=== PATIENT | male | born 1935 ===

== ENCOUNTER 2022-01-22 07:24 | Outpatient (REF) | payer MEDICARE, SELFPAY ==
[2022-01-22 07:28] LABS: MANUAL DIFF FLAG NO
[2022-01-22 07:51] LABS: Basophils Absolute Auto 0.1 X10*3/uL (0.0-0.2); Basophils Percent Auto 0.6 % (0-2); Eosinophils Absolute Auto 0.2 X10*3/uL (0.0-0.4); Hematocrit 28.8 % (42.0-52.0); Hemoglobin 9.1 g/dl (14.0-18.0); Imm Gran Abs Auto 0.01 X10*3/uL (0.00-0.03); Imm Gran Pct Auto 0.1 % (0.0-0.4); Lymphocytes Absolute Auto 0.9 X10*3/uL (1.2-4.9); Lymphocytes Percent Auto 11.6 % (20-40); Mean Corpuscular HGB Conc 31.6 g/dl (31.0-36.0); Mean Corpuscular Hemoglobin 29.3 pg (27.0-33.0); Mean Corpuscular Volume 92.6 fL (80.0-98.0); Monocytes Absolute Auto 0.7 X10*3/uL (0.1-1.2); Monocytes Percent Auto 8.7 % (2-11); Neutrophils Absolute Auto 6.2 x10*3/uL (2.0-8.3); Platelet Count 246 X10*3/uL (160-400); Red Blood Count 3.11 X10*6/uL (4.60-5.80); Red Cell Distribution Width 12.7 % (11.0-16.0); White Blood Count 8.1 X10*3/uL (4.8-10.8)
[2022-01-22 08:16] LABS: Alanine Aminotransferase 11 U/L (0-40); Albumin Level 3.3 g/dL (3.5-5.0); Alkaline Phosphatase 111 U/L (39-117); Anion Gap 13 (12-20); Aspartate Amino Transferase 16 U/L (5-37); Bilirubin Total 0.3 mg/dL (0.0-1.0); Blood Urea Nitrogen 34 mg/dL (9-16); Calcium 9.2 mg/dL (8.4-10.2); Carbon Dioxide 26 mmol/L (22-29); Chloride 106 mmol/L (96-108); Estimated Glomerular Filt Rate 29; Glucose Random 142 mg/dL (60-115); Potassium 5.5 mmol/L (3.3-5.1); Sodium 139 mmol/L (135-145); Total Protein 6.3 g/dL (6.5-8.0)
== END 2022-01-22 07:25 | disposition home or self-care (01) ==
LOC: HO.MMNH1L 07:24
PROVIDERS: Visit Provider Family Medicine
DX: I10 Essential (primary) hypertension (principal); E11.9 Type 2 diabetes mellitus without complications
CPT/HCPCS: 36415; 80053; 85025

== ENCOUNTER 2022-01-29 07:55 | Outpatient (REF) | payer MEDICARE, SELFPAY ==
[2022-01-29 07:52] LABS: Basophils Percent Auto 0.6 % (0-2); Eosinophils Absolute Auto 0.3 X10*3/uL (0.0-0.4); Eosinophils Percent Auto 3.5 % (0-4); Hematocrit 30.9 % (42.0-52.0); Hemoglobin 9.6 g/dl (14.0-18.0); Imm Gran Abs Auto 0.03 X10*3/uL (0.00-0.03); Imm Gran Pct Auto 0.4 % (0.0-0.4); Lymphocytes Absolute Auto 0.7 X10*3/uL (1.2-4.9); Lymphocytes Percent Auto 10.4 % (20-40); MANUAL DIFF FLAG SCAN; Mean Corpuscular HGB Conc 31.1 g/dl (31.0-36.0); Mean Corpuscular Hemoglobin 29.5 pg (27.0-33.0); Mean Corpuscular Volume 95.1 fL (80.0-98.0); Mean Platelet Volume 10.4 fL (9.4-12.4); Monocytes Absolute Auto 0.7 X10*3/uL (0.1-1.2); Monocytes Percent Auto 9.4 % (2-11); Neutrophils Absolute Auto 5.4 x10*3/uL (2.0-8.3); Neutrophils Percent Auto 75.7 % (45-73); PLT CLUMP 1; Red Blood Count 3.25 X10*6/uL (4.60-5.80); Red Cell Distribution Width 13.1 % (11.0-16.0); SCAN SMEAR FLAG 1
[2022-01-29 07:53] LABS: Platelet Count 236 X10*3/uL (160-400); White Blood Count 7.1 X10*3/uL (4.8-10.8)
[2022-01-29 08:35] LABS: SLIDE REVIEW VERIFIED
== END 2022-01-29 07:56 | disposition home or self-care (01) ==
LOC: HO.MMNH1L 07:55
PROVIDERS: Visit Provider Family Medicine
DX: I10 Essential (primary) hypertension (principal); E11.9 Type 2 diabetes mellitus without complications
CPT/HCPCS: 36415; 80048; 85025

== ENCOUNTER 2022-01-30 10:23 | Outpatient (REF) | payer MEDICARE, SELFPAY ==
[2022-01-30 05:22] LABS: MANUAL DIFF FLAG NO
[2022-01-30 05:32] LABS: Basophils Percent Auto 0.4 % (0-2); Eosinophils Absolute Auto 0.3 X10*3/uL (0.0-0.4); Eosinophils Percent Auto 4.5 % (0-4); Hematocrit 31.5 % (42.0-52.0); Hemoglobin 9.8 g/dl (14.0-18.0); Imm Gran Abs Auto 0.02 X10*3/uL (0.00-0.03); Imm Gran Pct Auto 0.3 % (0.0-0.4); Lymphocytes Absolute Auto 0.8 X10*3/uL (1.2-4.9); Lymphocytes Percent Auto 10.4 % (20-40); Mean Corpuscular HGB Conc 31.1 g/dl (31.0-36.0); Mean Corpuscular Hemoglobin 29.4 pg (27.0-33.0); Mean Corpuscular Volume 94.6 fL (80.0-98.0); Mean Platelet Volume 9.6 fL (9.4-12.4); Monocytes Absolute Auto 0.9 X10*3/uL (0.1-1.2); Monocytes Percent Auto 11.9 % (2-11); Neutrophils Absolute Auto 5.5 x10*3/uL (2.0-8.3); Neutrophils Percent Auto 72.5 % (45-73); Platelet Count 227 X10*3/uL (160-400); Red Blood Count 3.33 X10*6/uL (4.60-5.80); Red Cell Distribution Width 13.2 % (11.0-16.0); White Blood Count 7.6 X10*3/uL (4.8-10.8)
[2022-01-30 05:59] LABS: Anion Gap 13 (12-20); Blood Urea Nitrogen 25 mg/dL (9-16); Calcium 9.4 mg/dL (8.4-10.2); Carbon Dioxide 22 mmol/L (22-29); Chloride 110 mmol/L (96-108); Estimated Glomerular Filt Rate 30; Glucose Random 65 mg/dL (60-115); Potassium 4.6 mmol/L (3.3-5.1); Sodium 140 mmol/L (135-145)
== END 2022-01-30 10:24 | disposition home or self-care (01) ==
LOC: HO.MMNH1L 10:23
PROVIDERS: Visit Provider Family Medicine
DX: I10 Essential (primary) hypertension (principal); E11.9 Type 2 diabetes mellitus without complications
CPT/HCPCS: 36415; 80048; 85025

== ENCOUNTER → 2022-06-08 09:54 | Outpatient (BNVA) | payer MEDICARE, SELFPAY | PROVIDERS: PCP Student in an Organized Health Care Education/Training Program; Visit Provider Internal Medicine Endocrinology, Diabetes & Metabolism | DX: E11.29 Type 2 diabetes mellitus with other diabetic kidney complication (principal) | CPT/HCPCS: 82947; 83036; 99202 ==

== ENCOUNTER → 2022-08-08 10:42 | Outpatient (BNVA) | payer MEDICARE, SELFPAY | PROVIDERS: PCP Student in an Organized Health Care Education/Training Program; Visit Provider Dietitian, Registered | DX: E11.29 Type 2 diabetes mellitus with other diabetic kidney complication (principal) | CPT/HCPCS: 97802 ==

== ENCOUNTER 2022-09-07 10:09 | Outpatient (AMB) | payer MEDICARE, SELFPAY ==
--- NOTE | 2022-09-07 10:47 | A.OFFVIS_ITS ---
Intake Intake Visit Reasons: Diabetes Type 2 Allergies No Known Allergies Allergy (Verified 06/08/22 10:06) [facility] [place] Medical History (Updated 06/08/22 @ 10:03 by Faustino Valdivia MD) DM renal manif type II Surgical History Hx of blepharoplasty Hx of cataract surgery Hx of colonoscopy Hx of lymph node excision Hx of melanoma excision Family History Mother No problems noted. Father Alzheimer disease Social History Alcohol intake: current Alcohol intake frequency: a few times a month Patient Tobacco Use Status: Former Tobacco user Quit Date: 2009 Coding Diagnoses
--- NOTE | 2022-09-07 10:52 | A.OFFVIS_ITS ---
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 Required: No Accompanied by: Spouse Allergies No Known Allergies Allergy (Verified 06/08/22 10:06) [facility] Comprehensive Diabetes Asmnt Most Recent Diabetes Results: Creatinine 2.09 mg/dL (0.5-1.4) H 01/30/22 Blood Urea Nitrogen 25 mg/dL (9-16) H 01/30/22 Sodium 140 mmol/L (135-145) 01/30/22 Potassium 4.6 mmol/L (3.3-5.1) 01/30/22 Chloride 110 mmol/L (96-108) H 01/30/22 Carbon Dioxide 22 mmol/L (22-29) 01/30/22 Calcium 9.4 mg/dL (8.4-10.2) 01/30/22 AST 16 U/L (5-37) 01/22/22 ALT 11 U/L (0-40) 01/22/22 Total Protein 6.3 g/dL (6.5-8.0) L 01/22/22 Albumin 3.3 g/dL (3.5-5.0) L 01/22/22 [facility] Medical History (Updated 06/08/22 @ 10:03 by Faustino Valdivia MD) DM renal manif type II Surgical History Hx of blepharoplasty Hx of cataract surgery Hx of colonoscopy Hx of lymph node excision Hx of melanoma excision Family History Mother No problems noted. Father Alzheimer disease Social History Alcohol intake: current Alcohol intake frequency: a few times a month Patient Tobacco Use Status: Former Tobacco user Quit Date: 2009 Assessment & Plan Assessment & Plan (1) DM renal manif type II: Code(s): E11.29 - Type 2 diabetes mellitus with other diabetic kidney complication Plan: Learning objectives: The patient was provided with verbal and written education on the following to pics as outlined below. The patient met all learning objectives and was able to verbalize understanding and provide teach back of education topics discussed . The patient was provided with the opportunity to ask questions and all questions were answered. Patient Assessment Assess patient education level/literacy/barriers, patient has diagnosis of dementia, his is his primary medical science liaison Patient questions/concerns, patient here with his for Education visit. Patient's last A1c 8 point in May 2022. Patient using freestyle Salma 2 Average glucose in the past 2 weeks 155 mg/dL Above target 33% At target 62% Below target 5% Patient's reports although Lantus prescription reads Lantus 40 units daily, she gives him closer to 30-35 units depending on his blood sugar before bed. Reviewed with patient action of Lantus. Recommended patient get Lantus 28 units consistently every night. If hypoglycemia continues call extension educator for further adjustment Patient is also taking Trulicity 1.5 mg week Exercise Medical clearance Effect of exercise on blood sugar Start slowly and gradually increase pace/duration over time Goal amount of exercise Checking blood glucose/have a source of carbs with you Medications (If applicable) * Name of medication * Dosing/administration instructions * Mechanism of action * Potential side effects * Potential adverse reaction and appropriate treatment * Review onset, peak, duration Assess for concerns re: insurance coverage, cost, barriers to compliance Insulin/Injectables (If applicable) * Storage/care of insulin * Injection sites * Site rotation * Onset, peak, duration * Drawing up insulin * Injecting insulin/other injectables * Sharps disposal Continuous blood glucose monitoring (if applicable) Hypoglycemia and Hyperglycemia * Signs and symptoms * Causes * Treatment * Preventing hypoglycemia * When to seek medical attention Medical alert bracelet Lifestyle * Work * Travel * Stress management * Problem solving Know your goals * A1C * Blood sugar targets New Goal:? Patient will add 15 minutes of physical activity daily Educational Materials: The patient was provided with the following written educational materials: Target goal and chair exercise handouts Patient Response to instructions: Comprehension of Instructions: Readiness to make changes: How confident they feel about making changes: Patient Instructions: Include regular daily activity. ADA recommends 30 minutes of exercise 5 days a week. Weight loss talk to PCP or Hog Ribber before starting new plan. Test blood sugar as directed; Fasting and 2hpp largest meal. Watch trends in results. Utilize results and to assess how food, physical activity and medications affect blood sugar results. Bring glucometer or CGM to next visit. Be knowledgeable about diabetes medication, its action, side effects, efficacy, toxicity, prescribed dosage, appropriate timing and frequency of administration, effect of missed and delayed doses and instructions for storage, travel and safety. Follow-up with Diabetes Education nurse in 3 months Reduce Lantus from 30 units to 28 units daily Call Diabetes Education nurse if hypoglycemia continues Coding Level of Care Code Est Pt Level 1 (97407) Diagnoses DM renal manif type II E11.29
== END 2022-09-07 10:55 | disposition home or self-care (01) ==
LOC: HO.ENCR 10:09
PROVIDERS: PCP Student in an Organized Health Care Education/Training Program; Visit Provider Registered Nurse Diabetes Educator
DX: E11.29 Type 2 diabetes mellitus with other diabetic kidney complication (principal)

== ENCOUNTER → 2022-09-07 10:09 | Outpatient (BNVA) | payer MEDICARE, SELFPAY | PROVIDERS: PCP Student in an Organized Health Care Education/Training Program; Visit Provider Registered Nurse Diabetes Educator | DX: E11.29 Type 2 diabetes mellitus with other diabetic kidney complication (principal) | CPT/HCPCS: 99211 ==

== ENCOUNTER 2022-11-22 14:14 | Outpatient (AMB) | payer MEDICARE, SELFPAY ==
[2022-11-22 14:15] VITALS: BP 126/58; PULSE 84; BMI 32.8
--- NOTE | 2022-11-22 14:15 | MHC.OFFVIS ---
Intake Vital Signs 11/22/22 14:15 Height 5 ft 4 in Weight 191 lb 5.78 oz BMI 32.8 BP 126/58 L Blood Pressure Location Lt brachial Position Sitting Pulse 84 Pulse Source Pulse Oximeter Intake Visit Reasons: Diabetes Type 2-NUMBER NOT IN SERV Intake Note: Patient present today to follow up on Type 2 Diabetes Mellitus. Last Diabetic Eye exam: 11/22/2022 Last Podiatry Visit: None Random Glucose: 244 mg/dl HgA1C: 8.1% Column Precaster Required: No Accompanied by: Spouse Allergies No Known Allergies Allergy (Verified 11/22/22 14:45) HPI HPI Comments History of Present Illness Details 87 YO F who is seen in consultation for T2DM at the request of PCP. Initially diagnosed with T2DM in 30 yrs - . Was initially started on treatment with metformin . Current regimen Trulicity 1.5 mg Qwkly Lantus 28 units Salma download shows he is using the sensor 67% of the time. Average glucose 186 with variability of 34.4%. Target glucose is 42% with 38% hyperglycemia and 16% very hyperglycemic and 4% hypoglycemia. Hypoglycemia is occurring overnight Most recent A1C 8.1 , Family history of T2DM in children . Has eyes checked yearly, last eye exam last wk , denies retinopathy. Denies neuropathy, not sees podiatry. Has nephropathy, on LALI/ARB. Sees Dr Ranjan Pro of nephrology Has HLD, on statin. Denies CAD. Had diabetes education. [facility] Medical History (Updated 06/08/22 @ 10:03 by Faustino Valdivia MD) DM renal manif type II Surgical History Hx of cataract surgery Hx of blepharoplasty Hx of colonoscopy Hx of lymph node excision Hx of melanoma excision Family History Mother No problems noted. Father Alzheimer disease Social History Alcohol intake: current Alcohol intake frequency: a few times a month Patient Tobacco Use Status: Former Tobacco user Quit Date: 2009 Physical Exam Vital Signs: Last Vital Signs Pulse 84 11/22/22 14:15 BP 126/58 L 11/22/22 14:15 BMI result Body Mass Index 32.8 Absence of Cushingoid features. Absence of acromegalic features. Neck exam reveals nl size thyroid about 15 gms. No thyroid nodules palpable. No carotid bruits present. Lungs CTA. Heart S1 S2, Reg R/R. No M/R/ G. Skin exam reveals absence of vitiligo or acanthosis nigricans. Abdominal exam reveals Soft NT/ND with NA BS. No organomegaly present. Neck Other: . Extrem Other: Visual exam of foot performed. No ulcerations or open lesions. No onchomycosis, no callouses.Pulses 2 + distally Sensation intact to monofilament exam. Vibratory sensation sensed is intact with 128 Hz tuning fork Results AMB Hemoglobin A1c AMB Hemoglobin A1c 8.1 % Last Edit by Yulisa Ramirez on 11/22/22 14:57 Results Reviewed Results Reviewed: 11/22/22 14:48 Glucose, Whole Blood Routine Laboratory Last Values Glucose (Clinic) 244 mg/dL (60-115) H 11/22/22 14:48 Assessment & Plan Assessment & Plan (1) DM renal manif type II: Code(s): E11.29 - Type 2 diabetes mellitus with other diabetic kidney complication Plan: Is a 87-year-old male with a history of type 2 diabetes being treated with Trulicity and basal insulin with poor glycemic control and known microvascular complications namely CKD stage 4. Plan is to decrease the Lantus to 30 units. In light of multiple comorbidities and age of patient goal of hemoglobin A1c should be < 8.5%. . Will send back to primary care provider and to return to endocrinology should HbA1c deteriorate Orders: Orders AMB Hemoglobin A1c Today E11.29 - Type 2 diabetes mellitus with other diabetic kidney complication Coding Level of Care Code Est Pt Level 4 (49688) Diagnoses DM renal manif type II E11.29
== END 2022-11-22 15:06 | disposition home or self-care (01) ==
PROVIDERS: PCP Student in an Organized Health Care Education/Training Program; Visit Provider Internal Medicine Endocrinology, Diabetes & Metabolism
DX: E11.29 Type 2 diabetes mellitus with other diabetic kidney complication (principal)
CPT/HCPCS: 99214

== ENCOUNTER → 2022-11-22 14:14 | Outpatient (BNVA) | payer MEDICARE, SELFPAY | PROVIDERS: Visit Provider Internal Medicine Endocrinology, Diabetes & Metabolism | DX: E11.29 Type 2 diabetes mellitus with other diabetic kidney complication (principal); Z79.85 Long-term (current) use of injectable non-insulin antidiabetic drugs; Z79.4 Long term (current) use of insulin | CPT/HCPCS: 82947; 83036; 99212 ==

== ENCOUNTER 2023-09-10 23:19 | Inpatient (IN) | payer MEDICARE, SELFPAY ==
--- NOTE | ~2023-09-10 | CT_ITS ---
EXAMINATION: CT ABDOMEN AND PELVIS WITHOUT CONTRAST CLINICAL INFORMATION: Follow-up prior imaging. COMPARISON: 09/11/2023 TECHNIQUE: Multidetector volumetric imaging was performed from the superior aspect of the liver through the pubic symphysis. Sagittal and coronal reformatted images were obtained on the technologist's workstation. This CT examination was performed using dose optimization techniques as appropriate, variously including the following: *Automated exposure control *Adjustment of mA and/or kV according to patient size (this includes techniques or standardized protocols for targeted exams where dose is matched to indication/reason for exam; i.e. extremities or head) *Use of iterative reconstruction technique DLP: 907 mGy-cm FINDINGS: Motion artifact technically degrades image quality. LUNG BASES: Patchy airspace disease in the right lower lobe. Bilateral pleural effusions. LIVER, GALLBLADDER, AND BILIARY TREE: The noncontrast liver is normal in size and contour. No biliary ductal dilatation is present. Possible hyperdense sludge in the gallbladder. PANCREAS: Unremarkable. SPLEEN: Not enlarged. ADRENAL GLANDS: No adrenal mass. KIDNEYS AND URETERS: The kidneys are symmetric in size. There are bilateral nonobstructing renal calculi. No hydronephrosis. Nonspecific perinephric stranding. BLADDER: Underdistended. GASTROINTESTINAL TRACT: Slight interval improvement in inflammatory changes in the right lower quadrant compared to the prior study. There is persistent mild dilatation of the appendix. No small bowel obstruction. ABDOMINAL WALL: Fat-containing left inguinal hernia. LYMPH NODES: No bulky lymphadenopathy. VASCULAR: Normal caliber abdominal aorta. PELVIC VISCERA: Enlarged prostate gland. OSSEOUS STRUCTURES: Increased sclerosis of the femoral heads. CT/CT abdomen pelvis wo IV con IMPRESSION: Slight interval improvement in inflammatory changes in the right lower quadrant compared to the prior study. Persistent mild dilatation of the appendix measuring up to 8 mm. Possible hyperdense sludge in the gallbladder. Nonobstructing bilateral renal calculi. No hydronephrosis. Patchy airspace disease in the right lower lobe. Bilateral pleural effusions.
--- NOTE | ~2023-09-10 | MR_ITS ---
EXAMINATION: MR BRAIN WITHOUT CONTRAST CLINICAL INFORMATION: AMS, r/o CVA COMPARISON: Same day noncontrast head CT. TECHNIQUE: Multiplanar multisequence MR imaging of the brain was obtained without intravenous contrast. FINDINGS: Please note that axial T2-weighted imaging of the brain was inadvertently not performed. There is no acute infarct on diffusion-weighted imaging. There is no intracranial hemorrhage on iron-sensitive imaging. No extra-axial collection or mass effect/herniation. Scattered periventricular and deep white matter T2 FLAIR hyperintensities consistent with mild underlying microangiopathy. No hydrocephalus. Moderate generalized volume loss with commensurate sulcal and ventricular prominence. The midline structures are normal. The cerebellar tonsils are normally positioned. The craniocervical junction is normal. Marrow signal is within normal limits. There is soft tissue thickening and scarring along the posterior scalp with underlying T1 hypointense marrow signal with corresponding sclerosis on CT. There is complete opacification of the sphenoid sinus heterogeneous predominantly FLAIR hypointense and T1 hyperintense contents extending into the posterior left ethmoid sinus. MR/MR head/brain wo con IMPRESSION: Motion degraded examination. Please note that axial T2-weighted sequence of the brain was inadvertently not performed as well 1. No acute infarct or other acute intracranial abnormality. 2. Moderate generalized cerebral volume loss and mild chronic white matter microangiopathy. 3. Complete opacification of the sphenoid sinus with heterogeneous predominantly T1 hyperintense and FLAIR hypointense contents extending into the posterior left ethmoid with corresponding reduced diffusion, likely reflecting sequela of chronic sinusitis with inspissated secretions and/or fungal colonization 4. There is thinning of the posterior parietal scalp with underlying calvarial T1 hypointense marrow signal with corresponding sclerosis on CT, which may reflect sequela of prior surgery and posttreatment changes. Correlate with clinical history.
--- NOTE | ~2023-09-10 | CT_ITS ---
EXAMINATION: CT ABDOMEN AND PELVIS WITHOUT CONTRAST CLINICAL INFORMATION: Acute abdomen, question appendicitis COMPARISON: None available. TECHNIQUE: Multidetector volumetric imaging was performed from the superior aspect of the liver through the pubic symphysis. Sagittal and coronal reformatted images were obtained on the technologist's workstation. This CT examination was performed using dose optimization techniques as appropriate, variously including the following: *Automated exposure control *Adjustment of mA and/or kV according to patient size (this includes techniques or standardized protocols for targeted exams where dose is matched to indication/reason for exam; i.e. extremities or head) *Use of iterative reconstruction technique DLP: 641 mGy-cm FINDINGS: LUNG BASES: Mild subpleural reticulation opacities suggesting a component of atelectasis. Coronary artery calcifications. LIVER, GALLBLADDER, AND BILIARY TREE: The liver is normal in size, shape, and attenuation. No focal hepatic lesion or biliary ductal dilatation is identified on this noncontrast exam. The gallbladder is unremarkable with no evidence of radiopaque gallstones, gallbladder wall thickening, or obvious pericholecystic inflammatory changes. PANCREAS: Unremarkable. SPLEEN: Unremarkable. ADRENAL GLANDS: Unremarkable. KIDNEYS AND URETERS: No hydronephrosis or obstructing calculus bilaterally. Few small scattered right renal calculi are noted. Nonspecific bilateral perinephric stranding. BLADDER: Partially distended, grossly unremarkable. GASTROINTESTINAL TRACT: No evidence of bowel obstruction. Limited evaluation for wall thickening within much of the colon due to luminal collapse. There is prominence of submucosal fat in the ascending colon which can be seen as sequelae of prior inflammation. Appendix appears borderline dilated in the right abdomen with some adjacent stranding such as on axial image 51. Scattered small amount of fluid in the lower abdomen bilaterally. Of note, there is also mild stranding seen elsewhere in the mesentery. No free air is seen. ABDOMINAL WALL: Fat-containing left inguinal hernia. LYMPH NODES: Normal. VASCULAR: Extensive vascular calcification. PELVIC VISCERA: Enlarged prostate gland measures approximately 5.5 cm in transverse dimension. OSSEOUS STRUCTURES: Multilevel degenerative changes in the spine. CT/CT abdomen pelvis wo IV con IMPRESSION: 1. Appendix appears borderline dilated in the right abdomen with some adjacent stranding, which could be indicative of mild/early acute appendicitis in the proper clinical setting. However, there is also mild stranding elsewhere in the mesentery as well as a small amount of free fluid in the lower abdomen which is nonspecific. 2. No hydronephrosis or obstructing calculus. Few small scattered right renal calculi. 3. Enlarged prostate gland.
--- NOTE | ~2023-09-10 | CT_ITS ---
EXAMINATION: CT ABDOMEN AND PELVIS WITHOUT CONTRAST CLINICAL INFORMATION: Right lower quadrant pain COMPARISON: None available. TECHNIQUE: Multidetector volumetric imaging was performed from the superior aspect of the liver through the pubic symphysis. Sagittal and coronal reformatted images were obtained on the technologist's workstation. This CT examination was performed using dose optimization techniques as appropriate, variously including the following: *Automated exposure control *Adjustment of mA and/or kV according to patient size (this includes techniques or standardized protocols for targeted exams where dose is matched to indication/reason for exam; i.e. extremities or head) *Use of iterative reconstruction technique DLP: 794 mGy-cm FINDINGS: STEAM TRAP MAN: Nonspecific bowel pattern. Mild L4 compression deformity. LUNG BASES: Small bilateral effusions and bibasilar atelectasis. Tiny pericardial effusion. Prominent cardiac silhouette. LIVER, GALLBLADDER, AND BILIARY TREE: The liver is normal in size, shape, and attenuation. No focal hepatic lesion or biliary ductal dilatation is present. The gallbladder is decompressed with no evidence of radiopaque gallstones, gallbladder wall thickening, or obvious pericholecystic inflammatory changes. PANCREAS: Unremarkable. SPLEEN: Unremarkable. ADRENAL GLANDS: Unremarkable. KIDNEYS AND URETERS: The kidneys are normal in size, shape, and attenuation. No hydronephrosis or hydroureter. Few very small nonobstructing right renal calculi, largest measuring 3 mm in the lower pole. Nonspecific mild perinephric stranding. BLADDER: Unremarkable. GASTROINTESTINAL TRACT: Study limited without oral contrast. Decompressed stomach. Hyperdensity in the duodenum likely ingested material. Nonobstructive bowel pattern. Persistent mildly thickened appendix but less prominent than on 09/11/2023 study, 3:42. No increasing periappendiceal inflammatory changes. Fatty infiltration of the ascending colonic jamison. Redundant sigmoid colon. PERITONEUM: Interval development of small volume ascites. ABDOMINAL WALL: Fat filled inguinal and small umbilical hernias. Likely injection sites anterior abdomen. LYMPH NODES: No pathologic lymphadenopathy. VASCULAR: Atherosclerotic calcifications nonaneurysmal aorta. PELVIC VISCERA: Prominent prostate again noted. OSSEOUS STRUCTURES: Mild L4 compression deformity. CT/CT abdomen pelvis wo IV con IMPRESSION: Interval development of small volume ascites. Worsening anasarca. Small bilateral effusions and tiny pericardial effusion. Study limited by lack of oral contrast. No definite bowel pathology. No change borderline thickened appendix with no evidence of focal periappendiceal inflammatory changes. Fleischner guidelines were followed.
--- NOTE | ~2023-09-10 | CT_ITS ---
EXAMINATION: CT HEAD WITHOUT CONTRAST CLINICAL INFORMATION: History of dementia, now presents with mental confusion, agitation and hallucinations COMPARISON: CT scan of brain on 04/07/2018 TECHNIQUE: Contiguous axial imaging was performed from the skull base to vertex without intravenous administration of contrast. This CT examination was performed using dose optimization techniques as appropriate, variously including the following: *Automated exposure control *Adjustment of mA and/or kV according to patient size (this includes techniques or standardized protocols for targeted exams where dose is matched to indication/reason for exam; i.e. extremities or head) *Use of iterative reconstruction technique DLP: 872 mGy-cm FINDINGS: Ventricles, sulci and cisterns are dilated, including moderate ventriculomegaly. Bilateral frontal and parietal deep white matters show abnormal decrease in attenuation. There is no midline shift, no abnormal intra- or extra- axial fluid accumulation. Scott and white matter differentiation is normal. Bone window images show no evidence of skull fracture. There is complete opacification of bilateral sphenoid sinuses. CT/CT head/brain wo IV con IMPRESSION: 1. 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 2. No intracranial hemorrhage or skull fracture is seen. 3. No evidence of space occupying lesion could be found. 4. The current plain CT scan of the brain shows no diagnostic evidence of acute cerebral infarction. 5. Interval development of marked bilateral sphenoid sinusitis.
--- NOTE | ~2023-09-10 | US_ITS ---
EXAMINATION: US ABDOMEN COMPLETE CLINICAL INFORMATION: Abdominal pain. COMPARISON: CT abdomen pelvis September 13, 2023 TECHNIQUE: Real-time imaging of the abdominal viscera. Date examination is limited secondary to patient body habitus and overlying bowel gas. FINDINGS: PANCREAS: The pancreas was obscured by overlying bowel gas and therefore not evaluated. ABDOMINAL AORTA: The abdominal aorta is obscured by overlying bowel gas and therefore not accurately evaluated. INFERIOR VENA CAVA: Visualized portions are normal. LIVER: Normal. The liver is normal in size. The liver contour is normal. Parenchymal echogenicity is normal. No focal hepatic lesion. There is no intrahepatic biliary duct dilatation seen. GALLBLADDER: Normal. The gallbladder is physiologically distended without evidence of stones, sludge, polyps, wall thickening or pericholecystic fluid. Negative sonographic Lovett's sign. COMMON BILE DUCT: 0.8 cm in diameter. RIGHT KIDNEY: The kidney measures 10.2 cm in maximum dimension. 1.5 cm simple appearing cyst. No renal calculi or hydronephrosis. LEFT KIDNEY: Normal. No hydronephrosis. No renal calculi or focal parenchymal lesions. The kidney measures 11.9 cm in maximum dimension. SPLEEN: Normal. The spleen measures 10.9 cm in maximum dimension. FREE FLUID: None. US/US abdomen complete IMPRESSION: 1. Examination limited secondary to patient body habitus and overlying bowel gas. 2. Small right renal cyst. 3. Otherwise unremarkable sonographic imaging of the abdomen.
--- NOTE | ~2023-09-10 | XR_ITS ---
EXAMINATION: XR CHEST CLINICAL INFORMATION: Bilateral end-expiratory wheezing COMPARISON: None available. TECHNIQUE: Frontal view of the chest was obtained. FINDINGS: Lung volumes are symmetric. There is a diffusely coarsened appearance of the interstitium. No definite focal consolidation. No evidence of pneumothorax or significant pleural effusion. The cardiomediastinal contour is unremarkable. No acute osseous findings are seen. XR/XR chest 1V IMPRESSION: Diffusely coarsened appearance of the interstitium, which could reflect airways disease/bronchitis. In the proper clinical setting, mild interstitial edema could have a similar appearance.
[2023-09-10 23:31] VITALS: BP 137/63; PULSE 89; RESP 18; TEMP 36.6; O2SAT 95; BMI 29.2
[2023-09-11] VITALS (8 sets, daily range): BP systolic 99–187; BP diastolic 55–91; PULSE 72–88; RESP 15–18; TEMP 36.1–37.1; O2SAT 92–95; BMI 31.3
[2023-09-11 00:10] LABS: Basophils Percent Auto 0.2 % (0-2); Eosinophils Absolute Auto 0.1 X10*3/uL (0.0-0.4); Eosinophils Percent Auto 1.2 % (0-4); Hematocrit 35.8 % (42.0-52.0); Hemoglobin 11.7 g/dl (14.0-18.0); Imm Gran Abs Auto 0.04 X10*3/uL (0.00-0.03); Imm Gran Pct Auto 0.5 % (0.0-0.4); Lymphocytes Absolute Auto 0.4 X10*3/uL (1.2-4.9); Lymphocytes Percent Auto 4.5 % (20-40); MANUAL DIFF FLAG SCAN; Mean Corpuscular HGB Conc 32.7 g/dl (31.0-36.0); Mean Corpuscular Hemoglobin 30.6 pg (27.0-33.0); Mean Corpuscular Volume 93.7 fL (80.0-98.0); Mean Platelet Volume 9.7 fL (9.4-12.4); Monocytes Absolute Auto 0.1 X10*3/uL (0.1-1.2); Monocytes Percent Auto 1.1 % (2-11); Neutrophils Absolute Auto 8.2 x10*3/uL (2.0-8.3); Neutrophils Percent Auto 92.5 % (45-73); Platelet Count 150 X10*3/uL (160-400); Red Blood Count 3.82 X10*6/uL (4.60-5.80); Red Cell Distribution Width 12.4 % (11.0-16.0); SCAN SMEAR FLAG 1; White Blood Count 8.9 X10*3/uL (4.8-10.8)
[2023-09-11 00:27] LABS: SLIDE REVIEW VERIFIED
[2023-09-11 00:36] LABS: Alanine Aminotransferase 13 U/L (0-40); Albumin Level 3.8 g/dL (3.5-5.0); Alkaline Phosphatase 100 U/L (39-117); Anion Gap 16 (12-20); Aspartate Amino Transferase 15 U/L (5-37); Bilirubin Total 0.4 mg/dL (0.0-1.0); Blood Urea Nitrogen 34 mg/dL (9-16); Calcium 10.4 mg/dL (8.4-10.2); Carbon Dioxide 24 mmol/L (22-29); Chloride 103 mmol/L (96-108); Creatinine Clr Calc Pharmacy 15.6; Estimated Glomerular Filt Rate 18; Glucose Random 222 mg/dL (60-115); Lipase 27 U/L (8-78); Potassium 4.6 mmol/L (3.3-5.1); Sodium 138 mmol/L (135-145); Total Protein 7.1 g/dL (6.5-8.0)
[2023-09-11] MEDS: 0.9 % Sodium Chloride 1,000 ML 999 ML IV ×2 (01:35→05:44)
[2023-09-11] MEDS: ondansetron HCL 4 MG/2 ML VIAL IVPUSH (01:35)
[2023-09-11] MEDS: Morphine Sulfate 4 MG/ML CARTRIDGE IVPUSH (01:35)
[2023-09-11 02:00] LABS: Lactic Acid 2.1 mmol/L (0.5-2.0)
--- NOTE | 2023-09-11 02:40 | ED_ITS ---
HPI - Abdominal Pain General Chief Complaint: Abdominal Pain Stated Complaint: right sided pain Time Seen by Provider: 09/11/23 00:30 Source: patient Mode of arrival: ambulatory Limitations: no limitations History of Present Illness ED Provider: el MCLEOD narrative: Patient's history of diabetes no significant abdominal complaints in the past comes here for pain in lower abdomen especially more on the right side started an hour prior to arrival history with nausea had a loose bowel movement on arrival was diaphoretic at home never had similar complaints in the past no blood in his stool no fever or chills no history of kidney stone patient feels slightly bloated Related Data Home Medications ?Medication ?Instructions ?Recorded ?Confirmed atorvastatin 40 mg tablet 40 mg PO BEDTIME 05/28/22 blood sugar diagnostic (FreeStyle #10 ea 05/28/22 Lite Strips) dulaglutide 1.5 mg/0.5 mL 1.5 mg subcut QWEEK 05/28/22 subcutaneous pen injector ([employer]) lancets 28 gauge (FreeStyle #100 ea 05/28/22 Lancets) lisinopril 40 mg tablet 40 mg PO DAILY 05/28/22 magnesium oxide 400 mg (241.3 mg 400 mg PO DAILY 05/28/22 magnesium) tablet memantine 5 mg tablet 5 mg PO BID 05/28/22 pen needle, diabetic 31 gauge x #1,200 ea 05/28/22/ (BD Ultra-Fine Short Pen Needle) propranolol 80 mg capsule,24 80 mg PO DAILY 05/28/22 hr,extended release torsemide 20 mg tablet 20 mg PO DAILY 05/28/22 escitalopram oxalate 20 mg tablet 20 mg PO DAILY 06/08/22 insulin glargine 100 unit/mL (3 40 unit subcut 06/08/22 mL) subcutaneous pen (Lantus Solostar U-100 Insulin) tamsulosin 0.4 mg capsule 0.4 mg PO DAILY 06/08/22 Previous Rx's ?Medication ?Instructions ?Recorded blood-glucose meter (FreeStyle #1 ea 06/08/22 Mcgill kit) flash glucose scanning reader #1 ea 06/08/22 (FreeStyle Salma 2 [place]) flash glucose sensor (FreeStyle #2 ea 09/07/22 Salma 2 Sensor kit) Allergies Allergy/AdvReac Type Severity Reaction Status Date / Time No Known Allergies Allergy Verified 09/10/23 23:32 Review of Systems Review of Systems Yes all other systems are reviewed and are negative [facility] Past Medical History Medical History DM renal manif type II Surgical History Hx of cataract surgery Hx of blepharoplasty Hx of colonoscopy Hx of lymph node excision Hx of melanoma excision Family History Family History Mother No problems noted. Father Alzheimer disease Social History Social History Alcohol intake: current Alcohol intake frequency: does not drink Patient Tobacco Use Status: Former Tobacco user Smoked in Last 30 Days: No Use of substances other than those prescribed or required for medical reasons: No Advance Directives: Yes Advance Directives Information Provided: No Advance Directives on File: No Nutrition Risks: Difficulty chewing and Difficulty swallowing Physical Exam ED Vital Signs: Vital Signs - 24 hr 09/10/23 23:31 09/11/23 01:22 09/11/23 01:51 Temperature 97.9 F 98.7 F 98.6 F Pulse Rate 89 85 85 Respiratory Rate 18 18 16 Blood Pressure 137/63 187/81 H 187/81 H Pulse Oximetry 95 92 93 Oxygen Delivery Method Room Air Room Air Room Air BMI result Body Mass Index 29.2 Appearance: Alert. Oriented X3. No acute distress. Eyes: No pallor or icterus ENT: Pharynx normal. Oral Mucosa moist Neck: Normal inspection. Neck supple. CVS: Normal heart rate and rhythm. Pulses normal. Respiratory: No respiratory distress. Equal air entry bilateral, no wheezing/rales/rhonchi Abdomen: Soft significant tenderness right lower abdomen with guarding no rebound tenderness. Bowel sounds are present, no mass palpable, no CVA tenderness Skin: Skin warm and dry. Normal skin color. Normal skin turgor. Extremities: No lower extremity edema. No calf tenderness Neuro: Oriented X 3. No motor deficit. Medical Decision Making Medical Decision Making MDM Narrative: Patient has acute onset of lower abdominal pain with normal WBC count slightly elevated lactic acid of 2.1 CT scan showed slightly enlarged appendix which is not very clear as appendicitis patient is seen by surgeon Dr. Lomeli does not think acute appendicitis but patient definitely has pain will admit to surgical service for now , started patient on Zosyn and IV hydration Differential Diagnosis Differential Diagnoses: The differential diagnosis associated with the presentation includes Acute appendicitis/diverticulitis/ureteric stone Admission/Observation Consideration of admission/observation: Escalation of care including admission/observation considered Consult Healthcare Provider Management of the patient was discussed with: Vp Director Of Creative Strategy Surgeon Dr. Lomeli Lab Data MDM Lab Attestation statement: I reviewed the patient's lab results. 09/11/23 00:05 09/11/23 00:05 Labs: Lab Results 09/11/23 09/11/23 Range/Units 00:05 01:34 WBC 8.9 (4.8-10.8) X10*3/uL RBC 3.82 L (4.60-5.80) X10*6/uL Hgb 11.7 L (14.0-18.0) g/dl Hct 35.8 L (42.0-52.0) % MCV 93.7 (80.0-98.0) fL MCH 30.6 (27.0-33.0) pg MCHC 32.7 (31.0-36.0) g/dl RDW 12.4 (11.0-16.0) % Plt Count 150 L D (160-400) X10*3/uL MPV 9.7 (9.4-12.4) fL Immature Gran % (Auto) 0.5 H (0.0-0.4) % Neut % (Auto) 92.5 H (45-73) % Lymph % (Auto) 4.5 L (20-40) % Lee % (Auto) 1.1 L (2-11) % Eos % (Auto) 1.2 (0-4) % Baso % (Auto) 0.2 (0-2) % Lymph # (Auto) 0.4 L (1.2-4.9) X10*3/uL Lee # (Auto) 0.1 (0.1-1.2) X10*3/uL Eos # (Auto) 0.1 (0.0-0.4) X10*3/uL Baso # (Auto) 0.0 (0.0-0.2) X10*3/uL Abs Immat Gran (auto) 0.04 H (0.00-0.03) X10*3/uL Absolute Neuts (auto) 8.2 (2.0-8.3) x10*3/uL Absolute Nucleated RBC 0.000 (0.0-0.012) X10*3/uL Nucleated RBC % (auto) 0.0 (0.0-0.2) /100WBC Smear Tech's Comments VERIFIED Sodium 138 (135-145) mmol/L Potassium 4.6 (3.3-5.1) mmol/L Chloride 103 (96-108) mmol/L Carbon Dioxide 24 (22-29) mmol/L Anion Gap 16 (12-20) BUN 34 H (9-16) mg/dL Creatinine 3.30 H (0.5-1.4) mg/dL Estim Creat Clear Calc 15.6 Estimated GFR 18 Random Glucose 222 H (60-115) mg/dL Lactic Acid 2.1 H* (0.5-2.0) mmol/L Calcium 10.4 H D (8.4-10.2) mg/dL Total Bilirubin 0.4 (0.0-1.0) mg/dL AST 15 (5-37) U/L ALT 13 (0-40) U/L Alkaline Phosphatase 100 (39-117) U/L Total Protein 7.1 (6.5-8.0) g/dL Albumin 3.8 (3.5-5.0) g/dL Lipase 27 (8-78) U/L Radiology Impression Discussion of test interpretation with radiology: I have reviewed the radiologist's reading. Radiologist Impression: [place] [id number] CT Scan Report Signed Patient: Jadiel Orantes MR#: [id number] : 1935 Acct:[id number] Age/Sex: 88 / M ADM Date: 09/11/23 Loc: HO.ED Attending Dr: Ordering Physician: Moshe Velasquez MD Date of Service: 09/11/23 Procedure(s): CT abdomen pelvis wo IV con Accession Number(s): [id number] cc: Kristy Pisano; Moshe Velasquez MD~ EXAMINATION: CT ABDOMEN AND PELVIS WITHOUT CONTRAST CLINICAL INFORMATION: Acute abdomen, question appendicitis COMPARISON: None available. TECHNIQUE: Multidetector volumetric imaging was performed from the superior aspect of the liver through the pubic symphysis. Sagittal and coronal reformatted images were obtained on the technologist's workstation. This CT examination was performed using dose optimization techniques as appropriate, variously including the following: *Automated exposure control *Adjustment of mA and/or kV according to patient size (this includes techniques or standardized protocols for targeted exams where dose is matched to indication/reason for exam; i.e. extremities or head) *Use of iterative reconstruction technique DLP: 641 mGy-cm FINDINGS: LUNG BASES: Mild subpleural reticulation opacities suggesting a component of atelectasis. Coronary artery calcifications. LIVER, GALLBLADDER, AND BILIARY TREE: The liver is normal in size, shape, and attenuation. No focal hepatic lesion or biliary ductal dilatation is identified on this noncontrast exam. The gallbladder is unremarkable with no evidence of radiopaque gallstones, gallbladder wall thickening, or obvious pericholecystic inflammatory changes. PANCREAS: Unremarkable. SPLEEN: Unremarkable. ADRENAL GLANDS: Unremarkable. KIDNEYS AND URETERS: No hydronephrosis or obstructing calculus bilaterally. Few small scattered right renal calculi are noted. Nonspecific bilateral perinephric stranding. BLADDER: Partially distended, grossly unremarkable. GASTROINTESTINAL TRACT: No evidence of bowel obstruction. Limited evaluation for wall thickening within much of the colon due to luminal collapse. There is prominence of submucosal fat in the ascending colon which can be seen as sequelae of prior inflammation. Appendix appears borderline dilated in the right abdomen with some adjacent stranding such as on axial image 51. Scattered small amount of fluid in the lower abdomen bilaterally. Of note, there is also mild stranding seen elsewhere in the mesentery. No free air is seen. ABDOMINAL WALL: Fat-containing left inguinal hernia. LYMPH NODES: Normal. VASCULAR: Extensive vascular calcification. PELVIC VISCERA: Enlarged prostate gland measures approximately 5.5 cm in transverse dimension. OSSEOUS STRUCTURES: Multilevel degenerative changes in the spine. CT/CT abdomen pelvis wo IV con IMPRESSION: 1. Appendix appears borderline dilated in the right abdomen with some adjacent stranding, which could be indicative of mild/early acute appendicitis in the proper clinical setting. However, there is also mild stranding elsewhere in the mesentery as well as a small amount of free fluid in the lower abdomen which is nonspecific. 2. No hydronephrosis or obstructing calculus. Few small scattered right renal calculi. 3. Enlarged prostate gland. Medications Administered Generic Name Dose Route Start Last Admin Trade Name Freq PRN Reason Stop Dose Admin Dextrose/Sodium Chloride 1,000 mls @ 100 mls/hr 09/11/23 06:00 09/11/23 06:23 D5ns IVCONT 100 mls/hr .Q10H SHAWNA Administration Discontinued Medications Generic Name Dose Route Start Last Admin Trade Name Freq PRN Reason Stop Dose Admin Sodium Chloride 1,000 mls @ 999 mls/hr 09/11/23 00:54 09/11/23 02:36 Ns IV 09/11/23 01:54 Infused .Q1H1M ONE Infusion Piperacillin Sod/Tazobactam 50 mls @ 100 mls/hr 09/11/23 03:35 09/11/23 04:32 Sod 3.375 gm/ Sodium Chloride IV 09/11/23 04:04 Infused ONCE ONE Infusion Sodium Chloride 1,000 mls @ 999 mls/hr 09/11/23 05:41 09/11/23 06:30 Ns IV 09/11/23 06:41 Infused .Q1H1M ONE Infusion Morphine Sulfate 4 mg 09/11/23 00:55 09/11/23 01:35 Morphine Sulfate 4 Mg/Ml Cartridge IVPUSH 09/11/23 00:56 4 mg ONCE ONE Administration Protocol Ondansetron HCl 4 mg 09/11/23 00:55 09/11/23 01:35 Ondansetron Hcl 4 Mg/2 Ml Vial IVPUSH 09/11/23 00:56 4 mg ONCE ONE Administration Discharge Plan Discharge Clinical Impression: Abdominal pain of unknown cause, Acute appendicitis Patient Disposition: Admitted As Inpatient
[2023-09-11 03:42] LABS: Reflex Lactate? Lactic Acid Added
[2023-09-11] MEDS: Piperacillin Sodium/Tazobactam 3.375 GM in 0.9 % Sodium Chloride 50 ML IV (03:47)
[2023-09-11 04:09] LABS: ~Lactic Acid-LAB USE ONLY 1.2 mmol/L (0.5-2.0)
--- NOTE | 2023-09-11 05:51 | P.HPGS_ITS ---
History of Present Illness History of Present Illness Date of Service: 09/11/23 Chief complaint: Abdominal Pain Narrative: Jadiel Orantes is a 88 year old male who was watching TV with his last night and then started to have abdominal pain. Started pretty suddenly but built up to the point where he was so uncomfortable that he came into the hospital. She says he has never had pain like this before. 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 He does have problems with his kidneys is not on dialysis but is being treated for kidney issues. He is diabetic. Here in the emergency room generally his blood work in regards to CBC looked fine with a normal white count his creatinine was elevated at 3.3. His says he does make some urine but does not know when the last time he urinated was. He has been having some diarrhea recently and he did have some nausea. He did not feel well but did not necessarily have a temperature. Review of Systems Neurologic: Reports confusion Psychiatric: Psychiatric: Reports confusion PMFSH Past Medical History Medical History DM renal manif type II Family History Family History Mother No problems noted. Father Alzheimer disease Surgical History Surgical History Hx of cataract surgery Hx of blepharoplasty Hx of colonoscopy Hx of lymph node excision Hx of melanoma excision Social History Social History Alcohol intake: current Alcohol intake frequency: does not drink Patient Tobacco Use Status: Former Tobacco user Smoked in Last 30 Days: No Use of substances other than those prescribed or required for medical reasons: No Advance Directives: Yes Advance Directives Information Provided: No Advance Directives on File: No Meds Allergies Allergy/AdvReac Type Severity Reaction Status Date / Time No Known Allergies Allergy Verified 09/10/23 23:32 Active Medications: Current Medications Sodium Chloride (Ns) 1,000 mls @ 999 mls/hr IV .Q1H1M ONE Stop: 09/11/23 06:41 Last Admin: 09/11/23 05:44 Dose: 999 mls/hr Home Medications ?Medication ?Instructions ?Recorded ?Confirmed ?Last Taken ?Type atorvastatin 40 mg tablet 40 mg PO BEDTIME 05/28/22 Unknown History blood sugar diagnostic (FreeStyle #10 ea 05/28/22 Unknown History Lite Strips) dulaglutide 1.5 mg/0.5 mL 1.5 mg subcut QWEEK 05/28/22 Unknown History subcutaneous pen injector ([employer]) lancets 28 gauge (FreeStyle #100 ea 05/28/22 Unknown History Lancets) lisinopril 40 mg tablet 40 mg PO DAILY 05/28/22 Unknown History magnesium oxide 400 mg (241.3 mg 400 mg PO DAILY 05/28/22 Unknown History magnesium) tablet memantine 5 mg tablet 5 mg PO BID 05/28/22 Unknown History pen needle, diabetic 31 gauge x #1,200 ea 05/28/22 Unknown History 07/03 (BD Ultra-Fine Short Pen Needle) propranolol 80 mg capsule,24 80 mg PO DAILY 05/28/22 Unknown History hr,extended release torsemide 20 mg tablet 20 mg PO DAILY 05/28/22 Unknown History escitalopram oxalate 20 mg tablet 20 mg PO DAILY 06/08/22 Unknown History insulin glargine 100 unit/mL (3 40 unit subcut 06/08/22 Unknown History mL) subcutaneous pen (Lantus Solostar U-100 Insulin) tamsulosin 0.4 mg capsule 0.4 mg PO DAILY 06/08/22 Unknown History Physical Exam Vital Signs: Vital Signs: Last Vital Signs Temp 98.6 F 09/11/23 01:51 Pulse 85 09/11/23 01:51 Resp 16 09/11/23 01:51 BP 187/81 H 09/11/23 01:51 Pulse Ox 93 09/11/23 01:51 O2 Del Method Room Air 09/11/23 01:51 BMI result Body Mass Index 29.2 Const: General: cooperative, confusion and tired appearing Orientation/consciousness: oriented to person, oriented to place and confusion Resp: Auscultation: clear to auscultation bilaterally Cardio: Rate: regular rate Rhythm: regular rhythm GI: Other: Abdomen is soft nondistended but he is diffusely tender with guarding and rebound especially the lower abdomen. No masses are noted. Active bowel sounds present Neuro: General: oriented to person, oriented to place and confusion Results Results Labs: Short CBC 09/11/23 Range/Units 00:05 WBC 8.9 (4.8-10.8) X10*3/uL Hgb 11.7 L (14.0-18.0) g/dl Hct 35.8 L (42.0-52.0) % Plt Count 150 L D (160-400) X10*3/uL BMP 09/11/23 00:05 Sodium 138 Potassium 4.6 Chloride 103 Carbon Dioxide 24 BUN 34 H Creatinine 3.30 H Calcium 10.4 H D Liver Function 09/11/23 Range/Units 00:05 Total Bilirubin 0.4 (0.0-1.0) mg/dL AST 15 (5-37) U/L ALT 13 (0-40) U/L Alkaline Phosphatase 100 (39-117) U/L Albumin 3.8 (3.5-5.0) g/dL Abdomen CT scan report/results: report reviewed and image reviewed CT scan - pelvis: report reviewed and image reviewed Additional studies: Chart - CarJump ? Diagnostics Subcategory All Activity ??:?? All Time ??:?? All Subcategories Filter Laboratory Imaging Microbiology Pathology Blood Bank Tests Cardiovascular Other Specialty DATE TYPE STATUS REF RANGE/AUTHOR Hx Today 01:24 Abdomen/Pelvis CT Signed Walt Hurd Santos Acute 88, M?1935 MRN#? [id number] ADM IN,?Emergency Department??ED Bed 07?-ED7? 5ft 5in 175lb 7.657oz BSA: 1.91m? BMI: 29.2kg/m? Acc#? [id number] Full Code Historical Visits Allergies No Known Allergies Problems ? ONSET DM renal manif type II Vital Signs Today 01:51 BP 187/81?H Pulse 85? Resp 16? Temp 98.6 F? O2 Sat 93? Delivery Room Air? Home Meds Not Confirmed Prescription Monitoring Program MEDICATIONS (INSTRUCTIONS) LAST TAKEN Active ??atorvastatin 40 mg tablet ??40 mgPOBEDTIME ??dulaglutide 1.5 mg/0.5 mL subcutaneous pen injector ??1.5 mgsubcutQWEEK ??escitalopram oxalate 20 mg tablet ??20 mgPODAILY ??insulin glargine 100 unit/mL (3 mL) subcutaneous pen ??40 unitsubcut ??lisinopril 40 mg tablet ??40 mgPODAILY ??magnesium oxide 400 mg (241.3 mg magnesium) tablet ??400 mgPODAILY ??memantine 5 mg tablet ??5 mgPOBID ??propranolol 80 mg capsule,24 hr,extended release ??80 mgPODAILY ??tamsulosin 0.4 mg capsule ??0.4 mgPODAILY ??torsemide 20 mg tablet ??20 mgPODAILY DME/Medical Supplies ??blood sugar diagnostic ??blood-glucose meter ??flash glucose scanning reader ??flash glucose sensor ??lancets 28 gauge ??pen needle, diabetic 31 gauge x 07/03 My Widget No Data to Display Diagnostics Reports Jadiel Orantes??88??M??1935 ? Allergy/Adv: No Known Allergies Close Abdomen/Pelvis CT (Signed) [facility] - 09/11/23 Launch?Image [address] [address] [address] Scan Report Signed Patient: Jadiel Orantes MR#: [id number] : 1935 Acct:[id number] Age/Sex: 88 / M ADM Date: 09/11/23 Loc: HO.ED Attending Dr: Ordering Physician: Moshe Velasquez MD Date of Service: 09/11/23 Procedure(s): CT abdomen pelvis wo IV con Accession Number(s): [id number] cc: Kristy Pisano; Moshe Velasquez MD~ EXAMINATION: CT ABDOMEN AND PELVIS WITHOUT CONTRAST CLINICAL INFORMATION: Acute abdomen, question appendicitis COMPARISON: None available. TECHNIQUE: Multidetector volumetric imaging was performed from the superior aspect of the liver through the pubic symphysis. Sagittal and coronal reformatted images were obtained on the technologist's workstation. This CT examination was performed using dose optimization techniques as appropriate, variously including the following: *Automated exposure control *Adjustment of mA and/or kV according to patient size (this includes techniques or standardized protocols for targeted exams where dose is matched to indication/reason for exam; i.e. extremities or head) *Use of iterative reconstruction technique DLP: 641 mGy-cm FINDINGS: LUNG BASES: Mild subpleural reticulation opacities suggesting a component of atelectasis. Coronary artery calcifications. LIVER, GALLBLADDER, AND BILIARY TREE: The liver is normal in size, shape, and attenuation. No focal hepatic lesion or biliary ductal dilatation is identified on this noncontrast exam. The gallbladder is unremarkable with no evidence of radiopaque gallstones, gallbladder wall thickening, or obvious pericholecystic inflammatory changes. PANCREAS: Unremarkable. SPLEEN: Unremarkable. ADRENAL GLANDS: Unremarkable. KIDNEYS AND URETERS: No hydronephrosis or obstructing calculus bilaterally. Few small scattered right renal calculi are noted. Nonspecific bilateral perinephric stranding. BLADDER: Partially distended, grossly unremarkable. GASTROINTESTINAL TRACT: No evidence of bowel obstruction. Limited evaluation for wall thickening within much of the colon due to luminal collapse. There is prominence of submucosal fat in the ascending colon which can be seen as sequelae of prior inflammation. Appendix appears borderline dilated in the right abdomen with some adjacent stranding such as on axial image 51. Scattered small amount of fluid in the lower abdomen bilaterally. Of note, there is also mild stranding seen elsewhere in the mesentery. No free air is seen. ABDOMINAL WALL: Fat-containing left inguinal hernia. LYMPH NODES: Normal. VASCULAR: Extensive vascular calcification. PELVIC VISCERA: Enlarged prostate gland measures approximately 5.5 cm in transverse dimension. OSSEOUS STRUCTURES: Multilevel degenerative changes in the spine. CT/CT abdomen pelvis wo IV con IMPRESSION: 1. Appendix appears borderline dilated in the right abdomen with some adjacent stranding, which could be indicative of mild/early acute appendicitis in the proper clinical setting. However, there is also mild stranding elsewhere in the mesentery as well as a small amount of free fluid in the lower abdomen which is nonspecific. 2. No hydronephrosis or obstructing calculus. Few small scattered right renal calculi. 3. Enlarged prostate gland. Dictated By: Walt Hurd MD Signed By: <Electronically signed by Walt Hurd MD in OV> 09/11/23 0322 DD/ 0124 TD/TT: Fitness And Wellness Manager: ONEIDA Assessment and Plan (1) Abdominal pain of unknown cause: Status: Acute Plan 88-year-old male with multiple medical problems diabetic looking like he has chronic renal insufficiency coming in with abdominal pain and elevated creatinine. CT scan showing some stranding in the mesentery around the appendix and then in other areas but nonspecific. Little bit of nonspecific free fluid and with the appendix looking a little dilated. Patient's tender in the right lower quadrant but significantly tender in the left side to. At this point I do not see any indication for any operation there surgery. Plan to admit NPO IV hydration if it is early appendicitis than treat with a course of IV antibiotics. We will get medical team to follow along. Serial abdominal exams and follow labs. Risks of surgery are pretty significant in him Quality Stroke Does the patient have a stroke diagnosis?: No VTE Prior VTE?: No VTE Risk Level:: Medical - moderate - high VTE Device Contraindication: N/A - Device Ordered VTE Drug Contraindication: Treatment Not Indicated Procedures Date of Service Date of Service: 09/11/23
[2023-09-11] MEDS: Dextrose 5 % and 0.9 % NaCl 1,000 ML 100 ML IVCONT ×2 (06:23→18:55)
--- NOTE | 2023-09-11 07:20 | ECG_ITS ---
Test Reason : pre op Blood Pressure : / mmHG Vent. Rate : 087 BPM Atrial Rate : 087 BPM P-R Int : 140 ms QRS Dur : 124 ms QT Int : 408 ms P-R-T Axes : 041 -37 -19 degrees QTc Int : 490 ms Normal sinus rhythm Left axis deviation RSR' or QR pattern in V1 suggests right ventricular conduction delay Nonspecific T wave abnormality Abnormal ECG No previous ECGs available Referred By: Moshe Velasquez Electronically Signed By:CHELI ZAMORA
[2023-09-11 07:55] LABS: Appearance Urine Clear; Color Urine Yellow; Glucose Urine UA >=1000 mg/dL (Negative); Leukocyte Esterase Urine Negative (Negative); Nitrite Urine Negative (Negative); PH 6.5 (5.0-9.0); UMIC TRIGGER UACC YES; Urine Blood Negative (Negative); Urine Ketones Negative (Negative); Urine Protein 300 (3+) mg/dL (Neg-Trace)
[2023-09-11 08:00] LABS: Bacteria Urine None Seen (None Seen); RBC Urine 0-2 /HPF (0-2); Squamous Epithelial Cell Urine 0-2 /HPF (0-2); WBC Urine 0-5 /HPF (0-5)
--- NOTE | 2023-09-11 08:28 | PM.PNGS ---
Subjective Subjective Date of Service: 09/11/23 Interval history: Patient admitted early this morning because of abdominal pain Describes loose stools this morning as well No vomiting Has known dementia, chronic kidney disease diabetes Physical Exam Vital Signs: Vital Signs: Last Vital Signs Temp 98.4 F 09/11/23 06:36 Pulse 88 09/11/23 06:36 Resp 18 09/11/23 06:36 BP 128/55 L 09/11/23 06:36 Pulse Ox 92 09/11/23 06:36 O2 Del Method Room Air 09/11/23 06:36 BMI result Body Mass Index 29.2 Const: Other: Complains of pain Resp: Effort & Inspection: normal respiratory effort Cardio: Rate: regular rate GI: Other: Protuberant, tender diffusely Objective Data Active Medications Acetaminophen (Acetaminophen 325 Mg Tablet) 650 mg PO Q6H PRN PRN Reason: Pain, Mild (Pain Scale 1-3), fever or headache Dextrose/Sodium Chloride (D5ns) 1,000 mls @ 100 mls/hr IVCONT .Q10H [facility] Last Admin: 09/11/23 06:23 Dose: 100 mls/hr Documented By: ELSY Melatonin (Melatonin 3 Mg Tablet) 6 mg PO BEDTIME PRN PRN Reason: Insomnia Ondansetron HCl (Ondansetron Hcl 4 Mg/2 Ml Vial) 4 mg IVPUSH Q8H PRN PRN Reason: Nausea and Vomiting Sodium Chloride (0.9 % Sodium Chloride Flush 3 Ml Syringe) 3 ml IVFLUSH QSHIFT [facility] Last Admin: 09/11/23 07:23 Dose: Not Given Documented By: JUWAN Non-Admin Reason: IV Running Labs 09/11/23 00:05 09/11/23 00:05 Labs: Laboratory Results - last 24 hr 09/11/23 09/11/23 09/11/23 00:05 01:34 07:37 MCV 93.7 MCH 30.6 MCHC 32.7 RDW 12.4 Plt Count 150 L D MPV 9.7 Immature Gran % (Auto) 0.5 H Neut % (Auto) 92.5 H Lymph % (Auto) 4.5 L [place] % (Auto) 1.1 L Eos % (Auto) 1.2 Baso % (Auto) 0.2 Lymph # (Auto) 0.4 L [place] # (Auto) 0.1 Eos # (Auto) 0.1 Baso # (Auto) 0.0 Abs Immat Gran (auto) 0.04 H Absolute Neuts (auto) 8.2 Absolute Nucleated RBC 0.000 Nucleated RBC % (auto) 0.0 Smear Tech's Comments VERIFIED Anion Gap 16 Estim Creat Clear Calc 15.6 Estimated GFR 18 Random Glucose 222 H Lactic Acid 2.1 H* Lactic Acid F/U @ 2Hr Calcium 10.4 H D Total Bilirubin 0.4 AST 15 ALT 13 Alkaline Phosphatase 100 Total Protein 7.1 Albumin 3.8 Lipase 27 Urine Color Yellow Urine Appearance Clear Urine pH 6.5 Ur Specific [place] 1.020 Urine Protein 300 (3+) H Urine Glucose (UA) >=1000 H Urine Ketones Negative Urine Blood Negative Urine Nitrite Negative Ur Leukocyte Esterase Negative Urine RBC 0-2 Urine WBC 0-5 Ur Squamous Epith Cells 0-2 Urine Bacteria None Seen Hyaline Casts 3-5 09/11/23 Unknown MCV MCH MCHC RDW Plt Count MPV Immature Gran % (Auto) Neut % (Auto) Lymph % (Auto) [place] % (Auto) Eos % (Auto) Baso % (Auto) Lymph # (Auto) [place] # (Auto) Eos # (Auto) Baso # (Auto) Abs Immat Gran (auto) Absolute Neuts (auto) Absolute Nucleated RBC Nucleated RBC % (auto) Smear Tech's Comments Anion Gap Estim Creat Clear Calc Estimated GFR Random Glucose Lactic Acid Lactic Acid F/U @ 2Hr 1.2 Calcium Total Bilirubin AST ALT Alkaline Phosphatase Total Protein Albumin Lipase Urine Color Urine Appearance Urine pH Ur Specific [place] Urine Protein Urine Glucose (UA) Urine Ketones Urine Blood Urine Nitrite Ur Leukocyte Esterase Urine RBC Urine WBC Ur Squamous Epith Cells Urine Bacteria Hyaline Casts Procedures Date of Service Date of Service: 09/11/23 Progress Note: A&P Assessment and plan (1) Abdominal pain of unknown cause: Status: Acute Assessment and Plan: 88 year old male with diffuse abdominal pain I have reviewed his CAT scan - some nonspecific mesenteric stranding, small amount of free fluid Clinical exam not suggestive of acute appendicitis He does have significant pain and tenderness Lactate was initially elevated at 2.1 but has normalized with IV fluids Uncertain as to the etiology of his abdominal pain but pain level is concerning WBC normal and he is not tachycardic I had a long discussion with daughter at bedside about the above She stated that they would not like him to have surgery in view of his age, known medical issues We will continue with supportive treatment with IV fluids and antibiotics for now Pain management Hospitalist follow-up Time Spent With Patient Time: Total time managing care of this patient today ____ minutes. Quality Stroke Does the patient have a stroke diagnosis?: No VTE Prior VTE?: No VTE Risk Level:: Medical - moderate - high VTE Device Contraindication: N/A - Device Ordered VTE Drug Contraindication: Treatment Not Indicated
[2023-09-11] MEDS: Acetaminophen 1,000 MG/100 ML PIGGYBACK 400 MG IV ×2 (08:47→22:15)
[2023-09-11] MEDS: Morphine Sulfate 2 MG/ML CARTRIDGE IVPUSH (08:50)
--- NOTE | 2023-09-11 09:02 | PC.NURSE ---
resting in room w/ family at bedside. medicated per the MAR for pain. met w/ surgeon this morning. remains npo at this time
[2023-09-11] MEDS: Piperacillin Sodium/Tazobactam 2.25 GM in 0.9 % Sodium Chloride 50 ML IV ×2 (09:31→19:15)
--- NOTE | 2023-09-11 10:35 | PHA.MEDREC ---
Addendum entered by Hailey Ndiaye, [facility] 09/13/23 09:22: Spoke to via phone, she confirmed pt takes propranolol 20 mg bid (in the morning and at suppertime). Addendum entered by Claudia Trent 09/13/23 09:18: re-confirmed Propanolol is 20 mg bid Not Addendum entered by Perri Medley, [facility] 09/11/23 15:10: reviewed by [facility] Original Note: Pharmacy Consult ? Medication Reconciliation Pharmacy has completed the medication reconciliation. Spoke to patient's at bedside to confirm med list. had list and was able to confirm all meds. states patient injects Trulicity 1.5 mg every Saturday. Patient last dose was Saturday09-07-23. Lantus 40 units at bedtime.
--- NOTE | 2023-09-11 12:08 | MHC.CM.PN ---
Patient has a diagnosis of Dementia; CM spoke with /Aleta at [phone] and addressed IMM with her (original will be mailed certified mail to and a copy will be placed on the chart). Patient lives in a house with his , uses a cane and a walker, and has had [facility] in the past. Home with possible new [facility] is the tentative plan and CM has initiated and will follow for dc planning. PCP/PA is Kristy Pisano and Daughter/Olena is the HCP(Copy requested).
--- NOTE | 2023-09-11 12:36 | P.CONHOSP_ITS ---
History of Present Illness Data of Consult Service Date: 09/11/23 Requesting physician: Latisha Lomeli Primary Care Provider: MELISA Rivera Reason for consult: medical management 88 year old male with history of htn, type 2 diabetes, bph, unspecified dementia with mood disorder, and hld admitted to general surgery for acute appendicitis with consult placed to hospitalist for medical management. Patient is a limited historian but is reporting diffuse abdominal pain, greatest in the right lower quadrant. Denies any nausea, vomiting, diarrhea. Per family, developed sudden onset severe right lower quadrant pain last night and presented to the ED for evaluation. CT abdomen/pelvis shows appendix with borderline dilatation in the right abdomen and some adjacent stranding possibly indicative of mild/early appendicitis with some mild stranding of the mesentery and small amount of free fluid which is nonspecific. General surgery discussed case with patient and family who opted for conservative management and he has been started on empiric Zosyn and is currently NPO. Review of Systems 2 Review of Systems: Yes all other systems are reviewed and are negative [facility] Medical History (Updated 09/11/23 @ 15:41 by MELISA Li) Dementia with mood disturbance BPH (benign prostatic hyperplasia) HLD (hyperlipidemia) HTN (hypertension) DM renal manif type II Family History Mother No problems noted. Father Alzheimer disease Surgical History Hx of cataract surgery Hx of blepharoplasty Hx of colonoscopy Hx of lymph node excision Hx of melanoma excision Social History Alcohol intake: current Alcohol intake frequency: does not drink Patient Tobacco Use Status: Former Tobacco user Smoked in Last 30 Days: No Use of substances other than those prescribed or required for medical reasons: No Advance Directives: Yes Advance Directives Information Provided: No Advance Directives on File: No Nutrition Risks: Difficulty chewing and Difficulty swallowing service: Yes Meds Allergies Allergy/AdvReac Type Severity Reaction Status Date / Time No Known Allergies Allergy Verified 09/10/23 23:32 Active Medications: Current Medications Acetaminophen (Acetaminophen 325 Mg Tablet) 650 mg PO Q6H PRN PRN Reason: Pain, Mild (Pain Scale 1-3), fever or headache Dextrose/Sodium Chloride (D5ns) 1,000 mls @ 100 mls/hr IVCONT .Q10H [facility] Last Admin: 09/11/23 06:23 Dose: 100 mls/hr Acetaminophen (Ofirmev) 1,000 mg in 100 mls @ 400 mls/hr IV Q6H [facility] Stop: 09/12/23 02:59 Last Infusion: 09/11/23 09:33 Dose: Infused Piperacillin Sod/Tazobactam (Sod 2.25 gm/ Sodium Chloride) 50 mls @ 100 mls/hr IV Q8H [facility] Last Infusion: 09/11/23 11:05 Dose: Infused Melatonin (Melatonin 3 Mg Tablet) 6 mg PO BEDTIME PRN PRN Reason: Insomnia Morphine Sulfate (Morphine Sulfate 2 Mg/Ml Cartridge) 2 mg IVPUSH Q3H PRN; Protocol PRN Reason: Pain, Severe (Pain Scale 7-10) Last Admin: 09/11/23 08:50 Dose: 2 mg Ondansetron HCl (Ondansetron Hcl 4 Mg/2 Ml Vial) 4 mg IVPUSH Q8H PRN PRN Reason: Nausea and Vomiting Sodium Chloride (0.9 % Sodium Chloride Flush 3 Ml Syringe) 3 ml IVFLUSH QSHIFT [facility] Last Admin: 09/11/23 07:23 Dose: Not Given Home Medications ?Medication ?Instructions ?Recorded ?Confirmed ?Last Taken ?Type atorvastatin 40 mg tablet 40 mg PO BEDTIME 05/28/22 09/11/23 09/10/23 History blood sugar diagnostic (FreeStyle #10 ea 05/28/22 Unknown History Lite Strips) dulaglutide 1.5 mg/0.5 mL 1.5 mg subcut SA 05/28/22 09/11/23 09/10/23 History subcutaneous pen injector (Trulicity) lancets 28 gauge (FreeStyle #100 ea 05/28/22 Unknown History Lancets) lisinopril 40 mg tablet 40 mg PO DAILY 05/28/22 09/11/23 09/10/23 History magnesium oxide 400 mg (241.3 mg 400 mg PO DAILY 05/28/22 09/11/23 09/10/23 History magnesium) tablet memantine 5 mg tablet 5 mg PO BID 05/28/22 09/11/23 09/10/23 History pen needle, diabetic 31 gauge x #1,200 ea 05/28/22 Unknown History 07/03 (BD Ultra-Fine Short Pen Needle) propranolol 80 mg capsule,24 20 mg PO DAILY 05/28/22 09/11/23 09/10/23 History hr,extended release torsemide 20 mg tablet 20 mg PO DAILY 05/28/22 09/11/23 09/10/23 History escitalopram oxalate 20 mg tablet 20 mg PO DAILY 06/08/22 09/11/23 09/10/23 History insulin glargine 100 unit/mL (3 40 unit subcut BEDTIME 06/08/22 09/11/23 09/10/23 History mL) subcutaneous pen (Lantus Solostar U-100 Insulin) tamsulosin 0.4 mg capsule 0.4 mg PO DAILY 06/08/22 09/11/23 09/10/23 History cyanocobalamin (vitamin B-12) 500 500 mcg PO DAILY 09/11/23 09/11/23 09/10/23 History mcg tablet (Vitamin B-12) multivitamin 1 tab PO DAILY 09/11/23 09/11/23 09/10/23 History Physical Exam 2 Vital Signs and Narrative: Vital Signs: Last Vital Signs Temp 98.4 F 09/11/23 06:36 Pulse 88 09/11/23 06:36 Resp 18 09/11/23 06:36 BP 128/55 L 09/11/23 06:36 Pulse Ox 92 09/11/23 06:36 O2 Del Method Room Air 09/11/23 06:36 BMI result Body Mass Index 29.2 Constitutional - Awake and Alert, No apparent distress Eyes - PERRLA, EOMI Cardiovascular - S1S2, RRR, No edema Respiratory - Normal lung expansion, Normal respiratory effort, No respiratory distress, CTA bilaterally Extremities - no calf tenderness bilaterally, no swelling Skin - Warm/Dry Neurological - Alert & oriented to self and place Psychological - Appropriate affect Results Labs 09/11/23 00:05 09/11/23 00:05 Labs: Laboratory Results - last 24 hr 09/11/23 09/11/23 09/11/23 00:05 01:34 07:37 MCV 93.7 MCH 30.6 MCHC 32.7 RDW 12.4 Plt Count 150 L D MPV 9.7 Immature Gran % (Auto) 0.5 H Neut % (Auto) 92.5 H Lymph % (Auto) 4.5 L [place] % (Auto) 1.1 L Eos % (Auto) 1.2 Baso % (Auto) 0.2 Lymph # (Auto) 0.4 L [place] # (Auto) 0.1 Eos # (Auto) 0.1 Baso # (Auto) 0.0 Abs Immat Gran (auto) 0.04 H Absolute Neuts (auto) 8.2 Absolute Nucleated RBC 0.000 Nucleated RBC % (auto) 0.0 Smear Tech's Comments VERIFIED Anion Gap 16 Estim Creat Clear Calc 15.6 Estimated GFR 18 Random Glucose 222 H Lactic Acid 2.1 H* Lactic Acid F/U @ 2Hr Calcium 10.4 H D Total Bilirubin 0.4 AST 15 ALT 13 Alkaline Phosphatase 100 Total Protein 7.1 Albumin 3.8 Lipase 27 Urine Color Yellow Urine Appearance Clear Urine pH 6.5 Ur Specific [place] 1.020 Urine Protein 300 (3+) H Urine Glucose (UA) >=1000 H Urine Ketones Negative Urine Blood Negative Urine Nitrite Negative Ur Leukocyte Esterase Negative Urine RBC 0-2 Urine WBC 0-5 Ur Squamous Epith Cells 0-2 Urine Bacteria None Seen Hyaline Casts 3-5 09/11/23 Unknown MCV MCH MCHC RDW Plt Count MPV Immature Gran % (Auto) Neut % (Auto) Lymph % (Auto) [place] % (Auto) Eos % (Auto) Baso % (Auto) Lymph # (Auto) [place] # (Auto) Eos # (Auto) Baso # (Auto) Abs Immat Gran (auto) Absolute Neuts (auto) Absolute Nucleated RBC Nucleated RBC % (auto) Smear Tech's Comments Anion Gap Estim Creat Clear Calc Estimated GFR Random Glucose Lactic Acid Lactic Acid F/U @ 2Hr 1.2 Calcium Total Bilirubin AST ALT Alkaline Phosphatase Total Protein Albumin Lipase Urine Color Urine Appearance Urine pH Ur Specific [place] Urine Protein Urine Glucose (UA) Urine Ketones Urine Blood Urine Nitrite Ur Leukocyte Esterase Urine RBC Urine WBC Ur Squamous Epith Cells Urine Bacteria Hyaline Casts Imaging Radiologist's Impressions: Impressions Abdomen/Pelvis CT 09/11/23 01:24 IMPRESSION: 1. Appendix appears borderline dilated in the right abdomen with some adjacent stranding, which could be indicative of mild/early acute appendicitis in the proper clinical setting. However, there is also mild stranding elsewhere in the mesentery as well as a small amount of free fluid in the lower abdomen which is nonspecific. 2. No hydronephrosis or obstructing calculus. Few small scattered right renal calculi. 3. Enlarged prostate gland. Assessment and Plan (1) Acute appendicitis: Status: Acute Plan 88 year old male with history of htn, type 2 diabetes, bph, unspecified dementia with mood disorder, and hld admitted to general surgery for acute appendicitis with consult placed to hospitalist for medical management. #Acute appendicitis -plan per general surgery -currently being managed conservatively with IV Zosyn and NPO diet as well as pain management p.r.n. # soft blood pressures-no hypotension -has hypertension at baseline. Hold antihypertensives at this time due to soft blood pressures -continue IV fluids, monitor blood pressures closely -judicious use of IV pain control # insulin-dependent type 2 diabetes -hold basal insulin given NPO status, resume as diet advances -POC glucose, Admelog on sliding scale # BPH -Flomax # unspecified dementia with mood disorder -continue home medications Thank you for this consult, we will continue following
--- NOTE | 2023-09-11 14:09 | PM.EVENT ---
Event Note Date of Service: 09/12/23 Event Note: Seen on follow-up rounds He seems to be more comfortable No vomiting Abdomen is still with some tenderness Stable vital signs, no fever He appears to be sleeping comfortably Discussed with at bedside - she does not want any surgical intervention down the line We will continue with current care including IV hydration, pain management, antibiotics Seen by hospitalist Time Spent With Patient Time: Total time managing care of this patient today ____ minutes.
[2023-09-11] MEDS: Acetaminophen 1,000 MG/100 ML PIGGYBACK 100 MG IV (14:50)
[2023-09-11 19:11] LABS: Glucose, Whole Blood 202 mg/dL (60-115)
[2023-09-11] MEDS: Insulin Lispro 100 UNIT/ML 3 ML VIAL SUBCUT (19:14)
[2023-09-11 21:50] LABS: Glucose, Whole Blood 194 mg/dL (60-115)
[2023-09-11] MEDS: Memantine HCl 5 MG TABLET PO (22:14)
[2023-09-11] MEDS: Atorvastatin Calcium 40 MG TABLET PO (22:14)
[2023-09-11] MEDS: Melatonin 3 MG TABLET 6 MG PO (22:14)
[2023-09-11] MEDS: 0.9 % Sodium Chloride Flush 3 ML SYRINGE IVFLUSH (22:19)
[2023-09-12] MEDS: Piperacillin Sodium/Tazobactam 2.25 GM in 0.9 % Sodium Chloride 50 ML IV ×3 (02:24→17:08)
[2023-09-12 03:35] VITALS: BP 135/64; PULSE 76; RESP 16; TEMP 36.4; O2SAT 96
[2023-09-12] MEDS: Dextrose 5 % and 0.9 % NaCl 1,000 ML 100 ML IVCONT ×3 (03:47→22:33)
[2023-09-12] MEDS: Acetaminophen 1,000 MG/100 ML PIGGYBACK 400 MG IV (03:47)
[2023-09-12 04:17] VITALS: RESP 18
[2023-09-12 06:10] LABS: MANUAL DIFF FLAG NO
[2023-09-12 06:27] LABS: Basophils Percent Auto 0.3 % (0-2); Eosinophils Absolute Auto 0.1 X10*3/uL (0.0-0.4); Eosinophils Percent Auto 1.1 % (0-4); Hematocrit 28.8 % (42.0-52.0); Hemoglobin 9.2 g/dl (14.0-18.0); Imm Gran Abs Auto 0.07 X10*3/uL (0.00-0.03); Imm Gran Pct Auto 0.6 % (0.0-0.4); Lymphocytes Absolute Auto 0.4 X10*3/uL (1.2-4.9); Mean Corpuscular HGB Conc 31.9 g/dl (31.0-36.0); Mean Corpuscular Hemoglobin 30.9 pg (27.0-33.0); Mean Corpuscular Volume 96.6 fL (80.0-98.0); Mean Platelet Volume 10.5 fL (9.4-12.4); Monocytes Absolute Auto 0.7 X10*3/uL (0.1-1.2); Monocytes Percent Auto 6.8 % (2-11); Neutrophils Absolute Auto 9.4 x10*3/uL (2.0-8.3); Neutrophils Percent Auto 87.2 % (45-73); Platelet Count 130 X10*3/uL (160-400); Red Blood Count 2.98 X10*6/uL (4.60-5.80); White Blood Count 10.8 X10*3/uL (4.8-10.8)
[2023-09-12 06:31] LABS: Alanine Aminotransferase 8 U/L (0-40); Albumin Level 2.8 g/dL (3.5-5.0); Alkaline Phosphatase 61 U/L (39-117); Anion Gap 11 (12-20); Aspartate Amino Transferase 10 U/L (5-37); Bilirubin Total 0.4 mg/dL (0.0-1.0); Blood Urea Nitrogen 32 mg/dL (9-16); Calcium 8.9 mg/dL (8.4-10.2); Carbon Dioxide 21 mmol/L (22-29); Chloride 109 mmol/L (96-108); Creatinine Clr Calc Pharmacy 15.9; Estimated Glomerular Filt Rate 18; Glucose Random 201 mg/dL (60-115); Potassium 4.4 mmol/L (3.3-5.1); Sodium 137 mmol/L (135-145); Total Protein 5.4 g/dL (6.5-8.0)
[2023-09-12 07:59] LABS: Glucose, Whole Blood 178 mg/dL (60-115)
[2023-09-12 08:00] VITALS: BP 168/78; PULSE 78; RESP 14; TEMP 36.6; O2SAT 98
--- NOTE | 2023-09-12 08:10 | PM.PNGS ---
Subjective Subjective Date of Service: 09/12/23 Interval history: Says he feels much better Still having some abdominal pain but much improved No events reported overnight Physical Exam Vital Signs: Vital Signs: Last Vital Signs Temp 98 F 09/12/23 08:00 Pulse 78 09/12/23 08:00 Resp 14 09/12/23 08:00 BP 168/78 H 09/12/23 08:00 Pulse Ox 98 09/12/23 08:00 O2 Del Method Room Air 09/12/23 08:00 BMI result Body Mass Index 31.3 Const: Other: More alert, appears comfortable General: no acute distress Resp: Effort & Inspection: normal respiratory effort Cardio: Rate: regular rate GI: Other: Mild diffuse tenderness Palpation (GI): Soft to palpation, not firm and no guarding Objective Data Active Medications Acetaminophen (Acetaminophen 325 Mg Tablet) 650 mg PO Q6H PRN PRN Reason: Pain, Mild (Pain Scale 1-3), fever or headache Atorvastatin Calcium (Atorvastatin Calcium 40 Mg Tablet) 40 mg PO BEDTIME [facility] Last Admin: 09/11/23 22:14 Dose: 40 mg Documented By: FRANCIE Cyanocobalamin (Cyanocobalamin (Vitamin B-12) 500 Mcg Tablet) 500 mcg PO DAILY [facility] Escitalopram Oxalate (Escitalopram Oxalate 20 Mg Tablet) 20 mg PO DAILY [facility] Glucose (Glucose Gel 15 Gm Gel..Gram.) 15 gm PO Q15M PRN; Protocol PRN Reason: per Hypoglycemia Standing Ord. Dextrose/Sodium Chloride (D5ns) 1,000 mls @ 100 mls/hr IVCONT .Q10H [facility] Last Admin: 09/12/23 03:47 Dose: 100 mls/hr Documented By: FRANCIE Piperacillin Sod/Tazobactam (Sod 2.25 gm/ Sodium Chloride) 50 mls @ 100 mls/hr IV Q8H [facility] Last Infusion: 09/12/23 02:54 Dose: Infused Documented By: FRANCIE Dextrose (D10) 250 mls @ 750 mls/hr IV Q15M PRN; Protocol PRN Reason: per Hypoglycemia Standing Ord. Insulin Human Lispro (Insulin Lispro 100 Unit/Ml 3 Ml Vial) 0 unit SUBCUT QIDACHS [facility]; Protocol Last Admin: 09/11/23 22:11 Dose: Not Given Documented By: FRANCIE Non-Admin Reason: Previously Administered Comments: administered 1913 Magnesium Oxide (Magnesium Oxide 400 Mg Tablet) 400 mg PO DAILY [facility] Melatonin (Melatonin 3 Mg Tablet) 6 mg PO BEDTIME PRN PRN Reason: Insomnia Last Admin: 09/11/23 22:14 Dose: 6 mg Documented By: FRANCIE Memantine (Memantine Hcl 5 Mg Tablet) 5 mg PO BID [facility] Last Admin: 09/11/23 22:14 Dose: 5 mg Documented By: FRANCIE Morphine Sulfate (Morphine Sulfate 2 Mg/Ml Cartridge) 2 mg IVPUSH Q3H PRN; Protocol PRN Reason: Pain, Severe (Pain Scale 7-10) Last Admin: 09/11/23 08:50 Dose: 2 mg Documented By: JUWAN Ondansetron HCl (Ondansetron Hcl 4 Mg/2 Ml Vial) 4 mg IVPUSH Q8H PRN PRN Reason: Nausea and Vomiting Sodium Chloride (0.9 % Sodium Chloride Flush 3 Ml Syringe) 3 ml IVFLUSH QSHIFT [facility] Last Admin: 09/12/23 07:22 Dose: Not Given Documented By: RERE Non-Admin Reason: IV Running Tamsulosin HCl (Tamsulosin Hcl 0.4 Mg Capsule) 0.4 mg PO DAILY [facility] Torsemide (Torsemide 20 Mg Tablet) 20 mg PO DAILY [facility]; Protocol Labs 09/12/23 05:20 09/12/23 05:20 Labs: Laboratory Results - last 24 hr 09/11/23 09/11/23 09/12/23 19:01 21:46 05:20 MCV 96.6 MCH 30.9 MCHC 31.9 RDW 13.0 Plt Count 130 L MPV 10.5 Immature Gran % (Auto) 0.6 H Neut % (Auto) 87.2 H Lymph % (Auto) 4.[address] [place] % (Auto) 6.8 Eos % (Auto) 1.1 Baso % (Auto) 0.3 Lymph # (Auto) 0.[address] [place] # (Auto) 0.7 Eos # (Auto) 0.1 Baso # (Auto) 0.0 Abs Immat Gran (auto) 0.07 H Absolute Neuts (auto) 9.4 H Absolute Nucleated RBC 0.000 Nucleated RBC % (auto) 0.0 Anion Gap 11 L Estim Creat Clear Calc 15.9 Estimated GFR 18 POC Glucose 202 H 194 H Random Glucose 201 H Calcium 8.9 D Total Bilirubin 0.4 AST 10 ALT 8 Alkaline Phosphatase 61 Total Protein 5.4 L Albumin 2.8 L 09/12/23 07:54 MCV MCH MCHC RDW Plt Count MPV Immature Gran % (Auto) Neut % (Auto) Lymph % (Auto) [place] % (Auto) Eos % (Auto) Baso % (Auto) Lymph # (Auto) [place] # (Auto) Eos # (Auto) Baso # (Auto) Abs Immat Gran (auto) Absolute Neuts (auto) Absolute Nucleated RBC Nucleated RBC % (auto) Anion Gap Estim Creat Clear Calc Estimated GFR POC Glucose 178 H Random Glucose Calcium Total Bilirubin AST ALT Alkaline Phosphatase Total Protein Albumin Procedures Date of Service Date of Service: 09/12/23 Progress Note: A&P Assessment and plan (1) Abdominal pain of unknown cause: Status: Acute Assessment and Plan: Abdominal pain much improved Exam remains benign WBC low No other GI complaints We will start on clear liquids Creatinine worsening Hospitalist follow-up Time Spent With Patient Time: Total time managing care of this patient today ____ minutes. Quality Stroke Does the patient have a stroke diagnosis?: No VTE Prior VTE?: No VTE Risk Level:: Medical - moderate - high VTE Device Contraindication: N/A - Device Ordered VTE Drug Contraindication: Treatment Not Indicated
[2023-09-12] MEDS: Acetaminophen 325 MG TABLET 650 MG PO ×2 (08:17→18:46)
[2023-09-12] MEDS: Escitalopram Oxalate 20 MG TABLET PO (08:19)
[2023-09-12] MEDS: Magnesium Oxide 400 MG TABLET PO (08:19)
[2023-09-12] MEDS: Tamsulosin HCL 0.4 MG CAPSULE PO (08:20)
[2023-09-12] MEDS: Cyanocobalamin (Vitamin B-12) 500 MCG TABLET PO (08:20)
[2023-09-12] MEDS: Memantine HCl 5 MG TABLET PO ×2 (10:01→18:47)
[2023-09-12 11:27] LABS: Glucose, Whole Blood 175 mg/dL (60-115)
[2023-09-12] MEDS: Insulin Lispro 100 UNIT/ML 3 ML VIAL SUBCUT ×3 (11:56→20:32)
[2023-09-12 16:00] VITALS: BP 160/60; PULSE 84; RESP 14; TEMP 36.1; O2SAT 93
--- NOTE | 2023-09-12 16:17 | HO.PM.IMPN ---
Subjective Subjective Date of Service: 09/12/23 Interval History: Seen and examined this morning Follow-up for surgical consult, appendicitis Patient reporting abdominal ?soreness Review of Systems Review of Systems: Yes all other systems are reviewed and are negative Constitutional Constitutional: Denies chills and Denies fever(s) Cardiovascular Cardiovascular: Denies chest pain, Denies palpitations and Denies dyspnea Respiratory Respiratory: Denies cough and Denies dyspnea Gastrointestinal Gastrointestinal: Reports abdominal pain Endocrine Endocrine: Denies palpitations Physical Exam Vital Signs: Vital Signs: Last Vital Signs Temp 97 F 09/12/23 16:00 Pulse 84 09/12/23 16:00 Resp 14 09/12/23 16:00 BP 160/60 H 09/12/23 16:00 Pulse Ox 93 09/12/23 16:00 O2 Del Method Room Air 09/12/23 16:00 BMI result Body Mass Index 31.3 Const: General: cooperative, no acute distress, alert and awake Nutritional Appearance: overweight Resp: Effort & Inspection: normal respiratory effort, able to speak in complete sentences, no respiratory distress and no use of accessory muscles Cardio: Rate: regular rate GI: Other: +tenderness, no rebound, non-distended Palpation (GI): Soft to palpation Neuro: General: moves all extremities and CN's II-XI intact bilaterally Extrem: General: Yes no pedal edema Objective Data Active Medications Acetaminophen (Acetaminophen 325 Mg Tablet) 650 mg PO Q6H PRN PRN Reason: Pain, Mild (Pain Scale 1-3), fever or headache Last Admin: 09/12/23 08:17 Dose: 650 mg Documented By: RERE Atorvastatin Calcium (Atorvastatin Calcium 40 Mg Tablet) 40 mg PO BEDTIME [facility] Last Admin: 09/11/23 22:14 Dose: 40 mg Documented By: FRANCIE Cyanocobalamin (Cyanocobalamin (Vitamin B-12) 500 Mcg Tablet) 500 mcg PO DAILY [facility] Last Admin: 09/12/23 08:20 Dose: 500 mcg Documented By: RERE Escitalopram Oxalate (Escitalopram Oxalate 20 Mg Tablet) 20 mg PO DAILY [facility] Last Admin: 09/12/23 08:19 Dose: 20 mg Documented By: RERE Glucose (Glucose Gel 15 Gm Gel..Gram.) 15 gm PO Q15M PRN; Protocol PRN Reason: per Hypoglycemia Standing Ord. Dextrose/Sodium Chloride (D5ns) 1,000 mls @ 100 mls/hr IVCONT .Q10H [facility] Last Admin: 09/12/23 13:46 Dose: 100 mls/hr Documented By: RERE Piperacillin Sod/Tazobactam (Sod 2.25 gm/ Sodium Chloride) 50 mls @ 100 mls/hr IV Q8H [facility] Last Infusion: 09/12/23 10:33 Dose: Infused Documented By: RERE Dextrose (D10) 250 mls @ 750 mls/hr IV Q15M PRN; Protocol PRN Reason: per Hypoglycemia Standing Ord. Insulin Human Lispro (Insulin Lispro 100 Unit/Ml 3 Ml Vial) 0 unit SUBCUT QIDACHS [facility]; Protocol Last Admin: 09/12/23 11:56 Dose: 2 unit Documented By: RERE Magnesium Oxide (Magnesium Oxide 400 Mg Tablet) 400 mg PO DAILY [facility] Last Admin: 09/12/23 08:19 Dose: 400 mg Documented By: RERE Melatonin (Melatonin 3 Mg Tablet) 6 mg PO BEDTIME PRN PRN Reason: Insomnia Last Admin: 09/11/23 22:14 Dose: 6 mg Documented By: FRANCIE Memantine (Memantine Hcl 5 Mg Tablet) 5 mg PO BID [facility] Last Admin: 09/12/23 10:01 Dose: 5 mg Documented By: RERE Morphine Sulfate (Morphine Sulfate 2 Mg/Ml Cartridge) 2 mg IVPUSH Q3H PRN; Protocol PRN Reason: Pain, Severe (Pain Scale 7-10) Last Admin: 09/11/23 08:50 Dose: 2 mg Documented By: JUWAN Ondansetron HCl (Ondansetron Hcl 4 Mg/2 Ml Vial) 4 mg IVPUSH Q8H PRN PRN Reason: Nausea and Vomiting Sodium Chloride (0.9 % Sodium Chloride Flush 3 Ml Syringe) 3 ml IVFLUSH QSHIFT [facility] Last Admin: 09/12/23 14:56 Dose: Not Given Documented By: RERE Non-Admin Reason: IV Running Tamsulosin HCl (Tamsulosin Hcl 0.4 Mg Capsule) 0.4 mg PO DAILY [facility] Last Admin: 09/12/23 08:20 Dose: 0.4 mg Documented By: RERE Torsemide (Torsemide 20 Mg Tablet) 20 mg PO DAILY [facility]; Protocol Labs 09/12/23 05:20 09/12/23 05:20 Labs: Laboratory Results - last 24 hr 09/11/23 09/11/23 09/12/23 19:01 21:46 05:20 MCV 96.6 MCH 30.9 MCHC 31.9 RDW 13.0 Plt Count 130 L MPV 10.5 Immature Gran % (Auto) 0.6 H Neut % (Auto) 87.2 H Lymph % (Auto) 4.0 L [place] % (Auto) 6.8 Eos % (Auto) 1.1 Baso % (Auto) 0.3 Lymph # (Auto) 0.4 L [place] # (Auto) 0.7 Eos # (Auto) 0.1 Baso # (Auto) 0.0 Abs Immat Gran (auto) 0.07 H Absolute Neuts (auto) 9.4 H Absolute Nucleated RBC 0.000 Nucleated RBC % (auto) 0.0 Anion Gap 11 L Estim Creat Clear Calc 15.9 Estimated GFR 18 POC Glucose 202 H 194 H Random Glucose 201 H Calcium 8.9 D Total Bilirubin 0.4 AST 10 ALT 8 Alkaline Phosphatase 61 Total Protein 5.4 L Albumin 2.8 L 09/12/23 09/12/23 07:54 11:22 MCV MCH MCHC RDW Plt Count MPV Immature Gran % (Auto) Neut % (Auto) Lymph % (Auto) [place] % (Auto) Eos % (Auto) Baso % (Auto) Lymph # (Auto) [place] # (Auto) Eos # (Auto) Baso # (Auto) Abs Immat Gran (auto) Absolute Neuts (auto) Absolute Nucleated RBC Nucleated RBC % (auto) Anion Gap Estim Creat Clear Calc Estimated GFR POC Glucose 178 H 175 H Random Glucose Calcium Total Bilirubin AST ALT Alkaline Phosphatase Total Protein Albumin Assessment and Plan (1) Acute appendicitis: Status: Acute Plan 88 year old male with history of htn, type 2 diabetes, bph, unspecified dementia with mood disorder, and hld admitted to general surgery for acute appendicitis with consult placed to hospitalist for medical management. #Acute appendicitis -plan per general surgery -currently being managed conservatively with IV Zosyn started on clear liquids # HTN with soft blood pressure x1 -continue IV fluids until tolerating enough p.o. intake Blood pressure trending up, we will resume propranolol, hold lisinopril CKD, unclear stage as no recent baseline creatinine Creatinine stable x2 days but no recent baseline Hold lisinopril for now, torsemide on hold Nephrology consult follow renal function # insulin-dependent type 2 diabetes -hold basal insulin given NPO status, resume as diet advances -POC glucose, Admelog on sliding scale # BPH -Flomax # unspecified dementia with mood disorder -continue home medications Thank you for this consult, we will continue following Quality Stroke Does the patient have a stroke diagnosis?: No VTE Prior VTE?: No VTE Risk Level:: Medical - moderate - high VTE Device Contraindication: N/A - Device Ordered VTE Drug Contraindication: Treatment Not Indicated
[2023-09-12 16:22] LABS: Glucose, Whole Blood 206 mg/dL (60-115)
--- NOTE | 2023-09-12 16:30 | PM.CNNEP ---
History of Present Illness Reason for Consult Consult date: 09/12/23 Reason for consult: IZABELLA Chief Complaint Chief complaint: Abdominal Pain History of Present Illness Narrative: 88 year old male with history of htn, type 2 diabetes, bph, unspecified dementia with mood disorder, and hld admitted to general surgery for acute appendicitis with consult placed to hospitalist for medical management. Patient is a limited historian but is reporting diffuse abdominal pain, greatest in the right lower quadrant. Denies any nausea, vomiting, diarrhea. Per family, developed sudden onset severe right lower quadrant pain last night and presented to the ED for evaluation. CT abdomen/pelvis shows appendix with borderline dilatation in the right abdomen and some adjacent stranding possibly indicative of mild/early appendicitis with some mild stranding of the mesentery and small amount of free fluid which is nonspecific. General surgery discussed case with patient and family who opted for conservative management and he has been started on empiric Zosyn and is currently NPO. Baseline creatinine is probably around 2.0 mg/dL. Currently creatinine is at 3.3. Review of Systems Review of Systems Yes Unobtainable due to mental status PMFSH Past Medical History Medical History (Updated 09/15/23 @ 14:19 by Morgan Ariza MD) Dementia with mood disturbance BPH (benign prostatic hyperplasia) HLD (hyperlipidemia) HTN (hypertension) DM renal manif type II Family History Family History Mother No problems noted. Father Alzheimer disease Surgical History Surgical History Hx of cataract surgery Hx of blepharoplasty Hx of colonoscopy Hx of lymph node excision Hx of melanoma excision Social History Social History Household Members: Spouse Household Members Other:: Pt's Housing: House Do you presently have visiting nurse or other home services: No Alcohol intake: current Alcohol intake frequency: does not drink Comment: pt not impulsive or attempting to get OOOB Patient Tobacco Use Status: Former Tobacco user Second Hand Smoke Exposure: No service: Yes Meds Allergies Allergy/AdvReac Type Severity Reaction Status Date / Time No Known Allergies Allergy Verified 09/10/23 23:32 Active Medications: Current Medications Acetaminophen (Acetaminophen 325 Mg Tablet) 650 mg PO Q6H PRN PRN Reason: Pain, Mild (Pain Scale 1-3), fever or headache Last Admin: 09/12/23 08:17 Dose: 650 mg Atorvastatin Calcium (Atorvastatin Calcium 40 Mg Tablet) 40 mg PO BEDTIME [facility] Last Admin: 09/11/23 22:14 Dose: 40 mg Cyanocobalamin (Cyanocobalamin (Vitamin B-12) 500 Mcg Tablet) 500 mcg PO DAILY [facility] Last Admin: 09/12/23 08:20 Dose: 500 mcg Escitalopram Oxalate (Escitalopram Oxalate 20 Mg Tablet) 20 mg PO DAILY [facility] Last Admin: 09/12/23 08:19 Dose: 20 mg Glucose (Glucose Gel 15 Gm Gel..Gram.) 15 gm PO Q15M PRN; Protocol PRN Reason: per Hypoglycemia Standing Ord. Dextrose/Sodium Chloride (D5ns) 1,000 mls @ 100 mls/hr IVCONT .Q10H [facility] Last Admin: 09/12/23 13:46 Dose: 100 mls/hr Piperacillin Sod/Tazobactam (Sod 2.25 gm/ Sodium Chloride) 50 mls @ 100 mls/hr IV Q8H [facility] Last Infusion: 09/12/23 10:33 Dose: Infused Dextrose (D10) 250 mls @ 750 mls/hr IV Q15M PRN; Protocol PRN Reason: per Hypoglycemia Standing Ord. Insulin Human Lispro (Insulin Lispro 100 Unit/Ml 3 Ml Vial) 0 unit SUBCUT QIDACHS [facility]; Protocol Last Admin: 09/12/23 11:56 Dose: 2 unit Magnesium Oxide (Magnesium Oxide 400 Mg Tablet) 400 mg PO DAILY [facility] Last Admin: 09/12/23 08:19 Dose: 400 mg Melatonin (Melatonin 3 Mg Tablet) 6 mg PO BEDTIME PRN PRN Reason: Insomnia Last Admin: 09/11/23 22:14 Dose: 6 mg Memantine (Memantine Hcl 5 Mg Tablet) 5 mg PO BID [facility] Last Admin: 09/12/23 10:01 Dose: 5 mg Morphine Sulfate (Morphine Sulfate 2 Mg/Ml Cartridge) 2 mg IVPUSH Q3H PRN; Protocol PRN Reason: Pain, Severe (Pain Scale 7-10) Last Admin: 09/11/23 08:50 Dose: 2 mg Ondansetron HCl (Ondansetron Hcl 4 Mg/2 Ml Vial) 4 mg IVPUSH Q8H PRN PRN Reason: Nausea and Vomiting Propranolol HCl (Propranolol Hcl La 80 Mg Cap.Sa.24h) 20 mg PO DAILY [facility]; Protocol Sodium Chloride (0.9 % Sodium Chloride Flush 3 Ml Syringe) 3 ml IVFLUSH QSHIFT [facility] Last Admin: 09/12/23 14:56 Dose: Not Given Tamsulosin HCl (Tamsulosin Hcl 0.4 Mg Capsule) 0.4 mg PO DAILY [facility] Last Admin: 09/12/23 08:20 Dose: 0.4 mg Torsemide (Torsemide 20 Mg Tablet) 20 mg PO DAILY [facility]; Protocol Home Medications ?Medication ?Instructions ?Recorded ?Confirmed ?Last Taken ?Type atorvastatin 40 mg tablet 40 mg PO BEDTIME 05/28/22 09/11/23 09/10/23 History blood sugar diagnostic (FreeStyle #10 ea 05/28/22 Unknown History Lite Strips) dulaglutide 1.5 mg/0.5 mL 1.5 mg subcut SA 05/28/22 09/11/23 09/10/23 History subcutaneous pen injector (Trulicity) lancets 28 gauge (FreeStyle #100 ea 05/28/22 Unknown History Lancets) lisinopril 40 mg tablet 40 mg PO DAILY 05/28/22 09/11/23 09/10/23 History magnesium oxide 400 mg (241.3 mg 400 mg PO DAILY 05/28/22 09/11/23 09/10/23 History magnesium) tablet memantine 5 mg tablet 5 mg PO BID 05/28/22 09/11/23 09/10/23 History pen needle, diabetic 31 gauge x #1,200 ea 05/28/22 Unknown History 5/16 (BD Ultra-Fine Short Pen Needle) torsemide 20 mg tablet 20 mg PO DAILY 05/28/22 09/11/23 09/10/23 History escitalopram oxalate 20 mg tablet 20 mg PO DAILY 06/08/22 09/11/23 09/10/23 History insulin glargine 100 unit/mL (3 40 unit subcut BEDTIME 06/08/22 09/11/23 09/10/23 History mL) subcutaneous pen (Lantus Solostar U-100 Insulin) tamsulosin 0.4 mg capsule 0.4 mg PO DAILY 06/08/22 09/11/23 09/10/23 History cyanocobalamin (vitamin B-12) 500 500 mcg PO DAILY 09/11/23 09/11/23 09/10/23 History mcg tablet (Vitamin B-12) multivitamin 1 tab PO DAILY 09/11/23 09/11/23 09/10/23 History propranolol 20 mg tablet 20 mg PO BID 09/13/23 09/13/23 09/10/23 History Physical Exam Vital Signs: Last Vital Signs Temp 97 F 09/12/23 16:00 Pulse 84 09/12/23 16:00 Resp 14 09/12/23 16:00 BP 160/60 H 09/12/23 16:00 Pulse Ox 93 09/12/23 16:00 O2 Del Method Room Air 09/12/23 16:00 BMI result Body Mass Index 31.3 Const Other: Mucosa is dry General: ill appearing; No acute distress Orientation/consciousness: patient oriented x3 Eyes General: appearance normal, both eyes and all related structures Visual Quigley: normal visual quigley by confrontation Neck Neck: Yes supple and Yes no JVD Resp Effort & Inspection: normal respiratory effort and respiratory effort not decreased Auscultation: rhonchi Cardio Palpation: no palpable S3 and no palpable S4 Heart sounds: no rubs GI Palpation (GI): Soft to palpation and Tenderness to palpation present (GI) Percussion: Yes normal to percussion Auscultation: normal bowel sounds General: Yes no CVA tenderness Back/Spine/Pelvis Back: no CVA tenderness Skin General skin exam: no petechiae and no purpura Neuro General: patient oriented x3 and no focal motor deficits Extrem General: No clubbing and No edema Results Lab Results 09/16/23 07:47 09/16/23 07:47 Lab results: Chemistry 09/11/23 09/12/23 00:05 05:20 Sodium 138 137 Potassium 4.6 4.4 Carbon Dioxide 24 21 L BUN 34 H 32 H Creatinine 3.30 H 3.35 H Calcium 10.4 H D 8.9 D Hematology 09/11/23 09/12/23 00:05 05:20 WBC 8.9 10.8 Hgb 11.7 L 9.2 L D Plt Count 150 L D 130 L Urinalysis 09/11/23 07:37 Urine Color Yellow Urine Appearance Clear Urine pH 6.5 Ur Specific [place] 1.020 Urine Protein 300 (3+) H Urine Glucose (UA) >=1000 H Urine Ketones Negative Urine Blood Negative Urine Nitrite Negative Ur Leukocyte Esterase Negative Urine RBC 0-2 Urine WBC 0-5 Ur Squamous Epith Cells 0-2 Hyaline Casts 3-5 Assessment and Plan (1) IZABELLA (acute kidney injury): Status: Acute Plan 88-year-old man with 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 Baseline creatinine is around 2.0 mg/dL. Superimposed IZABELLA due to hypoperfusion. Mucosa is dry and he appears volume depleted. No evidence of obstruction. Recommendation IV hydration. Keep intake more than output. Maintain systolic blood pressure more than 100 mm Hg and avoid hypotension. Discontinue torsemide. Hold lisinopril. Watch urine output closely. No absolute indication for dialysis yet. Concur with other medical management and she will follow along with the team. Procedures Date of Service Date of Service: 09/16/23
[2023-09-12] MEDS: oxyCODONE HCl Immed Release 5 MG TABLET PO ×2 (18:46→22:33)
[2023-09-12] MEDS: Atorvastatin Calcium 40 MG TABLET PO (18:47)
[2023-09-12 19:10] VITALS: BP 164/84; PULSE 99; RESP 18; TEMP 36.4; O2SAT 94
[2023-09-12 20:16] LABS: Glucose, Whole Blood 175 mg/dL (60-115)
[2023-09-13] MEDS: Piperacillin Sodium/Tazobactam 2.25 GM in 0.9 % Sodium Chloride 50 ML IV ×3 (01:06→18:12)
[2023-09-13 02:57] VITALS: BP 166/76; PULSE 97; RESP 18; TEMP 36.6; O2SAT 94
[2023-09-13 06:57] LABS: Anion Gap 12 (12-20); Blood Urea Nitrogen 23 mg/dL (9-16); Calcium 8.9 mg/dL (8.4-10.2); Carbon Dioxide 19 mmol/L (22-29); Chloride 111 mmol/L (96-108); Estimated Glomerular Filt Rate 20; Glucose Random 174 mg/dL (60-115); Potassium 4.1 mmol/L (3.3-5.1); Sodium 138 mmol/L (135-145)
[2023-09-13 07:08] VITALS: BP 156/82; PULSE 99; RESP 16; TEMP 37.7; O2SAT 95
[2023-09-13 07:36] LABS: Glucose, Whole Blood 181 mg/dL (60-115)
--- NOTE | 2023-09-13 08:18 | PM.PNGS ---
Subjective Subjective Date of Service: 09/13/23 Interval history: still having abdl pain, although better than at admission no vomitting seems to tolerate clear liquids more alert Physical Exam Vital Signs: Vital Signs: Last Vital Signs Temp 99.8 F 09/13/23 07:08 Pulse 99 09/13/23 07:08 Resp 16 09/13/23 07:08 BP 156/82 H 09/13/23 07:08 Pulse Ox 95 09/13/23 07:08 O2 Del Method Room Air 09/13/23 07:08 BMI result Body Mass Index 31.3 Const: General: no acute distress Resp: Effort & Inspection: normal respiratory effort Cardio: Rhythm: regular rhythm GI: Other: soft, some difffuse tenderness, protruberant Objective Data Active Medications Acetaminophen (Acetaminophen 325 Mg Tablet) 650 mg PO Q6H PRN PRN Reason: Pain, Mild (Pain Scale 1-3), fever or headache Last Admin: 09/12/23 18:46 Dose: 650 mg Documented By: MELYSSA Atorvastatin Calcium (Atorvastatin Calcium 40 Mg Tablet) 40 mg PO BEDTIME [facility] Last Admin: 09/12/23 18:47 Dose: 40 mg Documented By: MELYSSA Cyanocobalamin (Cyanocobalamin (Vitamin B-12) 500 Mcg Tablet) 500 mcg PO DAILY [facility] Last Admin: 09/12/23 08:20 Dose: 500 mcg Documented By: RERE Escitalopram Oxalate (Escitalopram Oxalate 20 Mg Tablet) 20 mg PO DAILY [facility] Last Admin: 09/12/23 08:19 Dose: 20 mg Documented By: RERE Glucose (Glucose Gel 15 Gm Gel..Gram.) 15 gm PO Q15M PRN; Protocol PRN Reason: per Hypoglycemia Standing Ord. Piperacillin Sod/Tazobactam (Sod 2.25 gm/ Sodium Chloride) 50 mls @ 100 mls/hr IV Q8H [facility] Last Infusion: 09/13/23 02:01 Dose: Infused Documented By: GERARDO Dextrose (D10) 250 mls @ 750 mls/hr IV Q15M PRN; Protocol PRN Reason: per Hypoglycemia Standing Ord. Lactated Ringer's (Lr) 1,000 mls @ 100 mls/hr IVCONT .Q10H [facility] Insulin Human Lispro (Insulin Lispro 100 Unit/Ml 3 Ml Vial) 0 unit SUBCUT QIDACHS [facility]; Protocol Last Admin: 09/12/23 20:32 Dose: 2 unit Documented By: MELYSSA Magnesium Oxide (Magnesium Oxide 400 Mg Tablet) 400 mg PO DAILY [facility] Last Admin: 09/12/23 08:19 Dose: 400 mg Documented By: RERE Melatonin (Melatonin 3 Mg Tablet) 6 mg PO BEDTIME PRN PRN Reason: Insomnia Last Admin: 09/11/23 22:14 Dose: 6 mg Documented By: FRANCIE Memantine (Memantine Hcl 5 Mg Tablet) 5 mg PO BID [facility] Last Admin: 09/12/23 18:47 Dose: 5 mg Documented By: MELYSSA Morphine Sulfate (Morphine Sulfate 2 Mg/Ml Cartridge) 2 mg IVPUSH Q3H PRN; Protocol PRN Reason: Pain, Severe (Pain Scale 7-10) Last Admin: 09/11/23 08:50 Dose: 2 mg Documented By: JUWAN Ondansetron HCl (Ondansetron Hcl 4 Mg/2 Ml Vial) 4 mg IVPUSH Q8H PRN PRN Reason: Nausea and Vomiting Oxycodone HCl (Oxycodone Hcl Immed Release 5 Mg Tablet) 5 mg PO Q4H PRN PRN Reason: Pain, Moderate(Pain Scale 4-6) Last Admin: 09/12/23 22:33 Dose: 5 mg Documented By: MELYSSA Propranolol HCl (Propranolol Hcl La 80 Mg Cap.Sa.24h) 20 mg PO DAILY [facility]; Protocol Last Admin: 09/13/23 08:12 Dose: Not Given Documented By: RERE Non-Admin Reason: unable t give d/t dose issues, pharm called Sodium Chloride (0.9 % Sodium Chloride Flush 3 Ml Syringe) 3 ml IVFLUSH QSHIFT [facility] Last Admin: 09/13/23 07:14 Dose: Not Given Documented By: RERE Non-Admin Reason: IV Running Tamsulosin HCl (Tamsulosin Hcl 0.4 Mg Capsule) 0.4 mg PO DAILY [facility] Last Admin: 09/12/23 08:20 Dose: 0.4 mg Documented By: RERE Torsemide (Torsemide 20 Mg Tablet) 20 mg PO DAILY [facility]; Protocol Labs 09/12/23 05:20 09/13/23 05:47 Labs: Laboratory Results - last 24 hr 09/12/23 09/12/23 09/12/23 11:22 16:06 20:08 Hold Purple Top Anion Gap Estim Creat Clear Calc Estimated GFR POC Glucose 175 H 206 H 175 H Random Glucose Calcium 09/13/23 09/13/23 05:47 07:14 Hold Purple Top SEE NOTE Anion Gap 12 Estim Creat Clear Calc 18.0 Estimated GFR 20 POC Glucose 181 H Random Glucose 174 H Calcium 8.9 Procedures Date of Service Date of Service: 09/13/23 Progress Note: A&P Assessment and plan (1) Abdominal pain of unknown cause: Status: Acute Assessment and Plan: question of early appendicitis, but tenderness has been diffuse with other areas of mesenteric stranding clinically stable still with some pain ffup CT today - no IV contrast in view of elevated creatinine creatinine slightly lower today Hospitalist following Time Spent With Patient Time: Total time managing care of this patient today ____ minutes. Quality Stroke Does the patient have a stroke diagnosis?: No VTE Prior VTE?: No VTE Risk Level:: Medical - moderate - high VTE Device Contraindication: N/A - Device Ordered VTE Drug Contraindication: Treatment Not Indicated
[2023-09-13] MEDS: Lactated Ringers 1,000 ML 100 ML IVCONT (08:22)
[2023-09-13] MEDS: oxyCODONE HCl Immed Release 5 MG TABLET PO ×3 (08:22→17:09)
[2023-09-13] MEDS: Insulin Lispro 100 UNIT/ML 3 ML VIAL SUBCUT ×2 (08:23→12:01)
[2023-09-13] MEDS: Memantine HCl 5 MG TABLET PO ×2 (08:23→21:30)
[2023-09-13] MEDS: Tamsulosin HCL 0.4 MG CAPSULE PO (08:23)
[2023-09-13] MEDS: Escitalopram Oxalate 20 MG TABLET PO (08:23)
[2023-09-13] MEDS: Magnesium Oxide 400 MG TABLET PO (08:23)
[2023-09-13] MEDS: Cyanocobalamin (Vitamin B-12) 500 MCG TABLET PO (08:23)
[2023-09-13] MEDS: Propranolol HCL 20 MG TABLET PO ×2 (10:21→21:30)
[2023-09-13 10:47] VITALS: BP 156/82; PULSE 99; O2SAT 95
[2023-09-13 11:21] LABS: Glucose, Whole Blood 210 mg/dL (60-115)
--- NOTE | 2023-09-13 12:18 | P.CDIM_ITS ---
PROVIDER RESPONSE TEXT: To clarify, the appropriate diagnosis supported by the clinical indicators: CKD, please provide stage ( 1, 2, 3a, 3b, 4, 5 QUERY TEXT: PHYSICIAN'S DOCUMENTATION REQUEST Date of Query: 09/12/2023 02:42 PM EDT Patient Name: Jadiel Orantes Admit Date: 09/11/2023 Dear Darwin Maldonado MD, A review of the medical record indicates additional documentation may be needed. Please review below and update the documentation accordingly. Clinical Indicators: Per General Surgery Progress Note 09/11/23: known CKD BUN on 09/11/23: 34 Creatinine on 09/11/23: 3.30 Est GFR 18 Please clarify which of the following accurately represents the stage of patient's renal status: CKD, please provide stage ( 1, 2, 3a, 3b, 4, 5 Other (explain) Clinically unable to determine (explain) Thank you, Sol Young RN Use of terms such as suspected, likely, concern for, or probable (associated with a specific diagnosi s that is being evaluated, monitored, or treated as if it exists) are acceptable and can be coded in the inpatient se tting, when documented at the time of discharge. Please use your independent medical judgment in providing your response. THIS QUERY IS PART OF THE PERMANENT MEDICAL RECORD
[2023-09-13 12:32] LABS: Hematocrit 31.6 % (42.0-52.0); Mean Corpuscular HGB Conc 31.6 g/dl (31.0-36.0); Mean Corpuscular Hemoglobin 30.5 pg (27.0-33.0); Mean Corpuscular Volume 96.3 fL (80.0-98.0); Mean Platelet Volume 10.7 fL (9.4-12.4); Platelet Count 155 X10*3/uL (160-400); Red Blood Count 3.28 X10*6/uL (4.60-5.80); White Blood Count 12.5 X10*3/uL (4.8-10.8)
--- NOTE | 2023-09-13 13:22 | P.PNNP_ITS ---
Subjective Subjective Date of Service: 09/13/23 Interval history: Seen and examined this morning; events noted. All recent data reviewed. Renal functions better. Physical Exam 2 Vital Signs: Vital Signs: Last Vital Signs Temp 99.8 F 09/13/23 07:08 Pulse 99 09/13/23 10:47 Resp 16 09/13/23 07:08 BP 156/82 H 09/13/23 10:47 Pulse Ox 95 09/13/23 10:47 O2 Del Method Room Air 09/13/23 07:08 BMI result Body Mass Index 31.3 Const: General: no acute distress Eyes: EOM: EOMs intact bilaterally Resp: Auscultation: diminished lung sounds Cardio: Rate: regular rate GI: Palpation (GI): Soft to palpation Neuro: General: moves all extremities Objective Data Labs 09/13/23 05:47 09/13/23 05:47 Labs: Laboratory Results - last 24 hr 09/12/23 09/12/23 09/13/23 16:06 20:08 05:47 WBC 12.5 H RBC 3.28 L Hgb 10.0 L Hct 31.6 L MCV 96.3 MCH 30.5 MCHC 31.6 RDW 13.0 Plt Count 155 L MPV 10.7 Absolute Nucleated RBC 0.000 Nucleated RBC % (auto) 0.0 Hold Purple Top SEE NOTE Sodium 138 Potassium 4.1 Chloride 111 H Carbon Dioxide 19 L Anion Gap 12 BUN 23 H Creatinine 2.96 H Estim Creat Clear Calc 18.0 Estimated GFR 20 POC Glucose 206 H 175 H Random Glucose 174 H Calcium 8.9 09/13/23 09/13/23 07:14 11:14 WBC RBC Hgb Hct MCV MCH MCHC RDW Plt Count MPV Absolute Nucleated RBC Nucleated RBC % (auto) Hold Purple Top Sodium Potassium Chloride Carbon Dioxide Anion Gap BUN Creatinine Estim Creat Clear Calc Estimated GFR POC Glucose 181 H 210 H Random Glucose Calcium Procedures Date of Service Date of Service: 09/13/23 Assessment & Plan Assessment and plan (1) IZABELLA (acute kidney injury): Status: Acute Plan 88-year-old man with 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 Baseline creatinine is around 2.0 mg/dL. Has superimposed IZABELLA due to tubular injury. No evidence of obstruction. Torsemide & lisinopril on hold; Creatinine better Concur with rest of current management Progress Note: Quality Stroke Does the patient have a stroke diagnosis?: No
--- NOTE | 2023-09-13 13:37 | HO.PM.IMPN ---
Subjective Subjective Date of Service: 09/13/23 Interval History: Seen and examined this morning Follow-up for medical consultation, appendicitis Nurse reporting cough. Not requiring supplemental oxygen Review of Systems Review of Systems: Yes all other systems are reviewed and are negative Constitutional Constitutional: Denies chills and Denies fever(s) Physical Exam Vital Signs: Vital Signs: Last Vital Signs Temp 99.8 F 09/13/23 07:08 Pulse 99 09/13/23 10:47 Resp 16 09/13/23 07:08 BP 156/82 H 09/13/23 10:47 Pulse Ox 95 09/13/23 10:47 O2 Del Method Room Air 09/13/23 07:08 BMI result Body Mass Index 31.3 Const: General: cooperative, no acute distress, alert and awake Nutritional Appearance: overweight Resp: Effort & Inspection: normal respiratory effort, able to speak in complete sentences, no respiratory distress and no use of accessory muscles Cardio: Rate: regular rate GI: Other: +tenderness, no rebound, non-distended Palpation (GI): Soft to palpation Neuro: General: moves all extremities and CN's II-XI intact bilaterally Extrem: General: Yes no pedal edema Objective Data Active Medications Acetaminophen (Acetaminophen 325 Mg Tablet) 650 mg PO Q6H PRN PRN Reason: Pain, Mild (Pain Scale 1-3), fever or headache Last Admin: 09/12/23 18:46 Dose: 650 mg Documented By: MELYSSA Atorvastatin Calcium (Atorvastatin Calcium 40 Mg Tablet) 40 mg PO BEDTIME [facility] Last Admin: 09/12/23 18:47 Dose: 40 mg Documented By: MELYSSA Cyanocobalamin (Cyanocobalamin (Vitamin B-12) 500 Mcg Tablet) 500 mcg PO DAILY [facility] Last Admin: 09/13/23 08:23 Dose: 500 mcg Documented By: RERE Escitalopram Oxalate (Escitalopram Oxalate 20 Mg Tablet) 20 mg PO DAILY [facility] Last Admin: 09/13/23 08:23 Dose: 20 mg Documented By: RERE Glucose (Glucose Gel 15 Gm Gel..Gram.) 15 gm PO Q15M PRN; Protocol PRN Reason: per Hypoglycemia Standing Ord. Dextrose (D10) 250 mls @ 750 mls/hr IV Q15M PRN; Protocol PRN Reason: per Hypoglycemia Standing Ord. Piperacillin Sod/Tazobactam (Sod 2.25 gm/ Sodium Chloride) 50 mls @ 100 mls/hr IV Q6H [facility] Last Admin: 09/13/23 13:16 Dose: 100 mls/hr Documented By: RERE Insulin Human Lispro (Insulin Lispro 100 Unit/Ml 3 Ml Vial) 0 unit SUBCUT QIDACHS [facility]; Protocol Last Admin: 09/13/23 12:01 Dose: 4 unit Documented By: RERE Magnesium Oxide (Magnesium Oxide 400 Mg Tablet) 400 mg PO DAILY [facility] Last Admin: 09/13/23 08:23 Dose: 400 mg Documented By: RERE Melatonin (Melatonin 3 Mg Tablet) 6 mg PO BEDTIME PRN PRN Reason: Insomnia Last Admin: 09/11/23 22:14 Dose: 6 mg Documented By: FRANCIE Memantine (Memantine Hcl 5 Mg Tablet) 5 mg PO BID [facility] Last Admin: 09/13/23 08:23 Dose: 5 mg Documented By: RERE Morphine Sulfate (Morphine Sulfate 2 Mg/Ml Cartridge) 2 mg IVPUSH Q3H PRN; Protocol PRN Reason: Pain, Severe (Pain Scale 7-10) Last Admin: 09/11/23 08:50 Dose: 2 mg Documented By: JUWAN Ondansetron HCl (Ondansetron Hcl 4 Mg/2 Ml Vial) 4 mg IVPUSH Q8H PRN PRN Reason: Nausea and Vomiting Oxycodone HCl (Oxycodone Hcl Immed Release 5 Mg Tablet) 5 mg PO Q4H PRN PRN Reason: Pain, Moderate(Pain Scale 4-6) Last Admin: 09/13/23 13:15 Dose: 5 mg Documented By: RERE Propranolol HCl (Propranolol Hcl 20 Mg Tablet) 20 mg PO BID [facility]; Protocol Last Admin: 09/13/23 10:21 Dose: 20 mg Documented By: RERE Sodium Chloride (0.9 % Sodium Chloride Flush 3 Ml Syringe) 3 ml IVFLUSH QSHIFT [facility] Last Admin: 09/13/23 07:14 Dose: Not Given Documented By: RERE Non-Admin Reason: IV Running Tamsulosin HCl (Tamsulosin Hcl 0.4 Mg Capsule) 0.4 mg PO DAILY [facility] Last Admin: 09/13/23 08:23 Dose: 0.4 mg Documented By: RERE Torsemide (Torsemide 20 Mg Tablet) 20 mg PO DAILY [facility]; Protocol Labs 09/13/23 05:47 09/13/23 05:47 Labs: Laboratory Results - last 24 hr 09/12/23 09/12/23 09/13/23 16:06 20:08 05:47 MCV 96.3 MCH 30.5 MCHC 31.6 RDW 13.0 Plt Count 155 L MPV 10.7 Absolute Nucleated RBC 0.000 Nucleated RBC % (auto) 0.0 Hold Purple Top SEE NOTE Anion Gap 12 Estim Creat Clear Calc 18.0 Estimated GFR 20 POC Glucose 206 H 175 H Random Glucose 174 H Calcium 8.9 09/13/23 09/13/23 07:14 11:14 MCV MCH MCHC RDW Plt Count MPV Absolute Nucleated RBC Nucleated RBC % (auto) Hold Purple Top Anion Gap Estim Creat Clear Calc Estimated GFR POC Glucose 181 H 210 H Random Glucose Calcium Assessment and Plan (1) IZABELLA (acute kidney injury): Status: Acute Plan 88 year old male with history of htn, type 2 diabetes, bph, unspecified dementia with mood disorder, and hld admitted to general surgery for acute appendicitis with consult placed to hospitalist for medical management. 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 Hold lisinopril, torsemide Nephrology following Renal function beginning to improve DC IV fluid insulin-dependent type 2 diabetes hold basal insulin given NPO status, resume as diet advances POC glucose,SSI thrombocytopenia likely due to acute infection follow CBC Normocytic anemia Above transfusion threshold BPH Flomax unspecified dementia with mood disorder continue home medications Thank you for this consult, we will continue following Quality Stroke Does the patient have a stroke diagnosis?: No VTE Prior VTE?: No VTE Risk Level:: Medical - moderate - high VTE Device Contraindication: N/A - Device Ordered VTE Drug Contraindication: Treatment Not Indicated
--- NOTE | 2023-09-13 13:43 | MHC.CM.PN ---
Addendum entered by Baylee Fair RN 09/13/23 14:47: [facility] UNABLE TO OFFER, COMFORT PLUS FOLLOWING. Original Note: EMR REVIEWED, PER SURGICAL NOTE PT CONT'S TO C/O ABD PAIN, PT ON CLEAR LIQUIDS, NO PLAN FOR DC, CM WILL CONT TO FOLLOW DC NEEDS.
[2023-09-13 14:25] LABS: Lactic Acid 1.4 mmol/L (0.5-2.0)
--- NOTE | 2023-09-13 15:12 | PM.EVENT ---
Event Note Date of Service: 09/13/23 Event Note: Still place of the abdominal pain Now taking just p.o. pain meds Follow-up CT scan - less blood pressure stranding in the right lower quadrant No appendicolith No fever Looks better overall Keep on clear liquids for now Pain management Family as bedside, updated As per family no surgical intervention at least for now Hospitalist involved for elevated creatinine, chronic kidney disease Time Spent With Patient Time: Total time managing care of this patient today ____ minutes.
[2023-09-13 15:39] VITALS: BP 146/66; PULSE 90; RESP 14; TEMP 36.3; O2SAT 93
--- NOTE | 2023-09-13 16:05 | MHC.SL.SWA ---
Speech Pathologist Impression: Risk of aspiration, oral phase dysphagia Risk of Aspiration Due to: Neurological Condition History of Pneumonia Reduced Cognition Dysphasia Diet Status: Once cleared to advance from Clear Liquids, recommend NDD2/thin Liquid Consistency and Strategies for Safe Swallow: Liquid Intake Recommendation: Thin Solid Food Consistency: Dietary Recommendations: Clear Liquid Diet Additional Modifications to Solid Foods: Patient is presently on a Clear Liquid Diet s/p surgery for appendicitis. Once cleared by medical team to advance from Liquids, MILK ROUTE SUPERVISOR recommends diet of GROUND/MECH ALTERED (NDD2) solids and THIN liquids, pills to be administered CRUSHED or WHOLE in PUREE. Patient with underlying dementia, will require total assistance feeding and strict aspiration precautions. Patient is missing top teeth and has limited teeth on bottom jaw. He presents with mild oral phase dysphagia characterized by slow and prolonged mastication. Give patient small bites, ensure adequate time to chew, alternate bites with sips of liquid, check oral cavity periodically for clearance, ensure oral cavity is clear before giving more bites. Oral Medication Intake: Crushed with Puree Please contact the pharmacy regarding appropriate crushable or liquid drug formulations that are available whenever modified delivery is recommended. Compensatory Strategies and Precautions to be Taken for Safe Swallow: Sitting Upright (90 deg) Double Swallow Small Bites and Sips Alternate Liquids/Solids Rate of Ingestion Change Oral Check Avoid Specific Foods Supervision While Eating and Drinking for Safe Swallow: Total Assistance (1:1) Foods to Avoid: Hard, tough to chew solids; mixed textures Swallowing Recommended Treatments: Compens. Strategy Educat. Recommendation for Speech: Inpatient Speech Therapy Comment: MILK ROUTE SUPERVISOR will continue to follow to monitor patient's tolerance of modified diet and to re-assess for potential upgrade if/when appropriate. Frequency/Duration: M-F PRN Date Range for Service Req: Timeline to reassess: Wilton Weaver Clinican/Clinical Fellow: No Supervisory Statement: I have reviewed and agree with the student/clinical fellow's documentation: N/A Speech Language Pathologist: Kathy Ramirez M.A., CCC-MILK ROUTE SUPERVISOR
[2023-09-13 16:19] LABS: Glucose, Whole Blood 132 mg/dL (60-115)
[2023-09-13 19:05] VITALS: BP 173/74; PULSE 84; RESP 18; TEMP 36.1; O2SAT 94
[2023-09-13] MEDS: 0.9 % Sodium Chloride Flush 3 ML SYRINGE IVFLUSH (19:32)
[2023-09-13 21:19] LABS: Glucose, Whole Blood 135 mg/dL (60-115)
[2023-09-13] MEDS: Atorvastatin Calcium 40 MG TABLET PO (21:30)
[2023-09-14] MEDS: Piperacillin Sodium/Tazobactam 2.25 GM in 0.9 % Sodium Chloride 50 ML IV ×5 (01:04→23:59)
[2023-09-14 04:15] VITALS: BP 160/70
[2023-09-14 07:10] LABS: Hematocrit 29.1 % (42.0-52.0); Hemoglobin 9.6 g/dl (14.0-18.0); Mean Corpuscular Hemoglobin 31.1 pg (27.0-33.0); Mean Corpuscular Volume 94.2 fL (80.0-98.0); Mean Platelet Volume 10.1 fL (9.4-12.4); Platelet Count 161 X10*3/uL (160-400); Red Blood Count 3.09 X10*6/uL (4.60-5.80); White Blood Count 12.4 X10*3/uL (4.8-10.8)
[2023-09-14] MEDS: 0.9 % Sodium Chloride Flush 3 ML SYRINGE IVFLUSH ×3 (07:18→20:46)
[2023-09-14 07:41] LABS: Anion Gap 12 (12-20); Blood Urea Nitrogen 24 mg/dL (9-16); Calcium 9.3 mg/dL (8.4-10.2); Carbon Dioxide 21 mmol/L (22-29); Chloride 110 mmol/L (96-108); Creatinine Clr Calc Pharmacy 17.3; Estimated Glomerular Filt Rate 19; Glucose Random 142 mg/dL (60-115); Potassium 4.5 mmol/L (3.3-5.1); Sodium 138 mmol/L (135-145)
[2023-09-14 07:55] VITALS: BP 187/84; PULSE 79; RESP 20; TEMP 36.2; O2SAT 94
[2023-09-14 08:13] LABS: Glucose, Whole Blood 135 mg/dL (60-115)
[2023-09-14 09:07] VITALS: BP 181/84; PULSE 76
[2023-09-14] MEDS: Magnesium Oxide 400 MG TABLET PO (09:07)
[2023-09-14] MEDS: Escitalopram Oxalate 20 MG TABLET PO (09:07)
[2023-09-14] MEDS: Tamsulosin HCL 0.4 MG CAPSULE PO (09:07)
[2023-09-14] MEDS: Propranolol HCL 20 MG TABLET PO ×2 (09:07→20:47)
[2023-09-14] MEDS: Cyanocobalamin (Vitamin B-12) 500 MCG TABLET PO (09:08)
[2023-09-14] MEDS: Memantine HCl 5 MG TABLET PO ×2 (09:08→20:47)
[2023-09-14 11:19] LABS: Glucose, Whole Blood 134 mg/dL (60-115)
--- NOTE | 2023-09-14 14:45 | P.PNGS_ITS ---
Subjective Subjective Date of Service: 09/14/23 Interval history: Patient is tolerating his diet. He had a large bowel movement this morning. Complaining of right upper quadrant abdominal discomfort. Somewhat somnolent but responsive Physical Exam 2 Vital Signs: Vital Signs: Last Vital Signs Temp 97.1 F 09/14/23 07:55 Pulse 76 09/14/23 09:07 Resp 20 09/14/23 07:55 BP 181/84 H 09/14/23 09:07 Pulse Ox 94 09/14/23 07:55 O2 Del Method Room Air 09/14/23 07:55 BMI result Body Mass Index 31.3 GI: Other: Abdomen is soft, mildly distended. Minimal right upper quadrant tenderness. No evidence of any guarding, rebound, or rigidity. Objective Data Active Medications Acetaminophen (Acetaminophen 325 Mg Tablet) 650 mg PO Q6H PRN PRN Reason: Pain, Mild (Pain Scale 1-3), fever or headache Last Admin: 09/12/23 18:46 Dose: 650 mg Documented By: MELYSSA Atorvastatin Calcium (Atorvastatin Calcium 40 Mg Tablet) 40 mg PO BEDTIME [facility] Last Admin: 09/13/23 21:30 Dose: 40 mg Documented By: JESSE Cyanocobalamin (Cyanocobalamin (Vitamin B-12) 500 Mcg Tablet) 500 mcg PO DAILY [facility] Last Admin: 09/14/23 09:08 Dose: 500 mcg Documented By: KERRY Escitalopram Oxalate (Escitalopram Oxalate 20 Mg Tablet) 20 mg PO DAILY [facility] Last Admin: 09/14/23 09:07 Dose: 20 mg Documented By: KERRY Glucose (Glucose Gel 15 Gm Gel..Gram.) 15 gm PO Q15M PRN; Protocol PRN Reason: per Hypoglycemia Standing Ord. Dextrose (D10) 250 mls @ 750 mls/hr IV Q15M PRN; Protocol PRN Reason: per Hypoglycemia Standing Ord. Piperacillin Sod/Tazobactam (Sod 2.25 gm/ Sodium Chloride) 50 mls @ 100 mls/hr IV Q6H [facility] Last Admin: 09/14/23 13:31 Dose: 100 mls/hr Documented By: KERRY Insulin Human Lispro (Insulin Lispro 100 Unit/Ml 3 Ml Vial) 0 unit SUBCUT QIDACHS [facility]; Protocol Last Admin: 09/14/23 11:25 Dose: Not Given Documented By: KERRY Non-Admin Reason: No Insulin Coverage Magnesium Oxide (Magnesium Oxide 400 Mg Tablet) 400 mg PO DAILY [facility] Last Admin: 09/14/23 09:07 Dose: 400 mg Documented By: KERRY Melatonin (Melatonin 3 Mg Tablet) 6 mg PO BEDTIME PRN PRN Reason: Insomnia Last Admin: 09/11/23 22:14 Dose: 6 mg Documented By: FRANCIE Memantine (Memantine Hcl 5 Mg Tablet) 5 mg PO BID [facility] Last Admin: 09/14/23 09:08 Dose: 5 mg Documented By: KERRY Morphine Sulfate (Morphine Sulfate 2 Mg/Ml Cartridge) 2 mg IVPUSH Q3H PRN; Protocol PRN Reason: Pain, Severe (Pain Scale 7-10) Last Admin: 09/11/23 08:50 Dose: 2 mg Documented By: JUWAN Ondansetron HCl (Ondansetron Hcl 4 Mg/2 Ml Vial) 4 mg IVPUSH Q8H PRN PRN Reason: Nausea and Vomiting Propranolol HCl (Propranolol Hcl 20 Mg Tablet) 20 mg PO BID [facility]; Protocol Last Admin: 09/14/23 09:07 Dose: 20 mg Documented By: KERRY Sodium Chloride (0.9 % Sodium Chloride Flush 3 Ml Syringe) 3 ml IVFLUSH QSHIFT [facility] Last Admin: 09/14/23 07:18 Dose: 3 ml Documented By: KERRY Tamsulosin HCl (Tamsulosin Hcl 0.4 Mg Capsule) 0.4 mg PO DAILY [facility] Last Admin: 09/14/23 09:07 Dose: 0.4 mg Documented By: KERRY Torsemide (Torsemide 20 Mg Tablet) 20 mg PO DAILY [facility]; Protocol Labs 09/14/23 06:09 09/14/23 06:09 Labs: Laboratory Results - last 24 hr 09/13/23 09/13/23 09/14/23 16:16 21:15 06:09 MCV 94.2 MCH 31.1 MCHC 33.0 RDW 13.0 Plt Count 161 MPV 10.1 Absolute Nucleated RBC 0.000 Nucleated RBC % (auto) 0.0 Anion Gap 12 Estim Creat Clear Calc 17.3 Estimated GFR 19 POC Glucose 132 H 135 H Random Glucose 142 H Calcium 9.3 09/14/23 09/14/23 07:57 11:04 MCV MCH MCHC RDW Plt Count MPV Absolute Nucleated RBC Nucleated RBC % (auto) Anion Gap Estim Creat Clear Calc Estimated GFR POC Glucose 135 H 134 H Random Glucose Calcium Procedures Date of Service Date of Service: 09/14/23 Progress Note: A&P Assessment and plan (1) Abdominal pain of unknown cause: Status: Acute Plan Continue current plan; diet as tolerated, out of bed, serial exams. Time Spent With Patient Time: Total time managing care of this patient today ____ minutes. Quality Stroke Does the patient have a stroke diagnosis?: No VTE Prior VTE?: No VTE Risk Level:: Medical - moderate - high VTE Device Contraindication: N/A - Device Ordered VTE Drug Contraindication: Treatment Not Indicated
[2023-09-14 16:05] VITALS: BP 149/73; PULSE 76; RESP 12; TEMP 36.1; O2SAT 95
--- NOTE | 2023-09-14 16:13 | P.PNIM_ITS ---
Subjective Subjective Date of Service: 09/14/23 Interval History: Seen and examined this morning Follow-up for medical consultation, abdominal pain Patient reporting abdominal pain, cough. Denies shortness of breath Review of Systems Review of Systems: Yes all other systems are reviewed and are negative Constitutional Constitutional: Denies chills and Denies fever(s) Cardiovascular Cardiovascular: Denies chest pain, Denies palpitations and Denies dyspnea Respiratory Respiratory: Reports cough and Denies dyspnea Gastrointestinal Gastrointestinal: Reports abdominal pain Endocrine Endocrine: Denies palpitations Physical Exam 2 Vital Signs: Vital Signs: Last Vital Signs Temp 97.0 F 09/14/23 16:05 Pulse 76 09/14/23 16:05 Resp 12 09/14/23 16:05 BP 149/73 H 09/14/23 16:05 Pulse Ox 95 09/14/23 16:05 O2 Del Method Room Air 09/14/23 16:05 BMI result Body Mass Index 31.3 Const: General: cooperative, no acute distress, alert and awake Nutritional Appearance: overweight Resp: Effort & Inspection: normal respiratory effort, able to speak in complete sentences, no respiratory distress and no use of accessory muscles Cardio: Rate: regular rate GI: Other: +tenderness, no rebound, non-distended Palpation (GI): Soft to palpation Neuro: General: moves all extremities and CN's II-XI intact bilaterally Extrem: General: Yes no pedal edema Objective Data Active Medications Acetaminophen (Acetaminophen 325 Mg Tablet) 650 mg PO Q6H PRN PRN Reason: Pain, Mild (Pain Scale 1-3), fever or headache Last Admin: 09/12/23 18:46 Dose: 650 mg Documented By: MELYSSA Atorvastatin Calcium (Atorvastatin Calcium 40 Mg Tablet) 40 mg PO BEDTIME [facility] Last Admin: 09/13/23 21:30 Dose: 40 mg Documented By: JESSE Cyanocobalamin (Cyanocobalamin (Vitamin B-12) 500 Mcg Tablet) 500 mcg PO DAILY [facility] Last Admin: 09/14/23 09:08 Dose: 500 mcg Documented By: KERRY Escitalopram Oxalate (Escitalopram Oxalate 20 Mg Tablet) 20 mg PO DAILY [facility] Last Admin: 09/14/23 09:07 Dose: 20 mg Documented By: KERRY Glucose (Glucose Gel 15 Gm Gel..Gram.) 15 gm PO Q15M PRN; Protocol PRN Reason: per Hypoglycemia Standing Ord. Dextrose (D10) 250 mls @ 750 mls/hr IV Q15M PRN; Protocol PRN Reason: per Hypoglycemia Standing Ord. Piperacillin Sod/Tazobactam (Sod 2.25 gm/ Sodium Chloride) 50 mls @ 100 mls/hr IV Q6H [facility] Last Infusion: 09/14/23 14:52 Dose: Infused Documented By: KERRY Insulin Human Lispro (Insulin Lispro 100 Unit/Ml 3 Ml Vial) 0 unit SUBCUT QIDACHS [facility]; Protocol Last Admin: 09/14/23 11:25 Dose: Not Given Documented By: KERRY Non-Admin Reason: No Insulin Coverage Magnesium Oxide (Magnesium Oxide 400 Mg Tablet) 400 mg PO DAILY [facility] Last Admin: 09/14/23 09:07 Dose: 400 mg Documented By: KERRY Melatonin (Melatonin 3 Mg Tablet) 6 mg PO BEDTIME PRN PRN Reason: Insomnia Last Admin: 09/11/23 22:14 Dose: 6 mg Documented By: FRANCIE Memantine (Memantine Hcl 5 Mg Tablet) 5 mg PO BID [facility] Last Admin: 09/14/23 09:08 Dose: 5 mg Documented By: KERRY Morphine Sulfate (Morphine Sulfate 2 Mg/Ml Cartridge) 2 mg IVPUSH Q3H PRN; Protocol PRN Reason: Pain, Severe (Pain Scale 7-10) Last Admin: 09/11/23 08:50 Dose: 2 mg Documented By: JUWAN Ondansetron HCl (Ondansetron Hcl 4 Mg/2 Ml Vial) 4 mg IVPUSH Q8H PRN PRN Reason: Nausea and Vomiting Propranolol HCl (Propranolol Hcl 20 Mg Tablet) 20 mg PO BID [facility]; Protocol Last Admin: 09/14/23 09:07 Dose: 20 mg Documented By: KERRY Sodium Chloride (0.9 % Sodium Chloride Flush 3 Ml Syringe) [facility] Admin: 09/14/23 15:14 Dose: 3 ml Documented By: KERRY Tamsulosin HCl (Tamsulosin Hcl 0.4 Mg Capsule) 0.4 mg PO DAILY [facility] Last Admin: 09/14/23 09:07 Dose: 0.4 mg Documented By: KERRY Torsemide (Torsemide 20 Mg Tablet) 20 mg PO DAILY [facility]; Protocol Labs 09/14/23 06:09 09/14/23 06:09 Labs: Laboratory Results - last 24 hr 09/13/23 09/13/23 09/14/23 16:16 21:15 06:09 MCV 94.2 MCH 31.1 MCHC 33.0 RDW 13.0 Plt Count 161 MPV 10.1 Absolute Nucleated RBC 0.000 Nucleated RBC % (auto) 0.0 Anion Gap 12 Estim Creat Clear Calc 17.3 Estimated GFR 19 POC Glucose 132 H 135 H Random Glucose 142 H Calcium 9.3 09/14/23 09/14/23 07:57 11:04 MCV MCH MCHC RDW Plt Count MPV Absolute Nucleated RBC Nucleated RBC % (auto) Anion Gap Estim Creat Clear Calc Estimated GFR POC Glucose 135 H 134 H Random Glucose Calcium Microbiology Microbiology Results: Microbiology 09/13/23 14:07 Blood Culture - Preliminary Blood - Venous No growth after 24 hours. 09/13/23 14:07 Blood Culture - Preliminary Blood - Venous No growth after 24 hours. Assessment and Plan (1) Pneumonia: Status: Acute Plan 88 year old male with history of htn, type 2 diabetes, bph, unspecified dementia with mood disorder, and hld admitted to general surgery for acute appendicitis with consult placed to hospitalist for medical management. abdominal pain initially thought to be related to Acute appendicitis plan per general surgery currently being managed conservatively with IV Zosyn check US, LFTs started on clear liquids pneumonia possibly due to aspiration meets sirs criteria with wbc 12.5 and HR above 90, no severe features repeat abdomen/pelvis ct showing patchy airspace disease in the right lower lobe Will increase Zosyn to cover for pneumonia No hypoxia lactic acid low, blood cultures pending Symptomatic support speech evaluation - rec NDD2 with thin liqs when able to advance diet. 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 Hold lisinopril, torsemide Nephrology following not much change in renal function, continue to follow trend insulin-dependent type 2 diabetes hold basal insulin given NPO status, resume as diet advances POC glucose,SSI thrombocytopenia likely due to acute infection platelets improved Normocytic anemia Above transfusion threshold BPH Flomax unspecified dementia with mood disorder continue home medications Thank you for this consult, we will continue following Quality Stroke Does the patient have a stroke diagnosis?: No VTE Prior VTE?: No VTE Risk Level:: Medical - moderate - high VTE Device Contraindication: N/A - Device Ordered VTE Drug Contraindication: Treatment Not Indicated
[2023-09-14 16:36] VITALS: RESP 16
[2023-09-14] MEDS: Famotidine/PF 20 MG/2 ML VIAL IVPUSH (16:36)
[2023-09-14] MEDS: Morphine Sulfate 2 MG/ML CARTRIDGE IVPUSH ×2 (16:36→20:53)
[2023-09-14 16:40] LABS: Glucose, Whole Blood 168 mg/dL (60-115)
[2023-09-14] MEDS: Insulin Lispro 100 UNIT/ML 3 ML VIAL SUBCUT ×2 (17:17→20:47)
[2023-09-14 19:08] VITALS: BP 144/82; PULSE 76; RESP 18; TEMP 36.4; O2SAT 95
[2023-09-14 20:32] LABS: Glucose, Whole Blood 151 mg/dL (60-115)
[2023-09-14] MEDS: Atorvastatin Calcium 40 MG TABLET PO (20:47)
[2023-09-15] VITALS (10 sets, daily range): BP systolic 160–190; BP diastolic 75–91; PULSE 76–91; RESP 17–18; TEMP 36.2–36.3; O2SAT 94–97
[2023-09-15] MEDS: Haloperidol Lactate 5 MG/ML VIAL IM (01:30)
--- NOTE | 2023-09-15 01:35 | MHC.PIE ---
p; pt found naked trying to get out of bed refusing care yelling at staff. anxious, agitated, confused and ? visual hallucinations? i; dr ochoa notified. new order [facility] now e[facility]
[2023-09-15] MEDS: Piperacillin Sodium/Tazobactam 2.25 GM in 0.9 % Sodium Chloride 50 ML IV ×3 (05:50→19:55)
[2023-09-15 06:50] LABS: Alanine Aminotransferase 11 U/L (0-40); Albumin Level 2.9 g/dL (3.5-5.0); Alkaline Phosphatase 79 U/L (39-117); Anion Gap 12 (12-20); Aspartate Amino Transferase 19 U/L (5-37); Bilirubin Direct 0.3 mg/dL (0.0-0.5); Bilirubin Total 0.6 mg/dL (0.0-1.0); Blood Urea Nitrogen 28 mg/dL (9-16); Calcium 9.5 mg/dL (8.4-10.2); Carbon Dioxide 21 mmol/L (22-29); Chloride 109 mmol/L (96-108); Creatinine Clr Calc Pharmacy 16.7; Estimated Glomerular Filt Rate 19; Glucose Random 104 mg/dL (60-115); Potassium 4.4 mmol/L (3.3-5.1); Sodium 138 mmol/L (135-145); Total Protein 6.1 g/dL (6.5-8.0)
[2023-09-15 07:39] LABS: Glucose, Whole Blood 101 mg/dL (60-115)
[2023-09-15] MEDS: 0.9 % Sodium Chloride Flush 3 ML SYRINGE IVFLUSH ×2 (08:55→15:24)
[2023-09-15] MEDS: Famotidine/PF 20 MG/2 ML VIAL IVPUSH (08:56)
[2023-09-15] MEDS: Furosemide 40 MG/4 ML VIAL IVPUSH (08:56)
[2023-09-15] MEDS: Isosorbide Mononitrate 30 MG TAB.ER.24H PO (09:02)
[2023-09-15] MEDS: hydrALAZINE HCl 10 MG TABLET PO ×3 (09:03→20:37)
[2023-09-15] MEDS: Escitalopram Oxalate 20 MG TABLET PO (09:03)
[2023-09-15] MEDS: Magnesium Oxide 400 MG TABLET PO (09:03)
[2023-09-15] MEDS: Propranolol HCL 20 MG TABLET PO ×2 (09:03→20:37)
[2023-09-15] MEDS: Cyanocobalamin (Vitamin B-12) 500 MCG TABLET PO (09:03)
[2023-09-15] MEDS: Tamsulosin HCL 0.4 MG CAPSULE PO (09:03)
[2023-09-15] MEDS: Memantine HCl 5 MG TABLET PO ×2 (09:03→20:37)
[2023-09-15] MEDS: Albumin Human 25 % 100 ML IV ×3 (09:20→20:50)
[2023-09-15 11:13] LABS: Glucose, Whole Blood 132 mg/dL (60-115)
--- NOTE | 2023-09-15 11:55 | P.PNIM_ITS ---
Subjective Subjective Date of Service: 09/15/23 Interval History: Seen and examined this morning Follow-up for medical consultation Required a dose of Haldol overnight This morning patient is awake, alert to person and place. Resting calmly denies abdominal pain today Review of Systems Review of Systems: Yes all other systems are reviewed and are negative Constitutional Constitutional: Denies chills and Denies fever(s) Gastrointestinal Gastrointestinal: Denies abdominal pain Physical Exam 2 Vital Signs: Vital Signs: Last Vital Signs Temp 97.1 F 09/15/23 07:08 Pulse 76 09/15/23 09:03 Resp 18 09/15/23 07:08 BP 160/75 H 09/15/23 09:03 Pulse Ox 94 09/15/23 07:08 O2 Del Method Room Air 09/15/23 07:08 BMI result Body Mass Index 31.3 Const: General: cooperative, no acute distress, alert and awake Nutritional Appearance: overweight Resp: Effort & Inspection: normal respiratory effort, able to speak in complete sentences, no respiratory distress and no use of accessory muscles Cardio: Rate: regular rate GI: Palpation (GI): Soft to palpation and nontender Neuro: General: moves all extremities and CN's II-XI intact bilaterally Extrem: General: Yes no pedal edema Objective Data Active Medications Acetaminophen (Acetaminophen 325 Mg Tablet) 650 mg PO Q6H PRN PRN Reason: Pain, Mild (Pain Scale 1-3), fever or headache Last Admin: 09/12/23 18:46 Dose: 650 mg Documented By: MELYSSA Atorvastatin Calcium (Atorvastatin Calcium 40 Mg Tablet) 40 mg PO BEDTIME [facility] Last Admin: 09/14/23 20:47 Dose: 40 mg Documented By: JESSE Cyanocobalamin (Cyanocobalamin (Vitamin B-12) 500 Mcg Tablet) 500 mcg PO DAILY [facility] Last Admin: 09/15/23 09:03 Dose: 500 mcg Documented By: CLAUS Escitalopram Oxalate (Escitalopram Oxalate 20 Mg Tablet) 20 mg PO DAILY [facility] Last Admin: 09/15/23 09:03 Dose: 20 mg Documented By: CLAUS Famotidine (Famotidine/Pf 20 Mg/2 Ml Vial) 20 mg IVPUSH DAILY [facility] Last Admin: 09/15/23 08:56 Dose: 20 mg Documented By: CLAUS Glucose (Glucose Gel 15 Gm Gel..Gram.) 15 gm PO Q15M PRN; Protocol PRN Reason: per Hypoglycemia Standing Ord. Guaifenesin (Guaifenesin 100 Mg/5 Ml Liquid) 5 ml PO Q6H PRN PRN Reason: Cough Hydralazine HCl (Hydralazine Hcl 10 Mg Tablet) 10 mg PO TID [facility]; Protocol Last Admin: 09/15/23 09:03 Dose: 10 mg Documented By: CLAUS Dextrose (D10) 250 mls @ 750 mls/hr IV Q15M PRN; Protocol PRN Reason: per Hypoglycemia Standing Ord. Piperacillin Sod/Tazobactam (Sod 2.25 gm/ Sodium Chloride) 50 mls @ 100 mls/hr IV Q6H [facility] Last Infusion: 09/15/23 06:22 Dose: Infused Documented By: JESSE Albumin Human (Kedbumin 25 %) 100 mls @ 100 mls/hr IV Q6H [facility] Stop: 09/16/23 02:59 Last Infusion: 09/15/23 10:53 Dose: Infused Documented By: CLAUS Insulin Human Lispro (Insulin Lispro 100 Unit/Ml 3 Ml Vial) 0 unit SUBCUT QIDACHS [facility]; Protocol Last Admin: 09/15/23 11:14 Dose: Not Given Documented By: CLAUS Non-Admin Reason: No Insulin Coverage Isosorbide Mononitrate (Isosorbide Mononitrate 30 Mg Tab.Er.24h) 30 mg PO DAILY [facility]; Protocol Last Admin: 09/15/23 09:02 Dose: 30 mg Documented By: CLAUS Magnesium Oxide (Magnesium Oxide 400 Mg Tablet) 400 mg PO DAILY [facility] Last Admin: 09/15/23 09:03 Dose: 400 mg Documented By: CLAUS Melatonin (Melatonin 3 Mg Tablet) 6 mg PO BEDTIME PRN PRN Reason: Insomnia Last Admin: 09/11/23 22:14 Dose: 6 mg Documented By: FRANCIE Memantine (Memantine Hcl 5 Mg Tablet) 5 mg PO BID [facility] Last Admin: 09/15/23 09:03 Dose: 5 mg Documented By: CLAUS Morphine Sulfate (Morphine Sulfate 2 Mg/Ml Cartridge) 2 mg IVPUSH Q3H PRN; Protocol PRN Reason: Pain, Severe (Pain Scale 7-10) Last Admin: 09/14/23 20:53 Dose: 2 mg Propranolol HCl (Propranolol Hcl 20 Mg Tablet) 20 mg PO BID [facility]; Protocol Last Admin: 09/15/23 09:03 Dose: 20 mg Documented By: CLAUS Quetiapine Fumarate (Quetiapine Fumarate 25 Mg Tablet) 25 mg PO ONCE ONE Stop: 09/15/23 11:51 Sodium Chloride (0.9 % Sodium Chloride Flush 3 Ml Syringe) 3 ml IVFLUSH QSHIFT [facility] Last Admin: 09/15/23 08:55 Dose: 3 ml Documented By: CLAUS Tamsulosin HCl (Tamsulosin Hcl 0.4 Mg Capsule) 0.4 mg PO DAILY [facility] Last Admin: 09/15/23 09:03 Dose: 0.4 mg Documented By: CLAUS Torsemide (Torsemide 20 Mg Tablet) 20 mg PO DAILY [facility]; Protocol Labs 09/14/23 06:09 09/15/23 05:20 Labs: Laboratory Results - last 24 hr 09/14/23 09/14/23 09/15/23 16:32 20:28 05:20 Anion Gap 12 Estim Creat Clear Calc 16.7 Estimated GFR 19 POC Glucose 168 H 151 H Random Glucose 104 Calcium 9.5 Total Bilirubin 0.6 Direct Bilirubin 0.3 AST 19 ALT 11 Alkaline Phosphatase 79 Total Protein 6.1 L Albumin 2.9 L 09/15/23 09/15/23 07:13 11:08 Anion Gap Estim Creat Clear Calc Estimated GFR POC Glucose 101 132 H Random Glucose Calcium Total Bilirubin Direct Bilirubin AST ALT Alkaline Phosphatase Total Protein Albumin Microbiology Microbiology Results: Microbiology 09/13/23 14:07 Blood Culture - Preliminary Blood - Venous No growth after 24 hours. 09/13/23 14:07 Blood Culture - Preliminary Blood - Venous No growth after 24 hours. Assessment and Plan (1) Pneumonia: Status: Acute (2) IZABELLA (acute kidney injury): Status: Acute Plan 88 year old male with history of htn, type 2 diabetes, bph, unspecified dementia with mood disorder, and hld admitted to general surgery for acute appendicitis with consult placed to hospitalist for medical management. abdominal pain initially thought to be related to Acute appendicitis plan per general surgery currently being managed conservatively with IV Zosyn LFTs, abdominal US negative continue IV pepcid started on clear liquids, advance as per surgery recommendation pneumonia possibly due to aspiration meets sirs criteria with wbc 12.5 and HR above 90, no severe features repeat abdomen/pelvis ct showing patchy airspace disease in the right lower lobe Zosyn dose increased to cover for pneumonia No hypoxia lactic acid low, blood cultures negative to date Symptomatic support speech evaluation - rec NDD2 with thin liqs when able to advance diet. 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 Hold lisinopril, torsemide IVF stopped due to pleural effusions, will give albumin Nephrology following - plan for lasix 40 x 1 today follow renal function insulin-dependent type 2 diabetes hold basal insulin given NPO status, resume as diet advances POC glucose,SSI thrombocytopenia likely due to acute infection platelets improved Normocytic anemia Above transfusion threshold BPH Flomax unspecified dementia with mood disorder continue home medications Thank you for this consult, we will continue following Quality Stroke Does the patient have a stroke diagnosis?: No VTE Prior VTE?: No VTE Risk Level:: Medical - moderate - high VTE Device Contraindication: N/A - Device Ordered VTE Drug Contraindication: Treatment Not Indicated
[2023-09-15] MEDS: QUEtiapine Fumarate 25 MG TABLET PO (12:19)
--- NOTE | 2023-09-15 14:16 | P.PNGS_ITS ---
Subjective Subjective Date of Service: 09/15/23 Interval history: Patient very confused, hallucinating. Patient's family also present and very concerned about this. They were reassured by both the hospitalist (Joceline) and by me separately. Difficult to evaluate patient but not demonstrating any abdominal issues at present. Physical Exam 2 Vital Signs: Vital Signs: Last Vital Signs Temp 97.1 F 09/15/23 07:08 Pulse 76 09/15/23 09:03 Resp 18 09/15/23 07:08 BP 160/75 H 09/15/23 09:03 Pulse Ox 94 09/15/23 07:08 O2 Del Method Room Air 09/15/23 07:08 BMI result Body Mass Index 31.3 Const: Other: Patient very confused, agitated, confused, disoriented and hallucinating GI: Other: Abdomen corpulent, mildly distended. Difficult exam because of the patient's current mental status situation but no evidence of any gross guarding, rebound, or rigidity. Objective Data Active Medications Acetaminophen (Acetaminophen 325 Mg Tablet) 650 mg PO Q6H PRN PRN Reason: Pain, Mild (Pain Scale 1-3), fever or headache Last Admin: 09/12/23 18:46 Dose: 650 mg Documented By: MELYSSA Atorvastatin Calcium (Atorvastatin Calcium 40 Mg Tablet) 40 mg PO BEDTIME [facility] Last Admin: 09/14/23 20:47 Dose: 40 mg Documented By: JESSE Cyanocobalamin (Cyanocobalamin (Vitamin B-12) 500 Mcg Tablet) 500 mcg PO DAILY [facility] Last Admin: 09/15/23 09:03 Dose: 500 mcg Documented By: CLAUS Escitalopram Oxalate (Escitalopram Oxalate 20 Mg Tablet) 20 mg PO DAILY [facility] Last Admin: 09/15/23 09:03 Dose: 20 mg Documented By: CLAUS Famotidine (Famotidine/Pf 20 Mg/2 Ml Vial) 20 mg IVPUSH DAILY [facility] Last Admin: 09/15/23 08:56 Dose: 20 mg Documented By: CLAUS Glucose (Glucose Gel 15 Gm Gel..Gram.) 15 gm PO Q15M PRN; Protocol PRN Reason: per Hypoglycemia Standing Ord. Hydralazine HCl (Hydralazine Hcl 10 Mg Tablet) 10 mg PO TID [facility]; Protocol Last Admin: 09/15/23 09:03 Dose: 10 mg Documented By: CLAUS Dextrose (D10) 250 mls @ 750 mls/hr IV Q15M PRN; Protocol PRN Reason: per Hypoglycemia Standing Ord. Piperacillin Sod/Tazobactam (Sod 2.25 gm/ Sodium Chloride) 50 mls @ 100 mls/hr IV Q6H [facility] Last Infusion: 09/15/23 13:24 Dose: Infused Documented By: CLAUS Albumin Human (Kedbumin 25 %) 100 mls @ 100 mls/hr IV Q6H [facility] Stop: 09/16/23 02:59 Last Infusion: 09/15/23 10:53 Dose: Infused Documented By: CLAUS Insulin Human Lispro (Insulin Lispro 100 Unit/Ml 3 Ml Vial) 0 unit SUBCUT QIDACHS [facility]; Protocol Last Admin: 09/15/23 11:14 Dose: Not Given Documented By: CLAUS Non-Admin Reason: No Insulin Coverage Isosorbide Mononitrate (Isosorbide Mononitrate 30 Mg Tab.Er.24h) 30 mg PO DAILY [facility]; Protocol Last Admin: 09/15/23 09:02 Dose: 30 mg Documented By: CLAUS Magnesium Oxide (Magnesium Oxide 400 Mg Tablet) 400 mg PO DAILY [facility] Last Admin: 09/15/23 09:03 Dose: 400 mg Documented By: CLAUS Memantine (Memantine Hcl 5 Mg Tablet) 5 mg PO BID [facility] Last Admin: 09/15/23 09:03 Dose: 5 mg Documented By: CLAUS Propranolol HCl (Propranolol Hcl 20 Mg Tablet) 20 mg PO BID [facility]; Protocol Last Admin: 09/15/23 09:03 Dose: 20 mg Documented By: CLAUS Sodium Chloride (0.9 % Sodium Chloride Flush 3 Ml Syringe) 3 ml IVFLUSH QSHIFT [facility] Last Admin: 09/15/23 08:55 Dose: 3 ml Documented By: CLAUS Tamsulosin HCl (Tamsulosin Hcl 0.4 Mg Capsule) 0.4 mg PO DAILY [facility] Last Admin: 09/15/23 09:03 Dose: 0.4 mg Documented By: CLAUS Labs 09/14/23 06:09 09/15/23 05:20 Labs: Laboratory Results - last 24 hr 09/14/23 09/14/23 09/15/23 16:32 20:28 05:20 Anion Gap 12 Estim Creat Clear Calc 16.7 Estimated GFR 19 POC Glucose 168 H 151 H Random Glucose 104 Calcium 9.5 Total Bilirubin 0.6 Direct Bilirubin 0.3 AST 19 ALT 11 Alkaline Phosphatase 79 Total Protein 6.1 L Albumin 2.9 L 09/15/23 09/15/23 07:13 11:08 Anion Gap Estim Creat Clear Calc Estimated GFR POC Glucose 101 132 H Random Glucose Calcium Total Bilirubin Direct Bilirubin AST ALT Alkaline Phosphatase Total Protein Albumin Microbiology Microbiology Results: Microbiology 09/13/23 14:07 Blood Culture - Preliminary Blood - Venous No growth after 24 hours. 09/13/23 14:07 Blood Culture - Preliminary Blood - Venous No growth after 24 hours. Procedures Date of Service Date of Service: 09/15/23 Progress Note: A&P Assessment and plan (1) Abdominal pain of unknown cause: Status: Acute (2) Delirium: Status: Acute Plan Hospitalist input regarding delirium. Continue current conservative therapy regarding abdominal issues. It was explained to the patient's family that although very concerning, delirium is not uncommon in hospitalized elderly patients. The combination of unfamiliar environment, collection of medications, sleep interruption etc. in the patient with baseline dementia can not uncommonly developed delirium. All questions answered. Time Spent With Patient Time: Total time managing care of this patient today ____ minutes. Quality Stroke Does the patient have a stroke diagnosis?: No VTE Prior VTE?: No VTE Risk Level:: Medical - moderate - high VTE Device Contraindication: N/A - Device Ordered VTE Drug Contraindication: Treatment Not Indicated
[2023-09-15 16:16] LABS: Glucose, Whole Blood 187 mg/dL (60-115)
[2023-09-15 20:26] LABS: Glucose, Whole Blood 163 mg/dL (60-115)
[2023-09-15] MEDS: Acetaminophen 325 MG TABLET 650 MG PO (20:37)
[2023-09-15] MEDS: Atorvastatin Calcium 40 MG TABLET PO (20:37)
[2023-09-16] VITALS (10 sets, daily range): BP systolic 148–202; BP diastolic 60–82; PULSE 73–85; RESP 12–20; TEMP 36.1–36.4; O2SAT 92–99
[2023-09-16] MEDS: Piperacillin Sodium/Tazobactam 2.25 GM in 0.9 % Sodium Chloride 50 ML IV ×4 (00:43→18:26)
[2023-09-16] MEDS: Albumin Human 25 % 100 ML IV (01:17)
[2023-09-16] MEDS: Albuterol/Iprat 2.5/0.5MG 3 ML AMPUL.NEB INHALE (05:24)
--- NOTE | 2023-09-16 05:41 | PC.NURSE ---
Approximately around 05:00, pt c/o of having trouble breathing. Upon assessment pt's o2 was 90% RA and expiratory wheezing. MD Sai Joy was notified of the situation. Pt was placed on 2L O2 via NC, one time dose of dunoneb ordered, and CXR stat. RT at pt's bedside and administered the one time dose of dunoneb with good effect, pt now 95% RA. CXR taken at bedside, results pending. Will continue to monitor. Plan of care ongoing.
--- NOTE | 2023-09-16 07:00 | CA_ITS ---
Transthoracic Echocardiogram Patient (Last, First, Middle): Jadiel Orantes, Gender: Male Date of : 1935 Age: 88 Procedure Date: 09/16/2023 Procedure Type: Transthoracic Echocardiogram Location: S3E Height: 165.1 cm Weight: 85.28 kg BSA: 1.93 m2 Heart Rate: 76 bpm BP: 150 / 76 mmHg Marketing Intelligence Manager: SB Referring MD: Kala Ghosh MD Symptoms: pleural effusions, CHF? Study Quality: Fair ECG Rhythm: Sinus Conclusions: - Normal left ventricular size, thickness, and systolic function. The visually estimated ejection fraction is between 55-60%. - Elevated filling pressures. - Mildly increased right ventricular cavity size. There is normal right ventricular systolic function. - There is moderate mitral annular calcification. Findings Left Ventricle Normal left ventricular size, thickness, and systolic function. The visually estimated ejection fraction is between 55-60%. There is no evidence of regional wall motion abnormalities. Abnormal diastolic function is noted. Spectral Doppler is indicative of a pseudonormal filling pattern. Elevated filling pressures. Right Ventricle Mildly increased right ventricular cavity size. There is normal right ventricular systolic function. Atria The left atrium is normal in size. Aortic Valve The aortic valve was not well visualized. There is mild calcification of the aortic valve. There is no aortic valve stenosis. There is no aortic valve regurgitation. Mitral Valve The mitral valve appears normal. There is moderate mitral annular calcification. There is no mitral valve regurgitation. There is no mitral valve stenosis. Pulmonic Valve The pulmonic valve is likely normal. Tricuspid Valve Normal tricuspid valve structure. There is trace tricuspid valve regurgitation. Tricuspid regurgitation envelope is inadequate for calculation of right ventricular systolic pressure. Normal right atrial pressure. Great Vessels All visible segments of the aorta are normal in size. Venous The inferior vena cava is normal in size and collapses greater than 50% with inspiration. Pericardium/Pleural There is no evidence of pericardial effusion. Prior Study Comparison No prior study available for comparison. Measurements 2D Linear Measurements IVSd: 1.08 0.6-0.9/0.6-1.0 cm LVIDd: 5.50 3.9-5.3/4.2-5.9 cm LVIDd Index: 2.85 2.4-3.2/2.2-3.1 cm/m2 LVIDs: 4.38 2.0-3.6 cm LVPWd: 1.08 0.7-1.1 cm LV Mass: 294.40 67-162/88-224 g LV Mass Index: 152.54 43-95/49-115 g/m2 LVOT Diam: 2.10 3.0+(-)1.3 cm 2D Systolic Function EF 4C: 70.20 >55% EF 2C: 63.30 >55% EF BiP: 65.30 >55% Mitral Valve MV Pk E: 1.02 MV PK A: 0.90 MV Decel Time: 114.00 E/A: 1.10 E'Lateral: 5.22 E'Medial: 6.64 E/E' Med: 15.40 E/E' Lat: 19.50 PHT: 33.00 MVA PHT: 6.67 Decel [place]: 9.01 Aortic Valve AoV Pk Ricardo: 1.43 AoV Pk Grad: 8.00 CARLOS: 2.44 LVOT LVOT Pk Ricardo: 1.01 LVOT Mn Ricardo: 0.60 LVOT VTI: 0.22 LVOT Pk Grad: 4.00 LVOT Mn Grad: 2.00 LVOT Diam: 2.10 LVOT Area: 3.46 Diastolic Function MV Pk E: 1.02 MV Pk A: 0.90 E/A: 1.10 E'Medial: 6.64 E/E' Med: 15.40 E' Laterial: 5.22 E/E' Lat: 19.50 Right Ventricle TAPSE (mm): 18.50 TVS' Ricardo: 11.60 Tricuspid Valve RA Press: 8.00 Great Vessels Aorta Sinus of Valsalva: 3.70 2.0-3.5 cm Ao Asc: 3.50 2.1-3.4 cm Pulmonary Valve PV Pk Ricardo: 0.75 Peak PV Grad: 2.00 Updated in Other Vendor System with Status of Final Filiberto Dickens MD electronically signed on 09/16/2023 11:06:09 AM with status of Final
[2023-09-16 07:06] LABS: Glucose, Whole Blood 135 mg/dL (60-115)
[2023-09-16 08:02] LABS: Hemoglobin 8.7 g/dl (14.0-18.0); Mean Corpuscular HGB Conc 33.5 g/dl (31.0-36.0); Mean Corpuscular Hemoglobin 30.9 pg (27.0-33.0); Mean Corpuscular Volume 92.2 fL (80.0-98.0); Mean Platelet Volume 9.7 fL (9.4-12.4); Platelet Count 183 X10*3/uL (160-400); Red Blood Count 2.82 X10*6/uL (4.60-5.80); White Blood Count 9.8 X10*3/uL (4.8-10.8)
[2023-09-16 08:22] LABS: Anion Gap 13 (12-20); Blood Urea Nitrogen 32 mg/dL (9-16); C Reactive Protein 12.75 mg/dL (< or = 0.50); Calcium 9.3 mg/dL (8.4-10.2); Carbon Dioxide 21 mmol/L (22-29); Chloride 112 mmol/L (96-108); Creatinine Clr Calc Pharmacy 14.8; Estimated Glomerular Filt Rate 16; Glucose Random 156 mg/dL (60-115); Magnesium 2.2 mg/dL (1.6-2.6); Potassium 3.8 mmol/L (3.3-5.1); Sodium 142 mmol/L (135-145)
[2023-09-16] MEDS: Famotidine/PF 20 MG/2 ML VIAL IVPUSH (08:35)
[2023-09-16 08:37] LABS: B Type Natriuretic Peptide 590 pg/mL (<100)
[2023-09-16] MEDS: 0.9 % Sodium Chloride Flush 3 ML SYRINGE IVFLUSH ×3 (08:42→22:16)
--- NOTE | 2023-09-16 08:46 | PM.PNGS ---
Subjective Subjective Date of Service: 09/17/23 Interval history: Had delirium over the weekend No vomiting or GI issues reported Tolerated clear liquids this morning Physical Exam Vital Signs: Vital Signs: Last Vital Signs Temp 96.9 F 09/16/23 07:04 Pulse 75 09/16/23 07:04 Resp 17 09/16/23 07:04 BP 150/78 H 09/16/23 07:04 Pulse Ox 93 09/16/23 07:04 O2 Del Method Room Air 09/16/23 07:04 BMI result Body Mass Index 31.3 Const: Other: Looks drowsy General: no acute distress Resp: Other: Mildly short of breath Cardio: Rate: regular rate GI: Other: Mildly distended but soft Palpation (GI): not firm and nontender Objective Data Active Medications Acetaminophen (Acetaminophen 325 Mg Tablet) 650 mg PO Q6H PRN PRN Reason: Pain, Mild (Pain Scale 1-3), fever or headache Last Admin: 09/15/23 20:37 Dose: 650 mg Documented By: WARNER Atorvastatin Calcium (Atorvastatin Calcium 40 Mg Tablet) 40 mg PO BEDTIME [facility] Last Admin: 09/15/23 20:37 Dose: 40 mg Documented By: WARNER Cyanocobalamin (Cyanocobalamin (Vitamin B-12) 500 Mcg Tablet) 500 mcg PO DAILY [facility] Last Admin: 09/15/23 09:03 Dose: 500 mcg Documented By: CLAUS Escitalopram Oxalate (Escitalopram Oxalate 20 Mg Tablet) 20 mg PO DAILY [facility] Last Admin: 09/15/23 09:03 Dose: 20 mg Documented By: CLAUS Famotidine (Famotidine/Pf 20 Mg/2 Ml Vial) 20 mg IVPUSH DAILY [facility] Last Admin: 09/15/23 08:56 Dose: 20 mg Documented By: CLAUS Glucose (Glucose Gel 15 Gm Gel..Gram.) 15 gm PO Q15M PRN; Protocol PRN Reason: per Hypoglycemia Standing Ord. Hydralazine HCl (Hydralazine Hcl 10 Mg Tablet) 10 mg PO TID [facility]; Protocol Last Admin: 09/15/23 20:37 Dose: 10 mg Documented By: WARNER Dextrose (D10) 250 mls @ 750 mls/hr IV Q15M PRN; Protocol PRN Reason: per Hypoglycemia Standing Ord. Piperacillin Sod/Tazobactam (Sod 2.25 gm/ Sodium Chloride) 50 mls @ 100 mls/hr IV Q6H [facility] Last Infusion: 09/16/23 06:35 Dose: Infused Documented By: WARNER Insulin Human Lispro (Insulin Lispro 100 Unit/Ml 3 Ml Vial) 0 unit SUBCUT QIDACHS [facility]; Protocol Last Admin: 09/16/23 07:27 Dose: Not Given Documented By: FLORESITA Non-Admin Reason: No Insulin Coverage Isosorbide Mononitrate (Isosorbide Mononitrate 30 Mg Tab.Er.24h) 30 mg PO DAILY [facility]; Protocol Last Admin: 09/15/23 09:02 Dose: 30 mg Documented By: CLAUS Magnesium Oxide (Magnesium Oxide 400 Mg Tablet) 400 mg PO DAILY [facility] Last Admin: 09/15/23 09:03 Dose: 400 mg Documented By: CLAUS Memantine (Memantine Hcl 5 Mg Tablet) 5 mg PO BID [facility] Last Admin: 09/15/23 20:37 Dose: 5 mg Documented By: WARNER Propranolol HCl (Propranolol Hcl 20 Mg Tablet) 20 mg PO BID [facility]; Protocol Last Admin: 09/15/23 20:37 Dose: 20 mg Documented By: WARNER Sodium Chloride (0.9 % Sodium Chloride Flush 3 Ml Syringe) 3 ml IVFLUSH QSHIFT [facility] Last Admin: 09/16/23 00:13 Dose: Not Given Documented By: WARNER Non-Admin Reason: Previously Administered Tamsulosin HCl (Tamsulosin Hcl 0.4 Mg Capsule) 0.4 mg PO DAILY [facility] Last Admin: 09/15/23 09:03 Dose: 0.4 mg Documented By: CLAUS Labs 09/17/23 07:08 09/17/23 07:08 Labs: Laboratory Results - last 24 hr 09/15/23 09/15/23 09/15/23 11:08 16:05 20:12 MCV MCH MCHC RDW Plt Count MPV Absolute Nucleated RBC Nucleated RBC % (auto) Anion Gap Estim Creat Clear Calc Estimated GFR POC Glucose 132 H 187 H 163 H Random Glucose Calcium Magnesium C-Reactive Protein B-Natriuretic Peptide 09/16/23 09/16/23 07:02 07:47 MCV 92.2 MCH 30.9 MCHC 33.5 RDW 13.0 Plt Count 183 MPV 9.7 Absolute Nucleated RBC 0.000 Nucleated RBC % (auto) 0.0 Anion Gap 13 Estim Creat Clear Calc 14.8 Estimated GFR 16 POC Glucose 135 H Random Glucose 156 H Calcium 9.3 Magnesium 2.2 C-Reactive Protein 12.75 H B-Natriuretic Peptide 590 H Microbiology Microbiology Results: Microbiology 09/13/23 14:07 Blood Culture - Preliminary Blood - Venous No growth after 48 hours. 09/13/23 14:07 Blood Culture - Preliminary Blood - Venous No growth after 48 hours. Procedures Date of Service Date of Service: 09/17/23 Progress Note: A&P Assessment and plan (1) Abdominal pain of unknown cause: Status: Acute Assessment and Plan: Seems to be tolerating clear liquids As per family, no surgical intervention Continue IV fluids On clear liquids and appears to be tolerating this Has had delirium Creatinine trending up Abdomen otherwise soft Hospitalist following Time Spent With Patient Time: Total time managing care of this patient today ____ minutes. Quality Stroke Does the patient have a stroke diagnosis?: No VTE Prior VTE?: No VTE Risk Level:: Medical - moderate - high VTE Device Contraindication: N/A - Device Ordered VTE Drug Contraindication: Treatment Not Indicated
[2023-09-16 09:00] LABS: Procalcitonin 2.92 ng/mL
[2023-09-16 09:40] LABS: Venous Blood Gas Refer to POC result
[2023-09-16 09:41] LABS: VBG Base Excess -6.3 mmol/L; VBG HCO3 18 mmol/L (22-26); VBG pCO2 34 mmHg; VBG pH 7.33 (7.32-7.43); VBG pO2 66 mmHg
--- NOTE | 2023-09-16 10:35 | P.PNNP_ITS ---
Subjective Subjective Date of Service: 09/16/23 Interval history: Chart reviewed. No improvement in serum creatinine. Physical Exam 2 Vital Signs: Vital Signs: Last Vital Signs Temp 96.9 F 09/16/23 07:04 Pulse 75 09/16/23 07:04 Resp 17 09/16/23 07:04 BP 150/78 H 09/16/23 07:04 Pulse Ox 93 09/16/23 07:04 O2 Del Method Room Air 09/16/23 07:04 BMI result Body Mass Index 31.3 Const: General: ill appearing Neck: Neck: Yes supple Cardio: Palpation: no palpable S3 Heart sounds: S1 normal heart sound present, S2 normal heart sound present and no rubs GI: Palpation (GI): Soft to palpation and Tenderness to palpation present (GI) Neuro: Motor exam (neuro): No Asterixis during motor activity present Objective Data Labs 09/16/23 07:47 09/16/23 07:47 Labs: Laboratory Results - last 24 hr 09/15/23 09/15/23 09/15/23 11:08 16:05 20:12 WBC RBC Hgb Hct MCV MCH MCHC RDW Plt Count MPV Absolute Nucleated RBC Nucleated RBC % (auto) VBG pH VBG pCO2 VBG pO2 VBG HCO3 VBG O2 Saturation VBG Base Excess Sodium Potassium Chloride Carbon Dioxide Anion Gap BUN Creatinine Estim Creat Clear Calc Estimated GFR POC Glucose 132 H 187 H 163 H Random Glucose Calcium Magnesium C-Reactive Protein B-Natriuretic Peptide Procalcitonin 09/16/23 09/16/23 09/16/23 07:02 07:47 09:34 WBC 9.8 RBC 2.82 L Hgb 8.7 L Hct 26.0 L MCV 92.2 MCH 30.9 MCHC 33.5 RDW 13.0 Plt Count 183 MPV 9.7 Absolute Nucleated RBC 0.000 Nucleated RBC % (auto) 0.0 VBG pH 7.33 VBG pCO2 34 VBG pO2 66 VBG HCO3 18 L VBG O2 Saturation 93.0 VBG Base Excess -6.3 Sodium 142 Potassium 3.8 Chloride 112 H Carbon Dioxide 21 L Anion Gap 13 BUN 32 H Creatinine 3.60 H Estim Creat Clear Calc 14.8 Estimated GFR 16 POC Glucose 135 H Random Glucose 156 H Calcium 9.3 Magnesium 2.2 C-Reactive Protein 12.75 H B-Natriuretic Peptide 590 H Procalcitonin 2.92 Microbiology Microbiology Results: Microbiology 09/13/23 14:07 Blood - Venous Blood Culture - Preliminary No growth after 48 hours. 09/13/23 14:07 Blood - Venous Blood Culture - Preliminary No growth after 48 hours. 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 Baseline creatinine is around 2.0 mg/dL. Superimposed IZABELLA due to hypoperfusion leading to tubular injury No evidence of obstruction. Recommendation Keep IV hydration. Keep intake more than output. Maintain systolic blood pressure more than 100 mm Hg and avoid hypotension. Continue to hold torsemide. Hold lisinopril. Watch urine output closely. No absolute indication for dialysis yet. Concur with other medical management and she will follow along with the team. Time Spent With Patient Time: Total time managing care of this patient today ____ minutes. Progress Note: Quality Stroke Does the patient have a stroke diagnosis?: No
[2023-09-16 11:47] LABS: Glucose, Whole Blood 171 mg/dL (60-115)
[2023-09-16 11:50] LABS: Alanine Aminotransferase 10 U/L (0-40); Albumin Level 3.4 g/dL (3.5-5.0); Alkaline Phosphatase 72 U/L (39-117); Aspartate Amino Transferase 28 U/L (5-37); Bilirubin Direct 0.4 mg/dL (0.0-0.5); Bilirubin Total 0.6 mg/dL (0.0-1.0); Total Protein 5.7 g/dL (6.5-8.0)
[2023-09-16 12:08] LABS: Thyroid Stimulating Hormone 2.53 uIU/mL (0.32-4.0)
--- NOTE | 2023-09-16 13:00 | PM.NEUROCN ---
History of Present Illness Data of Consult Service Date: 09/16/23 Primary Care Provider: MELISA Rivera HPI Reason for consult: Encephalopathy 88 years old man admitted in hospital with abdominal pain and was diagnosed with appendicitis and was being treated with antibiotics. Family stated that due to his age surgeons were not considering surgery. He was noted to be confused not making sense and different from his baseline. Family stated that previously he had mild dementia but he was okay and did not have the symptoms. He had a remote history of a stroke when he was young but there was no residual that they were aware of. Review of Systems Review of Systems: Could not be done with him [facility] Past Medical History Medical History (Updated 09/16/23 @ 13:02 by Elif Rogers MD) Dementia with mood disturbance BPH (benign prostatic hyperplasia) HLD (hyperlipidemia) HTN (hypertension) DM renal manif type II Family History Family History Mother No problems noted. Father Alzheimer disease Surgical History Surgical History Hx of cataract surgery Hx of blepharoplasty Hx of colonoscopy Hx of lymph node excision Hx of melanoma excision Social History Social History Household Members: Spouse Household Members Other:: Pt's Housing: House Do you presently have visiting nurse or other home services: No Alcohol intake: current Alcohol intake frequency: does not drink Comment: pt not impulsive or attempting to get OOOB Patient Tobacco Use Status: Former Tobacco user Second Hand Smoke Exposure: No service: Yes Meds Allergies Allergy/AdvReac Type Severity Reaction Status Date / Time No Known Allergies Allergy Verified 09/10/23 23:32 Active Medications: Current Medications Acetaminophen (Acetaminophen 325 Mg Tablet) 650 mg PO Q6H PRN PRN Reason: Pain, Mild (Pain Scale 1-3), fever or headache Last Admin: 09/15/23 20:37 Dose: 650 mg Atorvastatin Calcium (Atorvastatin Calcium 40 Mg Tablet) 40 mg PO BEDTIME [facility] Last Admin: 09/15/23 20:37 Dose: 40 mg Cyanocobalamin (Cyanocobalamin (Vitamin B-12) 500 Mcg Tablet) 500 mcg PO DAILY [facility] Last Admin: 09/15/23 09:03 Dose: 500 mcg Escitalopram Oxalate (Escitalopram Oxalate 20 Mg Tablet) 20 mg PO DAILY [facility] Last Admin: 09/15/23 09:03 Dose: 20 mg Famotidine (Famotidine/Pf 20 Mg/2 Ml Vial) 20 mg IVPUSH DAILY [facility] Last Admin: 09/16/23 08:35 Dose: 20 mg Glucose (Glucose Gel 15 Gm Gel..Gram.) 15 gm PO Q15M PRN; Protocol PRN Reason: per Hypoglycemia Standing Ord. Hydralazine HCl (Hydralazine Hcl 10 Mg Tablet) 10 mg PO TID [facility]; Protocol Last Admin: 09/15/23 20:37 Dose: 10 mg Dextrose (D10) 250 mls @ 750 mls/hr IV Q15M PRN; Protocol PRN Reason: per Hypoglycemia Standing Ord. Piperacillin Sod/Tazobactam (Sod 2.25 gm/ Sodium Chloride) 50 mls @ 100 mls/hr IV Q6H [facility] Last Admin: 09/16/23 12:19 Dose: 100 mls/hr Insulin Human Lispro (Insulin Lispro 100 Unit/Ml 3 Ml Vial) 0 unit SUBCUT QIDACHS [facility]; Protocol Last Admin: 09/16/23 12:33 Dose: Not Given Isosorbide Mononitrate (Isosorbide Mononitrate 30 Mg Tab.Er.24h) 30 mg PO DAILY [facility]; Protocol Last Admin: 09/15/23 09:02 Dose: 30 mg Magnesium Oxide (Magnesium Oxide 400 Mg Tablet) 400 mg PO DAILY [facility] Last Admin: 09/15/23 09:03 Dose: 400 mg Memantine (Memantine Hcl 5 Mg Tablet) 5 mg PO BID [facility] Last Admin: 09/15/23 20:37 Dose: 5 mg Propranolol HCl (Propranolol Hcl 20 Mg Tablet) 20 mg PO BID [facility]; Protocol Last Admin: 09/15/23 20:37 Dose: 20 mg Sodium Chloride (0.9 % Sodium Chloride Flush 3 Ml Syringe) 3 ml IVFLUSH QSHIFT [facility] Last Admin: 09/16/23 08:42 Dose: 3 ml Tamsulosin HCl (Tamsulosin Hcl 0.4 Mg Capsule) 0.4 mg PO DAILY [facility] Last Admin: 09/15/23 09:03 Dose: 0.4 mg Home Medications ?Medication ?Instructions ?Recorded ?Confirmed ?Last Taken ?Type atorvastatin 40 mg tablet 40 mg PO BEDTIME 05/28/22 09/11/23 09/10/23 History blood sugar diagnostic (FreeStyle #10 ea 05/28/22 Unknown History Lite Strips) dulaglutide 1.5 mg/0.5 mL 1.5 mg subcut SA 05/28/22 09/11/23 09/10/23 History subcutaneous pen injector (Trulicity) lancets 28 gauge (FreeStyle #100 ea 05/28/22 Unknown History Lancets) lisinopril 40 mg tablet 40 mg PO DAILY 05/28/22 09/11/23 09/10/23 History magnesium oxide 400 mg (241.3 mg 400 mg PO DAILY 05/28/22 09/11/23 09/10/23 History magnesium) tablet memantine 5 mg tablet 5 mg PO BID 05/28/22 09/11/23 09/10/23 History pen needle, diabetic 31 gauge x #1,200 ea 05/28/22 Unknown History /16 (BD Ultra-Fine Short Pen Needle) torsemide 20 mg tablet 20 mg PO DAILY 05/28/22 09/11/23 09/10/23 History escitalopram oxalate 20 mg tablet 20 mg PO DAILY 06/08/22 09/11/23 09/10/23 History insulin glargine 100 unit/mL (3 40 unit subcut BEDTIME 06/08/22 09/11/23 09/10/23 History mL) subcutaneous pen (Lantus Solostar U-100 Insulin) tamsulosin 0.4 mg capsule 0.4 mg PO DAILY 06/08/22 09/11/23 09/10/23 History cyanocobalamin (vitamin B-12) 500 500 mcg PO DAILY 09/11/23 09/11/23 09/10/23 History mcg tablet (Vitamin B-12) multivitamin 1 tab PO DAILY 09/11/23 09/11/23 09/10/23 History propranolol 20 mg tablet 20 mg PO BID 09/13/23 09/13/23 09/10/23 History Physical Exam Vital Signs: Vital Signs: Last Vital Signs Temp 96.9 F 09/16/23 07:04 Pulse 75 09/16/23 07:04 Resp 17 09/16/23 07:04 BP 150/78 H 09/16/23 07:04 Pulse Ox 93 09/16/23 07:04 O2 Del Method Room Air 09/16/23 07:04 BMI result Body Mass Index 31.3 Neuro: Other: He is very drowsy responsive to pain but not to verbal stimuli. He did not answer questions. He kept his eyes closed. I open his eyes and he resisted little bit and is were not deviated. Face was symmetrical. Right plantar was extensor were left was flexor. Results Labs 09/16/23 07:47 09/16/23 07:47 Labs: Short CBC 09/16/23 Range/Units 07:47 WBC 9.8 (4.8-10.8) X10*3/uL Hgb 8.7 L (14.0-18.0) g/dl Hct 26.0 L (42.0-52.0) % Plt Count 183 (160-400) X10*3/uL BMP 09/16/23 07:47 Sodium 142 Potassium 3.8 Chloride 112 H Carbon Dioxide 21 L BUN 32 H Creatinine 3.60 H Calcium 9.3 Liver Function 09/16/23 Range/Units 07:47 Total Bilirubin 0.6 (0.0-1.0) mg/dL Direct Bilirubin 0.4 (0.0-0.5) mg/dL AST 28 (5-37) U/L ALT 10 (0-40) U/L Alkaline Phosphatase 72 (39-117) U/L Albumin 3.4 L (3.5-5.0) g/dL Head CT revealed moderately severe diffuse cerebral atrophy with some mild chronic microvascular ischemic disease. Microbiology Microbiology Results: Microbiology 09/13/23 14:07 Blood - Venous Blood Culture - Preliminary No growth after 48 hours. 09/13/23 14:07 Blood - Venous Blood Culture - Preliminary No growth after 48 hours. Assessment and Plan (1) Encephalopathy: Qualifiers: Encephalopathy type: unspecified encephalopathy Qualified Code(s): G93.40 - Encephalopathy, unspecified Status: Acute 88 years old man with features suggestive of aphasia and right extensor plantar. This was suggest left frontal her hemispheric pathology. Noncontrast head CT did not reveal any significant acute lesion but reveals significant cerebral atrophy suggestive of underlying degenerative dementia. I recommend a noncontrast MRI of brain and also an EEG to rule out nonconvulsive epileptic pathology that could explain his mental status and right extensor plantar. Procedures Date of Service Date of Service: 09/16/23
--- NOTE | 2023-09-16 13:08 | MHC.SLORD ---
Speech Language Pathology Order Status: Patient remains on clear liquid diet, was evaluated by [employer]IC 09/13 and recommended ground solids. [employer] consult deferred pending clearance for patient to advance from clear liquids.
--- NOTE | 2023-09-16 13:20 | MHC.CM.PN ---
IZABELLA/CKD4. It has not been determined if the patient will require HD. DP home with services. A clinical update has been sent to [facility]. They are following for discharge. Patients is planned for transport home.
--- NOTE | 2023-09-16 13:52 | PM.EVENT ---
Event Note Date of Service: 09/16/23 Event Note: Still drowsy but seems to wake up periodically Does not appear to have abdominal pain or tenderness His family was concerned about his mental status changes I have reviewed his CAT scan and this shows significant cerebral atrophy without any signs of any acute changes Again, most likely, his altered mental status is from delirium by being in the hospital He is abdomen is soft and benign I will order for regular food for him I had a long discussion with the family with regards to the above The hospitalist was also with us during the discussion Time Spent With Patient Time: Total time managing care of this patient today ____ minutes.
--- NOTE | 2023-09-16 13:57 | PC.NURSE ---
Addendum entered by Bora Rivera RN 09/16/23 13:57: Primary RN Made aware. Original Note: Spoke to , filled out MRI form with [employer] [facility]. [place] from [place].
--- NOTE | 2023-09-16 14:52 | P.CNPS_ITS ---
History of Present Illness Date of Service: 09/16/2023 Chief Complaint: Abdominal Pain Reason for Consult: dementia and agitation Requesting physician: Joceline Chao Discussed with referring provider: Yes Sources of Information: patient interviewed and chart reviewed HPI Narrative: 88 year old male with history of htn, type 2 diabetes, bph, unspecified dementia with mood disorder, and hld admitted to general surgery for acute appendicitis with consult placed to hospitalist for medical management. psychiatry consult for dementia and agitation. Pt seen ; he is lying in bed; not able to respond or particiapte in interview; record reviewed; diagnostics reviewed; discussed with Dr Ghosh. Past Psychiatric History: outpatient tx Medical Evaluation Reviewed: Yes Review of Systems Review of Systems Could not be done with him Yes all other systems are reviewed and are negative and Unobtainable due to mental status Constitutional: Denies chills and Denies fever(s) Cardiovascular: Denies chest pain, Denies palpitations and Denies dyspnea Respiratory: Reports cough and Denies dyspnea Gastrointestinal: Denies abdominal pain Reports confusion Psychiatric: Reports confusion Endocrine: Denies palpitations [facility] Medical History (Updated 09/16/23 @ 13:02 by Elif Rogers MD) Dementia with mood disturbance BPH (benign prostatic hyperplasia) HLD (hyperlipidemia) HTN (hypertension) DM renal manif type II Surgical History Hx of cataract surgery Hx of blepharoplasty Hx of colonoscopy Hx of lymph node excision Hx of melanoma excision Diagnostics Vital Signs (24Hr): Vital Signs - 24 hr 09/15/23 15:14 09/15/23 15:21 09/15/23 17:42 Temperature 97.2 F Pulse Rate 91 87 Respiratory Rate 18 Blood Pressure 181/87 H 181/87 H 161/77 H Pulse Oximetry 97 Oxygen Delivery Method Room Air 09/15/23 19:48 09/15/23 20:37 09/15/23 20:37 Temperature 97.3 F Pulse Rate 87 87 Respiratory Rate 17 Blood Pressure 170/80 H 170/80 H 170/80 H Pulse Oximetry 94 Oxygen Delivery Method Room Air 09/16/23 04:00 09/16/23 04:33 09/16/23 05:22 Temperature 97 F Pulse Rate 85 78 Respiratory Rate 16 16 16 Blood Pressure 148/82 H Pulse Oximetry 92 Oxygen Delivery Method Room Air 09/16/23 07:04 Temperature 96.9 F Pulse Rate 75 Respiratory Rate 17 Blood Pressure 150/78 H Pulse Oximetry 93 Oxygen Delivery Method Room Air BMI result Body Mass Index 31.3 Labs 09/16/23 07:47 09/16/23 07:47 Labs: Laboratory Results - last 48 hr 09/14/23 09/14/23 09/15/23 16:32 20:28 05:20 WBC RBC Hgb Hct MCV MCH MCHC RDW Plt Count MPV Absolute Nucleated RBC Nucleated RBC % (auto) VBG pH VBG pCO2 VBG pO2 VBG HCO3 VBG O2 Saturation VBG Base Excess Sodium 138 Potassium 4.4 Chloride 109 H Carbon Dioxide 21 L Anion Gap 12 BUN 28 H Creatinine 3.18 H Estim Creat Clear Calc 16.7 Estimated GFR 19 POC Glucose 168 H 151 H Random Glucose 104 Calcium 9.5 Magnesium Total Bilirubin 0.6 Direct Bilirubin 0.3 AST 19 ALT 11 Alkaline Phosphatase 79 C-Reactive Protein B-Natriuretic Peptide Total Protein 6.1 L Albumin 2.9 L Procalcitonin [facility] 09/15/23 09/15/23 09/15/23 07:13 11:08 16:05 WBC RBC Hgb Hct MCV MCH MCHC RDW Plt Count MPV Absolute Nucleated RBC Nucleated RBC % (auto) VBG pH VBG pCO2 VBG pO2 VBG HCO3 VBG O2 Saturation VBG Base Excess Sodium Potassium Chloride Carbon Dioxide Anion Gap BUN Creatinine Estim Creat Clear Calc Estimated GFR POC Glucose 101 132 H 187 H Random Glucose Calcium Magnesium Total Bilirubin Direct Bilirubin AST ALT Alkaline Phosphatase C-Reactive Protein B-Natriuretic Peptide Total Protein Albumin Procalcitonin [facility] 09/15/23 09/16/23 09/16/23 20:12 07:02 07:47 WBC 9.8 RBC 2.82 L Hgb 8.7 L Hct 26.0 L MCV 92.2 MCH 30.9 MCHC 33.5 RDW 13.0 Plt Count 183 MPV 9.7 Absolute Nucleated RBC 0.000 Nucleated RBC % (auto) 0.0 VBG pH VBG pCO2 VBG pO2 VBG HCO3 VBG O2 Saturation VBG Base Excess Sodium 142 Potassium 3.8 Chloride 112 H Carbon Dioxide 21 L Anion Gap 13 BUN 32 H Creatinine 3.60 H Estim Creat Clear Calc 14.8 Estimated GFR 16 POC Glucose 163 H 135 H Random Glucose 156 H Calcium 9.3 Magnesium 2.2 Total Bilirubin 0.6 Direct Bilirubin 0.4 AST 28 ALT 10 Alkaline Phosphatase 72 C-Reactive Protein 12.75 H B-Natriuretic Peptide 590 H Total Protein 5.7 L Albumin 3.4 L Procalcitonin 2.92 TSH 2.53 09/16/23 09/16/23 09:34 11:42 WBC RBC Hgb Hct MCV MCH MCHC RDW Plt Count MPV Absolute Nucleated RBC Nucleated RBC % (auto) VBG pH 7.33 VBG pCO2 34 VBG pO2 66 VBG HCO3 18 L VBG O2 Saturation 93.0 VBG Base Excess -6.3 Sodium Potassium Chloride Carbon Dioxide Anion Gap BUN Creatinine Estim Creat Clear Calc Estimated GFR POC Glucose 171 H Random Glucose Calcium Magnesium Total Bilirubin Direct Bilirubin AST ALT Alkaline Phosphatase C-Reactive Protein B-Natriuretic Peptide Total Protein Albumin Procalcitonin TSH Imaging Radiology Impressions: ITS Impressions Abdomen/Pelvis CT 09/11/23 01:24 IMPRESSION: 1. Appendix appears borderline dilated in the right abdomen with some adjacent stranding, which could be indicative of mild/early acute appendicitis in the proper clinical setting. However, there is also mild stranding elsewhere in the mesentery as well as a small amount of free fluid in the lower abdomen which is nonspecific. 2. No hydronephrosis or obstructing calculus. Few small scattered right renal calculi. 3. Enlarged prostate gland. Abdomen/Pelvis CT 09/13/23 09:40 IMPRESSION: Slight interval improvement in inflammatory changes in the right lower quadrant compared to the prior study. Persistent mild dilatation of the appendix measuring up to 8 mm. Possible hyperdense sludge in the gallbladder. Nonobstructing bilateral renal calculi. No hydronephrosis. Patchy airspace disease in the right lower lobe. Bilateral pleural effusions. Abdomen Ultrasound 09/15/23 08:29 IMPRESSION: 1. Examination limited secondary to patient body habitus and overlying bowel gas. 2. Small right renal cyst. 3. Otherwise unremarkable sonographic imaging of the abdomen. Chest X-Ray 09/16/23 05:52 IMPRESSION: Diffusely coarsened appearance of the interstitium, which could reflect airways disease/bronchitis. In the proper clinical setting, mild interstitial edema could have a similar appearance. Head CT 09/16/23 12:00 IMPRESSION: 1. 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 2. No intracranial hemorrhage or skull fracture is seen. 3. No evidence of space occupying lesion could be found. 4. The current plain CT scan of the brain shows no diagnostic evidence of acute cerebral infarction. 5. Interval development of marked bilateral sphenoid sinusitis. Mental Status Exam Mental Status Exam Narrative: lying in bed, in hospital gown, eyes closed, not responding to verbal cues; unable to particiapte in interview; appeared in NAD, no SOB. Medications Medications Current Medications Acetaminophen (Acetaminophen 325 Mg Tablet) 650 mg PO Q6H PRN PRN Reason: Pain, Mild (Pain Scale 1-3), fever or headache Last Admin: 09/15/23 20:37 Dose: 650 mg Atorvastatin Calcium (Atorvastatin Calcium 40 Mg Tablet) 40 mg PO BEDTIME [facility] Last Admin: 09/15/23 20:37 Dose: 40 mg Cyanocobalamin (Cyanocobalamin (Vitamin B-12) 500 Mcg Tablet) 500 mcg PO DAILY [facility] Last Admin: 09/16/23 14:05 Dose: Not Given Escitalopram Oxalate (Escitalopram Oxalate 20 Mg Tablet) 20 mg PO DAILY [facility] Last Admin: 09/16/23 14:05 Dose: Not Given Famotidine (Famotidine/Pf 20 Mg/2 Ml Vial) 20 mg IVPUSH DAILY [facility] Last Admin: 09/16/23 08:35 Dose: 20 mg Glucose (Glucose Gel 15 Gm Gel..Gram.) 15 gm PO Q15M PRN; Protocol PRN Reason: per Hypoglycemia Standing Ord. Hydralazine HCl (Hydralazine Hcl 10 Mg Tablet) 10 mg PO TID [facility]; Protocol Last Admin: 09/16/23 14:05 Dose: Not Given Dextrose (D10) 250 mls @ 750 mls/hr IV Q15M PRN; Protocol PRN Reason: per Hypoglycemia Standing Ord. Piperacillin Sod/Tazobactam (Sod 2.25 gm/ Sodium Chloride) 50 mls @ 100 mls/hr IV Q6H [facility] Last Infusion: 09/16/23 14:00 Dose: Infused Insulin Human Lispro (Insulin Lispro 100 Unit/Ml 3 Ml Vial) 0 unit SUBCUT QIDACHS [facility]; Protocol Last Admin: 09/16/23 12:33 Dose: Not Given Isosorbide Mononitrate (Isosorbide Mononitrate 30 Mg Tab.Er.24h) 30 mg PO DAILY [facility]; Protocol Last Admin: 09/16/23 14:05 Dose: Not Given Magnesium Oxide (Magnesium Oxide 400 Mg Tablet) 400 mg PO DAILY [facility] Last Admin: 09/16/23 14:05 Dose: Not Given Memantine (Memantine Hcl 5 Mg Tablet) 5 mg PO BID [facility] Last Admin: 09/16/23 14:05 Dose: Not Given Propranolol HCl (Propranolol Hcl 20 Mg Tablet) 20 mg PO BID [facility]; Protocol Last Admin: 09/16/23 14:05 Dose: Not Given Sodium Chloride (0.9 % Sodium Chloride Flush 3 Ml Syringe) 3 ml IVFLUSH QSHIFT [facility] Last Admin: 09/16/23 08:42 Dose: 3 ml Tamsulosin HCl (Tamsulosin Hcl 0.4 Mg Capsule) 0.4 mg PO DAILY [facility] Last Admin: 09/16/23 14:06 Dose: Not Given Allergies Allergies Allergy/AdvReac Type Severity Reaction Status Date / Time No Known Allergies Allergy Verified 09/10/23 23:32 Assessment & Plan Assessment & Plan (1) Encephalopathy: Qualifiers: Encephalopathy type: unspecified encephalopathy Qualified Code(s): G 93.40 - Encephalopathy, unspecified Status: Acute Code(s): G93.40 - Encephalopathy, unspecified Assessment and Plan: 88 years old man with features suggestive of aphasia and right extensor plantar. This was suggest left frontal her hemispheric pathology. Noncontrast head CT did not reveal any significant acute lesion but reveals significant cerebral atrophy suggestive of underlying degenerative dementia. I recommend a noncontrast MRI of brain and also an EEG to rule out nonconvulsive epileptic pathology that could explain his mental status and right extensor plantar. Plan psychiatry; consider lowering the lexapro from 20mg to 10 mg daily. SSRIs can sometimes cause agitation, also risk factor for bleeding and blood dyscrasia Total time managing care of this patient today __60__ minutes.
--- NOTE | 2023-09-16 15:13 | HO.PM.IMPN ---
Subjective Subjective Date of Service: 09/16/23 Interval History: Had agitated delirium yesterday and got 1 dose of haloperidol Currently somnolent but arousable, mumbling with minimal verbal response but did drink broth this morning Family at bedside and concerned about his mental status Abd is nontender Review of Systems Review of Systems: Yes Unobtainable due to mental status Physical Exam Vital Signs: Vital Signs: Last Vital Signs Temp 96.9 F 09/16/23 07:04 Pulse 75 09/16/23 07:04 Resp 17 09/16/23 07:04 BP 150/78 H 09/16/23 07:04 Pulse Ox 93 09/16/23 07:04 O2 Del Method Room Air 09/16/23 07:04 BMI result Body Mass Index 31.3 Gen: somnolent but arousable HEENT: sclera anicteric, moist mucus membranes Neck: supple Lungs: clear to auscultation bilaterally Heart: regular rate and rhythm, no murmurs Abd: soft, non-tender, non-distended Ext: no edema Skin: warm/well-perfused Neuro: somonolent, unable to assess orientation, moving all extremities Psych: impaired insight Objective Data Active Medications Acetaminophen (Acetaminophen 325 Mg Tablet) 650 mg PO Q6H PRN PRN Reason: Pain, Mild (Pain Scale 1-3), fever or headache Last Admin: 09/15/23 20:37 Dose: 650 mg Documented By: WARNER Atorvastatin Calcium (Atorvastatin Calcium 40 Mg Tablet) 40 mg PO BEDTIME [facility] Last Admin: 09/15/23 20:37 Dose: 40 mg Documented By: WARNER Cyanocobalamin (Cyanocobalamin (Vitamin B-12) 500 Mcg Tablet) 500 mcg PO DAILY [facility] Last Admin: 09/16/23 14:05 Dose: Not Given Documented By: FLORESITA Non-Admin Reason: Patient Refused Escitalopram Oxalate (Escitalopram Oxalate 20 Mg Tablet) 20 mg PO DAILY [facility] Last Admin: 09/16/23 14:05 Dose: Not Given Documented By: FLORESITA Non-Admin Reason: Patient Refused Famotidine (Famotidine/Pf 20 Mg/2 Ml Vial) 20 mg IVPUSH DAILY [facility] Last Admin: 09/16/23 08:35 Dose: 20 mg Documented By: FLORESITA Glucose (Glucose Gel 15 Gm Gel..Gram.) 15 gm PO Q15M PRN; Protocol PRN Reason: per Hypoglycemia Standing Ord. Hydralazine HCl (Hydralazine Hcl 10 Mg Tablet) 10 mg PO TID [facility]; Protocol Last Admin: 09/16/23 14:05 Dose: Not Given Documented By: FLORESITA Non-Admin Reason: Patient Refused Dextrose (D10) 250 mls @ 750 mls/hr IV Q15M PRN; Protocol PRN Reason: per Hypoglycemia Standing Ord. Piperacillin Sod/Tazobactam (Sod 2.25 gm/ Sodium Chloride) 50 mls @ 100 mls/hr IV Q6H [facility] Last Infusion: 09/16/23 14:00 Dose: Infused Documented By: FLORESITA Insulin Human Lispro (Insulin Lispro 100 Unit/Ml 3 Ml Vial) 0 unit SUBCUT QIDACHS [facility]; Protocol Last Admin: 09/16/23 12:33 Dose: Not Given Documented By: FLORESITA Non-Admin Reason: Physician Approved Isosorbide Mononitrate (Isosorbide Mononitrate 30 Mg Tab.Er.24h) 30 mg PO DAILY [facility]; Protocol Last Admin: 09/16/23 14:05 Dose: Not Given Documented By: FLORESITA Non-Admin Reason: Patient Refused Magnesium Oxide (Magnesium Oxide 400 Mg Tablet) 400 mg PO DAILY [facility] Last Admin: 09/16/23 14:05 Dose: Not Given Documented By: FLORESITA Non-Admin Reason: Patient Refused Memantine (Memantine Hcl 5 Mg Tablet) 5 mg PO BID [facility] Last Admin: 09/16/23 14:05 Dose: Not Given Documented By: FLORESITA Non-Admin Reason: Patient Refused Propranolol HCl (Propranolol Hcl 20 Mg Tablet) 20 mg PO BID [facility]; Protocol Last Admin: 09/16/23 14:05 Dose: Not Given Documented By: FLORESITA Non-Admin Reason: Patient Refused Sodium Chloride (0.9 % Sodium Chloride Flush 3 Ml Syringe) 3 ml IVFLUSH QSHIFT [facility] Last Admin: 09/16/23 08:42 Dose: 3 ml Documented By: FLORESITA Tamsulosin HCl (Tamsulosin Hcl 0.4 Mg Capsule) 0.4 mg PO DAILY [facility] Last Admin: 09/16/23 14:06 Dose: Not Given Documented By: FLORESITA Non-Admin Reason: Patient Refused Labs 09/16/23 07:47 09/16/23 07:47 Labs: Laboratory Results - last 24 hr 09/15/23 09/15/23 09/16/23 16:05 20:12 07:02 MCV MCH MCHC RDW Plt Count MPV Absolute Nucleated RBC Nucleated RBC % (auto) VBG pH VBG pCO2 VBG pO2 VBG HCO3 VBG O2 Saturation VBG Base Excess Anion Gap Estim Creat Clear Calc Estimated GFR POC Glucose 187 H 163 H 135 H Random Glucose Calcium Magnesium Total Bilirubin Direct Bilirubin AST ALT Alkaline Phosphatase C-Reactive Protein B-Natriuretic Peptide Total Protein Albumin Procalcitonin TSH 09/16/23 09/16/23 09/16/23 07:47 09:34 11:42 MCV 92.2 MCH 30.9 MCHC 33.5 RDW 13.0 Plt Count 183 MPV 9.7 Absolute Nucleated RBC 0.000 Nucleated RBC % (auto) 0.0 VBG pH 7.33 VBG pCO2 34 VBG pO2 66 VBG HCO3 18 L VBG O2 Saturation 93.0 VBG Base Excess -6.3 Anion Gap 13 Estim Creat Clear Calc 14.8 Estimated GFR 16 POC Glucose 171 H Random Glucose 156 H Calcium 9.3 Magnesium 2.2 Total Bilirubin 0.6 Direct Bilirubin 0.4 AST 28 ALT 10 Alkaline Phosphatase 72 C-Reactive Protein 12.75 H B-Natriuretic Peptide 590 H Total Protein 5.7 L Albumin 3.4 L Procalcitonin 2.92 TSH 2.53 Microbiology Microbiology Results: Microbiology 09/13/23 14:07 Blood Culture - Preliminary Blood - Venous No growth after 48 hours. 09/13/23 14:07 Blood Culture - Preliminary Blood - Venous No growth after 48 hours. 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 IV fluids stopped due to pleural effusions + was given albumin and furosemide. Nephrology following. TTE + BNP to assess volume overload etiology thrombocytopenia due to infection - resolved anemia of CKD - H+H stable BPH - tamsulosin HTN - propranolol, Imdur, hydralazine; lisionpril held for IZABELLA DM2 - amauri-dose lispro dementia - memantine VTE ppx - UFH dispo - TBD In my clinical judgment, the patient requires continued inpatient hospitalization for the following reasons: IV ABX, encephalopathy Total time managing care of this patient today: 50 minutes. Quality Stroke Does the patient have a stroke diagnosis?: No VTE Prior VTE?: No VTE Risk Level:: Medical - moderate - high VTE Device Contraindication: N/A - Device Ordered VTE Drug Contraindication: Treatment Not Indicated
[2023-09-16 16:04] LABS: Glucose, Whole Blood 154 mg/dL (60-115)
[2023-09-16] MEDS: hydrALAZINE HCl 10 MG TABLET PO ×2 (16:20→22:11)
[2023-09-16] MEDS: Heparin Sodium,Porcine 5,000 UNIT/ML VIAL 5000 UNIT SUBCUT (16:20)
--- NOTE | 2023-09-16 17:54 | PC.NURSE ---
Patient accepted afternoon BP medication- see MAR for details. 1 hour re-assessment, BP increased to 190/[address] Cheryl Ghosh notified. No new orders at this time. Patient resting comfortably in bed. No signs or symptoms of distress. Call infante within reach. Bed alarm on.
[2023-09-16 17:56] LABS: Glucose, Whole Blood 147 mg/dL (60-115)
[2023-09-16 20:27] LABS: Glucose, Whole Blood 168 mg/dL (60-115)
[2023-09-16] MEDS: Propranolol HCL 20 MG TABLET PO (22:11)
[2023-09-16] MEDS: Memantine HCl 5 MG TABLET PO (22:11)
[2023-09-17] VITALS (8 sets, daily range): BP systolic 150–180; BP diastolic 60–82; PULSE 70–75; RESP 16–18; TEMP 36–36.6; O2SAT 93–95
--- NOTE | 2023-09-17 | EEG_ITS ---
FINDINGS: Background activity consists of a low voltage fast frequencies seen diffusely intermixed with electrode and muscle artifact and some underlying, low-voltage, 4 to 5 hertz theta. Photic stimulation and hyperventilation are omitted. IMPRESSION: This EEG is considered mildly abnormal due to mild diffuse background slowing consistent with a diffuse encephalopathic process. No epileptiform discharges are seen. MD [place]IA Mistry/HILL / [id number]
[2023-09-17] MEDS: Piperacillin Sodium/Tazobactam 2.25 GM in 0.9 % Sodium Chloride 50 ML IV ×4 (00:56→18:26)
[2023-09-17] MEDS: Heparin Sodium,Porcine 5,000 UNIT/ML VIAL 5000 UNIT SUBCUT ×2 (04:44→15:58)
[2023-09-17 07:51] LABS: Hematocrit 28.9 % (42.0-52.0); Hemoglobin 9.6 g/dl (14.0-18.0); Mean Corpuscular HGB Conc 33.2 g/dl (31.0-36.0); Mean Corpuscular Hemoglobin 30.3 pg (27.0-33.0); Mean Corpuscular Volume 91.2 fL (80.0-98.0); Mean Platelet Volume 9.8 fL (9.4-12.4); Platelet Count 233 X10*3/uL (160-400); Red Blood Count 3.17 X10*6/uL (4.60-5.80); Red Cell Distribution Width 13.1 % (11.0-16.0); White Blood Count 9.6 X10*3/uL (4.8-10.8)
[2023-09-17 08:03] LABS: Glucose, Whole Blood 153 mg/dL (60-115)
[2023-09-17 08:06] LABS: Anion Gap 16 (12-20); Blood Urea Nitrogen 31 mg/dL (9-16); Calcium 9.5 mg/dL (8.4-10.2); Carbon Dioxide 19 mmol/L (22-29); Chloride 111 mmol/L (96-108); Creatinine Clr Calc Pharmacy 15.3; Estimated Glomerular Filt Rate 17; Glucose Random 177 mg/dL (60-115); Potassium 3.6 mmol/L (3.3-5.1); Sodium 142 mmol/L (135-145)
[2023-09-17 08:13] LABS: B Type Natriuretic Peptide 557 pg/mL (<100)
[2023-09-17] MEDS: Famotidine/PF 20 MG/2 ML VIAL IVPUSH (08:33)
[2023-09-17] MEDS: Propranolol HCL 20 MG TABLET PO ×2 (08:33→20:54)
[2023-09-17] MEDS: Memantine HCl 5 MG TABLET PO ×2 (08:34→20:53)
[2023-09-17] MEDS: Tamsulosin HCL 0.4 MG CAPSULE PO (08:34)
[2023-09-17] MEDS: Magnesium Oxide 400 MG TABLET PO (08:34)
[2023-09-17] MEDS: Cyanocobalamin (Vitamin B-12) 500 MCG TABLET PO (08:34)
[2023-09-17] MEDS: Isosorbide Mononitrate 30 MG TAB.ER.24H PO (08:34)
[2023-09-17] MEDS: hydrALAZINE HCl 10 MG TABLET PO ×3 (08:34→20:53)
[2023-09-17] MEDS: Escitalopram Oxalate 10 MG TABLET PO (08:34)
[2023-09-17] MEDS: 0.9 % Sodium Chloride Flush 3 ML SYRINGE IVFLUSH ×3 (08:39→20:58)
[2023-09-17 08:40] LABS: Folate 10.6 ng/mL (> or = 4.0); Vitamin B12 1991 pg/mL (200-900)
[2023-09-17] MEDS: Insulin Lispro 100 UNIT/ML 3 ML VIAL SUBCUT ×4 (08:41→20:59)
[2023-09-17 09:35] LABS: Adenovirus PCR Not Detected (Not Detect.); Bordetella parapertussis PCR Not Detected (Not Detect.); Bordetella pertussis PCR Not Detected (Not Detect.); Chlamydia pneumoniae PCR Not Detected (Not Detect.); Coronavirus 229E PCR Not Detected (Not Detect.); Coronavirus HKU1 PCR Not Detected (Not Detect.); Coronavirus NL63 PCR Not Detected (Not Detect.); Coronavirus OC43 PCR Not Detected (Not Detect.); Human metapneumovirus PCR Not Detected (Not Detect.); Influenza A PCR Not Detected (Not Detect.); Influenza B PCR Not Detected (Not Detect.); Mycoplasma pneumoniae PCR Not Detected (Not Detect.); Parainfluenza 1 PCR Not Detected (Not Detect.); Parainfluenza 2 PCR Not Detected (Not Detect.); Parainfluenza 3 PCR Not Detected (Not Detect.); Parainfluenza 4 PCR Not Detected (Not Detect.); RSV PCR Not Detected (Not Detect.); Rhino/Enterovirus PCR Not Detected (Not Detect.)
--- NOTE | 2023-09-17 09:40 | PM.PNGS ---
Subjective Subjective Date of Service: 09/18/23 Interval history: More alert today Tolerating diet No events reported Physical Exam Vital Signs: Vital Signs: Last Vital Signs Temp 97.8 F 09/17/23 07:19 Pulse 74 09/17/23 07:47 Resp 16 09/17/23 07:19 BP 164/82 H 09/17/23 07:47 Pulse Ox 94 09/17/23 07:47 O2 Del Method Room Air 09/17/23 07:19 BMI result Body Mass Index 31.3 Const: Other: More alert compared to yesterday General: comfortable Resp: Effort & Inspection: normal respiratory effort Cardio: Rate: regular rate GI: Palpation (GI): Soft to palpation, not firm and no guarding Objective Data Active Medications Acetaminophen (Acetaminophen 325 Mg Tablet) 650 mg PO Q6H PRN PRN Reason: Pain, Mild (Pain Scale 1-3), fever or headache Last Admin: 09/15/23 20:37 Dose: 650 mg Documented By: WARNER Atorvastatin Calcium (Atorvastatin Calcium 40 Mg Tablet) 40 mg PO BEDTIME [facility]S [facility] BEDS AT [facility] Last Admin: 09/16/23 22:17 Dose: Not Given Documented By: WARNER Non-Admin Reason: Patient Refused Cyanocobalamin (Cyanocobalamin (Vitamin B-12) 500 Mcg Tablet) 500 mcg PO DAILY [facility]S [facility] 234 BEDS AT [facility] Last Admin: 09/17/23 08:34 Dose: 500 mcg Documented By: AALIYAH Escitalopram Oxalate (Escitalopram Oxalate 10 Mg Tablet) 10 mg PO DAILY [facility] 234 BEDS AT [facility] Last Admin: 09/17/23 08:34 Dose: 10 mg Documented By: AALIYAH Famotidine (Famotidine/Pf 20 Mg/2 Ml Vial) 20 mg IVPUSH DAILY [facility] 234 BEDS AT [facility] Last Admin: 09/17/23 08:33 Dose: 20 mg Documented By: AALIYAH Glucose (Glucose Gel 15 Gm Gel..Gram.) 15 gm PO Q15M PRN; Protocol PRN Reason: per Hypoglycemia Standing Ord. Heparin Sodium (Porcine) (Heparin Sodium,Porcine 5,000 Unit/Ml Vial) 5,000 unit SUBCUT Q12H [facility]S [facility]CLUDE 234 BEDS AT [facility] Last Admin: 09/17/23 04:44 Dose: 5,000 unit Documented By: WARNER Hydralazine HCl (Hydralazine Hcl 10 Mg Tablet) 10 mg PO TID [facility] 234 BEDS AT [facility]; Protocol Last Admin: 09/17/23 08:34 Dose: 10 mg Documented By: AALIYAH Dextrose (D10) 250 mls @ 750 mls/hr IV Q15M PRN; Protocol PRN Reason: per Hypoglycemia Standing Ord. Piperacillin Sod/Tazobactam (Sod 2.25 gm/ Sodium Chloride) 50 mls @ 100 mls/hr IV Q6H [facility]S [facility]CLUDE 234 BEDS AT [facility] Last Infusion: 09/17/23 06:51 Dose: Infused Documented By: AALIYAH Insulin Human Lispro (Insulin Lispro 100 Unit/Ml 3 Ml Vial) 0 unit SUBCUT QIDACHS [facility]S [facility]CLUDE 234 BEDS AT [facility]; Protocol Last Admin: 09/17/23 08:41 Dose: 2 unit Documented By: AALIYAH Isosorbide Mononitrate (Isosorbide Mononitrate 30 Mg Tab.Er.24h) 30 mg PO DAILY [facility] 234 BEDS AT [facility]; Protocol Last Admin: 09/17/23 08:34 Dose: 30 mg Documented By: AALIYAH Magnesium Oxide (Magnesium Oxide 400 Mg Tablet) 400 mg PO DAILY [facility]CLUDE 234 BEDS AT [facility] Last Admin: 09/17/23 08:34 Dose: 400 mg Documented By: AALIYAH Memantine (Memantine Hcl 5 Mg Tablet) 5 mg PO BID [facility]CLUDE 234 BEDS AT [facility] Last Admin: 09/17/23 08:34 Dose: 5 mg Documented By: AALIYAH Propranolol HCl (Propranolol Hcl 20 Mg Tablet) 20 mg PO BID [facility] 234 BEDS AT [facility]; Protocol Last Admin: 09/17/23 08:33 Dose: 20 mg Documented By: AALIYAH Sodium Chloride (0.9 % Sodium Chloride Flush 3 Ml Syringe) 3 ml IVFLUSH QSHIFT COUNTS INCLUDE 234 BEDS AT [facility] Last Admin: 09/17/23 08:39 Dose: 3 ml Documented By: AALIYAH Tamsulosin HCl (Tamsulosin Hcl 0.4 Mg Capsule) 0.4 mg PO DAILY [facility]CLUDE 234 BEDS AT [facility] Last Admin: 09/17/23 08:34 Dose: 0.4 mg Documented By: AALIYAH Labs 09/18/23 05:41 09/18/23 05:41 Labs: Laboratory Results - last 24 hr 09/16/23 09/16/23 09/16/23 07:47 09:34 11:42 MCV MCH MCHC RDW Plt Count MPV Absolute Nucleated RBC Nucleated RBC % (auto) VBG pH 7.33 VBG pCO2 34 VBG pO2 66 VBG HCO3 18 L VBG O2 Saturation 93.0 VBG Base Excess -6.3 Anion Gap Estim Creat Clear Calc Estimated GFR POC Glucose 171 H Random Glucose Calcium Total Bilirubin 0.6 Direct Bilirubin 0.4 AST 28 ALT 10 Alkaline Phosphatase 72 B-Natriuretic Peptide Total Protein 5.7 L Albumin 3.4 L Vitamin B12 Folate TSH 2.53 09/16/23 09/16/23 09/16/23 15:56 17:52 20:20 MCV MCH MCHC RDW Plt Count MPV Absolute Nucleated RBC Nucleated RBC % (auto) VBG pH VBG pCO2 VBG pO2 VBG HCO3 VBG O2 Saturation VBG Base Excess Anion Gap Estim Creat Clear Calc Estimated GFR POC Glucose 154 H 147 H 168 H Random Glucose Calcium Total Bilirubin Direct Bilirubin AST ALT Alkaline Phosphatase B-Natriuretic Peptide Total Protein Albumin Vitamin B12 Folate TSH 09/17/23 09/17/23 07:08 07:29 MCV 91.2 MCH 30.3 MCHC 33.2 RDW 13.1 Plt Count 233 D MPV 9.8 Absolute Nucleated RBC 0.000 Nucleated RBC % (auto) 0.0 VBG pH VBG pCO2 VBG pO2 VBG HCO3 VBG O2 Saturation VBG Base Excess Anion Gap 16 Estim Creat Clear Calc 15.3 Estimated GFR 17 POC Glucose 153 H Random Glucose 177 H Calcium 9.5 Total Bilirubin Direct Bilirubin AST ALT Alkaline Phosphatase B-Natriuretic Peptide 557 H Total Protein Albumin Vitamin B12 1991 H Folate 10.6 TSH Procedures Date of Service Date of Service: 09/18/23 Progress Note: A&P Assessment and plan (1) Abdominal pain of unknown cause: Status: Acute Assessment and Plan: Abdominal pain seems resolved Currently on regular diet Had altered mental status - CT scan and MRI do not reveal acute intracranial pathology Neurology has been consulted Abdomen soft and benign Creatinine slightly lower today We will update family Hospitalist following Time Spent With Patient Time: Total time managing care of this patient today ____ minutes. Quality Stroke Does the patient have a stroke diagnosis?: No VTE Prior VTE?: No VTE Risk Level:: Medical - moderate - high VTE Device Contraindication: N/A - Device Ordered VTE Drug Contraindication: Treatment Not Indicated
[2023-09-17 10:01] LABS: SARS-CoV-2 PCR Not Detected (Not Detect.)
[2023-09-17 11:31] LABS: Glucose, Whole Blood 239 mg/dL (60-115)
--- NOTE | 2023-09-17 11:41 | P.PNIM_ITS ---
Subjective Subjective Date of Service: 09/17/23 Interval History: more awake than yesterday and taking some solids oriented to self and place denies abd pain denies dyspnea Review of Systems Review of Systems: Yes all other systems are reviewed and are negative Physical Exam 2 Vital Signs: Vital Signs: Last Vital Signs Temp 97.8 F 09/17/23 07:19 Pulse 74 09/17/23 07:47 Resp 16 09/17/23 07:19 BP 164/82 H 09/17/23 07:47 Pulse Ox 94 09/17/23 07:47 O2 Del Method Room Air 09/17/23 07:19 BMI result Body Mass Index 31.3 Gen: NAD HEENT: sclera anicteric, moist mucus membranes Neck: supple Lungs: clear to auscultation bilaterally Heart: regular rate and rhythm, no murmurs Abd: soft, non-tender, non-distended Ext: no edema Skin: warm/well-perfused Neuro: alert, oriented to self + place, moves all extremities Psych: appropriate affect Objective Data Active Medications Acetaminophen (Acetaminophen 325 Mg Tablet) 650 mg PO Q6H PRN PRN Reason: Pain, Mild (Pain Scale 1-3), fever or headache Last Admin: 09/15/23 20:37 Dose: 650 mg Documented By: WARNER Atorvastatin Calcium (Atorvastatin Calcium 40 Mg Tablet) 40 mg PO BEDTIME REPLACED BY [facility] Last Admin: 09/16/23 22:17 Dose: Not Given Documented By: WARNER Non-Admin Reason: Patient Refused Cyanocobalamin (Cyanocobalamin (Vitamin B-12) 500 Mcg Tablet) 500 mcg PO DAILY [facility]PL[facility]ED BY [facility] Last Admin: 09/17/23 08:34 Dose: 500 mcg Documented By: AALIYAH Escitalopram Oxalate (Escitalopram Oxalate 10 Mg Tablet) 10 mg PO DAILY [facility]PL[facility] Last Admin: 09/17/23 08:34 Dose: 10 mg Documented By: AALIYAH Famotidine (Famotidine/Pf 20 Mg/2 Ml Vial) 20 mg IVPUSH DAILY [facility] Last Admin: 09/17/23 08:33 Dose: 20 mg Documented By: AALIYAH Glucose (Glucose Gel 15 Gm Gel..Gram.) 15 gm PO Q15M PRN; Protocol PRN Reason: per Hypoglycemia Standing Ord. Heparin Sodium (Porcine) (Heparin Sodium,Porcine 5,000 Unit/Ml Vial) 5,000 unit SUBCUT Q12H REPLACED BY [facility] Last Admin: 09/17/23 04:44 Dose: 5,000 unit Documented By: WARNER Hydralazine HCl (Hydralazine Hcl 10 Mg Tablet) 10 mg PO TID REPLACED BY [facility]; Protocol Last Admin: 09/17/23 08:34 Dose: 10 mg Documented By: AALIYAH Dextrose (D10) 250 mls @ 750 mls/hr IV Q15M PRN; Protocol PRN Reason: per Hypoglycemia Standing Ord. Piperacillin Sod/Tazobactam (Sod 2.25 gm/ Sodium Chloride) 50 mls @ 100 mls/hr IV Q6H REPLACED BY [facility] Last Infusion: 09/17/23 06:51 Dose: Infused Documented By: AALIYAH Insulin Human Lispro (Insulin Lispro 100 Unit/Ml 3 Ml Vial) 0 unit SUBCUT QIDACHS REPLACED BY [facility]; Protocol Last Admin: 09/17/23 08:41 Dose: 2 unit Documented By: AALIYAH Isosorbide Mononitrate (Isosorbide Mononitrate 30 Mg Tab.Er.24h) 30 mg PO DAILY REPLACED BY [facility]; Protocol Last Admin: 09/17/23 08:34 Dose: 30 mg Documented By: AALIYAH Magnesium Oxide (Magnesium Oxide 400 Mg Tablet) 400 mg PO DAILY REPLACED BY [facility] Last Admin: 09/17/23 08:34 Dose: 400 mg Documented By: AALIYAH Memantine (Memantine Hcl 5 Mg Tablet) 5 mg PO BID REPLACED BY [facility] Last Admin: 09/17/23 08:34 Dose: 5 mg Documented By: AALIYAH Propranolol HCl (Propranolol Hcl 20 Mg Tablet) 20 mg PO BID REPLACED BY [facility]; Protocol Last Admin: 09/17/23 08:33 Dose: 20 mg Documented By: AALIYAH Sodium Chloride (0.9 % Sodium Chloride Flush 3 Ml Syringe) 3 ml IVFLUSH QSHIFT REPLACED BY [facility] Last Admin: 09/17/23 08:39 Dose: 3 ml Documented By: AALIYAH Tamsulosin HCl (Tamsulosin Hcl 0.4 Mg Capsule) 0.4 mg PO DAILY REPLACED BY [facility] Last Admin: 09/17/23 08:34 Dose: 0.4 mg Documented By: AALIYAH Labs 09/17/23 07:08 09/17/23 07:08 Labs: Laboratory Results - last 24 hr 09/16/23 09/16/23 09/16/23 07:47 11:42 15:56 MCV MCH MCHC RDW Plt Count MPV Absolute Nucleated RBC Nucleated RBC % (auto) Anion Gap Estim Creat Clear Calc Estimated GFR POC Glucose 171 H 154 H Random Glucose Calcium Total Bilirubin 0.6 Direct Bilirubin 0.4 AST 28 ALT 10 Alkaline Phosphatase 72 B-Natriuretic Peptide Total Protein 5.7 L Albumin 3.4 L Vitamin B12 Folate TSH 2.53 Respiratory Panel [place] Adenovirus (Rapid PCR) B.pert (TEM-PCR) B.parapertussis DNA PCR C. pneumoniae DNA (PCR) Coronavirus OC43 (PCR) Coronavirus HKU1 (PCR) Coronavirus 229E (PCR) Coronavirus NL63 (PCR) Human Metapneumovir PCR Influenza A (RT-PCR) Influenza B (RT-PCR) M. pneumoniae (PCR) Parainfluenza 1 (PCR) Parainfluenza 2 (PCR) Parainfluenza 3 (PCR) Parainfluenza 4 (PCR) RSV (PCR) Entero/Rhino (PCR) SARS-CoV-2 RNA (RT-PCR) 09/16/23 09/16/23 09/16/23 15:57 17:52 20:20 MCV MCH MCHC RDW Plt Count MPV Absolute Nucleated RBC Nucleated RBC % (auto) Anion Gap Estim Creat Clear Calc Estimated GFR POC Glucose 147 H 168 H Random Glucose Calcium Total Bilirubin Direct Bilirubin AST ALT Alkaline Phosphatase B-Natriuretic Peptide Total Protein Albumin Vitamin B12 Folate TSH Respiratory Panel [place] See Note Adenovirus (Rapid PCR) Not Detected B.pert (TEM-PCR) Not Detected B.parapertussis DNA PCR Not Detected C. pneumoniae DNA (PCR) Not Detected Coronavirus OC43 (PCR) Not Detected Coronavirus HKU1 (PCR) Not Detected Coronavirus 229E (PCR) Not Detected Coronavirus NL63 (PCR) Not Detected Human Metapneumovir PCR Not Detected Influenza A (RT-PCR) Not Detected Influenza B (RT-PCR) Not Detected M. pneumoniae (PCR) Not Detected Parainfluenza 1 (PCR) Not Detected Parainfluenza 2 (PCR) Not Detected Parainfluenza 3 (PCR) Not Detected Parainfluenza 4 (PCR) Not Detected RSV (PCR) Not Detected Entero/Rhino (PCR) Not Detected SARS-CoV-2 RNA (RT-PCR) Not Detected 09/17/23 09/17/23 09/17/23 07:08 07:29 11:19 MCV 91.2 MCH 30.3 MCHC 33.2 RDW 13.1 Plt Count 233 D MPV 9.8 Absolute Nucleated RBC 0.000 Nucleated RBC % (auto) 0.0 Anion Gap 16 Estim Creat Clear Calc 15.3 Estimated GFR 17 POC Glucose 153 H 239 H Random Glucose 177 H Calcium 9.5 Total Bilirubin Direct Bilirubin AST ALT Alkaline Phosphatase B-Natriuretic Peptide 557 H Total Protein Albumin Vitamin B12 1991 H Folate 10.6 TSH Respiratory Panel [place] Adenovirus (Rapid PCR) B.pert (TEM-PCR) B.parapertussis DNA PCR C. pneumoniae DNA (PCR) Coronavirus OC43 (PCR) Coronavirus HKU1 (PCR) Coronavirus 229E (PCR) Coronavirus NL63 (PCR) Human Metapneumovir PCR Influenza A (RT-PCR) Influenza B (RT-PCR) M. pneumoniae (PCR) Parainfluenza 1 (PCR) Parainfluenza 2 (PCR) Parainfluenza 3 (PCR) Parainfluenza 4 (PCR) RSV (PCR) Entero/Rhino (PCR) SARS-CoV-2 RNA (RT-PCR) Impressions Head CT 09/16/23 12:00 IMPRESSION: 1. 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 2. No intracranial hemorrhage or skull fracture is seen. 3. No evidence of space occupying lesion could be found. 4. The current plain CT scan of the brain shows no diagnostic evidence of acute cerebral infarction. 5. Interval development of marked bilateral sphenoid sinusitis. Brain MRI 09/16/23 21:41 IMPRESSION: Motion degraded examination. Please note that axial T2-weighted sequence of the brain was inadvertently not performed as well 1. No acute infarct or other acute intracranial abnormality. 2. Moderate generalized cerebral volume loss and mild chronic white matter microangiopathy. 3. Complete opacification of the sphenoid sinus with heterogeneous predominantly T1 hyperintense and FLAIR hypointense contents extending into the posterior left ethmoid with corresponding reduced diffusion, likely reflecting sequela of chronic sinusitis with inspissated secretions and/or fungal colonization 4. There is thinning of the posterior parietal scalp with underlying calvarial T1 hypointense marrow signal with corresponding sclerosis on CT, which may reflect sequela of prior surgery and posttreatment changes. Correlate with clinical history. Assessment and Plan (1) Pneumonia: Status: Acute (2) IZABELLA (acute kidney injury): Status: Acute Plan d7 88yo M with HTN, DM2, dementia, mood disorder, HLD, BPH admitted to Gen Surg for early appendicitis managed medically hospitalist consultation for management of comorbid medical conditions acute encephalopathy - likely hospital-associated delirium and seems to be improving - no acute CVA on MRI; EEG pending - per Psych reduced escitalopram dose early appendicitis - pip/cece IV 09/10-, no operative intervention planned, currently tolerating diet PNA, possibly aspiration - on pip/cece [dose increased to cover PNA]; not hypoxic; BCx negative; trend PCT; RPP negative - per [employer]: NDD2 solids with thin liquids, follow-up today 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 IV fluids stopped due to pleural effusions + was given albumin and furosemide. Nephrology following. SCr slightly improved today thrombocytopenia due to infection - resolved anemia of CKD - H+H stable BPH - tamsulosin HTN - propranolol, Imdur, hydralazine; lisionpril held for IZABELLA DM2 - amauri-dose lispro dementia - memantine VTE ppx - UFH dispo - likely will need STR In my clinical judgment, the patient requires continued inpatient hospitalization for the following reasons: IV ABX, encephalopathy, IZABELLA Total time managing care of this patient today: 45 minutes. Quality Stroke Does the patient have a stroke diagnosis?: No VTE Prior VTE?: No VTE Risk Level:: Medical - moderate - high VTE Device Contraindication: N/A - Device Ordered VTE Drug Contraindication: Treatment Not Indicated
--- NOTE | 2023-09-17 12:31 | P.PNNP_ITS ---
Subjective Subjective Date of Service: 09/18/23 Interval history: Events noted. Neurology consult appreciated. More awake today Physical Exam 2 Vital Signs: Vital Signs: Last Vital Signs Temp 97.8 F 09/17/23 07:19 Pulse 74 09/17/23 07:47 Resp 16 09/17/23 07:19 BP 164/82 H 09/17/23 07:47 Pulse Ox 94 09/17/23 07:47 O2 Del Method Room Air 09/17/23 07:19 BMI result Body Mass Index 31.3 Const: General: ill appearing Neck: Neck: Yes supple Resp: Auscultation: rhonchi Cardio: Heart sounds: no rubs : General: Yes no CVA tenderness Back/Spine/Pelvis: Back: no CVA tenderness Neuro: Motor exam (neuro): No Asterixis during motor activity present Objective Data Labs 09/18/23 05:41 09/19/23 05:19 Labs: Laboratory Results - last 24 hr 09/16/23 09/16/23 09/16/23 15:56 15:57 17:52 WBC RBC Hgb Hct MCV MCH MCHC RDW Plt Count MPV Absolute Nucleated RBC Nucleated RBC % (auto) Sodium Potassium Chloride Carbon Dioxide Anion Gap BUN Creatinine Estim Creat Clear Calc Estimated GFR POC Glucose 154 H 147 H Random Glucose Calcium B-Natriuretic Peptide Vitamin B12 Folate Respiratory Panel Bowser See Note Adenovirus (Rapid PCR) Not Detected B.pert (TEM-PCR) Not Detected B.parapertussis DNA PCR Not Detected C. pneumoniae DNA (PCR) Not Detected Coronavirus OC43 (PCR) Not Detected Coronavirus HKU1 (PCR) Not Detected Coronavirus 229E (PCR) Not Detected Coronavirus NL63 (PCR) Not Detected Human Metapneumovir PCR Not Detected Influenza A (RT-PCR) Not Detected Influenza B (RT-PCR) Not Detected M. pneumoniae (PCR) Not Detected Parainfluenza 1 (PCR) Not Detected Parainfluenza 2 (PCR) Not Detected Parainfluenza 3 (PCR) Not Detected Parainfluenza 4 (PCR) Not Detected RSV (PCR) Not Detected Entero/Rhino (PCR) Not Detected SARS-CoV-2 RNA (RT-PCR) Not Detected 09/16/23 09/17/23 09/17/23 20:20 07:08 07:29 WBC 9.6 RBC 3.17 L Hgb 9.6 L Hct 28.9 L MCV 91.2 MCH 30.3 MCHC 33.2 RDW 13.1 Plt Count 233 D MPV 9.8 Absolute Nucleated RBC 0.000 Nucleated RBC % (auto) 0.0 Sodium 142 Potassium 3.6 Chloride 111 H Carbon Dioxide 19 L Anion Gap 16 BUN 31 H Creatinine 3.48 H Estim Creat Clear Calc 15.3 Estimated GFR 17 POC Glucose 168 H 153 H Random Glucose 177 H Calcium 9.5 B-Natriuretic Peptide 557 H Vitamin B12 1991 H Folate 10.6 Respiratory Panel Bowser Adenovirus (Rapid PCR) B.pert (TEM-PCR) B.parapertussis DNA PCR C. pneumoniae DNA (PCR) Coronavirus OC43 (PCR) Coronavirus HKU1 (PCR) Coronavirus 229E (PCR) Coronavirus NL63 (PCR) Human Metapneumovir PCR Influenza A (RT-PCR) Influenza B (RT-PCR) M. pneumoniae (PCR) Parainfluenza 1 (PCR) Parainfluenza 2 (PCR) Parainfluenza 3 (PCR) Parainfluenza 4 (PCR) RSV (PCR) Entero/Rhino (PCR) SARS-CoV-2 RNA (RT-PCR) 09/17/23 11:19 WBC RBC Hgb Hct MCV MCH MCHC RDW Plt Count MPV Absolute Nucleated RBC Nucleated RBC % (auto) Sodium Potassium Chloride Carbon Dioxide Anion Gap BUN Creatinine Estim Creat Clear Calc Estimated GFR POC Glucose 239 H Random Glucose Calcium B-Natriuretic Peptide Vitamin B12 Folate Respiratory Panel Bowser Adenovirus (Rapid PCR) B.pert (TEM-PCR) B.parapertussis DNA PCR C. pneumoniae DNA (PCR) Coronavirus OC43 (PCR) Coronavirus HKU1 (PCR) Coronavirus 229E (PCR) Coronavirus NL63 (PCR) Human Metapneumovir PCR Influenza A (RT-PCR) Influenza B (RT-PCR) M. pneumoniae (PCR) Parainfluenza 1 (PCR) Parainfluenza 2 (PCR) Parainfluenza 3 (PCR) Parainfluenza 4 (PCR) RSV (PCR) Entero/Rhino (PCR) SARS-CoV-2 RNA (RT-PCR) Microbiology Microbiology Results: Microbiology 09/13/23 14:07 Blood - Venous Blood Culture - Preliminary No growth after 48 hours. 09/13/23 14:07 Blood - Venous Blood Culture - Preliminary No growth after 48 hours. 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 Baseline creatinine is around 2.0 mg/dL. Superimposed IZABELLA due to hypoperfusion leading to tubular injury No evidence of obstruction. Change in mentation. Await MRI. Recommendation Keep intake more than output. Maintain systolic blood pressure more than 100 mm Hg and avoid hypotension. Continue to hold torsemide. &Hold lisinopril. Watch urine output closely. No absolute indication for dialysis yet. Concur with other medical management and she will follow along with the team. Time Spent With Patient Time: Total time managing care of this patient today ____ minutes. Progress Note: Quality Stroke Does the patient have a stroke diagnosis?: No
--- NOTE | 2023-09-17 13:28 | MHC.SPEECHCO ---
Pt declined NAIL PROFESSIONAL x2 today stating both times that he had just eaten and was too full to have any more. NAIL PROFESSIONAL continuing to follow for further upgrade as tolerated.
--- NOTE | 2023-09-17 14:30 | PM.EVENT ---
Event Note Date of Service: 09/17/23 Event Note: mental status seems better tolerating some regular food denies abdl pain looks comfortable left message for daughter Olena appreciate Hospitalist ffup Time Spent With Patient Time: Total time managing care of this patient today ____ minutes.
[2023-09-17 16:24] LABS: Glucose, Whole Blood 237 mg/dL (60-115)
[2023-09-17 20:43] LABS: Glucose, Whole Blood 189 mg/dL (60-115)
[2023-09-17] MEDS: Atorvastatin Calcium 40 MG TABLET PO (20:53)
[2023-09-18] MEDS: Piperacillin Sodium/Tazobactam 2.25 GM in 0.9 % Sodium Chloride 50 ML IV ×4 (00:59→18:28)
[2023-09-18 04:00] VITALS: BP 152/81; PULSE 71; RESP 16; TEMP 36.1; O2SAT 94
[2023-09-18] MEDS: Heparin Sodium,Porcine 5,000 UNIT/ML VIAL 5000 UNIT SUBCUT ×2 (05:35→17:10)
[2023-09-18 06:25] LABS: Hematocrit 30.2 % (42.0-52.0); Hemoglobin 9.8 g/dl (14.0-18.0); Mean Corpuscular HGB Conc 32.5 g/dl (31.0-36.0); Mean Corpuscular Hemoglobin 29.6 pg (27.0-33.0); Mean Corpuscular Volume 91.2 fL (80.0-98.0); Mean Platelet Volume 9.8 fL (9.4-12.4); Platelet Count 252 X10*3/uL (160-400); Red Blood Count 3.31 X10*6/uL (4.60-5.80); Red Cell Distribution Width 13.1 % (11.0-16.0); White Blood Count 11.8 X10*3/uL (4.8-10.8)
[2023-09-18 06:46] LABS: Anion Gap 14 (12-20); Blood Urea Nitrogen 31 mg/dL (9-16); C Reactive Protein 9.63 mg/dL (< or = 0.50); Calcium 9.8 mg/dL (8.4-10.2); Carbon Dioxide 22 mmol/L (22-29); Chloride 110 mmol/L (96-108); Creatinine Clr Calc Pharmacy 14.6; Estimated Glomerular Filt Rate 16; Glucose Random 178 mg/dL (60-115); Potassium 3.7 mmol/L (3.3-5.1); Sodium 142 mmol/L (135-145)
[2023-09-18 07:20] LABS: Procalcitonin 0.99 ng/mL
[2023-09-18 08:00] VITALS: BP 162/78; PULSE 69; RESP 12; TEMP 36.3; O2SAT 95
--- NOTE | 2023-09-18 08:01 | PM.PNGS ---
Subjective Subjective Date of Service: 09/18/23 Interval history: Alert and awake this morning Denies abdominal pain Says he feels well Physical Exam Vital Signs: Vital Signs: Last Vital Signs Temp 97.0 F 09/18/23 04:00 Pulse 71 09/18/23 04:00 Resp 16 09/18/23 04:00 BP 152/81 H 09/18/23 04:00 Pulse Ox 94 09/18/23 04:00 O2 Del Method Room Air 09/18/23 04:00 BMI result Body Mass Index 31.3 Const: General: comfortable and no acute distress Resp: Effort & Inspection: normal respiratory effort Cardio: Rate: regular rate GI: Palpation (GI): Soft to palpation, not firm, nontender and no guarding Objective Data Active Medications Acetaminophen (Acetaminophen 325 Mg Tablet) 650 mg PO Q6H PRN PRN Reason: Pain, Mild (Pain Scale 1-3), fever or headache Last Admin: 09/15/23 20:37 Dose: 650 mg Documented By: WARNER Atorvastatin Calcium (Atorvastatin Calcium 40 Mg Tablet) 40 mg PO BEDTIME [facility] Last Admin: 09/17/23 20:53 Dose: 40 mg Documented By: GERARDO Cyanocobalamin (Cyanocobalamin (Vitamin B-12) 500 Mcg Tablet) 500 mcg PO DAILY [facility] Last Admin: 09/17/23 08:34 Dose: 500 mcg Documented By: AALIYAH Escitalopram Oxalate (Escitalopram Oxalate 10 Mg Tablet) 10 mg PO DAILY [facility] Last Admin: 09/17/23 08:34 Dose: 10 mg Documented By: AALIYAH Famotidine (Famotidine/Pf 20 Mg/2 Ml Vial) 20 mg IVPUSH DAILY [facility] Last Admin: 09/17/23 08:33 Dose: 20 mg Documented By: AALIYAH Glucose (Glucose Gel 15 Gm Gel..Gram.) 15 gm PO Q15M PRN; Protocol PRN Reason: per Hypoglycemia Standing Ord. Heparin Sodium (Porcine) (Heparin Sodium,Porcine 5,000 Unit/Ml Vial) 5,000 unit SUBCUT Q12H [facility] Last Admin: 09/18/23 05:35 Dose: 5,000 unit Documented By: ZOE Hydralazine HCl (Hydralazine Hcl 10 Mg Tablet) 10 mg PO TID [facility]; Protocol Last Admin: 09/17/23 20:53 Dose: 10 mg Documented By: GERARDO Dextrose (D10) 250 mls @ 750 mls/hr IV Q15M PRN; Protocol PRN Reason: per Hypoglycemia Standing Ord. Piperacillin Sod/Tazobactam (Sod 2.25 gm/ Sodium Chloride) 50 mls @ 100 mls/hr IV Q6H [facility] Last Infusion: 09/18/23 02:01 Dose: Infused Documented By: ZOE Insulin Human Lispro (Insulin Lispro 100 Unit/Ml 3 Ml Vial) 0 unit SUBCUT QIDACHS [facility]; Protocol Last Admin: 09/17/23 20:59 Dose: 2 unit Documented By: GERARDO Isosorbide Mononitrate (Isosorbide Mononitrate 30 Mg Tab.Er.24h) 30 mg PO DAILY [facility]; Protocol Last Admin: 09/17/23 08:34 Dose: 30 mg Documented By: AALIYAH Magnesium Oxide (Magnesium Oxide 400 Mg Tablet) 400 mg PO DAILY [facility] Last Admin: 09/17/23 08:34 Dose: 400 mg Documented By: AALIYAH Memantine (Memantine Hcl 5 Mg Tablet) 5 mg PO BID [facility] Last Admin: 09/17/23 20:53 Dose: 5 mg Documented By: GERARDO Propranolol HCl (Propranolol Hcl 20 Mg Tablet) 20 mg PO BID [facility]; Protocol Last Admin: 09/17/23 20:54 Dose: 20 mg Documented By: GERARDO Sodium Chloride (0.9 % Sodium Chloride Flush 3 Ml Syringe) [facility] Last Admin: 09/17/23 20:58 Dose: 3 ml Documented By: GERARDO Tamsulosin HCl (Tamsulosin Hcl 0.4 Mg Capsule) 0.4 mg PO DAILY [facility] Last Admin: 09/17/23 08:34 Dose: 0.4 mg Documented By: AALIYAH Labs 09/18/23 05:41 09/18/23 05:41 Labs: Laboratory Results - last 24 hr 09/16/23 09/17/23 09/17/23 15:57 07:08 07:29 MCV MCH MCHC RDW Plt Count MPV Absolute Nucleated RBC Nucleated RBC % (auto) Anion Gap 16 Estim Creat Clear Calc 15.3 Estimated GFR 17 POC Glucose 153 H Random Glucose 177 H Calcium 9.5 C-Reactive Protein B-Natriuretic Peptide 557 H Vitamin B12 1991 H Folate 10.6 Procalcitonin Respiratory Panel Bowser See Note Adenovirus (Rapid PCR) Not Detected B.pert (TEM-PCR) Not Detected B.parapertussis DNA PCR Not Detected C. pneumoniae DNA (PCR) Not Detected Coronavirus OC43 (PCR) Not Detected Coronavirus HKU1 (PCR) Not Detected Coronavirus 229E (PCR) Not Detected Coronavirus NL63 (PCR) Not Detected Human Metapneumovir PCR Not Detected Influenza A (RT-PCR) Not Detected Influenza B (RT-PCR) Not Detected M. pneumoniae (PCR) Not Detected Parainfluenza 1 (PCR) Not Detected Parainfluenza 2 (PCR) Not Detected Parainfluenza 3 (PCR) Not Detected Parainfluenza 4 (PCR) Not Detected RSV (PCR) Not Detected Entero/Rhino (PCR) Not Detected SARS-CoV-2 RNA (RT-PCR) Not Detected 09/17/23 09/17/23 09/17/23 11:19 16:19 20:39 MCV MCH MCHC RDW Plt Count MPV Absolute Nucleated RBC Nucleated RBC % (auto) Anion Gap Estim Creat Clear Calc Estimated GFR POC Glucose 239 H 237 H 189 H Random Glucose Calcium C-Reactive Protein B-Natriuretic Peptide Vitamin B12 Folate Procalcitonin Respiratory Panel Bowser Adenovirus (Rapid PCR) B.pert (TEM-PCR) B.parapertussis DNA PCR C. pneumoniae DNA (PCR) Coronavirus OC43 (PCR) Coronavirus HKU1 (PCR) Coronavirus 229E (PCR) Coronavirus NL63 (PCR) Human Metapneumovir PCR Influenza A (RT-PCR) Influenza B (RT-PCR) M. pneumoniae (PCR) Parainfluenza 1 (PCR) Parainfluenza 2 (PCR) Parainfluenza 3 (PCR) Parainfluenza 4 (PCR) RSV (PCR) Entero/Rhino (PCR) SARS-CoV-2 RNA (RT-PCR) 09/18/23 05:41 MCV 91.2 MCH 29.6 MCHC 32.5 RDW 13.1 Plt Count 252 MPV 9.8 Absolute Nucleated RBC 0.000 Nucleated RBC % (auto) 0.0 Anion Gap 14 Estim Creat Clear Calc 14.6 Estimated GFR 16 POC Glucose Random Glucose 178 H Calcium 9.8 C-Reactive Protein 9.63 H B-Natriuretic Peptide Vitamin B12 Folate Procalcitonin 0.99 Respiratory Panel Bowser Adenovirus (Rapid PCR) B.pert (TEM-PCR) B.parapertussis DNA PCR C. pneumoniae DNA (PCR) Coronavirus OC43 (PCR) Coronavirus HKU1 (PCR) Coronavirus 229E (PCR) Coronavirus NL63 (PCR) Human Metapneumovir PCR Influenza A (RT-PCR) Influenza B (RT-PCR) M. pneumoniae (PCR) Parainfluenza 1 (PCR) Parainfluenza 2 (PCR) Parainfluenza 3 (PCR) Parainfluenza 4 (PCR) RSV (PCR) Entero/Rhino (PCR) SARS-CoV-2 RNA (RT-PCR) Procedures Date of Service Date of Service: 09/18/23 Progress Note: A&P Assessment and plan (1) Abdominal pain of unknown cause: Status: Acute Assessment and Plan: Abdominal pain has resolved He looks well Delirium also seems resolved he is comfortable Abdomen remains soft benign Creatinine was elevated Hospitalist following Family updated Time Spent With Patient Time: Total time managing care of this patient today ____ minutes. Quality Stroke Does the patient have a stroke diagnosis?: No VTE Prior VTE?: No VTE Risk Level:: Medical - moderate - high VTE Device Contraindication: N/A - Device Ordered VTE Drug Contraindication: Treatment Not Indicated
[2023-09-18 08:12] LABS: Glucose, Whole Blood 165 mg/dL (60-115)
[2023-09-18] MEDS: hydrALAZINE HCl 10 MG TABLET PO ×3 (08:29→20:53)
[2023-09-18] MEDS: Insulin Lispro 100 UNIT/ML 3 ML VIAL SUBCUT ×4 (08:29→20:56)
[2023-09-18] MEDS: Isosorbide Mononitrate 30 MG TAB.ER.24H PO (08:29)
[2023-09-18] MEDS: Famotidine/PF 20 MG/2 ML VIAL IVPUSH (08:29)
[2023-09-18] MEDS: Memantine HCl 5 MG TABLET PO ×2 (08:30→20:53)
[2023-09-18] MEDS: Propranolol HCL 20 MG TABLET PO ×2 (08:30→20:53)
[2023-09-18] MEDS: Cyanocobalamin (Vitamin B-12) 500 MCG TABLET PO (08:30)
[2023-09-18] MEDS: 0.9 % Sodium Chloride Flush 3 ML SYRINGE IVFLUSH ×2 (08:30→17:11)
[2023-09-18] MEDS: Tamsulosin HCL 0.4 MG CAPSULE PO (08:30)
[2023-09-18] MEDS: Escitalopram Oxalate 10 MG TABLET PO (08:30)
[2023-09-18] MEDS: Magnesium Oxide 400 MG TABLET PO (08:30)
--- NOTE | 2023-09-18 09:47 | HO.PM.IMPN ---
Subjective Subjective Date of Service: 09/18/23 Interval History: has no complaints; states abdomen is sore but not really painful; tolerating diet no dyspnea or chest pain Review of Systems Review of Systems: Yes all other systems are reviewed and are negative Physical Exam Vital Signs: Vital Signs: Last Vital Signs Temp 97.4 F 09/18/23 08:00 Pulse 69 09/18/23 08:00 Resp 12 09/18/23 08:00 BP 162/78 H 09/18/23 08:00 Pulse Ox 95 09/18/23 08:00 O2 Del Method Room Air 09/18/23 08:00 BMI result Body Mass Index 31.3 Gen: NAD HEENT: sclera anicteric, moist mucus membranes Neck: supple Lungs: clear to auscultation bilaterally Heart: regular rate and rhythm, no murmurs Abd: soft, non-tender, non-distended Ext: no edema Skin: warm/well-perfused Neuro: alert, oriented to self + place, moves all extremities Psych: appropriate affect Objective Data Active Medications Acetaminophen (Acetaminophen 325 Mg Tablet) 650 mg PO Q6H PRN PRN Reason: Pain, Mild (Pain Scale 1-3), fever or headache Last Admin: 09/15/23 20:37 Dose: 650 mg Documented By: WARNER Atorvastatin Calcium (Atorvastatin Calcium 40 Mg Tablet) 40 mg PO BEDTIME [facility] Last Admin: 09/17/23 20:53 Dose: 40 mg Documented By: GERARDO Cyanocobalamin (Cyanocobalamin (Vitamin B-12) 500 Mcg Tablet) 500 mcg PO DAILY [facility] Last Admin: 09/18/23 08:30 Dose: 500 mcg Documented By: KOBY Escitalopram Oxalate (Escitalopram Oxalate 10 Mg Tablet) 10 mg PO DAILY [facility] Last Admin: 09/18/23 08:30 Dose: 10 mg Documented By: KOBY Famotidine (Famotidine/Pf 20 Mg/2 Ml Vial) 20 mg IVPUSH DAILY [facility] Last Admin: 09/18/23 08:29 Dose: 20 mg Documented By: LUCIEMA Glucose (Glucose Gel 15 Gm Gel..Gram.) 15 gm PO Q15M PRN; Protocol PRN Reason: per Hypoglycemia Standing Ord. Heparin Sodium (Porcine) (Heparin Sodium,Porcine 5,000 Unit/Ml Vial) 5,000 unit SUBCUT Q12H [facility] Last Admin: 09/18/23 05:35 Dose: 5,000 unit Documented By: ZOE Hydralazine HCl (Hydralazine Hcl 10 Mg Tablet) 10 mg PO TID [facility]; Protocol Last Admin: 09/18/23 08:29 Dose: 10 mg Documented By: LUCIEMA Dextrose (D10) 250 mls @ 750 mls/hr IV Q15M PRN; Protocol PRN Reason: per Hypoglycemia Standing Ord. Piperacillin Sod/Tazobactam (Sod 2.25 gm/ Sodium Chloride) 50 mls @ 100 mls/hr IV Q6H [facility] Last Infusion: 09/18/23 09:25 Dose: Infused Documented By: KOBY Insulin Human Lispro (Insulin Lispro 100 Unit/Ml 3 Ml Vial) 0 unit SUBCUT QIDACHS [facility]; Protocol Last Admin: 09/18/23 08:29 Dose: 2 unit Documented By: COTEMA Isosorbide Mononitrate (Isosorbide Mononitrate 30 Mg Tab.Er.24h) 30 mg PO DAILY [facility]; Protocol Last Admin: 09/18/23 08:29 Dose: 30 mg Documented By: KOBY Magnesium Oxide (Magnesium Oxide 400 Mg Tablet) 400 mg PO DAILY [facility] Last Admin: 09/18/23 08:30 Dose: 400 mg Documented By: COTEMA Memantine (Memantine Hcl 5 Mg Tablet) 5 mg PO BID [facility] Last Admin: 09/18/23 08:30 Dose: 5 mg Documented By: COTEMA Propranolol HCl (Propranolol Hcl 20 Mg Tablet) 20 mg PO BID [facility]; Protocol Last Admin: 09/18/23 08:30 Dose: 20 mg Documented By: KOBY Sodium Chloride (0.9 % Sodium Chloride Flush 3 Ml Syringe) 3 ml IVFLUSH QSHIFT [facility] Last Admin: 09/18/23 08:30 Dose: 3 ml Documented By: COTEMA Tamsulosin HCl (Tamsulosin Hcl 0.4 Mg Capsule) 0.4 mg PO DAILY [facility] Last Admin: 09/18/23 08:30 Dose: 0.4 mg Documented By: KOBY Labs 09/18/23 05:41 09/18/23 05:41 Labs: Laboratory Results - last 24 hr 07/29/24 07/30/24 07/30/24 15:57 11:19 16:19 MCV MCH MCHC RDW Plt Count MPV Absolute Nucleated RBC Nucleated RBC % (auto) Anion Gap Estim Creat Clear Calc Estimated GFR POC Glucose 239 H 237 H Random Glucose Calcium C-Reactive Protein Procalcitonin Respiratory Panel Bowser See Note Adenovirus (Rapid PCR) Not Detected B.pert (TEM-PCR) Not Detected B.parapertussis DNA PCR Not Detected C. pneumoniae DNA (PCR) Not Detected Coronavirus OC43 (PCR) Not Detected Coronavirus HKU1 (PCR) Not Detected Coronavirus 229E (PCR) Not Detected Coronavirus NL63 (PCR) Not Detected Human Metapneumovir PCR Not Detected Influenza A (RT-PCR) Not Detected Influenza B (RT-PCR) Not Detected M. pneumoniae (PCR) Not Detected Parainfluenza 1 (PCR) Not Detected Parainfluenza 2 (PCR) Not Detected Parainfluenza 3 (PCR) Not Detected Parainfluenza 4 (PCR) Not Detected RSV (PCR) Not Detected Entero/Rhino (PCR) Not Detected SARS-CoV-2 RNA (RT-PCR) Not Detected 09/17/23 09/18/23 09/18/23 20:39 05:41 08:07 MCV 91.2 MCH 29.6 MCHC 32.5 RDW 13.1 Plt Count 252 MPV 9.8 Absolute Nucleated RBC 0.000 Nucleated RBC % (auto) 0.0 Anion Gap 14 Estim Creat Clear Calc 14.6 Estimated GFR 16 POC Glucose 189 H 165 H Random Glucose 178 H Calcium 9.8 C-Reactive Protein 9.63 H Procalcitonin 0.99 Respiratory Panel Bowser Adenovirus (Rapid PCR) B.pert (TEM-PCR) B.parapertussis DNA PCR C. pneumoniae DNA (PCR) Coronavirus OC43 (PCR) Coronavirus HKU1 (PCR) Coronavirus 229E (PCR) Coronavirus NL63 (PCR) Human Metapneumovir PCR Influenza A (RT-PCR) Influenza B (RT-PCR) M. pneumoniae (PCR) Parainfluenza 1 (PCR) Parainfluenza 2 (PCR) Parainfluenza 3 (PCR) Parainfluenza 4 (PCR) RSV (PCR) Entero/Rhino (PCR) SARS-CoV-2 RNA (RT-PCR) Assessment and Plan (1) Pneumonia: Status: Acute (2) IZABELLA (acute kidney injury): Status: Acute Plan d8 88yo M with HTN, DM2, dementia, mood disorder, HLD, BPH admitted to Gen Surg for early appendicitis managed medically with antibiotics hospitalist consultation for management of comorbid medical conditions acute encephalopathy - likely hospital-associated delirium and seems to be improving - no acute CVA on MRI; EEG 09/16 showed: mild diffuse background slowing consistent with a diffuse encephalopathic process. No epileptiform discharges are seen. - per Psych, reduced escitalopram dose early appendicitis - pip/cece IV 09/10-, no operative intervention planned, currently tolerating diet without issues PNA, possibly aspiration - on pip/cece [dose increased to cover PNA]; not hypoxic; BCx negative; trend PCT; RPP negative - per VIROLOGIST: NDD2 solids with thin liquids, VIROLOGIST to follow-up 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 IV fluids stopped due to pleural effusions + was given albumin and furosemide. Lisinopril held. Nephrology following. SCr appears to have plateaued. thrombocytopenia due to infection - resolved anemia of CKD - H+H stable BPH - tamsulosin HTN - propranolol, Imdur, hydralazine; lisinopril held for IZABELLA DM2 - amauri-dose lispro dementia - memantine VTE ppx - UFH dispo - likely will need STR In my clinical judgment, the patient requires continued inpatient hospitalization for the following reasons: IV ABX, encephalopathy, IZABELLA Total time managing care of this patient today: 40 minutes. Quality Stroke Does the patient have a stroke diagnosis?: No VTE Prior VTE?: No VTE Risk Level:: Medical - moderate - high VTE Device Contraindication: N/A - Device Ordered VTE Drug Contraindication: Treatment Not Indicated
[2023-09-18 11:17] LABS: Glucose, Whole Blood 186 mg/dL (60-115)
--- NOTE | 2023-09-18 13:13 | P.PNNP_ITS ---
Subjective Subjective Date of Service: 09/18/23 Interval history: has no complaints; tolerating diet;no dyspnea or chest pain; serum creatinine plateaued Physical Exam 2 Vital Signs: Vital Signs: Last Vital Signs Temp 97.4 F 09/18/23 08:00 Pulse 69 09/18/23 08:00 Resp 12 09/18/23 08:00 BP 162/78 H 09/18/23 08:00 Pulse Ox 95 09/18/23 08:00 O2 Del Method Room Air 09/18/23 08:00 BMI result Body Mass Index 31.3 Const: General: comfortable and no acute distress HEENT: Head: Yes normocephalic Mouth: Normal oral and palatal mucosa present Eyes: EOM: EOMs intact bilaterally Neck: Neck: Yes supple Resp: Auscultation: clear to auscultation bilaterally Cardio: Jugular venous distension: no JVD Rate: regular rate GI: Palpation (GI): Soft to palpation Auscultation: normal bowel sounds : General: Yes no CVA tenderness Back/Spine/Pelvis: Back: no CVA tenderness Skin: General skin exam: no rashes or lesions noted Neuro: General: moves all extremities Objective Data Labs 09/18/23 05:41 09/18/23 05:41 Labs: Laboratory Results - last 24 hr 09/17/23 09/17/23 09/18/23 16:19 20:39 05:41 WBC 11.8 H RBC 3.31 L Hgb 9.8 L Hct 30.2 L MCV 91.2 MCH 29.6 MCHC 32.5 RDW 13.1 Plt Count 252 MPV 9.8 Absolute Nucleated RBC 0.000 Nucleated RBC % (auto) 0.0 Sodium 142 Potassium 3.7 Chloride 110 H Carbon Dioxide 22 Anion Gap 14 BUN 31 H Creatinine 3.63 H Estim Creat Clear Calc 14.6 Estimated GFR 16 POC Glucose 237 H 189 H Random Glucose 178 H Calcium 9.8 C-Reactive Protein 9.63 H Procalcitonin 0.99 09/18/23 09/18/23 08:07 11:12 WBC RBC Hgb Hct MCV MCH MCHC RDW Plt Count MPV Absolute Nucleated RBC Nucleated RBC % (auto) Sodium Potassium Chloride Carbon Dioxide Anion Gap BUN Creatinine Estim Creat Clear Calc Estimated GFR POC Glucose 165 H 186 H Random Glucose Calcium C-Reactive Protein Procalcitonin Microbiology Microbiology Results: Microbiology 09/13/23 14:07 Blood - Venous Blood Culture - Preliminary No growth after 48 hours. 09/13/23 14:07 Blood - Venous Blood Culture - Preliminary No growth after 48 hours. 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 Baseline creatinine is around 2.0 mg/dL. Has superimposed IZABELLA due to tubular injury. No evidence of obstruction. lisinopril on hold; Creatinine better/stable Concur with rest of current management Progress Note: Quality Stroke Does the patient have a stroke diagnosis?: No
[2023-09-18 13:55] VITALS: BP 162/78; PULSE 69; O2SAT 95
[2023-09-18 14:23] VITALS: BP 178/80
--- NOTE | 2023-09-18 14:34 | MHC.SL.DTX ---
Dysphagia Diet modifications: Last documented Solid diet consistencies: Regular Last documented Liquid consistency: Thin Last documented Medication Administration: Changes made to current diet?: Yes Liquid Consistency and Strategies: Liquid Intake Recommendation: Thin Solid Food Consistency: Dietary Recommendations: Regular Oral Medication Intake: Whole with Liquid Strategies and Precautions to be Taken for Safe Swallow: No Straw Liquids from Cup Supervision While Eating and/Drinking: Total Assistance (1:1) Foods to Avoid: Hard, tough to chew solids; mixed textures Swallowing Recommended Treatments: Compens. Strategy Educat. Level of Impact on: Daily activities: None Education: None Employment: None Community: None Prognosis for Improvement: Good Recommendation for Speech: Inpatient Speech Therapy Comment: PROGRAMMING MANAGER will continue to follow to monitor patient's tolerance of modified diet and to re-assess for potential upgrade if/when appropriate. Frequency/Duration: M-F PRN Additional Comments: Treatment: Pt seen with his present. He is more alert and interactive today. PROGRAMMING MANAGER spent time discussing recommendations and rationale. Pt has no complaints about his food, however, he is amenable to upgrade after education is provided. Pt trialed Thin Liquids via cups with no overt s/s of aspiration. He trialed Puree Solids and Chopped/Advanced Solid (cracker in pudding) with appropriate mastication time and minimal oral residue. He was able to clear oral residue with a liquid wash with no overt s/s of aspiration. Pt did not endorse abdominal discomfort after the trials were completed. Recommend CHOPPED/ADVANCED SOLIDS (NDD3) and THIN LIQUIDS. MEDS WHOLE with LIQUIDS. Pt will benefit from TRAY SET-UP. Tax Economist Clinican/Clinical Fellow: No Supervisory Statement: I have reviewed and agree with the student/clinical fellow's documentation: N/A Speech Language Pathologist: Al Colin M.A., [facility]-PROGRAMMING MANAGER
--- NOTE | 2023-09-18 14:50 | MHC.CM.PN ---
PT rec is STR. The patient does not have a preference. His was contacted. She stated that she was driving and would return the call. No answer or ability to leave a message when a follow up call was made 2 hours later. Patient agrees to local SNF referrals. Three [facility] referrals have been sent. DP STR via BLS.
[2023-09-18 16:00] VITALS: BP 160/80; PULSE 69; RESP 12; TEMP 36.6; O2SAT 96
[2023-09-18 16:34] LABS: Glucose, Whole Blood 240 mg/dL (60-115)
[2023-09-18 19:54] VITALS: BP 164/88; PULSE 70; RESP 16; TEMP 37; O2SAT 94
[2023-09-18 20:17] LABS: Glucose, Whole Blood 302 mg/dL (60-115)
[2023-09-18] MEDS: Atorvastatin Calcium 40 MG TABLET PO (20:53)
[2023-09-19] MEDS: Piperacillin Sodium/Tazobactam 2.25 GM in 0.9 % Sodium Chloride 50 ML IV ×4 (02:30→18:32)
[2023-09-19] MEDS: Heparin Sodium,Porcine 5,000 UNIT/ML VIAL 5000 UNIT SUBCUT ×2 (03:04→16:02)
[2023-09-19 03:15] VITALS: BP 148/70; PULSE 68; RESP 17; TEMP 36.8; O2SAT 95
[2023-09-19 06:38] LABS: Anion Gap 14 (12-20); Blood Urea Nitrogen 28 mg/dL (9-16); Calcium 9.5 mg/dL (8.4-10.2); Carbon Dioxide 22 mmol/L (22-29); Chloride 109 mmol/L (96-108); Creatinine Clr Calc Pharmacy 15.1; Estimated Glomerular Filt Rate 17; Glucose Random 190 mg/dL (60-115); Potassium 3.7 mmol/L (3.3-5.1); Sodium 141 mmol/L (135-145)
[2023-09-19 07:24] VITALS: BP 146/90; PULSE 85; RESP 16; TEMP 36.2; O2SAT 97
[2023-09-19 07:29] LABS: Glucose, Whole Blood 171 mg/dL (60-115)
[2023-09-19] MEDS: hydrALAZINE HCl 10 MG TABLET PO ×3 (07:46→19:58)
[2023-09-19] MEDS: Isosorbide Mononitrate 30 MG TAB.ER.24H PO (07:46)
[2023-09-19] MEDS: Propranolol HCL 20 MG TABLET PO ×2 (07:46→19:58)
[2023-09-19] MEDS: Memantine HCl 5 MG TABLET PO ×2 (07:46→19:58)
[2023-09-19] MEDS: Cyanocobalamin (Vitamin B-12) 500 MCG TABLET PO (07:46)
[2023-09-19] MEDS: Magnesium Oxide 400 MG TABLET PO (07:46)
[2023-09-19] MEDS: Famotidine/PF 20 MG/2 ML VIAL IVPUSH (07:46)
[2023-09-19] MEDS: Escitalopram Oxalate 10 MG TABLET PO (07:46)
[2023-09-19] MEDS: Tamsulosin HCL 0.4 MG CAPSULE PO (07:46)
[2023-09-19] MEDS: Insulin Lispro 100 UNIT/ML 3 ML VIAL SUBCUT ×4 (07:46→19:57)
[2023-09-19] MEDS: 0.9 % Sodium Chloride Flush 3 ML SYRINGE IVFLUSH ×3 (07:47→20:55)
--- NOTE | 2023-09-19 08:13 | P.PNGS_ITS ---
Subjective Subjective Date of Service: 09/19/23 Interval history: No events reported by staff Patient denies abdominal pain Tolerating diet Physical Exam 2 Vital Signs: Vital Signs: Last Vital Signs Temp 97.1 F 09/19/23 07:24 Pulse 85 09/19/23 07:24 Resp 16 09/19/23 07:24 BP 146/90 H 09/19/23 07:24 Pulse Ox 97 09/19/23 07:24 O2 Del Method Room Air 09/19/23 07:24 BMI result Body Mass Index 31.3 Const: General: comfortable and no acute distress Resp: Effort & Inspection: normal respiratory effort Cardio: Rate: regular rate GI: Palpation (GI): Soft to palpation, not firm and no guarding Objective Data Active Medications Acetaminophen (Acetaminophen 325 Mg Tablet) 650 mg PO Q6H PRN PRN Reason: Pain, Mild (Pain Scale 1-3), fever or headache Last Admin: 09/15/23 20:37 Dose: 650 mg Documented By: WARNER Atorvastatin Calcium (Atorvastatin Calcium 40 Mg Tablet) 40 mg PO BEDTIME [facility] Last Admin: 09/18/23 20:53 Dose: 40 mg Documented By: ROSANNE Cyanocobalamin (Cyanocobalamin (Vitamin B-12) 500 Mcg Tablet) 500 mcg PO DAILY [facility] Last Admin: 09/19/23 07:46 Dose: 500 mcg Documented By: KOBY Escitalopram Oxalate (Escitalopram Oxalate 10 Mg Tablet) 10 mg PO DAILY [facility] Last Admin: 09/19/23 07:46 Dose: 10 mg Documented By: LUCIEMA Famotidine (Famotidine/Pf 20 Mg/2 Ml Vial) 20 mg IVPUSH DAILY [facility] Last Admin: 09/19/23 07:46 Dose: 20 mg Documented By: KOBY Glucose (Glucose Gel 15 Gm Gel..Gram.) 15 gm PO Q15M PRN; Protocol PRN Reason: per Hypoglycemia Standing Ord. Heparin Sodium (Porcine) (Heparin Sodium,Porcine 5,000 Unit/Ml Vial) 5,000 unit SUBCUT Q12H [facility] Last Admin: 09/19/23 03:04 Dose: 5,000 unit Documented By: ROSANNE Hydralazine HCl (Hydralazine Hcl 10 Mg Tablet) 10 mg PO TID [facility]; Protocol Last Admin: 09/19/23 07:46 Dose: 10 mg Documented By: KOBY Dextrose (D10) 250 mls @ 750 mls/hr IV Q15M PRN; Protocol PRN Reason: per Hypoglycemia Standing Ord. Piperacillin Sod/Tazobactam (Sod 2.25 gm/ Sodium Chloride) 50 mls @ 100 mls/hr IV Q6H [facility] Last Infusion: 09/19/23 07:53 Dose: Infused Documented By: KOBY Insulin Human Lispro (Insulin Lispro 100 Unit/Ml 3 Ml Vial) 0 unit SUBCUT QIDACHS [facility]; Protocol Last Admin: 09/19/23 07:46 Dose: 2 unit Documented By: LUCIEMA Isosorbide Mononitrate (Isosorbide Mononitrate 30 Mg Tab.Er.24h) 30 mg PO DAILY [facility]; Protocol Last Admin: 09/19/23 07:46 Dose: 30 mg Documented By: KOBY Magnesium Oxide (Magnesium Oxide 400 Mg Tablet) 400 mg PO DAILY [facility] Last Admin: 09/19/23 07:46 Dose: 400 mg Documented By: KOBY Memantine (Memantine Hcl 5 Mg Tablet) 5 mg PO BID [facility] Last Admin: 09/19/23 07:46 Dose: 5 mg Documented By: KOBY Propranolol HCl (Propranolol Hcl 20 Mg Tablet) 20 mg PO BID [facility]; Protocol Last Admin: 09/19/23 07:46 Dose: 20 mg Documented By: KOBY Sodium Chloride (0.9 % Sodium Chloride Flush 3 Ml Syringe) [facility] Last Admin: 09/19/23 07:47 Dose: 3 ml Documented By: KOBY Tamsulosin HCl (Tamsulosin Hcl 0.4 Mg Capsule) 0.4 mg PO DAILY [facility] Last Admin: 09/19/23 07:46 Dose: 0.4 mg Documented By: KOBY Labs 09/18/23 05:41 09/19/23 05:19 Labs: Laboratory Results - last 24 hr 09/18/23 09/18/23 09/18/23 11:12 16:27 19:58 Hold Purple Top Anion Gap Estim Creat Clear Calc Estimated GFR POC Glucose 186 H 240 H 302 H Random Glucose Calcium 09/19/23 09/19/23 05:19 07:22 Hold Purple Top SEE NOTE Anion Gap 14 Estim Creat Clear Calc 15.1 Estimated GFR 17 POC Glucose 171 H Random Glucose 190 H Calcium 9.5 Microbiology Microbiology Results: Microbiology 09/13/23 14:07 Blood Culture - Final Blood - Venous No growth after 5 days. 09/13/23 14:07 Blood Culture - Final Blood - Venous No growth after 5 days. Procedures Date of Service Date of Service: 09/19/23 Progress Note: A&P Assessment and plan (1) Abdominal pain of unknown cause: Status: Acute Assessment and Plan: Has had no abdominal pain or tenderness Mental status seems back to baseline Abdomen remained soft and benign Tolerating diet Imaging studies of the brain did not show acute pathology Cerebral atrophy noted Planned for long-term placement Discussed with the family manager art involved Appreciate hospitalist input Creatinine elevated but steady Time Spent With Patient Time: Total time managing care of this patient today ____ minutes. Quality Stroke Does the patient have a stroke diagnosis?: No VTE Prior VTE?: No VTE Risk Level:: Medical - moderate - high VTE Device Contraindication: N/A - Device Ordered VTE Drug Contraindication: Treatment Not Indicated
--- NOTE | 2023-09-19 09:23 | MHC.SL.SWA ---
Speech Pathologist Impression: Risk of aspiration, oral phase dysphagia Risk of Aspiration Due to: Neurological Condition History of Pneumonia Reduced Cognition Dysphasia Diet Status: Recommend CHOPPED/ADVANCED SOLIDS (NDD3) and THIN LIQUIDS. MEDS WHOLE with LIQUIDS. Pt will benefit from TRAY SET-UP. Liquid Consistency and Strategies for Safe Swallow: Liquid Intake Recommendation: Thin Liquid Intake Strategies: Small Sips Solid Food Consistency: Dietary Recommendations: Chopped/Advanced (NDD3) Oral Medication Intake: Whole with Liquid Please contact the pharmacy regarding appropriate crushable or liquid drug formulations that are available whenever modified delivery is recommended. Compensatory Strategies and Precautions to be Taken for Safe Swallow: Sitting Upright (90 deg) Small Bites and Sips Alternate Liquids/Solids Rate of Ingestion Change Avoid Specific Foods Supervision While Eating and Drinking for Safe Swallow: Total Supervision (1:1) Foods to Avoid: Hard, tough to chew solids; mixed textures Swallowing Recommended Treatments: Compens. Strategy Educat. Recommendation for Speech: 1 f/u Forensic Chemist Clinican/Clinical Fellow: No Supervisory Statement: I have reviewed and agree with the student/clinical fellow's documentation: N/A Speech Language Pathologist: Kathy Ramirez M.A., CCC-DUMBWAITER OPERATOR
--- NOTE | 2023-09-19 10:39 | HO.PM.IMPN ---
Subjective Subjective Date of Service: 09/19/23 Interval History: No acute issues overnight. Mentation appears back to baseline per chart Review of Systems Test chest pain Denies shortness of breath Denies nausea vomiting diarrhea Denies fever chills Physical Exam Vital Signs: Vital Signs: Last Vital Signs Temp 97.1 F 09/19/23 07:24 Pulse 85 09/19/23 07:24 Resp 16 09/19/23 07:24 BP 146/90 H 09/19/23 07:24 Pulse Ox 97 09/19/23 07:24 O2 Del Method Room Air 09/19/23 07:24 BMI result Body Mass Index 31.3 Const: Other: Awake alert no acute distress Resp: Other: Clear to auscultation bilaterally no rales rhonchi or wheezes Cardio: Other: No S4; positive S1-S2; no S3 murmurs rubs or gallops GI: Other: Soft nontender nondistended normoactive bowel sounds Extrem: Other: No edema bilaterally Objective Data Active Medications Acetaminophen (Acetaminophen 325 Mg Tablet) 650 mg PO Q6H PRN PRN Reason: Pain, Mild (Pain Scale 1-3), fever or headache Last Admin: 09/15/23 20:37 Dose: 650 mg Documented By: WARNER Atorvastatin Calcium (Atorvastatin Calcium 40 Mg Tablet) 40 mg PO BEDTIME [facility] Last Admin: 09/18/23 20:53 Dose: 40 mg Documented By: ROSANNE Cyanocobalamin (Cyanocobalamin (Vitamin B-12) 500 Mcg Tablet) 500 mcg PO DAILY [facility] Last Admin: 09/19/23 07:46 Dose: 500 mcg Documented By: KOBY Escitalopram Oxalate (Escitalopram Oxalate 10 Mg Tablet) 10 mg PO DAILY [facility] Last Admin: 09/19/23 07:46 Dose: 10 mg Documented By: LUCIEMA Famotidine (Famotidine/Pf 20 Mg/2 Ml Vial) 20 mg IVPUSH DAILY [facility] Last Admin: 09/19/23 07:46 Dose: 20 mg Documented By: LUCIEMA Glucose (Glucose Gel 15 Gm Gel..Gram.) 15 gm PO Q15M PRN; Protocol PRN Reason: per Hypoglycemia Standing Ord. Heparin Sodium (Porcine) (Heparin Sodium,Porcine 5,000 Unit/Ml Vial) 5,000 unit SUBCUT Q12H [facility] Last Admin: 09/19/23 03:04 Dose: 5,000 unit Documented By: ROSANNE Hydralazine HCl (Hydralazine Hcl 10 Mg Tablet) 10 mg PO TID [facility]; Protocol Last Admin: 09/19/23 07:46 Dose: 10 mg Documented By: KOBY Dextrose (D10) 250 mls @ 750 mls/hr IV Q15M PRN; Protocol PRN Reason: per Hypoglycemia Standing Ord. Piperacillin Sod/Tazobactam (Sod 2.25 gm/ Sodium Chloride) 50 mls @ 100 mls/hr IV Q6H [facility] Last Infusion: 09/19/23 07:53 Dose: Infused Documented By: KOBY Insulin Human Lispro (Insulin Lispro 100 Unit/Ml 3 Ml Vial) 0 unit SUBCUT QIDACHS [facility]; Protocol Last Admin: 09/19/23 07:46 Dose: 2 unit Documented By: LUCIEMA Isosorbide Mononitrate (Isosorbide Mononitrate 30 Mg Tab.Er.24h) 30 mg PO DAILY [facility]; Protocol Last Admin: 09/19/23 07:46 Dose: 30 mg Documented By: KOBY Magnesium Oxide (Magnesium Oxide 400 Mg Tablet) 400 mg PO DAILY [facility] Last Admin: 09/19/23 07:46 Dose: 400 mg Documented By: LUCIEMA Memantine (Memantine Hcl 5 Mg Tablet) 5 mg PO BID [facility] Last Admin: 09/19/23 07:46 Dose: 5 mg Documented By: KOBY Propranolol HCl (Propranolol Hcl 20 Mg Tablet) 20 mg PO BID [facility]; Protocol Last Admin: 09/19/23 07:46 Dose: 20 mg Documented By: KOBY Sodium Chloride (0.9 % Sodium Chloride Flush 3 Ml Syringe) 3 ml IVFLUSH QSHIFT [facility] Last Admin: 09/19/23 07:47 Dose: 3 ml Documented By: KOBY Tamsulosin HCl (Tamsulosin Hcl 0.4 Mg Capsule) 0.4 mg PO DAILY [facility] Last Admin: 09/19/23 07:46 Dose: 0.4 mg Documented By: KOBY Labs 09/18/23 05:41 09/19/23 05:19 Labs: Laboratory Results - last 24 hr 09/18/23 09/18/23 09/18/23 11:12 16:27 19:58 Hold Purple Top Anion Gap Estim Creat Clear Calc Estimated GFR POC Glucose 186 H 240 H 302 H Random Glucose Calcium 09/19/23 09/19/23 05:19 07:22 Hold Purple Top SEE NOTE Anion Gap 14 Estim Creat Clear Calc 15.1 Estimated GFR 17 POC Glucose 171 H Random Glucose 190 H Calcium 9.5 Microbiology Microbiology Results: Microbiology 09/13/23 14:07 Blood Culture - Final Blood - Venous No growth after 5 days. 09/13/23 14:07 Blood Culture - Final Blood - Venous No growth after 5 days. Assessment and Plan (1) Encephalopathy: Status: Acute (2) Acute appendicitis: Status: Acute (3) IZABELLA (acute kidney injury): Status: Acute Plan 88yo M with HTN, DM2, dementia, mood disorder, HLD, BPH,admitted to Gen Surg for early appendicitis managed medically with antibiotics hospitalist consultation for management of comorbid medical conditions 1.Acute encephalopathy - likely hospital-associated delirium and seems to be improving - workup negative -continue to follow clinically 2.Early appendicitis - pip/cece IV (9), further treatment as per surgery 3.Pneumonia - on pip/cece [dose increased to cover PNA](9) - NDD2 solids with thin liquids, PSYCHIATRIC CLINICIAN to follow-up 4.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 -stabilize. Continue to follow renal/divalent 5.HTN -qacceptable control on current therapies - propranolol, Imdur, hydralazine 6.DM2 - acceptable control on current therapies -lispro correctional scale -adjust as indicated Quality Stroke Does the patient have a stroke diagnosis?: No VTE Prior VTE?: No VTE Risk Level:: Medical - moderate - high VTE Device Contraindication: N/A - Device Ordered VTE Drug Contraindication: Treatment Not Indicated
[2023-09-19 10:51] VITALS: PULSE 85; O2SAT 97
[2023-09-19 11:08] LABS: Glucose, Whole Blood 200 mg/dL (60-115)
--- NOTE | 2023-09-19 13:36 | P.PNNP_ITS ---
Subjective Subjective Date of Service: 09/19/23 Interval history: Events noted Mentation is better Family is at bedside. Physical Exam 2 Vital Signs: Vital Signs: Last Vital Signs Temp 97.1 F 09/19/23 07:24 Pulse 85 09/19/23 10:51 Resp 16 09/19/23 07:24 BP 146/90 H 09/19/23 07:24 Pulse Ox 97 09/19/23 10:51 O2 Del Method Room Air 09/19/23 07:24 BMI result Body Mass Index 31.3 Const: General: ill appearing Neck: Neck: Yes supple Resp: Auscultation: clear to auscultation bilaterally Cardio: Palpation: no palpable S3 Heart sounds: no rubs GI: Palpation (GI): Soft to palpation Auscultation: normal bowel sounds Neuro: Motor exam (neuro): no asterixis Objective Data Labs 09/18/23 05:41 09/19/23 05:19 Labs: Laboratory Results - last 24 hr 09/18/23 09/18/23 09/19/23 16:27 19:58 05:19 Hold Purple Top SEE NOTE Sodium 141 Potassium 3.7 Chloride 109 H Carbon Dioxide 22 Anion Gap 14 BUN 28 H Creatinine 3.52 H Estim Creat Clear Calc 15.1 Estimated GFR 17 POC Glucose 240 H 302 H Random Glucose 190 H Calcium 9.5 09/19/23 09/19/23 07:22 11:05 Hold Purple Top Sodium Potassium Chloride Carbon Dioxide Anion Gap BUN Creatinine Estim Creat Clear Calc Estimated GFR POC Glucose 171 H 200 H Random Glucose Calcium Microbiology Microbiology Results: Microbiology 09/13/23 14:07 Blood - Venous Blood Culture - Final No growth after 5 days. 09/13/23 14:07 Blood - Venous Blood Culture - Final No growth after 5 days. 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 Baseline creatinine is around 2.0 mg/dL. Superimposed IZABELLA due to hypoperfusion leading to tubular injury No evidence of obstruction. Change in mentation. Improved Neuro note appreciated Recommendation Keep intake more than output. Maintain systolic blood pressure more than 100 mm Hg and avoid hypotension. Continue to hold torsemide. &Hold lisinopril. Watch urine output closely. No absolute indication for dialysis yet. Concur with other medical management and she will follow along with the team. Time Spent With Patient Time: Total time managing care of this patient today ____ minutes. Progress Note: Quality Stroke Does the patient have a stroke diagnosis?: No
[2023-09-19 15:23] VITALS: BP 170/77; PULSE 70; RESP 18; TEMP 36; O2SAT 94
[2023-09-19 16:19] LABS: Glucose, Whole Blood 251 mg/dL (60-115)
[2023-09-19 19:36] VITALS: BP 188/66; PULSE 72; RESP 16; TEMP 36.6; O2SAT 95
[2023-09-19 19:58] VITALS: BP 188/66; PULSE 72
[2023-09-19] MEDS: Atorvastatin Calcium 40 MG TABLET PO (19:58)
[2023-09-19 20:58] LABS: Glucose, Whole Blood 272 mg/dL (60-115)
[2023-09-20] VITALS (8 sets, daily range): BP systolic 136–168; BP diastolic 64–84; PULSE 62–65; RESP 16–48; TEMP 36–36.4; O2SAT 94–97
[2023-09-20] MEDS: Piperacillin Sodium/Tazobactam 2.25 GM in 0.9 % Sodium Chloride 50 ML IV ×4 (01:06→18:10)
[2023-09-20] MEDS: Acetaminophen 325 MG TABLET 650 MG PO (02:03)
[2023-09-20] MEDS: Heparin Sodium,Porcine 5,000 UNIT/ML VIAL 5000 UNIT SUBCUT ×2 (03:08→16:35)
[2023-09-20 06:16] LABS: MANUAL DIFF FLAG NO
[2023-09-20 06:26] LABS: Basophils Absolute Auto 0.1 X10*3/uL (0.0-0.2); Basophils Percent Auto 0.5 % (0-2); Eosinophils Absolute Auto 0.3 X10*3/uL (0.0-0.4); Eosinophils Percent Auto 2.5 % (0-4); Hematocrit 26.9 % (42.0-52.0); Hemoglobin 8.8 g/dl (14.0-18.0); Imm Gran Abs Auto 0.17 X10*3/uL (0.00-0.03); Imm Gran Pct Auto 1.5 % (0.0-0.4); Lymphocytes Absolute Auto 0.9 X10*3/uL (1.2-4.9); Lymphocytes Percent Auto 8.3 % (20-40); Mean Corpuscular HGB Conc 32.7 g/dl (31.0-36.0); Mean Corpuscular Hemoglobin 29.9 pg (27.0-33.0); Mean Corpuscular Volume 91.5 fL (80.0-98.0); Mean Platelet Volume 9.7 fL (9.4-12.4); Monocytes Absolute Auto 0.7 X10*3/uL (0.1-1.2); Monocytes Percent Auto 6.6 % (2-11); Neutrophils Absolute Auto 8.9 x10*3/uL (2.0-8.3); Neutrophils Percent Auto 80.6 % (45-73); Platelet Count 245 X10*3/uL (160-400); Red Blood Count 2.94 X10*6/uL (4.60-5.80); Red Cell Distribution Width 13.1 % (11.0-16.0)
[2023-09-20 06:44] LABS: Alanine Aminotransferase 19 U/L (0-40); Albumin Level 2.8 g/dL (3.5-5.0); Alkaline Phosphatase 141 U/L (39-117); Anion Gap 11 (12-20); Aspartate Amino Transferase 34 U/L (5-37); Bilirubin Total 0.4 mg/dL (0.0-1.0); Blood Urea Nitrogen 33 mg/dL (9-16); Calcium 8.8 mg/dL (8.4-10.2); Carbon Dioxide 21 mmol/L (22-29); Chloride 111 mmol/L (96-108); Creatinine Clr Calc Pharmacy 15.4; Estimated Glomerular Filt Rate 17; Glucose Fasting 189 mg/dL (60-99); Potassium 3.1 mmol/L (3.3-5.1); Sodium 140 mmol/L (135-145); Total Protein 5.7 g/dL (6.5-8.0)
[2023-09-20 07:53] LABS: Glucose, Whole Blood 167 mg/dL (60-115)
[2023-09-20] MEDS: Isosorbide Mononitrate 30 MG TAB.ER.24H PO (08:24)
[2023-09-20] MEDS: Cyanocobalamin (Vitamin B-12) 500 MCG TABLET PO (08:24)
[2023-09-20] MEDS: Memantine HCl 5 MG TABLET PO ×2 (08:24→20:46)
[2023-09-20] MEDS: Magnesium Oxide 400 MG TABLET PO (08:24)
[2023-09-20] MEDS: Famotidine/PF 20 MG/2 ML VIAL IVPUSH (08:24)
[2023-09-20] MEDS: hydrALAZINE HCl 10 MG TABLET PO ×3 (08:24→20:50)
[2023-09-20] MEDS: 0.9 % Sodium Chloride Flush 3 ML SYRINGE IVFLUSH ×3 (08:24→20:59)
[2023-09-20] MEDS: Propranolol HCL 20 MG TABLET PO ×2 (08:24→20:46)
[2023-09-20] MEDS: Escitalopram Oxalate 10 MG TABLET PO (08:24)
[2023-09-20] MEDS: Tamsulosin HCL 0.4 MG CAPSULE PO (08:24)
--- NOTE | 2023-09-20 08:53 | P.PNGS_ITS ---
Subjective Subjective Date of Service: 09/23/23 Interval history: Denies abdominal pain Mentation back to normal Tolerating regular diet No events reported by nursing staff Physical Exam 2 Vital Signs: Vital Signs: Last Vital Signs Temp 96.8 F 09/20/23 07:51 Pulse 63 09/20/23 07:51 Resp 16 09/20/23 07:51 BP 162/84 H 09/20/23 07:51 Pulse Ox 96 09/20/23 07:51 O2 Del Method Room Air 09/20/23 07:51 BMI result Body Mass Index 31.3 Const: Other: Answering questions General: comfortable and no acute distress Resp: Effort & Inspection: normal respiratory effort Cardio: Rate: regular rate GI: Palpation (GI): Soft to palpation, not firm and nontender Objective Data Active Medications Acetaminophen (Acetaminophen 325 Mg Tablet) 650 mg PO Q6H PRN PRN Reason: Pain, Mild (Pain Scale 1-3), fever or headache Last Admin: 09/20/23 02:03 Dose: 650 mg Documented By: VIOLET Atorvastatin Calcium (Atorvastatin Calcium 40 Mg Tablet) 40 mg PO BEDTIME [facility] Last Admin: 09/19/23 19:58 Dose: 40 mg Documented By: VIOLET Cyanocobalamin (Cyanocobalamin (Vitamin B-12) 500 Mcg Tablet) 500 mcg PO DAILY [facility] Last Admin: 09/20/23 08:24 Dose: 500 mcg Documented By: NASIR Escitalopram Oxalate (Escitalopram Oxalate 10 Mg Tablet) 10 mg PO DAILY [facility] Last Admin: 09/20/23 08:24 Dose: 10 mg Documented By: NASIR Famotidine (Famotidine/Pf 20 Mg/2 Ml Vial) 20 mg IVPUSH DAILY [facility] Last Admin: 09/20/23 08:24 Dose: 20 mg Documented By: NASIR Glucose (Glucose Gel 15 Gm Gel..Gram.) 15 gm PO Q15M PRN; Protocol PRN Reason: per Hypoglycemia Standing Ord. Heparin Sodium (Porcine) (Heparin Sodium,Porcine 5,000 Unit/Ml Vial) 5,000 unit SUBCUT Q12H [facility] Last Admin: 09/20/23 03:08 Dose: 5,000 unit Documented By: VIOLET Hydralazine HCl (Hydralazine Hcl 10 Mg Tablet) 10 mg PO TID [facility]; Protocol Last Admin: 09/20/23 08:24 Dose: 10 mg Documented By: NASIR Dextrose (D10) 250 mls @ 750 mls/hr IV Q15M PRN; Protocol PRN Reason: per Hypoglycemia Standing Ord. Piperacillin Sod/Tazobactam (Sod 2.25 gm/ Sodium Chloride) 50 mls @ 100 mls/hr IV Q6H [facility] Last Infusion: 09/20/23 06:39 Dose: Infused Documented By: VIOLET Insulin Human Lispro (Insulin Lispro 100 Unit/Ml 3 Ml Vial) 0 unit SUBCUT QIDACHS [facility]; Protocol Last Admin: 09/20/23 08:28 Dose: Not Given Documented By: NASIR Non-Admin Reason: Pt refusing breakfast Isosorbide Mononitrate (Isosorbide Mononitrate 30 Mg Tab.Er.24h) 30 mg PO DAILY [facility]; Protocol Last Admin: 09/20/23 08:24 Dose: 30 mg Documented By: NASIR Magnesium Oxide (Magnesium Oxide 400 Mg Tablet) 400 mg PO DAILY [facility] Last Admin: 09/20/23 08:24 Dose: 400 mg Documented By: NASIR Memantine (Memantine Hcl 5 Mg Tablet) 5 mg PO BID [facility] Last Admin: 09/20/23 08:24 Dose: 5 mg Documented By: NASIR Propranolol HCl (Propranolol Hcl 20 Mg Tablet) 20 mg PO BID [facility]; Protocol Last Admin: 09/20/23 08:24 Dose: 20 mg Documented By: NASIR Sodium Chloride (0.9 % Sodium Chloride Flush 3 Ml Syringe) 3 ml IVFLUSH QSHIFT [facility] Last Admin: 09/20/23 08:24 Dose: 3 ml Documented By: NASIR Tamsulosin HCl (Tamsulosin Hcl 0.4 Mg Capsule) 0.4 mg PO DAILY [facility] Last Admin: 09/20/23 08:24 Dose: 0.4 mg Documented By: NASIR Labs 09/23/23 05:29 09/23/23 05:29 Labs: Laboratory Results - last 24 hr 09/19/23 09/19/23 09/19/23 11:05 16:15 19:52 MCV MCH MCHC RDW Plt Count MPV Immature Gran % (Auto) Neut % (Auto) Lymph % (Auto) [place] % (Auto) Eos % (Auto) Baso % (Auto) Lymph # (Auto) [place] # (Auto) Eos # (Auto) Baso # (Auto) Abs Immat Gran (auto) Absolute Neuts (auto) Absolute Nucleated RBC Nucleated RBC % (auto) Anion Gap Estim Creat Clear Calc Estimated GFR POC Glucose 200 H 251 H 272 H Fasting Glucose Calcium Total Bilirubin AST ALT Alkaline Phosphatase Total Protein Albumin 09/20/23 09/20/23 05:25 07:49 MCV 91.5 MCH 29.9 MCHC 32.7 RDW 13.1 Plt Count 245 MPV 9.7 Immature Gran % (Auto) 1.5 H Neut % (Auto) 80.6 H Lymph % (Auto) 8.3 L [place] % (Auto) 6.6 Eos % (Auto) 2.5 Baso % (Auto) 0.5 Lymph # (Auto) 0.9 L [place] # (Auto) 0.7 Eos # (Auto) 0.3 Baso # (Auto) 0.1 Abs Immat Gran (auto) 0.17 H Absolute Neuts (auto) 8.9 H Absolute Nucleated RBC 0.000 Nucleated RBC % (auto) 0.0 Anion Gap 11 L Estim Creat Clear Calc 15.4 Estimated GFR 17 POC Glucose 167 H Fasting Glucose 189 H Calcium 8.8 D Total Bilirubin 0.4 AST 34 ALT 19 Alkaline Phosphatase 141 H Total Protein 5.7 L Albumin 2.8 L Procedures Date of Service Date of Service: 09/23/23 Progress Note: A&P Assessment and plan (1) Abdominal pain of unknown cause: Status: Acute Assessment and Plan: Delirium has resolved Looks well Creatinine has been trending down Tolerating diet well dw Nephrology - ok to dc to [facility] family Time Spent With Patient Time: Total time managing care of this patient today ____ minutes. Quality Stroke Does the patient have a stroke diagnosis?: No VTE Prior VTE?: No VTE Risk Level:: Medical - moderate - high VTE Device Contraindication: N/A - Device Ordered VTE Drug Contraindication: Treatment Not Indicated
--- NOTE | 2023-09-20 11:21 | MHC.SLORD ---
Speech Language Pathology Order Status: ROAD BUILDER attempted to see patient this a.m. for dysphagia tx, but patient was sleeping and not waking to sternal rub. Patient is stable on chopped diet with thin liquids. ROAD BUILDER will continue to follow.
[2023-09-20 11:45] LABS: Glucose, Whole Blood 247 mg/dL (60-115)
[2023-09-20] MEDS: Insulin Lispro 100 UNIT/ML 3 ML VIAL SUBCUT ×3 (12:00→20:51)
--- NOTE | 2023-09-20 12:02 | P.DS_ITS ---
DS: Providers Provider Date of admission: 09/11/23 05:47 Primary care physician: MELISA Rivera Consults: 09/11/23 05:47 Consult to Hospitalist Routine Comment: Consulting Provider: Hospitalist Reason For Exam: med management and antibx renal issues 09/11/23 11:47 Consult to Hospitalist Routine Comment: Consulting Provider: Hospitalist Reason For Exam: elevated crea, DM 09/12/23 13:03 Consult to Nephrology Routine Consulting Provider: [facility] [place] [facility] Reason for consultation: IZABELLA on CKD Has provider been notified: No 09/15/23 13:11 Consult to Psychiatry Routine Consulting Provider: Psych [facility] Reason for consultation: h/o dementia; agitation, hallucinating Has provider been notified: No 09/16/23 11:15 Consult to Neurology Routine Consulting Provider: [facility] Reason for consultation: h/o dementia; agitation, hallucinating DS: Diagnosis Discharge Diagnosis (1) Abdominal pain of unknown cause: Status: Acute DS: Summary Hospital Course Hospital Course: 88-year-old male admitted by Dr. Lomeli on 09/11/2023 because of abdominal pain. He has known diabetes, chronic kidney disease. His CAT scan showed some mild inflammatory changes in the right lower quadrant near the appendix suggestive of early appendicitis. However, he also had other areas with fat stranding in the mesentery on other places in the abdomen. Discussions with the family were made as to options and they did not want to proceed with any surgical intervention because of his multiple medical problems and advanced age. The patient was placed NPO initially with IV fluids. He was started on some clear liquids the day after admission but continued to have some abdominal pain so a follow-up CT scan was done on September 13, 2023. This showed some improvement of the inflammatory changes in the right side of the abdomen. His abdominal pain had persisted although seemed to improve slowly with time. I was able to advance his diet slowly as well. He did not have any leukocytosis. His abdominal exam remained benign. He did not and we significant vomiting He did have some altered mental status with hallucinations and significant confusion on weekend of 09/13 to September 14. This was deemed to be secondary to delirium. His creatinine levels were continuously elevated. Nephrology was consulted. This was deemed to be likely secondary to chronic kidney disease from his diabetes His mental status had improved significantly on September 16, 2023. Imaging studies did not show any acute intracranial pathology but this did showed cerebral atrophy consistent with this dementia. He was started on clear liquids and this was gradually advanced. He continued to tolerate this well. He continued to have improvement of his mental status back to baseline. His creatinine levels remained stable around 3.5. He was cleared for discharge by the nephrology service. At the time of his discharge, he had been tolerating diet well. He had remained afebrile. His abdominal exam remains very benign and had denied abdominal pain for several days already. Status at Discharge Cognitive/behavioral status at discharge: Stable as baseline Overall status at discharge: patient is back to baseline Quality: Safe Use of Opioids Does Pt have an Active Cancer Diagnosis on the Problem List?: No Quality: Stroke Does the patient have a stroke diagnosis?: No Physical Exam Vital Signs: Vital Signs: Last Vital Signs Temp 96.8 F 09/20/23 07:51 Pulse 63 09/20/23 07:51 Resp 16 09/20/23 07:51 BP 162/84 H 09/20/23 07:51 Pulse Ox 96 09/20/23 07:51 O2 Del Method Room Air 09/20/23 07:51 BMI result Body Mass Index 31.3 Const: Other: Frail looking but answers questions General: comfortable and no acute distress Orientation/consciousness: patient oriented x3 Neck: Neck: Yes no lymphadenopathy Resp: Auscultation: clear to auscultation bilaterally Cardio: Rhythm: regular rhythm GI: Palpation (GI): Soft to palpation, nontender and no guarding Neuro: General: patient oriented x3 DS: Data Data Completed and Pending Pending studies at discharge: Laboratory Results WBC 11.0 X10*3/uL (4.8-10.8) H 09/20/23 05:25 RBC 2.94 X10*6/uL (4.60-5.80) L 09/20/23 05:25 Hgb 8.8 g/dl (14.0-18.0) L 09/20/23 05:25 Hct 26.9 % (42.0-52.0) L 09/20/23 05:25 MCV 91.5 fL (80.0-98.0) 09/20/23 05:25 MCH 29.9 pg (27.0-33.0) 09/20/23 05:25 MCHC 32.7 g/dl (31.0-36.0) 09/20/23 05:25 RDW 13.1 % (11.0-16.0) 09/20/23 05:25 Plt Count 245 X10*3/uL (160-400) 09/20/23 05:25 MPV 9.7 fL (9.4-12.4) 09/20/23 05:25 Immature Gran % (Auto) 1.5 % (0.0-0.4) H 09/20/23 05:25 Neut % (Auto) 80.6 % (45-73) H 09/20/23 05:25 Lymph % (Auto) 8.3 % (20-40) L 09/20/23 05:25 Worth % (Auto) 6.6 % (2-11) 09/20/23 05:25 Eos % (Auto) 2.5 % (0-4) 09/20/23 05:25 Baso % (Auto) 0.5 % (0-2) 09/20/23 05:25 Lymph # (Auto) 0.9 X10*3/uL (1.2-4.9) L 09/20/23 05:25 [place] # (Auto) 0.7 X10*3/uL (0.1-1.2) 09/20/23 05:25 Eos # (Auto) 0.3 X10*3/uL (0.0-0.4) 09/20/23 05:25 Baso # (Auto) 0.1 X10*3/uL (0.0-0.2) 09/20/23 05:25 Abs Immat Gran (auto) 0.17 X10*3/uL (0.00-0.03) H 09/20/23 05:25 Absolute Neuts (auto) 8.9 x10*3/uL (2.0-8.3) H 09/20/23 05:25 Absolute Nucleated RBC 0.000 X10*3/uL (0.0-0.012) 09/20/23 05:25 Nucleated RBC % (auto) 0.0 /100WBC (0.0-0.2) 09/20/23 05:25 Smear Tech's Comments VERIFIED 09/11/23 00:05 Hold Purple Top SEE NOTE 09/19/23 05:19 VBG pH 7.33 (7.32-7.43) 09/16/23 09:34 VBG pCO2 34 mmHg 09/16/23 09:34 VBG pO2 66 mmHg 09/16/23 09:34 VBG HCO3 18 mmol/L (22-26) L 09/16/23 09:34 VBG O2 Saturation 93.0 % 09/16/23 09:34 VBG Base Excess -6.3 mmol/L 09/16/23 09:34 Sodium 140 mmol/L (135-145) 09/20/23 05:25 Potassium 3.1 mmol/L (3.3-5.1) L 09/20/23 05:25 Chloride 111 mmol/L (96-108) H 09/20/23 05:25 Carbon Dioxide 21 mmol/L (22-29) L 09/20/23 05:25 Anion Gap 11 (12-20) L 09/20/23 05:25 BUN 33 mg/dL (9-16) H 09/20/23 05:25 Creatinine 3.46 mg/dL (0.5-1.4) H 09/20/23 05:25 Estim Creat Clear Calc 15.4 09/20/23 05:25 Estimated GFR 17 09/20/23 05:25 POC Glucose 247 mg/dL (60-115) H 09/20/23 11:37 Random Glucose 190 mg/dL (60-115) H 09/19/23 05:19 Fasting Glucose 189 mg/dL (60-99) H 09/20/23 05:25 Lactic Acid 1.4 mmol/L (0.5-2.0) 09/13/23 14:07 Lactic Acid F/U @ 2Hr 1.2 mmol/L (0.5-2.0) 09/11/23 Unknown Calcium 8.8 mg/dL (8.4-10.2) D 09/20/23 05:25 Magnesium 2.2 mg/dL (1.6-2.6) 09/16/23 07:47 Total Bilirubin 0.4 mg/dL (0.0-1.0) 09/20/23 05:25 Direct Bilirubin 0.4 mg/dL (0.0-0.5) 09/16/23 07:47 AST 34 U/L (5-37) 09/20/23 05:25 ALT 19 U/L (0-40) 09/20/23 05:25 Alkaline Phosphatase 141 U/L (39-117) H 09/20/23 05:25 C-Reactive Protein 9.63 mg/dL (< or = 0.50) H 09/18/23 05:41 B-Natriuretic Peptide 557 pg/mL (<100) H 09/17/23 07:08 Total Protein 5.7 g/dL (6.5-8.0) L 09/20/23 05:25 Albumin 2.8 g/dL (3.5-5.0) L 09/20/23 05:25 Lipase 27 U/L (8-78) 09/11/23 00:05 Vitamin B12 1991 pg/mL (200-900) H 09/17/23 07:08 Folate 10.6 ng/mL (> or = 4.0) 09/17/23 07:08 Procalcitonin 0.99 ng/mL 09/18/23 05:41 TSH 2.53 uIU/mL (0.32-4.0) 09/16/23 07:47 Urine Color Yellow 09/11/23 07:37 Urine Appearance Clear 09/11/23 07:37 Urine pH 6.5 (5.0-9.0) 09/11/23 07:37 Ur Specific [place] 1.020 (1.005-1.025) 09/11/23 07:37 Urine Protein 300 (3+) mg/dL (Neg-Trace) H 09/11/23 07:37 Urine Glucose (UA) >=1000 mg/dL (Negative) H 09/11/23 07:37 Urine Ketones Negative mg/dL (Negative) 09/11/23 07:37 Urine Blood Negative (Negative) 09/11/23 07:37 Urine Nitrite Negative (Negative) 09/11/23 07:37 Ur Leukocyte Esterase Negative (Negative) 09/11/23 07:37 Urine RBC 0-2 /HPF (0-2) 09/11/23 07:37 Urine WBC 0-5 /HPF (0-5) 09/11/23 07:37 Ur Squamous Epith Cells 0-2 /HPF (0-2) 09/11/23 07:37 Urine Bacteria None Seen (None Seen) 09/11/23 07:37 Hyaline Casts 3-5 /LPF (0-2) 09/11/23 07:37 Respiratory Panel Bowser See Note 09/16/23 15:57 Adenovirus (Rapid PCR) Not Detected (Not Detect.) 09/16/23 15:57 B.pert (TEM-PCR) Not Detected (Not Detect.) 09/16/23 15:57 B.parapertussis DNA PCR Not Detected (Not Detect.) 09/16/23 15:57 C. pneumoniae DNA (PCR) Not Detected (Not Detect.) 09/16/23 15:57 Coronavirus OC43 (PCR) Not Detected (Not Detect.) 09/16/23 15:57 Coronavirus HKU1 (PCR) Not Detected (Not Detect.) 09/16/23 15:57 Coronavirus 229E (PCR) Not Detected (Not Detect.) 09/16/23 15:57 Coronavirus NL63 (PCR) Not Detected (Not Detect.) 09/16/23 15:57 Human Metapneumovir PCR Not Detected (Not Detect.) 09/16/23 15:57 Influenza A (RT-PCR) Not Detected (Not Detect.) 09/16/23 15:57 Influenza B (RT-PCR) Not Detected (Not Detect.) 09/16/23 15:57 M. pneumoniae (PCR) Not Detected (Not Detect.) 09/16/23 15:57 Parainfluenza 1 (PCR) Not Detected (Not Detect.) 09/16/23 15:57 Parainfluenza 2 (PCR) Not Detected (Not Detect.) 09/16/23 15:57 Parainfluenza 3 (PCR) Not Detected (Not Detect.) 09/16/23 15:57 Parainfluenza 4 (PCR) Not Detected (Not Detect.) 09/16/23 15:57 RSV (PCR) Not Detected (Not Detect.) 09/16/23 15:57 Entero/Rhino (PCR) Not Detected (Not Detect.) 09/16/23 15:57 SARS-CoV-2 RNA (RT-PCR) Not Detected (Not Detect.) 09/16/23 15:57 Impressions Abdomen/Pelvis CT 09/13/23 09:40 IMPRESSION: Slight interval improvement in inflammatory changes in the right lower quadrant compared to the prior study. Persistent mild dilatation of the appendix measuring up to 8 mm. Possible hyperdense sludge in the gallbladder. Nonobstructing bilateral renal calculi. No hydronephrosis. Patchy airspace disease in the right lower lobe. Bilateral pleural effusions. Abdomen Ultrasound 09/15/23 08:29 IMPRESSION: 1. Examination limited secondary to patient body habitus and overlying bowel gas. 2. Small right renal cyst. 3. Otherwise unremarkable sonographic imaging of the abdomen. Chest X-Ray 09/16/23 05:52 IMPRESSION: Diffusely coarsened appearance of the interstitium, which could reflect airways disease/bronchitis. In the proper clinical setting, mild interstitial edema could have a similar appearance. Head CT 09/16/23 12:00 IMPRESSION: 1. 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 2. No intracranial hemorrhage or skull fracture is seen. 3. No evidence of space occupying lesion could be found. 4. The current plain CT scan of the brain shows no diagnostic evidence of acute cerebral infarction. 5. Interval development of marked bilateral sphenoid sinusitis. Brain MRI 09/16/23 21:41 IMPRESSION: Motion degraded examination. Please note that axial T2-weighted sequence of the brain was inadvertently not performed as well 1. No acute infarct or other acute intracranial abnormality. 2. Moderate generalized cerebral volume loss and mild chronic white matter microangiopathy. 3. Complete opacification of the sphenoid sinus with heterogeneous predominantly T1 hyperintense and FLAIR hypointense contents extending into the posterior left ethmoid with corresponding reduced diffusion, likely reflecting sequela of chronic sinusitis with inspissated secretions and/or fungal colonization 4. There is thinning of the posterior parietal scalp with underlying calvarial T1 hypointense marrow signal with corresponding sclerosis on CT, which may reflect sequela of prior surgery and posttreatment changes. Correlate with clinical history. Labs on day of discharge: Laboratory Results - last 24 hr 09/19/23 09/19/23 09/20/23 16:15 19:52 05:25 WBC 11.0 H RBC 2.94 L Hgb 8.8 L Hct 26.9 L MCV 91.5 MCH 29.9 MCHC 32.7 RDW 13.1 Plt Count 245 MPV 9.7 Immature Gran % (Auto) 1.5 H Neut % (Auto) 80.6 H Lymph % (Auto) 8.3 L [place] % (Auto) 6.6 Eos % (Auto) 2.5 Baso % (Auto) 0.5 Lymph # (Auto) 0.9 L [place] # (Auto) 0.7 Eos # (Auto) 0.3 Baso # (Auto) 0.1 Abs Immat Gran (auto) 0.17 H Absolute Neuts (auto) 8.9 H Absolute Nucleated RBC 0.000 Nucleated RBC % (auto) 0.0 Sodium 140 Potassium 3.1 L Chloride 111 H Carbon Dioxide 21 L Anion Gap 11 L BUN 33 H Creatinine 3.46 H Estim Creat Clear Calc 15.4 Estimated GFR 17 POC Glucose 251 H 272 H Fasting Glucose 189 H Calcium 8.8 D Total Bilirubin 0.4 AST 34 ALT 19 Alkaline Phosphatase 141 H Total Protein 5.7 L Albumin 2.8 L 09/20/23 09/20/23 07:49 11:37 WBC RBC Hgb Hct MCV MCH MCHC RDW Plt Count MPV Immature Gran % (Auto) Neut % (Auto) Lymph % (Auto) [place] % (Auto) Eos % (Auto) Baso % (Auto) Lymph # (Auto) [place] # (Auto) Eos # (Auto) Baso # (Auto) Abs Immat Gran (auto) Absolute Neuts (auto) Absolute Nucleated RBC Nucleated RBC % (auto) Sodium Potassium Chloride Carbon Dioxide Anion Gap BUN Creatinine Estim Creat Clear Calc Estimated GFR POC Glucose 167 H 247 H Fasting Glucose Calcium Total Bilirubin AST ALT Alkaline Phosphatase Total Protein Albumin Discharge Plan Discharge Referrals: Kristy Pisano PA [Primary Care Provider] - 1 Week Discharge Medications: No Action (DME) FreeStyle [place] 2 Sensor Kit See Rx Instructions .Route Qty: 2 4RF Rx Instructions: As directed change every 14 days multivitamin Tablet 1 tab PO DAILY cyanocobalamin (vitamin B-12) [Vitamin B-12] 500 mcg Tablet 500 mcg PO DAILY propranolol 20 mg tablet 20 mg PO BID Trulicity 1.5 mg/0.5 mL pen injector 1.5 mg subcut SA memantine 5 mg tablet 5 mg PO BID (DME) pen needle, diabetic [BD Ultra-Fine Short Pen Needle] 31 gauge x 5/16 needle See Rx Instructions .ROUTE DAILY Qty: 1200 Rx Instructions: As directed once a day atorvastatin 40 mg tablet 40 mg PO BEDTIME lisinopril 40 mg tablet 40 mg PO DAILY (DME) FreeStyle Lite Strips Strip See Rx Instructions .ROUTE BID Qty: 10 Rx Instructions: As directed two times a day (DME) lancets [FreeStyle Lancets] 28 gauge misc See Rx Instructions .ROUTE DAILY Qty: 100 Rx Instructions: As directed two times a day torsemide 20 mg tablet 20 mg PO DAILY magnesium oxide 400 mg (241.3 mg magnesium) tablet 400 mg PO DAILY insulin glargine [Lantus Solostar U-100 Insulin] 100 unit/mL (3 mL) insulin pen 40 unit subcut BEDTIME escitalopram oxalate 20 mg tablet 20 mg PO DAILY tamsulosin 0.4 mg capsule 0.4 mg PO DAILY (DME) blood-glucose meter [FreeStyle [place]] Kit See Rx Instructions .Route Qty: 1 0RF Rx Instructions: As directed checks 4 X/day (DME) FreeStyle Salma 2 [place] Misc See Rx Instructions .Route Qty: 1 0RF Rx Instructions: As directed Print Language: Macedonian
--- NOTE | 2023-09-20 13:03 | P.PNNP_ITS ---
Subjective Subjective Date of Service: 09/20/23 Interval history: Events noted ;Mentation is better; all recent data reviewed Physical Exam 2 Vital Signs: Vital Signs: Last Vital Signs Temp 96.8 F 09/20/23 07:51 Pulse 63 09/20/23 07:51 Resp 16 09/20/23 07:51 BP 162/84 H 09/20/23 07:51 Pulse Ox 96 09/20/23 07:51 O2 Del Method Room Air 09/20/23 07:51 BMI result Body Mass Index 31.3 Const: General: comfortable and no acute distress HEENT: Head: Yes normocephalic Mouth: Normal oral and palatal mucosa present Eyes: EOM: EOMs intact bilaterally Neck: Neck: Yes supple Resp: Auscultation: clear to auscultation bilaterally Cardio: Jugular venous distension: no JVD Rate: regular rate GI: Palpation (GI): Soft to palpation Auscultation: normal bowel sounds : General: Yes no CVA tenderness Back/Spine/Pelvis: Back: no CVA tenderness Skin: General skin exam: no rashes or lesions noted Neuro: General: moves all extremities Objective Data Labs 09/20/23 05:25 09/20/23 05:25 Labs: Laboratory Results - last 24 hr 09/19/23 09/19/23 09/20/23 16:15 19:52 05:25 WBC 11.0 H RBC 2.94 L Hgb 8.8 L Hct 26.9 L MCV 91.5 MCH 29.9 MCHC 32.7 RDW 13.1 Plt Count 245 MPV 9.7 Immature Gran % (Auto) 1.5 H Neut % (Auto) 80.6 H Lymph % (Auto) 8.3 L [place] % (Auto) 6.6 Eos % (Auto) 2.5 Baso % (Auto) 0.5 Lymph # (Auto) 0.9 L [place] # (Auto) 0.7 Eos # (Auto) 0.3 Baso # (Auto) 0.1 Abs Immat Gran (auto) 0.17 H Absolute Neuts (auto) 8.9 H Absolute Nucleated RBC 0.000 Nucleated RBC % (auto) 0.0 Sodium 140 Potassium 3.1 L Chloride 111 H Carbon Dioxide 21 L Anion Gap 11 L BUN 33 H Creatinine 3.46 H Estim Creat Clear Calc 15.4 Estimated GFR 17 POC Glucose 251 H 272 H Fasting Glucose 189 H Calcium 8.8 D Total Bilirubin 0.4 AST 34 ALT 19 Alkaline Phosphatase 141 H Total Protein 5.7 L Albumin 2.8 L 09/20/23 09/20/23 07:49 11:37 WBC RBC Hgb Hct MCV MCH MCHC RDW Plt Count MPV Immature Gran % (Auto) Neut % (Auto) Lymph % (Auto) [place] % (Auto) Eos % (Auto) Baso % (Auto) Lymph # (Auto) [place] # (Auto) Eos # (Auto) Baso # (Auto) Abs Immat Gran (auto) Absolute Neuts (auto) Absolute Nucleated RBC Nucleated RBC % (auto) Sodium Potassium Chloride Carbon Dioxide Anion Gap BUN Creatinine Estim Creat Clear Calc Estimated GFR POC Glucose 167 H 247 H Fasting Glucose Calcium Total Bilirubin AST ALT Alkaline Phosphatase Total Protein Albumin Microbiology Microbiology Results: Microbiology 09/13/23 14:07 Blood - Venous Blood Culture - Final No growth after 5 days. 09/13/23 14:07 Blood - Venous Blood Culture - Final No growth after 5 days. 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 Baseline creatinine is around 2.0 mg/dL. Had superimposed IZABELLA due to tubular injury. No evidence of obstruction. lisinopril on hold; Creatinine better/stable Concur with rest of current management; Needs close office follow-up on discharge Progress Note: Quality Stroke Does the patient have a stroke diagnosis?: No
--- NOTE | 2023-09-20 14:46 | HO.PM.IMPN ---
Subjective Subjective Date of Service: 09/20/23 Interval History: No acute issues overnight Review of Systems Test chest pain Denies shortness of breath Denies nausea vomiting diarrhea Denies fever chills Physical Exam Vital Signs: Vital Signs: Last Vital Signs Temp 96.8 F 09/20/23 07:51 Pulse 63 09/20/23 13:57 Resp 16 09/20/23 07:51 BP 162/84 H 09/20/23 13:57 Pulse Ox 96 09/20/23 13:57 O2 Del Method Room Air 09/20/23 07:51 BMI result Body Mass Index 31.3 Const: Other: Awake alert no acute distress Resp: Other: Clear to auscultation bilaterally no rales rhonchi or wheezes Cardio: Other: No S4; positive S1-S2; no S3 murmurs rubs or gallops GI: Other: Soft nontender nondistended normoactive bowel sounds Extrem: Other: No edema bilaterally Objective Data Active Medications Acetaminophen (Acetaminophen 325 Mg Tablet) 650 mg PO Q6H PRN PRN Reason: Pain, Mild (Pain Scale 1-3), fever or headache Last Admin: 09/20/23 02:03 Dose: 650 mg Documented By: VIOLET Atorvastatin Calcium (Atorvastatin Calcium 40 Mg Tablet) 40 mg PO BEDTIME [facility] Last Admin: 09/19/23 19:58 Dose: 40 mg Documented By: VIOLET Cyanocobalamin (Cyanocobalamin (Vitamin B-12) 500 Mcg Tablet) 500 mcg PO DAILY [facility] Last Admin: 09/20/23 08:24 Dose: 500 mcg Documented By: NASIR Escitalopram Oxalate (Escitalopram Oxalate 10 Mg Tablet) 10 mg PO DAILY [facility] Last Admin: 09/20/23 08:24 Dose: 10 mg Documented By: NASIR Famotidine (Famotidine/Pf 20 Mg/2 Ml Vial) 20 mg IVPUSH DAILY [facility] Last Admin: 09/20/23 08:24 Dose: 20 mg Documented By: NASIR Glucose (Glucose Gel 15 Gm Gel..Gram.) 15 gm PO Q15M PRN; Protocol PRN Reason: per Hypoglycemia Standing Ord. Heparin Sodium (Porcine) (Heparin Sodium,Porcine 5,000 Unit/Ml Vial) 5,000 unit SUBCUT Q12H [facility] Last Admin: 09/20/23 03:08 Dose: 5,000 unit Documented By: VIOLET Hydralazine HCl (Hydralazine Hcl 10 Mg Tablet) 10 mg PO TID [facility]; Protocol Last Admin: 09/20/23 08:24 Dose: 10 mg Documented By: NASIR Dextrose (D10) 250 mls @ 750 mls/hr IV Q15M PRN; Protocol PRN Reason: per Hypoglycemia Standing Ord. Piperacillin Sod/Tazobactam (Sod 2.25 gm/ Sodium Chloride) 50 mls @ 100 mls/hr IV Q6H [facility] Last Infusion: 09/20/23 13:41 Dose: Infused Documented By: NASIR Insulin Human Lispro (Insulin Lispro 100 Unit/Ml 3 Ml Vial) 0 unit SUBCUT QIDACHS [facility]; Protocol Last Admin: 09/20/23 12:00 Dose: 4 unit Documented By: NASIR Isosorbide Mononitrate (Isosorbide Mononitrate 30 Mg Tab.Er.24h) 30 mg PO DAILY [facility]; Protocol Last Admin: 09/20/23 08:24 Dose: 30 mg Documented By: NASIR Magnesium Oxide (Magnesium Oxide 400 Mg Tablet) 400 mg PO DAILY [facility] Last Admin: 09/20/23 08:24 Dose: 400 mg Documented By: NASIR Memantine (Memantine Hcl 5 Mg Tablet) 5 mg PO BID [facility] Last Admin: 09/20/23 08:24 Dose: 5 mg Documented By: NASIR Propranolol HCl (Propranolol Hcl 20 Mg Tablet) 20 mg PO BID [facility]; Protocol Last Admin: 09/20/23 08:24 Dose: 20 mg Documented By: NASIR Sodium Chloride (0.9 % Sodium Chloride Flush 3 Ml Syringe) [facility] Last Admin: 09/20/23 08:24 Dose: 3 ml Documented By: NASIR Tamsulosin HCl (Tamsulosin Hcl 0.4 Mg Capsule) 0.4 mg PO DAILY [facility] Last Admin: 09/20/23 08:24 Dose: 0.4 mg Documented By: NASIR Labs 09/20/23 05:25 09/20/23 05:25 Labs: Laboratory Results - last 24 hr 09/19/23 09/19/23 09/20/23 16:15 19:52 05:25 MCV 91.5 MCH 29.9 MCHC 32.7 RDW 13.1 Plt Count 245 MPV 9.7 Immature Gran % (Auto) 1.5 H Neut % (Auto) 80.6 H Lymph % (Auto) 8.3 L [place] % (Auto) 6.6 Eos % (Auto) 2.5 Baso % (Auto) 0.5 Lymph # (Auto) 0.9 L [place] # (Auto) 0.7 Eos # (Auto) 0.3 Baso # (Auto) 0.1 Abs Immat Gran (auto) 0.17 H Absolute Neuts (auto) 8.9 H Absolute Nucleated RBC 0.000 Nucleated RBC % (auto) 0.0 Anion Gap 11 L Estim Creat Clear Calc 15.4 Estimated GFR 17 POC Glucose 251 H 272 H Fasting Glucose 189 H Calcium 8.8 D Total Bilirubin 0.4 AST 34 ALT 19 Alkaline Phosphatase 141 H Total Protein 5.7 L Albumin 2.8 L 09/20/23 09/20/23 07:49 11:37 MCV MCH MCHC RDW Plt Count MPV Immature Gran % (Auto) Neut % (Auto) Lymph % (Auto) [place] % (Auto) Eos % (Auto) Baso % (Auto) Lymph # (Auto) [place] # (Auto) Eos # (Auto) Baso # (Auto) Abs Immat Gran (auto) Absolute Neuts (auto) Absolute Nucleated RBC Nucleated RBC % (auto) Anion Gap Estim Creat Clear Calc Estimated GFR POC Glucose 167 H 247 H Fasting Glucose Calcium Total Bilirubin AST ALT Alkaline Phosphatase Total Protein Albumin Assessment and Plan (1) Encephalopathy: Status: Acute Plan 88yo M with HTN, DM2, dementia, mood disorder, HLD, BPH,admitted to Gen Surg for early appendicitis managed medically with antibiotics hospitalist consultation for management of comorbid medical conditions 1.Acute encephalopathy - likely hospital-associated delirium and seems to be improving - workup negative -continue to follow clinically 2.Early appendicitis - pip/cece IV (10), further treatment as per surgery -switch to p.o. 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 -stabilize. Continue to follow renal/divalent 5.HTN -qacceptable control on current therapies - propranolol, Imdur, hydralazine 6.DM2 - acceptable control on current therapies -lispro correctional scale -adjust as indicated Quality Stroke Does the patient have a stroke diagnosis?: No VTE Prior VTE?: No VTE Risk Level:: Medical - moderate - high VTE Device Contraindication: N/A - Device Ordered VTE Drug Contraindication: Treatment Not Indicated
[2023-09-20 16:26] LABS: Glucose, Whole Blood 283 mg/dL (60-115)
--- NOTE | 2023-09-20 16:27 | MHC.CM.PN ---
CM MET WITH PT AND DAUGHTER ABOUT STR THEY ARE AWARE [facility] IS THE ONLY SNF FOLLOWING PER MD ROUNDS, PT MAY HAVE BEEN CLEARED TO DC TODAY NICKY ASKED SNF TO [facility] FOR AUTH AT 1130 HOURS TODAY [facility] HAS NOT YET RESPONDED TO REQUEST
[2023-09-20 20:26] LABS: Glucose, Whole Blood 247 mg/dL (60-115)
[2023-09-20] MEDS: Atorvastatin Calcium 40 MG TABLET PO (20:51)
[2023-09-21] VITALS (8 sets, daily range): BP systolic 152–188; BP diastolic 70–84; PULSE 64–67; RESP 16–20; TEMP 36.1–36.6; O2SAT 94–95
[2023-09-21] MEDS: Piperacillin Sodium/Tazobactam 2.25 GM in 0.9 % Sodium Chloride 50 ML IV ×2 (00:52→06:10)
[2023-09-21] MEDS: Heparin Sodium,Porcine 5,000 UNIT/ML VIAL 5000 UNIT SUBCUT ×2 (03:56→15:55)
[2023-09-21 06:24] LABS: MANUAL DIFF FLAG NO
[2023-09-21 06:29] LABS: Basophils Absolute Auto 0.1 X10*3/uL (0.0-0.2); Basophils Percent Auto 0.6 % (0-2); Eosinophils Absolute Auto 0.4 X10*3/uL (0.0-0.4); Eosinophils Percent Auto 2.9 % (0-4); Hematocrit 27.3 % (42.0-52.0); Imm Gran Abs Auto 0.13 X10*3/uL (0.00-0.03); Imm Gran Pct Auto 1.1 % (0.0-0.4); Lymphocytes Absolute Auto 0.9 X10*3/uL (1.2-4.9); Lymphocytes Percent Auto 7.2 % (20-40); Mean Corpuscular Hemoglobin 30.2 pg (27.0-33.0); Mean Corpuscular Volume 91.6 fL (80.0-98.0); Mean Platelet Volume 9.7 fL (9.4-12.4); Monocytes Absolute Auto 0.7 X10*3/uL (0.1-1.2); Monocytes Percent Auto 5.6 % (2-11); Neutrophils Percent Auto 82.6 % (45-73); Platelet Count 272 X10*3/uL (160-400); Red Blood Count 2.98 X10*6/uL (4.60-5.80); Red Cell Distribution Width 13.2 % (11.0-16.0); White Blood Count 12.1 X10*3/uL (4.8-10.8)
[2023-09-21 06:55] LABS: Alanine Aminotransferase 26 U/L (0-40); Albumin Level 2.8 g/dL (3.5-5.0); Alkaline Phosphatase 151 U/L (39-117); Anion Gap 14 (12-20); Aspartate Amino Transferase 39 U/L (5-37); Bilirubin Total 0.3 mg/dL (0.0-1.0); Blood Urea Nitrogen 33 mg/dL (9-16); Calcium 9.4 mg/dL (8.4-10.2); Carbon Dioxide 20 mmol/L (22-29); Chloride 111 mmol/L (96-108); Creatinine Clr Calc Pharmacy 13.6; Estimated Glomerular Filt Rate 15; Glucose Fasting 195 mg/dL (60-99); Potassium 3.4 mmol/L (3.3-5.1); Sodium 142 mmol/L (135-145); Total Protein 6.1 g/dL (6.5-8.0)
[2023-09-21 07:49] LABS: Glucose, Whole Blood 165 mg/dL (60-115)
[2023-09-21] MEDS: Famotidine/PF 20 MG/2 ML VIAL IVPUSH (09:00)
[2023-09-21] MEDS: Insulin Lispro 100 UNIT/ML 3 ML VIAL SUBCUT ×4 (09:00→21:21)
[2023-09-21] MEDS: Memantine HCl 5 MG TABLET PO ×2 (09:00→21:21)
[2023-09-21] MEDS: Propranolol HCL 20 MG TABLET PO ×2 (09:00→21:21)
[2023-09-21] MEDS: Magnesium Oxide 400 MG TABLET PO (09:00)
[2023-09-21] MEDS: Tamsulosin HCL 0.4 MG CAPSULE PO (09:00)
[2023-09-21] MEDS: hydrALAZINE HCl 10 MG TABLET PO ×3 (09:00→21:26)
[2023-09-21] MEDS: 0.9 % Sodium Chloride Flush 3 ML SYRINGE IVFLUSH ×3 (09:00→21:27)
[2023-09-21] MEDS: Escitalopram Oxalate 10 MG TABLET PO (09:01)
[2023-09-21] MEDS: Cyanocobalamin (Vitamin B-12) 500 MCG TABLET PO (09:01)
[2023-09-21] MEDS: Isosorbide Mononitrate 30 MG TAB.ER.24H PO (09:01)
--- NOTE | 2023-09-21 10:58 | HO.PM.IMPN ---
Subjective Subjective Date of Service: 09/21/23 Interval History: No acute issues overnight. Review of Systems Test chest pain Denies shortness of breath Denies nausea vomiting diarrhea Denies fever chills Physical Exam Vital Signs: Vital Signs: Last Vital Signs Temp 97.0 F 09/21/23 07:24 Pulse 65 09/21/23 07:24 Resp 17 09/21/23 07:24 BP 152/70 H 09/21/23 09:00 Pulse Ox 95 09/21/23 07:24 O2 Del Method Room Air 09/21/23 07:24 BMI result Body Mass Index 31.3 Const: Other: Awake alert no acute distress Resp: Other: Clear to auscultation bilaterally no rales rhonchi or wheezes Cardio: Other: No S4; positive S1-S2; no S3 murmurs rubs or gallops GI: Other: Soft nontender nondistended normoactive bowel sounds Extrem: Other: No edema bilaterally Objective Data Active Medications Acetaminophen (Acetaminophen 325 Mg Tablet) 650 mg PO Q6H PRN PRN Reason: Pain, Mild (Pain Scale 1-3), fever or headache Last Admin: 09/20/23 02:03 Dose: 650 mg Documented By: VIOLET Atorvastatin Calcium (Atorvastatin Calcium 40 Mg Tablet) 40 mg PO BEDTIME [facility] Last Admin: 09/20/23 20:51 Dose: 40 mg Documented By: SHARDA Cyanocobalamin (Cyanocobalamin (Vitamin B-12) 500 Mcg Tablet) 500 mcg PO DAILY [facility] Last Admin: 09/21/23 09:01 Dose: 500 mcg Documented By: RERE Escitalopram Oxalate (Escitalopram Oxalate 10 Mg Tablet) 10 mg PO DAILY [facility] Last Admin: 09/21/23 09:01 Dose: 10 mg Documented By: RERE Famotidine (Famotidine/Pf 20 Mg/2 Ml Vial) 20 mg IVPUSH DAILY [facility] Last Admin: 09/21/23 09:00 Dose: 20 mg Documented By: RERE Glucose (Glucose Gel 15 Gm Gel..Gram.) 15 gm PO Q15M PRN; Protocol PRN Reason: per Hypoglycemia Standing Ord. Heparin Sodium (Porcine) (Heparin Sodium,Porcine 5,000 Unit/Ml Vial) 5,000 unit SUBCUT Q12H [facility] Last Admin: 09/21/23 03:56 Dose: 5,000 unit Documented By: SHARDA Hydralazine HCl (Hydralazine Hcl 10 Mg Tablet) 10 mg PO TID [facility]; Protocol Last Admin: 09/21/23 09:00 Dose: 10 mg Documented By: RERE Dextrose (D10) 250 mls @ 750 mls/hr IV Q15M PRN; Protocol PRN Reason: per Hypoglycemia Standing Ord. Piperacillin Sod/Tazobactam (Sod 2.25 gm/ Sodium Chloride) 50 mls @ 100 mls/hr IV Q6H [facility] Last Infusion: 09/21/23 06:46 Dose: Infused Documented By: SHARDA Insulin Human Lispro (Insulin Lispro 100 Unit/Ml 3 Ml Vial) 0 unit SUBCUT QIDACHS [facility]; Protocol Last Admin: 09/21/23 09:00 Dose: 2 unit Documented By: RERE Isosorbide Mononitrate (Isosorbide Mononitrate 30 Mg Tab.Er.24h) 30 mg PO DAILY [facility]; Protocol Last Admin: 09/21/23 09:01 Dose: 30 mg Documented By: RERE Magnesium Oxide (Magnesium Oxide 400 Mg Tablet) 400 mg PO DAILY [facility] Last Admin: 09/21/23 09:00 Dose: 400 mg Documented By: RERE Memantine (Memantine Hcl 5 Mg Tablet) 5 mg PO BID [facility] Last Admin: 09/21/23 09:00 Dose: 5 mg Documented By: RERE Propranolol HCl (Propranolol Hcl 20 Mg Tablet) 20 mg PO BID [facility]; Protocol Last Admin: 09/21/23 09:00 Dose: 20 mg Documented By: RERE Sodium Chloride (0.9 % Sodium Chloride Flush 3 Ml Syringe) 3 ml IVFLUSH QSHIFT [facility] Last Admin: 09/21/23 09:00 Dose: 3 ml Documented By: RERE Tamsulosin HCl (Tamsulosin Hcl 0.4 Mg Capsule) 0.4 mg PO DAILY [facility] Last Admin: 09/21/23 09:00 Dose: 0.4 mg Documented By: RERE Labs 09/21/23 05:39 09/21/23 05:39 Labs: Laboratory Results - last 24 hr 09/20/23 09/20/23 09/20/23 11:37 16:22 20:13 MCV MCH MCHC RDW Plt Count MPV Immature Gran % (Auto) Neut % (Auto) Lymph % (Auto) [place] % (Auto) Eos % (Auto) Baso % (Auto) Lymph # (Auto) [place] # (Auto) Eos # (Auto) Baso # (Auto) Abs Immat Gran (auto) Absolute Neuts (auto) Absolute Nucleated RBC Nucleated RBC % (auto) Anion Gap Estim Creat Clear Calc Estimated GFR POC Glucose 247 H 283 H 247 H Fasting Glucose Calcium Total Bilirubin AST ALT Alkaline Phosphatase Total Protein Albumin 09/21/23 09/21/23 05:39 07:28 MCV 91.6 MCH 30.2 MCHC 33.0 RDW 13.2 Plt Count 272 MPV 9.7 Immature Gran % (Auto) 1.1 H Neut % (Auto) 82.6 H Lymph % (Auto) 7.2 L [place] % (Auto) 5.6 Eos % (Auto) 2.9 Baso % (Auto) 0.6 Lymph # (Auto) 0.9 L [place] # (Auto) 0.7 Eos # (Auto) 0.4 Baso # (Auto) 0.1 Abs Immat Gran (auto) 0.13 H Absolute Neuts (auto) 10.0 H Absolute Nucleated RBC 0.000 Nucleated RBC % (auto) 0.0 Anion Gap 14 Estim Creat Clear Calc 13.6 Estimated GFR 15 POC Glucose 165 H Fasting Glucose 195 H Calcium 9.4 D Total Bilirubin 0.3 AST 39 H ALT 26 Alkaline Phosphatase 151 H Total Protein 6.1 L Albumin 2.8 L Assessment and Plan (1) Encephalopathy: Status: Acute (2) Acute appendicitis: Status: Acute Plan 88yo M with HTN, DM2, dementia, mood disorder, HLD, BPH,admitted to Gen Surg for early appendicitis managed medically with antibiotics hospitalist consultation for management of comorbid medical conditions 1.Acute encephalopathy - likely hospital-associated delirium and seems to be improving - workup negative -continue to follow clinically 2.Early appendicitis -complete a 10 day course of Zosyn -we will DC and follow at this time 3.Pneumonia - completed course of Zosyn 4.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 -stabilize. Continue to follow renal/divalent 5.HTN -qacceptable control on current therapies - propranolol, Imdur, hydralazine 6.DM2 - acceptable control on current therapies -lispro correctional scale -adjust as indicated Quality Stroke Does the patient have a stroke diagnosis?: No VTE Prior VTE?: No VTE Risk Level:: Medical - moderate - high VTE Device Contraindication: N/A - Device Ordered VTE Drug Contraindication: Treatment Not Indicated
[2023-09-21 11:38] LABS: Glucose, Whole Blood 266 mg/dL (60-115)
[2023-09-21 16:14] LABS: Glucose, Whole Blood 240 mg/dL (60-115)
[2023-09-21 20:42] LABS: Glucose, Whole Blood 246 mg/dL (60-115)
[2023-09-21] MEDS: Atorvastatin Calcium 40 MG TABLET PO (21:21)
[2023-09-22] MEDS: Heparin Sodium,Porcine 5,000 UNIT/ML VIAL 5000 UNIT SUBCUT ×2 (03:56→16:45)
[2023-09-22 03:57] VITALS: BP 139/83; PULSE 68; RESP 16; TEMP 36.8; O2SAT 94
[2023-09-22 06:37] LABS: MANUAL DIFF FLAG NO
[2023-09-22 06:58] LABS: Basophils Absolute Auto 0.1 X10*3/uL (0.0-0.2); Basophils Percent Auto 0.5 % (0-2); Eosinophils Absolute Auto 0.3 X10*3/uL (0.0-0.4); Eosinophils Percent Auto 2.4 % (0-4); Hematocrit 30.2 % (42.0-52.0); Hemoglobin 9.7 g/dl (14.0-18.0); Imm Gran Abs Auto 0.15 X10*3/uL (0.00-0.03); Imm Gran Pct Auto 1.1 % (0.0-0.4); Lymphocytes Percent Auto 7.3 % (20-40); Mean Corpuscular HGB Conc 32.1 g/dl (31.0-36.0); Mean Corpuscular Hemoglobin 29.5 pg (27.0-33.0); Mean Corpuscular Volume 91.8 fL (80.0-98.0); Mean Platelet Volume 9.8 fL (9.4-12.4); Monocytes Absolute Auto 0.7 X10*3/uL (0.1-1.2); Monocytes Percent Auto 4.9 % (2-11); Neutrophils Absolute Auto 11.3 x10*3/uL (2.0-8.3); Neutrophils Percent Auto 83.8 % (45-73); Platelet Count 308 X10*3/uL (160-400); Red Blood Count 3.29 X10*6/uL (4.60-5.80); Red Cell Distribution Width 13.2 % (11.0-16.0); White Blood Count 13.5 X10*3/uL (4.8-10.8)
[2023-09-22 07:07] LABS: Alanine Aminotransferase 28 U/L (0-40); Alkaline Phosphatase 164 U/L (39-117); Anion Gap 12 (12-20); Aspartate Amino Transferase 40 U/L (5-37); Bilirubin Total 0.3 mg/dL (0.0-1.0); Blood Urea Nitrogen 30 mg/dL (9-16); Calcium 9.1 mg/dL (8.4-10.2); Carbon Dioxide 21 mmol/L (22-29); Chloride 111 mmol/L (96-108); Creatinine Clr Calc Pharmacy 15.4; Estimated Glomerular Filt Rate 17; Glucose Fasting 199 mg/dL (60-99); Potassium 3.3 mmol/L (3.3-5.1); Sodium 141 mmol/L (135-145); Total Protein 6.3 g/dL (6.5-8.0)
[2023-09-22 07:58] LABS: Glucose, Whole Blood 191 mg/dL (60-115)
[2023-09-22 08:00] VITALS: BP 164/60; PULSE 67; RESP 17; TEMP 37.1; O2SAT 94
[2023-09-22] MEDS: 0.9 % Sodium Chloride Flush 3 ML SYRINGE IVFLUSH ×3 (09:27→22:43)
[2023-09-22] MEDS: Cyanocobalamin (Vitamin B-12) 500 MCG TABLET PO (09:28)
[2023-09-22] MEDS: Tamsulosin HCL 0.4 MG CAPSULE PO (09:28)
[2023-09-22] MEDS: Famotidine/PF 20 MG/2 ML VIAL IVPUSH (09:28)
[2023-09-22] MEDS: Magnesium Oxide 400 MG TABLET PO (09:28)
[2023-09-22] MEDS: Propranolol HCL 20 MG TABLET PO ×2 (09:28→22:44)
[2023-09-22] MEDS: Isosorbide Mononitrate 30 MG TAB.ER.24H PO (09:28)
[2023-09-22] MEDS: Insulin Lispro 100 UNIT/ML 3 ML VIAL SUBCUT ×4 (09:28→22:44)
[2023-09-22] MEDS: Memantine HCl 5 MG TABLET PO ×2 (09:28→22:44)
[2023-09-22] MEDS: hydrALAZINE HCl 10 MG TABLET PO ×3 (09:28→22:44)
[2023-09-22] MEDS: Escitalopram Oxalate 10 MG TABLET PO (09:28)
[2023-09-22] MEDS: Piperacillin Sodium/Tazobactam 2.25 GM in 0.9 % Sodium Chloride 50 ML IV ×3 (09:34→22:43)
[2023-09-22 11:42] LABS: Glucose, Whole Blood 247 mg/dL (60-115)
--- NOTE | 2023-09-22 13:47 | HO.PM.IMPN ---
Subjective Subjective Date of Service: 09/22/23 Interval History: Episodic right lower quadrant pain overnight. Remains afebrile Review of Systems Test chest pain Denies shortness of breath Denies nausea vomiting diarrhea Denies fever chills Physical Exam Vital Signs: Vital Signs: Last Vital Signs Temp 98.7 F 09/22/23 08:00 Pulse 67 09/22/23 08:00 Resp 17 09/22/23 08:00 BP 164/60 H 09/22/23 08:00 Pulse Ox 94 09/22/23 08:00 O2 Del Method Room Air 09/22/23 08:00 BMI result Body Mass Index 31.3 Const: Other: Awake alert no acute distress Resp: Other: Clear to auscultation bilaterally no rales rhonchi or wheezes Cardio: Other: No S4; positive S1-S2; no S3 murmurs rubs or gallops GI: Other: Soft nontender nondistended normoactive bowel sounds Extrem: Other: No edema bilaterally Objective Data Active Medications Acetaminophen (Acetaminophen 325 Mg Tablet) 650 mg PO Q6H PRN PRN Reason: Pain, Mild (Pain Scale 1-3), fever or headache Last Admin: 09/20/23 02:03 Dose: 650 mg Documented By: VIOLET Atorvastatin Calcium (Atorvastatin Calcium 40 Mg Tablet) 40 mg PO BEDTIME [facility] Last Admin: 09/21/23 21:21 Dose: 40 mg Documented By: SHARDA Cyanocobalamin (Cyanocobalamin (Vitamin B-12) 500 Mcg Tablet) 500 mcg PO DAILY [facility] Last Admin: 09/22/23 09:28 Dose: 500 mcg Documented By: RERE Escitalopram Oxalate (Escitalopram Oxalate 10 Mg Tablet) 10 mg PO DAILY [facility] Last Admin: 09/22/23 09:28 Dose: 10 mg Documented By: RERE Famotidine (Famotidine/Pf 20 Mg/2 Ml Vial) 20 mg IVPUSH DAILY [facility] Last Admin: 09/22/23 09:28 Dose: 20 mg Documented By: RERE Glucose (Glucose Gel 15 Gm Gel..Gram.) 15 gm PO Q15M PRN; Protocol PRN Reason: per Hypoglycemia Standing Ord. Heparin Sodium (Porcine) (Heparin Sodium,Porcine 5,000 Unit/Ml Vial) 5,000 unit SUBCUT Q12H [facility] Last Admin: 09/22/23 03:56 Dose: 5,000 unit Documented By: SHARDA Hydralazine HCl (Hydralazine Hcl 10 Mg Tablet) 10 mg PO TID [facility]; Protocol Last Admin: 09/22/23 09:28 Dose: 10 mg Documented By: RERE Dextrose (D10) 250 mls @ 750 mls/hr IV Q15M PRN; Protocol PRN Reason: per Hypoglycemia Standing Ord. Piperacillin Sod/Tazobactam (Sod 2.25 gm/ Sodium Chloride) 50 mls @ 100 mls/hr IV Q6H [facility] Last Infusion: 09/22/23 10:13 Dose: Infused Documented By: RERE Insulin Human Lispro (Insulin Lispro 100 Unit/Ml 3 Ml Vial) 0 unit SUBCUT QIDACHS [facility]; Protocol Last Admin: 09/22/23 12:09 Dose: 4 unit Documented By: RERE Isosorbide Mononitrate (Isosorbide Mononitrate 30 Mg Tab.Er.24h) 30 mg PO DAILY [facility]; Protocol Last Admin: 09/22/23 09:28 Dose: 30 mg Documented By: RERE Magnesium Oxide (Magnesium Oxide 400 Mg Tablet) 400 mg PO DAILY [facility] Last Admin: 09/22/23 09:28 Dose: 400 mg Documented By: RERE Memantine (Memantine Hcl 5 Mg Tablet) 5 mg PO BID [facility] Last Admin: 09/22/23 09:28 Dose: 5 mg Documented By: RERE Propranolol HCl (Propranolol Hcl 20 Mg Tablet) 20 mg PO BID [facility]; Protocol Last Admin: 09/22/23 09:28 Dose: 20 mg Documented By: RERE Sodium Chloride (0.9 % Sodium Chloride Flush 3 Ml Syringe) 3 ml IVFLUSH QSHIFT [facility] Last Admin: 09/22/23 09:27 Dose: 3 ml Documented By: RERE Tamsulosin HCl (Tamsulosin Hcl 0.4 Mg Capsule) 0.4 mg PO DAILY [facility] Last Admin: 09/22/23 09:28 Dose: 0.4 mg Documented By: RERE Labs 09/22/23 06:12 09/22/23 06:12 Labs: Laboratory Results - last 24 hr 09/21/23 09/21/23 09/22/23 16:09 20:30 06:12 MCV 91.8 MCH 29.5 MCHC 32.1 RDW 13.2 Plt Count 308 MPV 9.8 Immature Gran % (Auto) 1.1 H Neut % (Auto) 83.8 H Lymph % (Auto) 7.3 L [place] % (Auto) 4.9 Eos % (Auto) 2.4 Baso % (Auto) 0.5 Lymph # (Auto) 1.0 L [place] # (Auto) 0.7 Eos # (Auto) 0.3 Baso # (Auto) 0.1 Abs Immat Gran (auto) 0.15 H Absolute Neuts (auto) 11.3 H Absolute Nucleated RBC 0.000 Nucleated RBC % (auto) 0.0 Anion Gap 12 Estim Creat Clear Calc 15.4 Estimated GFR 17 POC Glucose 240 H 246 H Fasting Glucose 199 H Calcium 9.1 Total Bilirubin 0.3 AST 40 H ALT 28 Alkaline Phosphatase 164 H Total Protein 6.3 L Albumin 3.0 L 09/22/23 09/22/23 07:53 11:36 MCV MCH MCHC RDW Plt Count MPV Immature Gran % (Auto) Neut % (Auto) Lymph % (Auto) [place] % (Auto) Eos % (Auto) Baso % (Auto) Lymph # (Auto) [place] # (Auto) Eos # (Auto) Baso # (Auto) Abs Immat Gran (auto) Absolute Neuts (auto) Absolute Nucleated RBC Nucleated RBC % (auto) Anion Gap Estim Creat Clear Calc Estimated GFR POC Glucose 191 H 247 H Fasting Glucose Calcium Total Bilirubin AST ALT Alkaline Phosphatase Total Protein Albumin Assessment and Plan (1) Encephalopathy: Status: Acute (2) IZABELLA (acute kidney injury): Status: Acute Plan 88yo M with HTN, DM2, dementia, mood disorder, HLD, BPH,admitted to Gen Surg for early appendicitis managed medically with antibiotics hospitalist consultation for management of comorbid medical conditions 1.Acute encephalopathy - likely hospital-associated delirium and seems to be improving - workup negative -continue to follow clinically 2.Early appendicitis -episode of right lower quadrant pain; repeat CT scan without significant changes -continue Zosyn will discuss with surgery in a.m. 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 -stabilize. Continue to follow renal/divalent 5.HTN -acceptable control on current therapies - propranolol, Imdur, hydralazine 6.DM2 - acceptable control on current therapies -lispro correctional scale -adjust as indicated Quality Stroke Does the patient have a stroke diagnosis?: No VTE Prior VTE?: No VTE Risk Level:: Medical - moderate - high VTE Device Contraindication: N/A - Device Ordered VTE Drug Contraindication: Treatment Not Indicated
[2023-09-22 16:00] VITALS: BP 140/76; PULSE 65; RESP 12; TEMP 36; O2SAT 95
[2023-09-22 16:34] LABS: Glucose, Whole Blood 269 mg/dL (60-115)
[2023-09-22 20:00] VITALS: BP 156/68; PULSE 67; RESP 20; TEMP 36.4; O2SAT 94
[2023-09-22 21:05] LABS: Glucose, Whole Blood 255 mg/dL (60-115)
[2023-09-22] MEDS: Atorvastatin Calcium 40 MG TABLET PO (22:44)
[2023-09-22 23:55] VITALS: BP 158/64; PULSE 70; RESP 18; TEMP 36.7; O2SAT 94
[2023-09-23] MEDS: Heparin Sodium,Porcine 5,000 UNIT/ML VIAL 5000 UNIT SUBCUT ×2 (04:04→15:22)
[2023-09-23] MEDS: Piperacillin Sodium/Tazobactam 2.25 GM in 0.9 % Sodium Chloride 50 ML IV ×4 (04:04→22:32)
--- NOTE | 2023-09-23 04:15 | PC.NURSE ---
pt at times confused, trying to jump out of bed to go home pt unable to recall why he is here and try to look for his , when told by staff that he can't walk home at 3AM, pt became aggressive and try to kick this editorial writer, was able to redirect after several attempts with good result, will cont to monitor
[2023-09-23 07:11] LABS: MANUAL DIFF FLAG NO
[2023-09-23 07:23] LABS: Basophils Absolute Auto 0.1 X10*3/uL (0.0-0.2); Basophils Percent Auto 0.6 % (0-2); Eosinophils Absolute Auto 0.4 X10*3/uL (0.0-0.4); Eosinophils Percent Auto 3.2 % (0-4); Hematocrit 28.8 % (42.0-52.0); Hemoglobin 9.5 g/dl (14.0-18.0); Imm Gran Abs Auto 0.12 X10*3/uL (0.00-0.03); Imm Gran Pct Auto 0.9 % (0.0-0.4); Lymphocytes Absolute Auto 0.9 X10*3/uL (1.2-4.9); Lymphocytes Percent Auto 6.2 % (20-40); Mean Corpuscular Hemoglobin 30.2 pg (27.0-33.0); Mean Corpuscular Volume 91.4 fL (80.0-98.0); Monocytes Absolute Auto 0.9 X10*3/uL (0.1-1.2); Monocytes Percent Auto 6.2 % (2-11); Neutrophils Absolute Auto 11.4 x10*3/uL (2.0-8.3); Neutrophils Percent Auto 82.9 % (45-73); Platelet Count 311 X10*3/uL (160-400); Red Blood Count 3.15 X10*6/uL (4.60-5.80); White Blood Count 13.7 X10*3/uL (4.8-10.8)
[2023-09-23 07:37] LABS: Alanine Aminotransferase 40 U/L (0-40); Alkaline Phosphatase 167 U/L (39-117); Anion Gap 14 (12-20); Aspartate Amino Transferase 53 U/L (5-37); Bilirubin Total 0.4 mg/dL (0.0-1.0); Blood Urea Nitrogen 28 mg/dL (9-16); Calcium 9.3 mg/dL (8.4-10.2); Carbon Dioxide 20 mmol/L (22-29); Chloride 109 mmol/L (96-108); Creatinine Clr Calc Pharmacy 15.4; Estimated Glomerular Filt Rate 17; Glucose Fasting 176 mg/dL (60-99); Potassium 3.3 mmol/L (3.3-5.1); Sodium 140 mmol/L (135-145); Total Protein 6.4 g/dL (6.5-8.0)
[2023-09-23 07:46] LABS: Glucose, Whole Blood 183 mg/dL (60-115)
[2023-09-23 07:58] VITALS: BP 160/74; PULSE 67; RESP 22; TEMP 36.1; O2SAT 94
[2023-09-23] MEDS: Famotidine/PF 20 MG/2 ML VIAL IVPUSH (09:15)
[2023-09-23] MEDS: Magnesium Oxide 400 MG TABLET PO (09:15)
[2023-09-23] MEDS: Memantine HCl 5 MG TABLET PO ×2 (09:15→22:33)
[2023-09-23] MEDS: Insulin Lispro 100 UNIT/ML 3 ML VIAL SUBCUT ×4 (09:15→22:33)
[2023-09-23] MEDS: Escitalopram Oxalate 10 MG TABLET PO (09:15)
[2023-09-23] MEDS: hydrALAZINE HCl 10 MG TABLET PO ×3 (09:15→22:33)
[2023-09-23] MEDS: Isosorbide Mononitrate 30 MG TAB.ER.24H PO (09:15)
[2023-09-23] MEDS: Propranolol HCL 20 MG TABLET PO ×2 (09:15→22:33)
[2023-09-23] MEDS: Tamsulosin HCL 0.4 MG CAPSULE PO (09:15)
[2023-09-23] MEDS: Cyanocobalamin (Vitamin B-12) 500 MCG TABLET PO (09:15)
--- NOTE | 2023-09-23 10:53 | P.PNIM_ITS ---
Subjective Subjective Date of Service: 09/23/23 Interval History: Continues to have rising white count despite antibiotics. Voices no complaints of pain today Review of Systems Denies chest pain Denies shortness of breath Denies nausea vomiting diarrhea Denies fever chills Physical Exam 2 Vital Signs: Vital Signs: Last Vital Signs Temp 97 F 09/23/23 07:58 Pulse 67 09/23/23 07:58 Resp 22 H 09/23/23 07:58 BP 160/74 H 09/23/23 07:58 Pulse Ox 94 09/23/23 07:58 O2 Del Method Room Air 09/23/23 07:58 BMI result Body Mass Index 31.3 Const: Other: Awake alert no acute distress Resp: Other: Clear to auscultation bilaterally no rales rhonchi or wheezes Cardio: Other: No S4; positive S1-S2; no S3 murmurs rubs or gallops GI: Other: Soft nontender nondistended normoactive bowel sounds Extrem: Other: No edema bilaterally Objective Data Active Medications Acetaminophen (Acetaminophen 325 Mg Tablet) 650 mg PO Q6H PRN PRN Reason: Pain, Mild (Pain Scale 1-3), fever or headache Last Admin: 09/20/23 02:03 Dose: 650 mg Documented By: VIOLET Atorvastatin Calcium (Atorvastatin Calcium 40 Mg Tablet) 40 mg PO BEDTIME [facility] Last Admin: 09/22/23 22:44 Dose: 40 mg Documented By: JESSE Cyanocobalamin (Cyanocobalamin (Vitamin B-12) 500 Mcg Tablet) 500 mcg PO DAILY [facility] Last Admin: 09/23/23 09:15 Dose: 500 mcg Documented By: SELENA Escitalopram Oxalate (Escitalopram Oxalate 10 Mg Tablet) 10 mg PO DAILY [facility] Last Admin: 09/23/23 09:15 Dose: 10 mg Documented By: SELENA Famotidine (Famotidine/Pf 20 Mg/2 Ml Vial) 20 mg IVPUSH DAILY [facility] Last Admin: 09/23/23 09:15 Dose: 20 mg Documented By: SELENA Glucose (Glucose Gel 15 Gm Gel..Gram.) 15 gm PO Q15M PRN; Protocol PRN Reason: per Hypoglycemia Standing Ord. Heparin Sodium (Porcine) (Heparin Sodium,Porcine 5,000 Unit/Ml Vial) 5,000 unit SUBCUT Q12H [facility] Last Admin: 09/23/23 04:04 Dose: 5,000 unit Documented By: JESSE Hydralazine HCl (Hydralazine Hcl 10 Mg Tablet) 10 mg PO TID [facility]; Protocol Last Admin: 09/23/23 09:15 Dose: 10 mg Documented By: SELENA Dextrose (D10) 250 mls @ 750 mls/hr IV Q15M PRN; Protocol PRN Reason: per Hypoglycemia Standing Ord. Piperacillin Sod/Tazobactam (Sod 2.25 gm/ Sodium Chloride) 50 mls @ 100 mls/hr IV Q6H [facility] Last Infusion: 09/23/23 09:46 Dose: Infused Documented By: SELENA Insulin Human Lispro (Insulin Lispro 100 Unit/Ml 3 Ml Vial) 0 unit SUBCUT QIDACHS [facility]; Protocol Last Admin: 09/23/23 09:15 Dose: 2 unit Documented By: SELENA Isosorbide Mononitrate (Isosorbide Mononitrate 30 Mg Tab.Er.24h) 30 mg PO DAILY [facility]; Protocol Last Admin: 09/23/23 09:15 Dose: 30 mg Documented By: SELENA Magnesium Oxide (Magnesium Oxide 400 Mg Tablet) 400 mg PO DAILY [facility] Last Admin: 09/23/23 09:15 Dose: 400 mg Documented By: SELENA Memantine (Memantine Hcl 5 Mg Tablet) 5 mg PO BID [facility] Last Admin: 09/23/23 09:15 Dose: 5 mg Documented By: SELENA Propranolol HCl (Propranolol Hcl 20 Mg Tablet) 20 mg PO BID [facility]; Protocol Last Admin: 09/23/23 09:15 Dose: 20 mg Documented By: SELENA Sodium Chloride (0.9 % Sodium Chloride Flush 3 Ml Syringe) 3 ml IVFLUSH QSHIFT [facility] Last Admin: 09/23/23 07:18 Dose: Not Given Documented By: SELENA Non-Admin Reason: Previously Administered Tamsulosin HCl (Tamsulosin Hcl 0.4 Mg Capsule) 0.4 mg PO DAILY [facility] Last Admin: 09/23/23 09:15 Dose: 0.4 mg Documented By: SELENA Labs 09/23/23 05:29 09/23/23 05:29 Labs: Laboratory Results - last 24 hr 09/22/23 09/22/23 09/22/23 11:36 16:31 21:02 MCV MCH MCHC RDW Plt Count MPV Immature Gran % (Auto) Neut % (Auto) Lymph % (Auto) [place] % (Auto) Eos % (Auto) Baso % (Auto) Lymph # (Auto) [place] # (Auto) Eos # (Auto) Baso # (Auto) Abs Immat Gran (auto) Absolute Neuts (auto) Absolute Nucleated RBC Nucleated RBC % (auto) Anion Gap Estim Creat Clear Calc Estimated GFR POC Glucose 247 H 269 H 255 H Fasting Glucose Calcium Total Bilirubin AST ALT Alkaline Phosphatase Total Protein Albumin 09/23/23 09/23/23 05:29 07:21 MCV 91.4 MCH 30.2 MCHC 33.0 RDW 13.0 Plt Count 311 MPV 10.0 Immature Gran % (Auto) 0.9 H Neut % (Auto) 82.9 H Lymph % (Auto) 6.2 L [place] % (Auto) 6.2 Eos % (Auto) 3.2 Baso % (Auto) 0.6 Lymph # (Auto) 0.9 L [place] # (Auto) 0.9 Eos # (Auto) 0.4 Baso # (Auto) 0.1 Abs Immat Gran (auto) 0.12 H Absolute Neuts (auto) 11.4 H Absolute Nucleated RBC 0.000 Nucleated RBC % (auto) 0.0 Anion Gap 14 Estim Creat Clear Calc 15.4 Estimated GFR 17 POC Glucose 183 H Fasting Glucose 176 H Calcium 9.3 Total Bilirubin 0.4 AST 53 H ALT 40 Alkaline Phosphatase 167 H Total Protein 6.4 L Albumin 3.0 L Assessment and Plan (1) Acute appendicitis: Status: Acute (2) IZABELLA (acute kidney injury): Status: Acute (3) Pneumonia: Status: Acute Plan 88yo M with HTN, DM2, dementia, mood disorder, HLD, BPH,admitted to Gen Surg for early appendicitis managed medically with antibiotics hospitalist consultation for management of comorbid medical conditions 1.Acute encephalopathy - likely hospital-associated delirium and seems to be improving - workup negative -continue to follow clinically 2.Early appendicitis -episode of right lower quadrant pain; repeat CT scan without significant changes -continue Zosyn .. 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 -stabilize. Continue to follow renal/divalent 5.HTN -acceptable control on current therapies - propranolol, Imdur, hydralazine 6.DM2 - acceptable control on current therapies -lispro correctional scale -adjust as indicated Quality Stroke Does the patient have a stroke diagnosis?: No VTE Prior VTE?: No VTE Risk Level:: Medical - moderate - high VTE Device Contraindication: N/A - Device Ordered VTE Drug Contraindication: Treatment Not Indicated
[2023-09-23 11:38] LABS: Glucose, Whole Blood 182 mg/dL (60-115)
--- NOTE | 2023-09-23 11:51 | MHC.SL.SWA ---
Speech Pathologist Impression: Oral phase dysphagia Risk of Aspiration Due to: Neurological Condition History of Pneumonia Reduced Cognition Dysphasia Diet Status: Recommend CHOPPED/ADVANCED SOLIDS (NDD3) and THIN LIQUIDS. MEDS WHOLE with LIQUIDS. Pt will benefit from TRAY SET-UP. Liquid Consistency and Strategies for Safe Swallow: Liquid Intake Recommendation: Thin Liquid Intake Strategies: Small Sips Solid Food Consistency: Dietary Recommendations: Chopped/Advanced (NDD3) Additional Modifications to Solid Foods: Further ST intervention no longer warranted at this level of care, as patient appears to be on safest, least restrictive diet. Patient is able to feed himself, but benefits from assistance with set up of tray. Continue to crush large pills if possible, otherwise administer whole one at a time with sips of liquid. Please re-refer with any changes or if ECHOCARDIOGRAPH TECHNICIAN can be of further assistance. Oral Medication Intake: Whole with Liquid Please contact the pharmacy regarding appropriate crushable or liquid drug formulations that are available whenever modified delivery is recommended. Compensatory Strategies and Precautions to be Taken for Safe Swallow: Sitting Upright (90 deg) Small Bites and Sips Alternate Liquids/Solids Rate of Ingestion Change Avoid Specific Foods Supervision While Eating and Drinking for Safe Swallow: Total Supervision (1:1) Foods to Avoid: Hard, tough to chew solids; mixed textures Swallowing Recommended Treatments: Compens. Strategy Educat. Recommendation for Speech: D/C Geriatrician Clinican/Clinical Fellow: No Supervisory Statement: I have reviewed and agree with the student/clinical fellow's documentation: N/A Speech Language Pathologist: Kathy Ramirez M.A., CCC-ECHOCARDIOGRAPH TECHNICIAN
[2023-09-23 15:28] VITALS: BP 164/74; PULSE 65; RESP 16; TEMP 36.2; O2SAT 95
[2023-09-23 16:11] LABS: Glucose, Whole Blood 221 mg/dL (60-115)
--- NOTE | 2023-09-23 16:26 | PM.PNNEP ---
Subjective Subjective Date of Service: 09/23/23 Interval history: Continues to have rising white count despite antibiotics. no complaints of pain today Physical Exam Vital Signs: Vital Signs: Last Vital Signs Temp 97.1 F 09/23/23 15:28 Pulse 65 09/23/23 15:28 Resp 16 09/23/23 15:28 BP 164/74 H 09/23/23 15:28 Pulse Ox 95 09/23/23 15:28 O2 Del Method Room Air 09/23/23 15:28 BMI result Body Mass Index 31.3 Const: General: no acute distress Eyes: EOM: EOMs intact bilaterally Neck: Neck: Yes supple Resp: Auscultation: diminished lung sounds Cardio: Rate: regular rate GI: Palpation (GI): Soft to palpation Neuro: General: moves all extremities Objective Data Labs 09/23/23 05:29 09/23/23 05:29 Labs: Laboratory Results - last 24 hr 09/22/23 09/22/23 09/23/23 16:31 21:02 05:29 WBC 13.7 H RBC 3.15 L Hgb 9.5 L Hct 28.8 L MCV 91.4 MCH 30.2 MCHC 33.0 RDW 13.0 Plt Count 311 MPV 10.0 Immature Gran % (Auto) 0.9 H Neut % (Auto) 82.9 H Lymph % (Auto) 6.2 L [place] % (Auto) 6.2 Eos % (Auto) 3.2 Baso % (Auto) 0.6 Lymph # (Auto) 0.9 L [place] # (Auto) 0.9 Eos # (Auto) 0.4 Baso # (Auto) 0.1 Abs Immat Gran (auto) 0.12 H Absolute Neuts (auto) 11.4 H Absolute Nucleated RBC 0.000 Nucleated RBC % (auto) 0.0 Sodium 140 Potassium 3.3 Chloride 109 H Carbon Dioxide 20 L Anion Gap 14 BUN 28 H Creatinine 3.45 H Estim Creat Clear Calc 15.4 Estimated GFR 17 POC Glucose 269 H 255 H Fasting Glucose 176 H Calcium 9.3 Total Bilirubin 0.4 AST 53 H ALT 40 Alkaline Phosphatase 167 H Total Protein 6.4 L Albumin 3.0 L 09/23/23 09/23/23 09/23/23 07:21 11:34 15:41 WBC RBC Hgb Hct MCV MCH MCHC RDW Plt Count MPV Immature Gran % (Auto) Neut % (Auto) Lymph % (Auto) [place] % (Auto) Eos % (Auto) Baso % (Auto) Lymph # (Auto) [place] # (Auto) Eos # (Auto) Baso # (Auto) Abs Immat Gran (auto) Absolute Neuts (auto) Absolute Nucleated RBC Nucleated RBC % (auto) Sodium Potassium Chloride Carbon Dioxide Anion Gap BUN Creatinine Estim Creat Clear Calc Estimated GFR POC Glucose 183 H 182 H 221 H Fasting Glucose Calcium Total Bilirubin AST ALT Alkaline Phosphatase Total Protein Albumin Microbiology Microbiology Results: Microbiology 09/13/23 14:07 Blood - Venous Blood Culture - Final No growth after 5 days. 09/13/23 14:07 Blood - Venous Blood Culture - Final No growth after 5 days. 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 Baseline creatinine is around 2.0 mg/dL. Had superimposed IZABELLA due to tubular injury. No evidence of obstruction. lisinopril on hold; Creatinine better/stable Concur with rest of current management Progress Note: Quality Stroke Does the patient have a stroke diagnosis?: No
--- NOTE | 2023-09-23 16:54 | PM.PNGS ---
Subjective Subjective Date of Service: 09/23/23 Interval history: Denies abdominal pain Tolerating diet well No fever Physical Exam Vital Signs: Vital Signs: Last Vital Signs Temp 97.1 F 09/23/23 15:28 Pulse 65 09/23/23 15:28 Resp 16 09/23/23 15:28 BP 164/74 H 09/23/23 15:28 Pulse Ox 95 09/23/23 15:28 O2 Del Method Room Air 09/23/23 15:28 BMI result Body Mass Index 31.3 Const: General: comfortable and no acute distress Resp: Effort & Inspection: normal respiratory effort Cardio: Rate: regular rate GI: Palpation (GI): Soft to palpation, not firm and nontender Objective Data Active Medications Acetaminophen (Acetaminophen 325 Mg Tablet) 650 mg PO Q6H PRN PRN Reason: Pain, Mild (Pain Scale 1-3), fever or headache Last Admin: 09/20/23 02:03 Dose: 650 mg Documented By: VIOLET Atorvastatin Calcium (Atorvastatin Calcium 40 Mg Tablet) 40 mg PO BEDTIME [facility] TO [facility] Last Admin: 09/22/23 22:44 Dose: 40 mg Documented By: JESSE Cyanocobalamin (Cyanocobalamin (Vitamin B-12) 500 Mcg Tablet) 500 mcg PO DAILY [facility] Last Admin: 09/23/23 09:15 Dose: 500 mcg Documented By: SELENA Escitalopram Oxalate (Escitalopram Oxalate 10 Mg Tablet) 10 mg PO DAILY [facility] Last Admin: 09/23/23 09:15 Dose: 10 mg Documented By: SELENA Famotidine (Famotidine/Pf 20 Mg/2 Ml Vial) 20 mg IVPUSH DAILY [facility] Last Admin: 09/23/23 09:15 Dose: 20 mg Documented By: SELENA Glucose (Glucose Gel 15 Gm Gel..Gram.) 15 gm PO Q15M PRN; Protocol PRN Reason: per Hypoglycemia Standing Ord. Heparin Sodium (Porcine) (Heparin Sodium,Porcine 5,000 Unit/Ml Vial) 5,000 unit SUBCUT Q12H [facility] Last Admin: 09/23/23 15:22 Dose: 5,000 unit Documented By: SELENA Hydralazine HCl (Hydralazine Hcl 10 Mg Tablet) 10 mg PO TID [facility]; Protocol Last Admin: 09/23/23 15:22 Dose: 10 mg Documented By: SELENA Dextrose (D10) 250 mls @ 750 mls/hr IV Q15M PRN; Protocol PRN Reason: per Hypoglycemia Standing Ord. Piperacillin Sod/Tazobactam (Sod 2.25 gm/ Sodium Chloride) 50 mls @ 100 mls/hr IV Q6H [facility] Last Infusion: 09/23/23 16:01 Dose: Infused Documented By: SELENA Insulin Human Lispro (Insulin Lispro 100 Unit/Ml 3 Ml Vial) 0 unit SUBCUT QIDACHS [facility]; Protocol Last Admin: 09/23/23 16:30 Dose: 4 unit Documented By: SELENA Isosorbide Mononitrate (Isosorbide Mononitrate 30 Mg Tab.Er.24h) 30 mg PO DAILY [facility]; Protocol Last Admin: 09/23/23 09:15 Dose: 30 mg Documented By: SELENA Magnesium Oxide (Magnesium Oxide 400 Mg Tablet) 400 mg PO DAILY [facility] Last Admin: 09/23/23 09:15 Dose: 400 mg Documented By: SELENA Memantine (Memantine Hcl 5 Mg Tablet) 5 mg PO BID [facility] Last Admin: 09/23/23 09:15 Dose: 5 mg Documented By: SELENA Propranolol HCl (Propranolol Hcl 20 Mg Tablet) 20 mg PO BID [facility]; Protocol Last Admin: 09/23/23 09:15 Dose: 20 mg Documented By: SELENA Sodium Chloride (0.9 % Sodium Chloride Flush 3 Ml Syringe) 3 ml IVFLUSH QSHIFT [facility] Last Admin: 09/23/23 14:18 Dose: Not Given Documented By: SELENA Non-Admin Reason: Previously Administered Tamsulosin HCl (Tamsulosin Hcl 0.4 Mg Capsule) 0.4 mg PO DAILY [facility] Last Admin: 09/23/23 09:15 Dose: 0.4 mg Documented By: SELENA Labs 09/23/23 05:29 09/23/23 05:29 Labs: Laboratory Results - last 24 hr 09/22/23 09/23/23 09/23/23 21:02 05:29 07:21 MCV 91.4 MCH 30.2 MCHC 33.0 RDW 13.0 Plt Count 311 MPV 10.0 Immature Gran % (Auto) 0.9 H Neut % (Auto) 82.9 H Lymph % (Auto) 6.2 L [place] % (Auto) 6.2 Eos % (Auto) 3.2 Baso % (Auto) 0.6 Lymph # (Auto) 0.9 L [place] # (Auto) 0.9 Eos # (Auto) 0.4 Baso # (Auto) 0.1 Abs Immat Gran (auto) 0.12 H Absolute Neuts (auto) 11.4 H Absolute Nucleated RBC 0.000 Nucleated RBC % (auto) 0.0 Anion Gap 14 Estim Creat Clear Calc 15.4 Estimated GFR 17 POC Glucose 255 H 183 H Fasting Glucose 176 H Calcium 9.3 Total Bilirubin 0.4 AST 53 H ALT 40 Alkaline Phosphatase 167 H Total Protein 6.4 L Albumin 3.0 L 09/23/23 09/23/23 11:34 15:41 MCV MCH MCHC RDW Plt Count MPV Immature Gran % (Auto) Neut % (Auto) Lymph % (Auto) [place] % (Auto) Eos % (Auto) Baso % (Auto) Lymph # (Auto) [place] # (Auto) Eos # (Auto) Baso # (Auto) Abs Immat Gran (auto) Absolute Neuts (auto) Absolute Nucleated RBC Nucleated RBC % (auto) Anion Gap Estim Creat Clear Calc Estimated GFR POC Glucose 182 H 221 H Fasting Glucose Calcium Total Bilirubin AST ALT Alkaline Phosphatase Total Protein Albumin Procedures Date of Service Date of Service: 09/23/23 Progress Note: A&P Assessment and plan (1) Abdominal pain of unknown cause: Status: Acute Assessment and Plan: Repeat CT scan does not show significant inflammatory process Has ascites and anasarca Overall looks well No fever Good GI function No tenderness Rest of care as per hospitalist service Discussed with family - patient for rehab placement Time Spent With Patient Time: Total time managing care of this patient today ____ minutes. Quality Stroke Does the patient have a stroke diagnosis?: No VTE Prior VTE?: No VTE Risk Level:: Medical - moderate - high VTE Device Contraindication: N/A - Device Ordered VTE Drug Contraindication: Treatment Not Indicated
[2023-09-23 19:31] VITALS: BP 166/73; PULSE 67; RESP 20; TEMP 36.3; O2SAT 95
[2023-09-23 19:51] LABS: Glucose, Whole Blood 275 mg/dL (60-115)
[2023-09-23] MEDS: 0.9 % Sodium Chloride Flush 3 ML SYRINGE IVFLUSH (22:32)
[2023-09-23] MEDS: Atorvastatin Calcium 40 MG TABLET PO (22:33)
[2023-09-24 04:00] VITALS: BP 169/80; PULSE 65; RESP 16; TEMP 36; O2SAT 94
[2023-09-24] MEDS: Heparin Sodium,Porcine 5,000 UNIT/ML VIAL 5000 UNIT SUBCUT ×2 (05:11→16:07)
[2023-09-24] MEDS: Piperacillin Sodium/Tazobactam 2.25 GM in 0.9 % Sodium Chloride 50 ML IV ×4 (05:14→22:28)
[2023-09-24 06:58] LABS: MANUAL DIFF FLAG NO
[2023-09-24 07:07] LABS: Basophils Absolute Auto 0.1 X10*3/uL (0.0-0.2); Basophils Percent Auto 0.6 % (0-2); Eosinophils Absolute Auto 0.4 X10*3/uL (0.0-0.4); Eosinophils Percent Auto 3.2 % (0-4); Hematocrit 26.2 % (42.0-52.0); Hemoglobin 8.9 g/dl (14.0-18.0); Imm Gran Abs Auto 0.08 X10*3/uL (0.00-0.03); Imm Gran Pct Auto 0.7 % (0.0-0.4); Lymphocytes Absolute Auto 0.9 X10*3/uL (1.2-4.9); Lymphocytes Percent Auto 7.9 % (20-40); Mean Corpuscular Hemoglobin 30.5 pg (27.0-33.0); Mean Corpuscular Volume 89.7 fL (80.0-98.0); Mean Platelet Volume 9.8 fL (9.4-12.4); Monocytes Absolute Auto 0.7 X10*3/uL (0.1-1.2); Monocytes Percent Auto 6.5 % (2-11); Neutrophils Absolute Auto 8.7 x10*3/uL (2.0-8.3); Neutrophils Percent Auto 81.1 % (45-73); Platelet Count 266 X10*3/uL (160-400); Red Blood Count 2.92 X10*6/uL (4.60-5.80); White Blood Count 10.8 X10*3/uL (4.8-10.8)
[2023-09-24 07:25] LABS: Alanine Aminotransferase 32 U/L (0-40); Albumin Level 2.7 g/dL (3.5-5.0); Alkaline Phosphatase 149 U/L (39-117); Anion Gap 11 (12-20); Aspartate Amino Transferase 39 U/L (5-37); Bilirubin Total 0.3 mg/dL (0.0-1.0); Blood Urea Nitrogen 26 mg/dL (9-16); Calcium 8.9 mg/dL (8.4-10.2); Carbon Dioxide 20 mmol/L (22-29); Chloride 111 mmol/L (96-108); Creatinine Clr Calc Pharmacy 15.2; Estimated Glomerular Filt Rate 17; Glucose Fasting 184 mg/dL (60-99); Potassium 3.4 mmol/L (3.3-5.1); Sodium 139 mmol/L (135-145); Total Protein 5.7 g/dL (6.5-8.0)
[2023-09-24 07:26] VITALS: BP 181/81; PULSE 61; RESP 18; TEMP 36.1; O2SAT 94
[2023-09-24 07:42] LABS: Glucose, Whole Blood 163 mg/dL (60-115)
[2023-09-24] MEDS: Propranolol HCL 20 MG TABLET PO ×2 (08:20→20:18)
[2023-09-24] MEDS: 0.9 % Sodium Chloride Flush 3 ML SYRINGE IVFLUSH ×2 (08:20→16:07)
[2023-09-24] MEDS: Famotidine/PF 20 MG/2 ML VIAL IVPUSH (08:20)
[2023-09-24] MEDS: Isosorbide Mononitrate 30 MG TAB.ER.24H PO (08:20)
[2023-09-24] MEDS: hydrALAZINE HCl 10 MG TABLET PO ×3 (08:20→20:18)
[2023-09-24] MEDS: Tamsulosin HCL 0.4 MG CAPSULE PO (08:20)
[2023-09-24] MEDS: Cyanocobalamin (Vitamin B-12) 500 MCG TABLET PO (08:21)
[2023-09-24] MEDS: Memantine HCl 5 MG TABLET PO ×2 (08:21→20:18)
[2023-09-24] MEDS: Escitalopram Oxalate 10 MG TABLET PO (08:21)
[2023-09-24] MEDS: Magnesium Oxide 400 MG TABLET PO (08:21)
[2023-09-24 08:46] VITALS: PULSE 61; O2SAT 94
[2023-09-24 11:05] LABS: Glucose, Whole Blood 214 mg/dL (60-115)
[2023-09-24] MEDS: Insulin Lispro 100 UNIT/ML 3 ML VIAL SUBCUT ×3 (12:04→20:17)
--- NOTE | 2023-09-24 12:56 | P.PNNP_ITS ---
Subjective Subjective Date of Service: 09/24/23 Interval history: Events noted. All recent data reviewed. Physical Exam 2 Vital Signs: Vital Signs: Last Vital Signs Temp 96.9 F 09/24/23 07:26 Pulse 61 09/24/23 08:46 Resp 18 09/24/23 07:26 BP 181/81 H 09/24/23 07:26 Pulse Ox 94 09/24/23 08:46 O2 Del Method Room Air 09/24/23 07:26 BMI result Body Mass Index 31.3 Const: General: no acute distress Eyes: EOM: EOMs intact bilaterally Neck: Neck: Yes supple Resp: Auscultation: diminished lung sounds Cardio: Rate: regular rate GI: Palpation (GI): Soft to palpation Neuro: General: moves all extremities Objective Data Labs 09/24/23 06:50 09/24/23 06:50 Labs: Laboratory Results - last 24 hr 09/23/23 09/23/23 09/24/23 15:41 19:38 06:50 WBC 10.8 RBC 2.92 L Hgb 8.9 L Hct 26.2 L MCV 89.7 MCH 30.5 MCHC 34.0 RDW 13.0 Plt Count 266 MPV 9.8 Immature Gran % (Auto) 0.7 H Neut % (Auto) 81.1 H Lymph % (Auto) 7.9 L [place] % (Auto) 6.5 Eos % (Auto) 3.2 Baso % (Auto) 0.6 Lymph # (Auto) 0.9 L [place] # (Auto) 0.7 Eos # (Auto) 0.4 Baso # (Auto) 0.1 Abs Immat Gran (auto) 0.08 H Absolute Neuts (auto) 8.7 H Absolute Nucleated RBC 0.000 Nucleated RBC % (auto) 0.0 Sodium 139 Potassium 3.4 Chloride 111 H Carbon Dioxide 20 L Anion Gap 11 L BUN 26 H Creatinine 3.50 H Estim Creat Clear Calc 15.2 Estimated GFR 17 POC Glucose 221 H 275 H Fasting Glucose 184 H Calcium 8.9 Total Bilirubin 0.3 AST 39 H ALT 32 Alkaline Phosphatase 149 H Total Protein 5.7 L Albumin 2.7 L 09/24/23 09/24/23 07:31 10:59 WBC RBC Hgb Hct MCV MCH MCHC RDW Plt Count MPV Immature Gran % (Auto) Neut % (Auto) Lymph % (Auto) [place] % (Auto) Eos % (Auto) Baso % (Auto) Lymph # (Auto) [place] # (Auto) Eos # (Auto) Baso # (Auto) Abs Immat Gran (auto) Absolute Neuts (auto) Absolute Nucleated RBC Nucleated RBC % (auto) Sodium Potassium Chloride Carbon Dioxide Anion Gap BUN Creatinine Estim Creat Clear Calc Estimated GFR POC Glucose 163 H 214 H Fasting Glucose Calcium Total Bilirubin AST ALT Alkaline Phosphatase Total Protein Albumin Microbiology Microbiology Results: Microbiology 09/13/23 14:07 Blood - Venous Blood Culture - Final No growth after 5 days. 09/13/23 14:07 Blood - Venous Blood Culture - Final No growth after 5 days. 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 Baseline creatinine is around 2.0 mg/dL. Had superimposed IZABELLA due to tubular injury. No evidence of obstruction. lisinopril on hold; Creatinine better/stable Concur with rest of current management Progress Note: Quality Stroke Does the patient have a stroke diagnosis?: No
--- NOTE | 2023-09-24 15:58 | PM.DS ---
DS: Providers Provider Date of Service: 09/24/23 Date of admission: 09/11/23 05:47 Primary care physician: MELISA Rivera Consults: 09/11/23 05:47 Consult to Hospitalist Routine Comment: Consulting Provider: Hospitalist Reason For Exam: med management and antibx renal issues 09/11/23 11:47 Consult to Hospitalist Routine Comment: Consulting Provider: Hospitalist Reason For Exam: elevated crea, DM 09/12/23 13:03 Consult to Nephrology Routine Consulting Provider: [facility] Reason for consultation: IZABELLA on CKD Has provider been notified: No 09/15/23 13:11 Consult to Psychiatry Routine Consulting Provider: [facility] Reason for consultation: h/o dementia; agitation, hallucinating Has provider been notified: No 09/16/23 11:15 Consult to Neurology Routine Consulting Provider: [facility] Reason for consultation: h/o dementia; agitation, hallucinating DS: Diagnosis Discharge Diagnosis (1) IZABELLA (acute kidney injury): Status: Acute DS: Summary Hospital Course Hospital Course: 88-year-old male admitted by Dr. Lomeli on 09/11/2023 because of abdominal pain. He has known diabetes, chronic kidney disease. His CAT scan showed some mild inflammatory changes in the right lower quadrant near the appendix suggestive of early appendicitis. However, he also had other areas with fat stranding in the mesentery on other places in the abdomen. Discussions with the family were made as to options and they did not want to proceed with any surgical intervention because of his multiple medical problems and advanced age. The patient was placed NPO initially with IV fluids. He was started on some clear liquids the day after admission but continued to have some abdominal pain so a follow-up CT scan was done on September 13, 2023. This showed some improvement of the inflammatory changes in the right side of the abdomen. His abdominal pain had persisted although seemed to improve slowly with time. I was able to advance his diet slowly as well. He did not have any leukocytosis. His abdominal exam remained benign. He did not and we significant vomiting He did have some altered mental status with hallucinations and significant confusion on weekend of 09/13 to September 14. This was deemed to be secondary to delirium. His creatinine levels were continuously elevated. Nephrology was consulted. This was deemed to be likely secondary to chronic kidney disease from his diabetes His mental status had improved significantly on September 16, 2023. Imaging studies did not show any acute intracranial pathology but this did showed cerebral atrophy consistent with this dementia. He was started on clear liquids and this was gradually advanced. He continued to tolerate this well. He continued to have improvement of his mental status back to baseline. His creatinine levels remained stable around 3.5. He had a repeat CT scan during this admission which failed to demonstrate any changes save some mild ascites. This was discussed with Dr. Maldonado who felt the tap was not indicated. At this point in time he is medically acceptable to be discharged home and receive PT and nursing services He was cleared for discharge by the nephrology service. Time Attestation Discharge Coordination Time (in mins): 35 Quality: Safe Use of Opioids Does Pt have an Active Cancer Diagnosis on the Problem List?: No Quality: Stroke Does the patient have a stroke diagnosis?: No Physical Exam Vital Signs: Vital Signs: Last Vital Signs Temp 96.9 F 09/24/23 07:26 Pulse 61 09/24/23 08:46 Resp 18 09/24/23 07:26 BP 181/81 H 09/24/23 07:26 Pulse Ox 94 09/24/23 08:46 O2 Del Method Room Air 09/24/23 07:26 BMI result Body Mass Index 31.3 Const: Other: Awake alert no acute distress Resp: Other: Clear to auscultation bilaterally no rales rhonchi or wheezes Cardio: Other: No S4; positive S1-S2; no S3 murmurs rubs or gallops GI: Other: Soft nontender nondistended normoactive bowel sounds Extrem: Other: No edema bilaterally DS: Data Data Completed and Pending Labs on day of discharge: Laboratory Results - last 24 hr 09/23/23 09/23/23 09/24/23 15:41 19:38 06:50 WBC 10.8 RBC 2.92 L Hgb 8.9 L Hct 26.2 L MCV 89.7 MCH 30.5 MCHC 34.0 RDW 13.0 Plt Count 266 MPV 9.8 Immature Gran % (Auto) 0.7 H Neut % (Auto) 81.1 H Lymph % (Auto) 7.9 L [place] % (Auto) 6.5 Eos % (Auto) 3.2 Baso % (Auto) 0.6 Lymph # (Auto) 0.9 L [place] # (Auto) 0.7 Eos # (Auto) 0.4 Baso # (Auto) 0.1 Abs Immat Gran (auto) 0.08 H Absolute Neuts (auto) 8.7 H Absolute Nucleated RBC 0.000 Nucleated RBC % (auto) 0.0 Sodium 139 Potassium 3.4 Chloride 111 H Carbon Dioxide 20 L Anion Gap 11 L BUN 26 H Creatinine 3.50 H Estim Creat Clear Calc 15.2 Estimated GFR 17 POC Glucose 221 H 275 H Fasting Glucose 184 H Calcium 8.9 Total Bilirubin 0.3 AST 39 H ALT 32 Alkaline Phosphatase 149 H Total Protein 5.7 L Albumin 2.7 L 09/24/23 09/24/23 07:31 10:59 WBC RBC Hgb Hct MCV MCH MCHC RDW Plt Count MPV Immature Gran % (Auto) Neut % (Auto) Lymph % (Auto) [place] % (Auto) Eos % (Auto) Baso % (Auto) Lymph # (Auto) [place] # (Auto) Eos # (Auto) Baso # (Auto) Abs Immat Gran (auto) Absolute Neuts (auto) Absolute Nucleated RBC Nucleated RBC % (auto) Sodium Potassium Chloride Carbon Dioxide Anion Gap BUN Creatinine Estim Creat Clear Calc Estimated GFR POC Glucose 163 H 214 H Fasting Glucose Calcium Total Bilirubin AST ALT Alkaline Phosphatase Total Protein Albumin Discharge Plan Discharge Anticipated Discharge Date/Time: 09/25/23 11:34 Patient Disposition: Home Health Service Discharge Diagnosis: Acute appendicitis Referrals: [facility] [Other] - 1 Week Kristy Pisano PA [Primary Care Provider] - 1 Week Discharge Medications: New isosorbide mononitrate 30 mg Tablet Extended Release 24 Hr 30 mg PO DAILY Qty: 30 0RF Protocol: Hold for SBP< HOLD for SBP < : 90 amoxicillin-pot clavulanate 875-125 mg tablet 1 tab PO BID Qty: 10 0RF hydralazine 25 mg Tablet 25 mg PO TID Qty: 90 0RF Protocol: Hold for SBP< HOLD for SBP < : 90 Continued (DME) FreeStyle [place] 2 Sensor Kit See Rx Instructions .Route Qty: 2 4RF Rx Instructions: As directed change every 14 days multivitamin Tablet 1 tab PO DAILY cyanocobalamin (vitamin B-12) [Vitamin B-12] 500 mcg Tablet 500 mcg PO DAILY propranolol 20 mg tablet 20 mg PO BID Trulicity 1.5 mg/0.5 mL pen injector 1.5 mg subcut SA memantine 5 mg tablet 5 mg PO BID (DME) pen needle, diabetic [BD Ultra-Fine Short Pen Needle] 31 gauge x 5/16 needle See Rx Instructions .ROUTE DAILY Qty: 1200 Rx Instructions: As directed once a day atorvastatin 40 mg tablet 40 mg PO BEDTIME (DME) FreeStyle Lite Strips Strip See Rx Instructions .ROUTE BID Qty: 10 Rx Instructions: As directed two times a day (DME) lancets [FreeStyle Lancets] 28 gauge misc See Rx Instructions .ROUTE DAILY Qty: 100 Rx Instructions: As directed two times a day torsemide 20 mg tablet 20 mg PO DAILY magnesium oxide 400 mg (241.3 mg magnesium) tablet 400 mg PO DAILY insulin glargine [Lantus Solostar U-100 Insulin] 100 unit/mL (3 mL) insulin pen 40 unit subcut BEDTIME escitalopram oxalate 20 mg tablet 20 mg PO DAILY tamsulosin 0.4 mg capsule 0.4 mg PO DAILY (DME) blood-glucose meter [FreeStyle [place]] Kit See Rx Instructions .Route Qty: 1 0RF Rx Instructions: As directed checks 4 X/day (DME) FreeStyle [place] 2 [place] Misc See Rx Instructions .Route Qty: 1 0RF Rx Instructions: As directed Discontinued lisinopril 40 mg tablet 40 mg PO DAILY Discharge Orders: Discharge Order (Routine); Ordered 09/25/23 Ordered By: Maria Teresa Vizcarra Diet: Advance to usual diet Activity on Discharge: As tolerated Stand Alone Forms: Patient Portal Discharge page Print Language: Spanish Care Plan Goals: Resume all medicines as above stop losartan Started on 2 new blood pressure medication hydralazine 25 mg 3 times a day, and Isordil 30 mg 1 tablet daily Health Concerns: Complete course of Augmentin twice daily for 5 days Plan of Treatment: Hydralazine and isosorbide has been added to your regimen. Take as ordered Outpatient follow-up with primary care physician and associate web developer Dr. Rivero /Dr. Fay call for appointment Assessment: See discharge summary Discharge Date/Time: 09/25/23 13:50
--- NOTE | 2023-09-24 16:00 | HO.PM.IMPN ---
Subjective Subjective Date of Service: 09/24/23 Interval History: Continues to improve. Still with some vague abdominal pain but remains afebrile. Review of Systems Denies chest pain Denies shortness of breath Denies nausea vomiting diarrhea Denies fever chills Physical Exam Vital Signs: Vital Signs: Last Vital Signs Temp 96.9 F 09/24/23 07:26 Pulse 61 09/24/23 08:46 Resp 18 09/24/23 07:26 BP 181/81 H 09/24/23 07:26 Pulse Ox 94 09/24/23 08:46 O2 Del Method Room Air 09/24/23 07:26 BMI result Body Mass Index 31.3 Const: Other: Awake alert no acute distress Resp: Other: Clear to auscultation bilaterally no rales rhonchi or wheezes Cardio: Other: No S4; positive S1-S2; no S3 murmurs rubs or gallops GI: Other: Soft nontender nondistended normoactive bowel sounds Extrem: Other: No edema bilaterally Objective Data Active Medications Acetaminophen (Acetaminophen 325 Mg Tablet) 650 mg PO Q6H PRN PRN Reason: Pain, Mild (Pain Scale 1-3), fever or headache Last Admin: 09/20/23 02:03 Dose: 650 mg Documented By: VIOLET Atorvastatin Calcium (Atorvastatin Calcium 40 Mg Tablet) 40 mg PO BEDTIME [facility] Last Admin: 09/23/23 22:33 Dose: 40 mg Documented By: JESSE Cyanocobalamin (Cyanocobalamin (Vitamin B-12) 500 Mcg Tablet) 500 mcg PO DAILY [facility] Last Admin: 09/24/23 08:21 Dose: 500 mcg Documented By: FLORESITA Escitalopram Oxalate (Escitalopram Oxalate 10 Mg Tablet) 10 mg PO DAILY [facility] Last Admin: 09/24/23 08:21 Dose: 10 mg Documented By: FLORESITA Famotidine (Famotidine/Pf 20 Mg/2 Ml Vial) 20 mg IVPUSH DAILY [facility] Last Admin: 09/24/23 08:20 Dose: 20 mg Documented By: FLORESITA Glucose (Glucose Gel 15 Gm Gel..Gram.) 15 gm PO Q15M PRN; Protocol PRN Reason: per Hypoglycemia Standing Ord. Heparin Sodium (Porcine) (Heparin Sodium,Porcine 5,000 Unit/Ml Vial) 5,000 unit SUBCUT Q12H [facility] Last Admin: 09/24/23 05:11 Dose: 5,000 unit Documented By: JESSE Hydralazine HCl (Hydralazine Hcl 10 Mg Tablet) 10 mg PO TID [facility]; Protocol Last Admin: 09/24/23 08:20 Dose: 10 mg Documented By: FLORESITA Dextrose (D10) 250 mls @ 750 mls/hr IV Q15M PRN; Protocol PRN Reason: per Hypoglycemia Standing Ord. Piperacillin Sod/Tazobactam (Sod 2.25 gm/ Sodium Chloride) 50 mls @ 100 mls/hr IV Q6H [facility] Last Infusion: 09/24/23 11:14 Dose: Infused Documented By: FLORESITA Insulin Human Lispro (Insulin Lispro 100 Unit/Ml 3 Ml Vial) 0 unit SUBCUT QIDACHS [facility]; Protocol Last Admin: 09/24/23 12:04 Dose: 4 unit Documented By: FLORESITA Isosorbide Mononitrate (Isosorbide Mononitrate 30 Mg Tab.Er.24h) 30 mg PO DAILY [facility]; Protocol Last Admin: 09/24/23 08:20 Dose: 30 mg Documented By: FLORESITA Magnesium Oxide (Magnesium Oxide 400 Mg Tablet) 400 mg PO DAILY [facility] Last Admin: 09/24/23 08:21 Dose: 400 mg Documented By: FLORESITA Memantine (Memantine Hcl 5 Mg Tablet) 5 mg PO BID [facility] Last Admin: 09/24/23 08:21 Dose: 5 mg Documented By: FLORESITA Propranolol HCl (Propranolol Hcl 20 Mg Tablet) 20 mg PO BID [facility]; Protocol Last Admin: 09/24/23 08:20 Dose: 20 mg Documented By: FLORESITA Sodium Chloride (0.9 % Sodium Chloride Flush 3 Ml Syringe) 3 ml IVFLUSH QSHIFT [facility] Last Admin: 09/24/23 08:20 Dose: 3 ml Documented By: FLORESITA Tamsulosin HCl (Tamsulosin Hcl 0.4 Mg Capsule) 0.4 mg PO DAILY [facility] Last Admin: 09/24/23 08:20 Dose: 0.4 mg Documented By: FLORESITA Labs 09/24/23 06:50 08/06/24 06:50 Labs: Laboratory Results - last 24 hr 09/23/23 09/23/23 09/24/23 15:41 19:38 06:50 MCV 89.7 MCH 30.5 MCHC 34.0 RDW 13.0 Plt Count 266 MPV 9.8 Immature Gran % (Auto) 0.7 H Neut % (Auto) 81.1 H Lymph % (Auto) 7.9 L [place] % (Auto) 6.5 Eos % (Auto) 3.2 Baso % (Auto) 0.6 Lymph # (Auto) 0.9 L [place] # (Auto) 0.7 Eos # (Auto) 0.4 Baso # (Auto) 0.1 Abs Immat Gran (auto) 0.08 H Absolute Neuts (auto) 8.7 H Absolute Nucleated RBC 0.000 Nucleated RBC % (auto) 0.0 Anion Gap 11 L Estim Creat Clear Calc 15.2 Estimated GFR 17 POC Glucose 221 H 275 H Fasting Glucose 184 H Calcium 8.9 Total Bilirubin 0.3 AST 39 H ALT 32 Alkaline Phosphatase 149 H Total Protein 5.7 L Albumin 2.7 L 09/24/23 09/24/23 07:31 10:59 MCV MCH MCHC RDW Plt Count MPV Immature Gran % (Auto) Neut % (Auto) Lymph % (Auto) [place] % (Auto) Eos % (Auto) Baso % (Auto) Lymph # (Auto) [place] # (Auto) Eos # (Auto) Baso # (Auto) Abs Immat Gran (auto) Absolute Neuts (auto) Absolute Nucleated RBC Nucleated RBC % (auto) Anion Gap Estim Creat Clear Calc Estimated GFR POC Glucose 163 H 214 H Fasting Glucose Calcium Total Bilirubin AST ALT Alkaline Phosphatase Total Protein Albumin Assessment and Plan (1) Encephalopathy: Status: Acute (2) IZABELLA (acute kidney injury): Status: Acute Plan 88yo M with HTN, DM2, dementia, mood disorder, HLD, BPH,admitted to Gen Surg for early appendicitis managed medically with antibiotics hospitalist consultation for management of comorbid medical conditions 1.Acute encephalopathy - likely hospital-associated delirium .. Back to baseline per family - workup negative -continue to follow clinically 2.Early appendicitis -episode of right lower quadrant pain; repeat CT scan without significant changes -continue Zosyn ... 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 -plateaued -renal to follow as outpatient 5.HTN -acceptable control on current therapies - propranolol, Imdur, hydralazine 6.DM2 - acceptable control on current therapies -lispro correctional scale -adjust as indicated Quality Stroke Does the patient have a stroke diagnosis?: No VTE Prior VTE?: No VTE Risk Level:: Medical - moderate - high VTE Device Contraindication: N/A - Device Ordered VTE Drug Contraindication: Treatment Not Indicated
--- NOTE | 2023-09-24 16:03 | P.F2F_ITS ---
Service Date Service Date: 09/24/23 Encounter Date of encounter: 09/24/23 Encounter: Acute hospitalization Reasons for Services Signs and symptoms assessed: Physical therapy to improve gait training and balance and nursing to monitor respiratory status and assist with med management Reason for senior care: medication management, medication treatment and teach disease management Reason for physical therapy: home safety and mobility, gait/transfer training and ADL training Homebound: Leaving the home is medically contraindicated at this time without the asist of a device and/or another person due th the listed conditions above and below. Reason homebound: unsteady gait / fall risk, cognitively impaired / unsafe and unable to drive Certification: Based on the above findings, I certify that this patient is confined to the home and needs intermittent senior care care, physical therapy and/or speech therapy, or continues to need occupational therapy. The patient is under my ca re, and I have initiated the establishment of the plan of care. The patient will be followed by a physician who will periodically review the plan of care. Time Spent With Patient Time: Total time managing care of this patient today ____ minutes.
[2023-09-24 16:07] VITALS: BP 130/64
[2023-09-24 16:17] VITALS: PULSE 65; RESP 18; TEMP 36.1; O2SAT 96
[2023-09-24 16:18] LABS: Glucose, Whole Blood 197 mg/dL (60-115)
[2023-09-24 20:00] VITALS: BP 175/82; PULSE 65; RESP 20; TEMP 36.2; O2SAT 96
[2023-09-24 20:05] LABS: Glucose, Whole Blood 208 mg/dL (60-115)
[2023-09-24] MEDS: Atorvastatin Calcium 40 MG TABLET PO (20:18)
[2023-09-25 00:20] VITALS: BP 170/80
[2023-09-25] MEDS: amLODIPine Besylate 5 MG TABLET PO (00:49)
[2023-09-25] MEDS: 0.9 % Sodium Chloride Flush 3 ML SYRINGE IVFLUSH ×2 (00:49→08:37)
[2023-09-25 02:00] VITALS: BP 174/64
--- NOTE | 2023-09-25 02:37 | PC.NURSE ---
Pt's BP from midnight vitals was elevated 170/80, provider notified, 5mg Amlodipine given with little effect. Repeat BP 174/64 manual. Pt is sleeping comfortably.
[2023-09-25 03:31] VITALS: BP 178/77; PULSE 61; RESP 16; TEMP 36.1; O2SAT 94
[2023-09-25] MEDS: Piperacillin Sodium/Tazobactam 2.25 GM in 0.9 % Sodium Chloride 50 ML IV ×2 (04:08→10:25)
[2023-09-25] MEDS: Heparin Sodium,Porcine 5,000 UNIT/ML VIAL 5000 UNIT SUBCUT (04:08)
[2023-09-25 06:06] VITALS: BP 168/74
[2023-09-25 06:13] LABS: MANUAL DIFF FLAG NO
[2023-09-25 06:39] LABS: Alanine Aminotransferase 33 U/L (0-40); Albumin Level 2.9 g/dL (3.5-5.0); Alkaline Phosphatase 163 U/L (39-117); Anion Gap 12 (12-20); Aspartate Amino Transferase 39 U/L (5-37); Bilirubin Total 0.3 mg/dL (0.0-1.0); Blood Urea Nitrogen 28 mg/dL (9-16); Calcium 8.9 mg/dL (8.4-10.2); Carbon Dioxide 21 mmol/L (22-29); Chloride 110 mmol/L (96-108); Creatinine Clr Calc Pharmacy 14.4; Estimated Glomerular Filt Rate 16; Glucose Fasting 158 mg/dL (60-99); Potassium 3.3 mmol/L (3.3-5.1); Sodium 140 mmol/L (135-145); Total Protein 6.2 g/dL (6.5-8.0)
[2023-09-25 06:42] LABS: Basophils Absolute Auto 0.1 X10*3/uL (0.0-0.2); Eosinophils Absolute Auto 0.4 X10*3/uL (0.0-0.4); Eosinophils Percent Auto 3.4 % (0-4); Hematocrit 26.7 % (42.0-52.0); Hemoglobin 8.9 g/dl (14.0-18.0); Imm Gran Abs Auto 0.08 X10*3/uL (0.00-0.03); Imm Gran Pct Auto 0.7 % (0.0-0.4); Lymphocytes Absolute Auto 1.1 X10*3/uL (1.2-4.9); Lymphocytes Percent Auto 9.3 % (20-40); Mean Corpuscular HGB Conc 33.3 g/dl (31.0-36.0); Mean Corpuscular Hemoglobin 30.5 pg (27.0-33.0); Mean Corpuscular Volume 91.4 fL (80.0-98.0); Mean Platelet Volume 10.2 fL (9.4-12.4); Monocytes Absolute Auto 0.8 X10*3/uL (0.1-1.2); Monocytes Percent Auto 7.1 % (2-11); Neutrophils Absolute Auto 9.1 x10*3/uL (2.0-8.3); Neutrophils Percent Auto 78.5 % (45-73); Platelet Count 292 X10*3/uL (160-400); Red Blood Count 2.92 X10*6/uL (4.60-5.80); White Blood Count 11.5 X10*3/uL (4.8-10.8)
[2023-09-25 07:20] LABS: Glucose, Whole Blood 147 mg/dL (60-115)
[2023-09-25 07:59] VITALS: BP 156/60; PULSE 71; RESP 18; TEMP 36.7; O2SAT 94
[2023-09-25] MEDS: Propranolol HCL 20 MG TABLET PO (08:36)
[2023-09-25] MEDS: Famotidine/PF 20 MG/2 ML VIAL IVPUSH (08:37)
[2023-09-25] MEDS: hydrALAZINE HCl 25 MG TABLET PO (08:37)
[2023-09-25] MEDS: Isosorbide Mononitrate 30 MG TAB.ER.24H PO (08:37)
[2023-09-25] MEDS: Cyanocobalamin (Vitamin B-12) 500 MCG TABLET PO (08:37)
[2023-09-25] MEDS: Tamsulosin HCL 0.4 MG CAPSULE PO (08:37)
[2023-09-25] MEDS: Magnesium Oxide 400 MG TABLET PO (08:37)
[2023-09-25] MEDS: Memantine HCl 5 MG TABLET PO (08:37)
[2023-09-25] MEDS: Escitalopram Oxalate 10 MG TABLET PO (08:44)
[2023-09-25 11:24] LABS: Glucose, Whole Blood 275 mg/dL (60-115)
--- NOTE | 2023-09-25 11:35 | P.PNNP_ITS ---
Subjective Subjective Date of Service: 09/25/23 Interval history: Continues to improve. All recent data reviewed. D/W hospitalist Physical Exam 2 Vital Signs: Vital Signs: Last Vital Signs Temp 98.1 F 09/25/23 07:59 Pulse 71 09/25/23 07:59 Resp 18 09/25/23 07:59 BP 156/60 H 09/25/23 07:59 Pulse Ox 94 09/25/23 07:59 O2 Del Method Room Air 09/25/23 07:59 BMI result Body Mass Index 31.3 Const: General: no acute distress Eyes: EOM: EOMs intact bilaterally Neck: Neck: Yes supple Resp: Auscultation: diminished lung sounds Cardio: Rate: regular rate GI: Palpation (GI): Soft to palpation Neuro: General: moves all extremities Objective Data Labs 09/25/23 05:25 09/25/23 05:25 Labs: Laboratory Results - last 24 hr 09/24/23 09/24/23 09/25/23 16:13 19:56 05:25 WBC 11.5 H RBC 2.92 L Hgb 8.9 L Hct 26.7 L MCV 91.4 MCH 30.5 MCHC 33.3 RDW 13.0 Plt Count 292 MPV 10.2 Immature Gran % (Auto) 0.7 H Neut % (Auto) 78.5 H Lymph % (Auto) 9.3 L Dewitt % (Auto) 7.1 Eos % (Auto) 3.4 Baso % (Auto) 1.0 Lymph # (Auto) 1.1 L Dewitt # (Auto) 0.8 Eos # (Auto) 0.4 Baso # (Auto) 0.1 Abs Immat Gran (auto) 0.08 H Absolute Neuts (auto) 9.1 H Absolute Nucleated RBC 0.000 Nucleated RBC % (auto) 0.0 Sodium 140 Potassium 3.3 Chloride 110 H Carbon Dioxide 21 L Anion Gap 12 BUN 28 H Creatinine 3.69 H Estim Creat Clear Calc 14.4 Estimated GFR 16 POC Glucose 197 H 208 H Fasting Glucose 158 H Calcium 8.9 Total Bilirubin 0.3 AST 39 H ALT 33 Alkaline Phosphatase 163 H Total Protein 6.2 L Albumin 2.9 L 09/25/23 09/25/23 07:13 11:19 WBC RBC Hgb Hct MCV MCH MCHC RDW Plt Count MPV Immature Gran % (Auto) Neut % (Auto) Lymph % (Auto) Dewitt % (Auto) Eos % (Auto) Baso % (Auto) Lymph # (Auto) Dewitt # (Auto) Eos # (Auto) Baso # (Auto) Abs Immat Gran (auto) Absolute Neuts (auto) Absolute Nucleated RBC Nucleated RBC % (auto) Sodium Potassium Chloride Carbon Dioxide Anion Gap BUN Creatinine Estim Creat Clear Calc Estimated GFR POC Glucose 147 H 275 H Fasting Glucose Calcium Total Bilirubin AST ALT Alkaline Phosphatase Total Protein Albumin Microbiology Microbiology Results: Microbiology 09/13/23 14:07 Blood - Venous Blood Culture - Final No growth after 5 days. 09/13/23 14:07 Blood - Venous Blood Culture - Final No growth after 5 days. 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 Baseline creatinine is around 2.0 mg/dL. Had superimposed IZABELLA due to tubular injury. No evidence of obstruction. lisinopril on hold; Creatinine better/stable Concur with rest of current management; Shall arrange office F/U when D/Dave Progress Note: Quality Stroke Does the patient have a stroke diagnosis?: No
[2023-09-25] MEDS: Insulin Lispro 100 UNIT/ML 3 ML VIAL SUBCUT (11:42)
== END 2023-09-25 13:50 | disposition home health service (06) | DRG 393 ==
LOC: HO.ED 09-11 00:30 → HO.EDOVER 09-11 05:54 → HO.S3 09-11 19:30
PROVIDERS: Family Medicine; Hospitalist; Physician Assistant Medical; Admitting Provider Surgery; Emergency Provider Internal Medicine; PCP Student in an Organized Health Care Education/Training Program; Visit Provider Hospitalist
DX: K35.80 Unspecified acute appendicitis (principal); J69.0 Pneumonitis due to inhalation of food and vomit; N17.0 Acute kidney failure with tubular necrosis; F03.A3 Unspecified dementia, mild, with mood disturbance; F05 Delirium due to known physiological condition; N18.4 Chronic kidney disease, stage 4 (severe); N17.9 Acute kidney failure, unspecified; D63.1 Anemia in chronic kidney disease; D69.59 Other secondary thrombocytopenia; I12.9 Hypertensive chronic kidney disease with stage 1 through stage 4 chronic kidney disease, or unspecified chronic kidney disease; E11.22 Type 2 diabetes mellitus with diabetic chronic kidney disease; E78.5 Hyperlipidemia, unspecified; N40.0 Benign prostatic hyperplasia without lower urinary tract symptoms; Z20.822 Contact with and (suspected) exposure to COVID-19; Z87.891 Personal history of nicotine dependence; Z79.4 Long term (current) use of insulin; Z79.899 Other long term (current) drug therapy
CPT/HCPCS: 36415; 70450; 70551; 71045; 74176; 76700; 80048; 80053; 80076; 81001; 82607; 82746; 82803; 82947; 83605; 83690; 83735; 83880; 84145; 84443; 85025; 85027; 86140; 87040; 87633; 92526; 92610; 93005; 93306; 94640; 95816; 97110; 97116; 97162; 99285; J0131; J1630; J1644; J1940; J2270; J2405; J2543; J7120; P9047; Q9957

== ENCOUNTER 2023-09-11 05:47 | Outpatient (BNV) | payer MEDICARE, SELFPAY | END 2023-09-16 07:00 | PROVIDERS: Admitting Provider Surgery; Emergency Provider Internal Medicine; PCP Student in an Organized Health Care Education/Training Program; Visit Provider Internal Medicine Cardiovascular Disease | DX: I35.8 Other nonrheumatic aortic valve disorders (principal); I34.81 Nonrheumatic mitral (valve) annulus calcification; R93.1 Abnormal findings on diagnostic imaging of heart and coronary circulation | CPT/HCPCS: 93306 ==

== ENCOUNTER 2023-09-11 05:47 | Outpatient (BNV) | payer MEDICARE, SELFPAY | END 2023-09-11 07:20 | PROVIDERS: Admitting Provider Surgery; Emergency Provider Internal Medicine; PCP Student in an Organized Health Care Education/Training Program; Visit Provider Internal Medicine | DX: R94.31 Abnormal electrocardiogram [ECG] [EKG] (principal) | CPT/HCPCS: 93010 ==

== ENCOUNTER → 2023-09-11 05:47 | Outpatient (BNV) | payer MEDICARE, SELFPAY | PROVIDERS: Admitting Provider Surgery; Emergency Provider Internal Medicine; PCP Student in an Organized Health Care Education/Training Program; Visit Provider Clinical Nurse Specialist Psychiatric/Mental Health | DX: F03.911 Unspecified dementia, unspecified severity, with agitation (principal); G93.40 Encephalopathy, unspecified | CPT/HCPCS: 99222 ==

== ENCOUNTER → 2023-09-11 05:47 | Outpatient (BNV) | payer MEDICARE, SELFPAY | PROVIDERS: Admitting Provider Surgery; Emergency Provider Internal Medicine; PCP Student in an Organized Health Care Education/Training Program; Visit Provider Psychiatry & Neurology Neurology | DX: G93.40 Encephalopathy, unspecified (principal) | CPT/HCPCS: 99222 ==

== ENCOUNTER → 2023-09-11 05:47 | Outpatient (BNV) | payer MEDICARE, SELFPAY | PROVIDERS: Admitting Provider Surgery; Emergency Provider Internal Medicine; PCP Student in an Organized Health Care Education/Training Program; Visit Provider Physician Assistant | DX: N17.9 Acute kidney failure, unspecified (principal); N18.4 Chronic kidney disease, stage 4 (severe); G93.40 Encephalopathy, unspecified; K35.80 Unspecified acute appendicitis | CPT/HCPCS: 99222; 99231; 99232; 99233; 99239; G0180 ==

== ENCOUNTER → 2023-09-11 05:47 | Outpatient (BNV) | payer MEDICARE, SELFPAY | PROVIDERS: Admitting Provider Surgery; Emergency Provider Internal Medicine; PCP Student in an Organized Health Care Education/Training Program; Visit Provider Internal Medicine Nephrology | DX: N17.0 Acute kidney failure with tubular necrosis (principal); E11.22 Type 2 diabetes mellitus with diabetic chronic kidney disease; N18.4 Chronic kidney disease, stage 4 (severe); J18.9 Pneumonia, unspecified organism | CPT/HCPCS: 99223; 99232 ==

== ENCOUNTER → 2023-09-11 05:47 | Outpatient (BNV) | payer MEDICARE, SELFPAY | PROVIDERS: Admitting Provider Surgery; Emergency Provider Internal Medicine; PCP Student in an Organized Health Care Education/Training Program; Visit Provider Surgery | DX: R10.9 Unspecified abdominal pain (principal) | CPT/HCPCS: 99222; 99231; 99232; 99499 ==

== ENCOUNTER → 2023-10-02 15:52 | Outpatient (BNVA) | payer MEDICARE, SELFPAY | PROVIDERS: PCP Student in an Organized Health Care Education/Training Program; Visit Provider Internal Medicine Nephrology | DX: E11.22 Type 2 diabetes mellitus with diabetic chronic kidney disease (principal); I12.9 Hypertensive chronic kidney disease with stage 1 through stage 4 chronic kidney disease, or unspecified chronic kidney disease; N17.9 Acute kidney failure, unspecified; N18.4 Chronic kidney disease, stage 4 (severe) | CPT/HCPCS: 99212 ==

== ENCOUNTER 2023-10-02 16:00 | Outpatient (AMB) | payer MEDICARE, SELFPAY ==
--- NOTE | 2023-10-02 16:00 | HO.NEPHOV ---
Vital Signs 10/02/23 16:02 Height 5 ft 4 in Weight 183 lb 6 oz BMI 31.5 BP 134/50 L Blood Pressure Location Lt brachial Position Sitting Pulse 79 Pulse Source Pulse Oximeter Pulse Oximetry (%) 93 Oxygen Delivery Method Room Air Intake Visit Reasons: [facility]/ Unable to reach [employer] Required: No Accompanied by: Spouse Allergies No Known Allergies Allergy (Verified 10/02/23 16:08) HPI Comments Details: 88-year-old male who recently had a hospitalization on 09/11/2023 because of abdominal pain. He has known diabetes, chronic kidney disease. His CAT scan showed some mild inflammatory changes in the right lower quadrant near the appendix suggestive of early appendicitis. However, he also had other areas with fat stranding in the mesentery on other places in the abdomen. He continued to have improvement of his mental status back to baseline. He had IZABELLA but his creatinine levels remained stable around 3.5. He had a repeat CT scan during this admission which failed to demonstrate any changes save some mild ascites. He is here for follow up [facility] Medical History (Updated 10/02/23 @ 16:18 by Mario Rivero MD) Dementia with mood disturbance BPH (benign prostatic hyperplasia) HLD (hyperlipidemia) HTN (hypertension) DM renal manif type II Surgical History Hx of cataract surgery Hx of blepharoplasty Hx of colonoscopy Hx of lymph node excision Hx of melanoma excision Family History Mother No problems noted. Father Alzheimer disease Social History Household Members: Spouse Household Members Other:: Pt's Housing: House Do you presently have visiting nurse or other home services: No Alcohol intake: current Alcohol intake frequency: does not drink Comment: pt not impulsive or attempting to get OOOB Patient Tobacco Use Status: Former Tobacco user Second Hand Smoke Exposure: No service: Yes Review of Systems Const All systems reviewed & are unremarkable except as noted in HPI and below Physical Exam Vital Signs: Last Vital Signs Pulse 79 10/02/23 16:02 BP 134/50 L 10/02/23 16:02 Pulse Ox 93 10/02/23 16:02 Oxygen Delivery Method Room Air 10/02/23 16:02 BMI result Body Mass Index 31.5 Const General: comfortable and no acute distress Orientation/consciousness: patient oriented x3 HEENT Head: Yes normocephalic Mouth: Normal oral and palatal mucosa present Eyes EOM: EOMs intact bilaterally Neck Neck: Yes supple Resp Auscultation: clear to auscultation bilaterally Cardio Jugular venous distension: no JVD Rate: regular rate GI Palpation (GI): Soft to palpation Auscultation: normal bowel sounds General: Yes no CVA tenderness Back/Spine/Pelvis Back: no CVA tenderness Skin General skin exam: no rashes or lesions noted Neuro General: patient oriented x3 and moves all extremities Extrem General: Yes no pedal edema Results Reviewed Nephrology Results: Hgb 8.9 g/dl (14.0-18.0) L 09/25/23 WBC 11.5 X10*3/uL (4.8-10.8) H 09/25/23 Plt Count 292 X10*3/uL (160-400) 09/25/23 Sodium 140 mmol/L (135-145) 09/25/23 Potassium 3.3 mmol/L (3.3-5.1) 09/25/23 Chloride 110 mmol/L (96-108) H 09/25/23 Carbon Dioxide 21 mmol/L (22-29) L 09/25/23 BUN 28 mg/dL (9-16) H 09/25/23 Creatinine 3.69 mg/dL (0.5-1.4) H 09/25/23 Calcium 8.9 mg/dL (8.4-10.2) 09/25/23 Urine Protein 300 (3+) mg/dL (Neg-Trace) H 09/11/23 Assessment & Plan Assessment & Plan (1) Acute on chronic renal failure: Code(s): N17.9 - Acute kidney failure, unspecified; N18.9 - Chronic kidney disease, unspecified Category: Medical (2) CKD (chronic kidney disease) stage 4, GFR 15-29 ml/min: Code(s): N18.4 - Chronic kidney disease, stage 4 (severe) Category: Medical (3) HTN (hypertension): Code(s): I10 - Essential (primary) hypertension Category: Medical Qualifiers: Hypertension type: primary hypertension Qualified Code(s): I10 - Essential (primary) hypertension Plan 88-year-old man with 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 Baseline creatinine is around 2.0 mg/dL. Had superimposed IZABELLA due to tubular injury. No evidence of obstruction. lisinopril on hold; Creatinine better/stable Concur with rest of current management for now. Can re introduce ACEI once IZABELLA has resolved Coding Level of Care Code Est Pt Level 4 (03945) Diagnoses Acute on chronic renal failure N17.9; N18.9 CKD (chronic kidney disease) stage 4, GFR 15-29 ml/min N18.4 Primary hypertension I10 Hypertension type: primary hypertension
[2023-10-02 16:02] VITALS: BP 134/50; PULSE 79; O2SAT 93; BMI 31.5
== END 2023-10-02 16:34 | disposition home or self-care (01) ==
PROVIDERS: PCP Student in an Organized Health Care Education/Training Program; Visit Provider Internal Medicine Nephrology
DX: N17.9 Acute kidney failure, unspecified (principal); I12.9 Hypertensive chronic kidney disease with stage 1 through stage 4 chronic kidney disease, or unspecified chronic kidney disease; E11.22 Type 2 diabetes mellitus with diabetic chronic kidney disease; N18.4 Chronic kidney disease, stage 4 (severe)
CPT/HCPCS: 99214